=== PATIENT | female | born 1970 | race Caucasian/White ===

== ENCOUNTER 2021-12-07 11:44 | Inpatient (IN) ==
--- NOTE | 2021-12-07 12:23 | Emergency Department Note ---
History of Present Illness General Chief complaint: Shortness of Breath/Dyspnea Time Seen by Provider: 12/07/21 12:09 History of Present Illness 51-year-old female presents to the ED with a chief complaint of shortness of breath. She states that she felt shortness of breath and shakiness when she got to work today. She states that she has had some symptoms like this since May but today was much worse. She does not use home oxygen. She was found to have oxygen saturations of 81% by EMS. The patient does report a cough for the past couple of days as well as some wheezing. She states that she is a smoker but does not have a diagnosis of COPD. She does report some left calf pain for the past 6 weeks or so. Denies any upper respiratory symptoms other than the dry cough to suggest she has an upper respiratory illness. Home Medications Medication Instructions Recorded Confirmed Type ibuprofen 200 mg tablet 200 - 1,000 mg PO DIRECTED PRN 09/09/20 12/02/21 History lancets (Platypus TVTouch UltraSoft #200 ea 02/22/21 12/02/21 Rx Lancets) blood sugar diagnostic (OneTouch #200 ea 12/02/21 12/02/21 Rx Verio test strips) blood-glucose meter (OneTouch #1 ea 12/02/21 12/02/21 Rx Verio Meter) celecoxib 100 mg capsule (Celebrex) 100 mg PO BID #60 cap 12/02/21 12/02/21 Rx cyclobenzaprine 10 mg tablet 10 mg PO BID PRN #30 tab 12/02/21 12/02/21 Rx metformin 500 mg tablet 250 mg PO BID PRN tab 12/02/21 History Allergies Allergy/AdvReac Type Severity Reaction Status Date / Time amoxicillin AdvReac CAUSE A Verified 12/02/21 09:12 YEAST INFECTION Past Med/Surg History Medical History Diabetes Heartburn History of bronchitis Morbid obesity with BMI of 60.0-69.9, adult Osteoarthritis of lumbar spine Tobacco use Surgical History History of mandibular surgery History of tubal ligation Family History Mother Diabetes Heart disease Hypertension Grandmother (Maternal) Diabetes Grandmother (Paternal) Diabetes Brother Diabetes Heart disease Myocardial infarction Abdominal aneurysm Aneurysm artery, neck Hypertension Stroke Sister , Age 56 Diabetes Heart disease Hypertension Father Heart disease Myocardial infarction Hypertension Stroke Aunt Cancer Uncle Cancer Denies family history of Ovarian cancer Prostate cancer Breast cancer Colorectal cancer Social History Smoking Status: Current every day smoker Tobacco Type: Cigarettes Age Started Using Tobacco: 19; packs per day: 1; Second Hand Exposure: Yes; Hx Alcohol Use: Yes Alcohol type: hard liquor Alcohol Intake Frequency: Monthly or Less Hx Substance Use: No Preferred Language: Swiss Communication Ability: Effective Visual Impairment: Limited Hearing Ability: Normal 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 marital status: Current Living Situation: Significant Other Current Living Situation Comment: Boyfriend current occupational status: employed current occupation: [employer] How many Children do You have: 3 How many Children do You have Comment: 2 boys, 1 girl all Grown Feels Safe at Home: Yes Childhood Exposure to Second-Hand Smoke: Yes caffeine: Yes Dental Care, Regularly: No Physical Activity Frequency: Does not Exercise Seatbelt Use: never Sunscreen Use: No Do you think of yourself as: straight/heterosexual Review of Systems A total of 10 systems reviewed and were otherwise negative Physical Exam Vital Signs Vital Signs - 24 hr 12/07/21 11:51 12/07/21 13:00 Temperature 37 C Temperature Source Oral Pulse Rate 99 H 92 H Pulse Rate from SpO2 Sensor 91 H Pulse Rhythm Regular Respiratory Rate 22 Respiratory Effort / Characteristics Non-Labored Spontaneous Respiratory Depth Shallow Respiratory Pattern Regular Blood Pressure 155/89 H 155/89 H Blood Pressure Mean 111 111 Blood Pressure Position Semi-fowlers Pulse Oximetry 81 L 96 Oxygen Delivery Method Room Air Nasal Cannula Oxygen Flow Rate 0 Sepsis Recent Fever Within 48 Hours No Sepsis New/Unexplained Change in Mental Status No Sepsis Action Taken by Nursing No Action Required Oxygen Flow Rate - Titration 6 Pulse Oximetry Post Tiitration 94 CONSTITUTIONAL/VITAL SIGNS: Reviewed / noted above. GENERAL: Non-toxic in appearance. INTEGUMENTARY: Warm, dry, and [place]. HEAD: Normocephalic. EYES: without scleral icterus or trauma. ENT/OROPHARYNX: clear and moist. RESPIRATORY: Clear but diminished to auscultation bilaterally. No increased work of breathing. CARDIOVASCULAR: Regular rate and rhythm. GI/ABDOMEN: Soft and nontender. No organomegaly or pulsatile mass. EXTREMITIES: Warm and well perfused. Left calf tenderness. NEUROLOGICAL: Intact without focal deficits. PSYCHIATRIC: normal affect. MUSCULOSKELETAL: Normally developed with good muscle tone. TRIAGE NURSING DOCUMENTATION REVIEWED. Course Administered Medications Discontinued Medications Ioversol (Optiray 320 125ml) 120 ml IV ONCE ONE Stop: 12/07/21 13:55 Last Admin: 12/07/21 13:56 Dose: 120 ml Documented by: [id number] Critical Care Time Critical Care Time: Yes Total Critical Care Time: 30 I have personally spent 30 minutes of critical care time in the direct management of this patient. This includes bedside care, interpretation of diagnostic studies, and testing, discussion with consultants, patient, and family members, and other required patient management activities. This 30 minutes is in excess of all separately billable procedures. Medical Decision Making Differential Diagnosis The differential was considered includes acute myocardial infarction, acute coronary syndrome, myocarditis, pericarditis, pericardial effusions /tamponad, esophageal perforation, pulmonary embolism, pneumonia, pneumothorax, cardiomyopathy, congestive heart, anemia , COPD/asthma exacerbation. Medical Records Attestation: I reviewed the patient's medical records. Home Medications Current Medication List: was personally reviewed by me Laboratory Data Attestation: I reviewed the patient's lab results. Result diagrams: 12/07/21 12:37 12/07/21 12:37 Lab Results 12/07/21 12/07/21 12/07/21 Range/Units 12:37 12:37 12:37 WBC 13.97 H (4.8-10.8) K/uL RBC 4.54 (4.2-5.4) M/uL Hgb 13.6 (12.0-16.0) g/dL Hct 39.7 (37-47) % MCV 87.4 (80-100) fL MCH 30.0 (25-34) pg MCHC 34.3 (32-36) g/dL RDW Std Deviation 45.7 (36.4-46.3) fL RDW Coeff of Ana 14.3 (11.5-14.5) % Plt Count 212 (130-400) K/uL MPV 9.5 (7.4-10.4) fL Immature Gran % (Auto) 0.3 % Neut % (Auto) 78.2 % Lymph % (Auto) 15.3 % [place] % (Auto) 4.7 % Eos % (Auto) 1.4 % Baso % (Auto) 0.1 % Neut # (Auto) 10.93 H (1.4-6.5) K/uL Lymph # (Auto) 2.14 (1.2-3.4) K/uL [place] # (Auto) 0.66 H (0.11-0.59) K/uL Eos # (Auto) 0.19 (0-0.5) K/uL Baso # (Auto) 0.01 (0-0.2) K/uL Immature Gran # (Auto) 0.04 H (0.00-0.02) K/uL PT 10.2 (9.0-12.0) Seconds INR 1.0 (0.9-1.1) APTT 22.5 (21.0-31.0) Seconds PTT Ratio 0.8 D-Dimer 3020 H* (0-500) ug/L FEU VBG pH (7.36-7.41) VBG pCO2 (38-50) mmHg VBG pO2 mmHg VBG HCO3 mmol/L VBG O2 Saturation % VBG Base Excess mEq/L Barometric Pressure mm/Hg Sodium 138 (136-145) mmol/L Potassium 3.7 (3.5-5.1) mmol/L Chloride 106 (98-107) mmol/L Carbon Dioxide 24 (21-32) mmol/L Anion Gap 8 (3-11) BUN 11 (6-23) mg/dl Creatinine 0.62 (0.6-1.2) mg/dl Est Cr Clr Drug Dosing 174.1 ml/min Est GFR ( Amer) 121.0 ml/min Est GFR (Non-Af Amer) 104.4 ml/min BUN/Creatinine Ratio 17.7 (10-20) Glucose 200 H (70-99(Fasting)) mg/dl Calcium 8.9 (8.5-10.1) mg/dl Total Bilirubin 0.9 (0.2-1.0) mg/dl AST 22 (13-39) U/L ALT 25 (7-52) U/L Alkaline Phosphatase 79 (34-104) U/L Troponin I High Sens 45.6 H (0-14) pg/ml Total Protein 6.7 (6.0-8.3) gm/dl Albumin 3.6 (3.4-5.0) gm/dl Globulin 3.1 (2.5-4.0) gm/dl Albumin/Globulin Ratio 1.2 (0.9-2) SARS-CoV-2, RNA, NAAT (NEGATIVE) 12/07/21 12/07/21 Range/Units 12:37 12:46 WBC (4.8-10.8) K/uL RBC (4.2-5.4) M/uL Hgb (12.0-16.0) g/dL Hct (37-47) % MCV (80-100) fL MCH (25-34) pg MCHC (32-36) g/dL RDW Std Deviation (36.4-46.3) fL RDW Coeff of Ana (11.5-14.5) % Plt Count (130-400) K/uL MPV (7.4-10.4) fL Immature Gran % (Auto) % Neut % (Auto) % Lymph % (Auto) % [place] % (Auto) % Eos % (Auto) % Baso % (Auto) % Neut # (Auto) (1.4-6.5) K/uL Lymph # (Auto) (1.2-3.4) K/uL [place] # (Auto) (0.11-0.59) K/uL Eos # (Auto) (0-0.5) K/uL Baso # (Auto) (0-0.2) K/uL Immature Gran # (Auto) (0.00-0.02) K/uL PT (9.0-12.0) Seconds INR (0.9-1.1) APTT (21.0-31.0) Seconds PTT Ratio D-Dimer (0-500) ug/L FEU VBG pH 7.44 H (7.36-7.41) VBG pCO2 37 L (38-50) mmHg VBG pO2 49 mmHg VBG HCO3 24 mmol/L VBG O2 Saturation 83.8 % VBG Base Excess 0.2 mEq/L Barometric Pressure 734.2 mm/Hg Sodium (136-145) mmol/L Potassium (3.5-5.1) mmol/L Chloride (98-107) mmol/L Carbon Dioxide (21-32) mmol/L Anion Gap (3-11) BUN (6-23) mg/dl Creatinine (0.6-1.2) mg/dl Est Cr Clr Drug Dosing ml/min Est GFR ( Amer) ml/min Est GFR (Non-Af Amer) ml/min BUN/Creatinine Ratio (10-20) Glucose (70-99(Fasting)) mg/dl Calcium (8.5-10.1) mg/dl Total Bilirubin (0.2-1.0) mg/dl AST (13-39) U/L ALT (7-52) U/L Alkaline Phosphatase (34-104) U/L Troponin I High Sens (0-14) pg/ml Total Protein (6.0-8.3) gm/dl Albumin (3.4-5.0) gm/dl Globulin (2.5-4.0) gm/dl Albumin/Globulin Ratio (0.9-2) SARS-CoV-2, RNA, NAAT NEGATIVE (NEGATIVE) Imaging Data Radiologist's Impression: Chest X-Ray 12/07/21 12:09 XR chest 1V portable CLINICAL HISTORY: Dyspnea TECHNIQUE: Single frontal radiograph of the chest was obtained. Comparison: Comparison is made to chest radiograph 03/19/2020 FINDINGS: No lines and tubes are seen. Cardiomegaly is noted. Prominence and cephalization of the vasculature is seen. No evidence of pleural effusion or pneumothorax. IMPRESSION: Mild pulmonary edema. ACT 112: Negative or not required by law. Electronically signed by: Samuel Taylor M.D. 12/07/2021 12:45 PM Chest CTA 12/07/21 12:17 CT angio chest PE protocol CLINICAL HISTORY: sob TECHNIQUE: Multidetector row helical CT of the chest was performed with angiographic protocol. Coronal and sagittal reformations were obtained. Coronal and sagittal MIPS were obtained from the axial data set and were submitted for review. Automated dose lowering techniques and/or adjustment according to patient size were utilized for this exam. CT DOSE: 989.31 mGy.cm Comparison: None available at the time of this dictation. FINDINGS: Lungs and pleura: Normal. Heart and pericardium: Heart size is normal. No pericardial effusion. No right heart strain is seen. Vessels: Pulmonary emboli are seen in lobar, segmental, and subsegmental branches of the right middle, lower, and left lower lobes. Segmental emboli are seen in the left upper lobe as well. Mediastinum and jacky: Unremarkable. Chest wall and lower neck: Unremarkable. Abdomen: Unremarkable. Bones: Degenerative changes in the thoracic spine. IMPRESSION: Extensive pulmonary emboli in all lobes of the lung, involving lobar, segmental, and subsegmental branches. No evidence of right heart strain is seen. ACT 112: Negative or not required by law. Electronically signed by: Samuel Taylor M.D. 12/07/2021 2:11 PM ECG Data Attestation: I personally reviewed and interpreted this ECG as follows: Additional Comments: Twelve-lead EKG: Per my interpretation shows a sinus tach at a rate of 104. No ST elevation. No PVCs. Normal QTC. MDM Narrative 51-year-old female presents with shortness of breath and hypoxia with some left calf pain and a dry cough for 2 days. Vital signs show oxygen saturations of 81% on room air. She has some high blood pressure. Exam reveals some left calf tenderness as well some diminished breath sounds bilaterally. EKG shows a sinus tach. White blood cell count is 13.9. D-dimer was elevated. Metabolic panel was unremarkable. Troponin was elevated slightly at 45. COVID test was negative. VBG was unremarkable. Chest x-ray did not show acute process. CT sc an of the chest shows extensive bilateral PEs. The patient was told the result. She was started on IV heparin. She will be admitted to the hospital for further evaluation and care. Impression & Plan Hypoxia, Bilateral pulmonary embolism Discharge Plan Visit Data Chief Complaint: Shortness of Breath/Dyspnea ED Provider: Gavin Reynolds Discharge Problem: Hypoxia, Bilateral pulmonary embolism Patient Disposition: Admitted As Inpatient Forms Stand Alone Forms: My [facility], Virtual Emergency Department, Important Visit Information Prescriptions Prescriptions: No Action metformin 500 mg tablet 250 mg PO BID PRNRF: 0 (DME) blood-glucose meter [OneTouch Verio Meter] Misc See Rx Instructions .Route Qty: 1 RF: 0 (DME) OneTouch Verio test strips Strip See Rx Instructions .Route Qty: 200 RF: 3 celecoxib [Celebrex] 100 mg capsule 100 mg PO BID Qty: 60 RF: 0 cyclobenzaprine 10 mg tablet 10 mg PO BID PRN (Reason: muscle spasm) Qty: 30 RF: 0 (DME) lancets [OneTouch UltraSoft Lancets] Misc See Rx Instructions .Route Qty: 200 RF: 3 ibuprofen 200 mg Tablet 200 - 1,000 mg PO DIRECTED PRN (Reason: Pain) RF: 0 Referrals Referrals: Wolfgang Alamo DO [Primary Care Provider] -
--- NOTE | 2021-12-07 12:47 | XRay Report ---
XR chest 1V portable CLINICAL HISTORY: Dyspnea TECHNIQUE: Single frontal radiograph of the chest was obtained. Comparison: Comparison is made to chest radiograph 03/19/2020 FINDINGS: No lines and tubes are seen. Cardiomegaly is noted. Prominence and cephalization of the vasculature i s seen. No evidence of pleural effusion or pneumothorax. IMPRESSION: Mild pulmonary edema. ACT 112: Negative or not required by law. Electronically signed by: Samuel Taylor M.D. 12/07/2021 12:45 PM
[2021-12-07 12:52] LABS: Basophils # (auto) 0.01 K/uL (0-0.2); Basophils % (auto) 0.1 %; Eosinophils # (auto) 0.19 K/uL (0-0.5); Eosinophils % (auto) 1.4 %; Hematocrit (blood only) 39.7 % (37-47); Hemoglobin 13.6 g/dL (12.0-16.0); Immature Granulocytes # (auto) 0.04 K/uL (0.00-0.02); Immature Granulocytes % (auto) 0.3 %; Lymphocytes # (auto) 2.14 K/uL (1.2-3.4); Lymphocytes % (auto) 15.3 %; Mean Corpuscular Hgb Conc 34.3 g/dL (32-36); Mean Corpuscular Volume 87.4 fL (80-100); Mean Platelet Volume 9.5 fL (7.4-10.4); Monocytes # (auto) 0.66 K/uL (0.11-0.59); Monocytes % (auto) 4.7 %; Neutrophils # (auto) 10.93 K/uL (1.4-6.5); Neutrophils % (auto) 78.2 %; Platelet Count 212 K/uL (130-400); RDW Coefficient of Variation 14.3 % (11.5-14.5); RDW Standard Deviation 45.7 fL (36.4-46.3); Red Blood Count 4.54 M/uL (4.2-5.4); White Blood Count 13.97 K/uL (4.8-10.8)
[2021-12-07 12:58] LABS: Base Excess VBG 0.2 mEq/L; Oxygen Saturation VBG 83.8 %; pH VBG 7.44 (7.36-7.41)
[2021-12-07 13:06] LABS: Partial Thromboplastin Ratio 0.8; Partial Thromboplastin Time 22.5 Seconds (21.0-31.0); Prothrombin Time 10.2 Seconds (9.0-12.0)
[2021-12-07 13:17] LABS: Albumin Globulin Ratio 1.2 (0.9-2); Albumin Level 3.6 gm/dl (3.4-5.0); BUN Creatinine Ratio 17.7 (10-20); Bilirubin,Total 0.9 mg/dl (0.2-1.0); Calcium 8.9 mg/dl (8.5-10.1); Creatinine Clr Calc Pharmacy 174.1 ml/min; Est GFR (Non-African American) 104.4 ml/min; Globulin 3.1 gm/dl (2.5-4.0); Potassium 3.7 mmol/L (3.5-5.1); Total Protein 6.7 gm/dl (6.0-8.3)
[2021-12-07 13:22] LABS: Troponin I High Sensitivity 45.6 pg/ml (0-14)
[2021-12-07 13:26] LABS: D Dimer 3020 ug/L FEU (0-500)
[2021-12-07] MEDS ORDERED: OPTIRAY 320 125ml IV ONE (13:54)
--- NOTE | 2021-12-07 14:13 | CT Scan Report ---
CT angio chest PE protocol CLINICAL HISTORY: sob TECHNIQUE: Multidetector row helical CT of the chest was performed with angiographic protocol. Garrison l and sagittal reformations were obtained. Coronal and sagittal MIPS were obtained from the axial naomi a set and were submitted for review. Automated dose lowering techniques and/or adjustment according to patient size were utilized for this exam. CT DOSE: 989.31 mGy.cm Comparison: None available at the time of this dictation. FINDINGS: Lungs and pleura: Normal. Heart and pericardium: Heart size is normal. No pericardial effusion. No right heart strain is seen. Vessels: Pulmonary emboli are seen in lobar, segmental, and subsegmental branches of the right middle , lower, and left lower lobes. Segmental emboli are seen in the left upper lobe as well. Mediastinum and jacky: Unremarkable. Chest wall and lower neck: Unremarkable. Abdomen: Unremarkable. Bones: Degenerative changes in the thoracic spine. IMPRESSION: Extensive pulmonary emboli in all lobes of the lung, involving lobar, segmental, and subsegmental bra nches. No evidence of right heart strain is seen. ACT 112: Negative or not required by law. Electronically signed by: Samuel Taylor M.D. 12/07/2021 2:11 PM
[2021-12-07] MEDS ORDERED: Heparin IV Adult Wt-Based Standard WITH Bolus Protocol IV STA (14:19)
[2021-12-07] MEDS ORDERED: HEPARIN SOD (PORCINE) 1000 UNIT/ML IV ONE (14:34)
--- NOTE | 2021-12-07 14:43 | History & Physical Report ---
Date of Service December 07, 2021 Assessment & Plan (1) Bilateral pulmonary embolism: Plan: IV heparin standard bolus and drip. Recommend transitioning to warfarin rather than DOAC due to her high BMI. Recommend at least 6 months of treatment given extensive clot burden. ?provoked from smoking +/- COVID. If she continues to smoke may need prophylaxis longer term. (2) Hypoxia: Plan: Aim O2 sats > 94%, requiring 6LPM O2 on admission Recommend outpatient sleep study for CALEB (3) Diabetes: Plan: Hemoglobin A1C 8.5 Patient just started on metformin outpatient but not yet picked up this medication Start Lantus 8 units BID Novolog: Goal BSG Range: Low 110 mg/dL, High 140 mg/dL Correction Factor: 25 mg/dL/unit Carbohydrate ratio = 12 g/unit BSGs ACHS if eating, q6h if npo (4) Tobacco use disorder: Plan: Nicotine patch 14mg Nicotine gum Plan: VTE Prophylaxis - IV heparin as above Diet - T2DM Disposition - admit to PCU Admission and Anticipated Discharge Date Admission Date: December 07, 2021 History of Present Illness Chief Complaint: Shortness of breath Primary Care Provider: Wolfgang Alamo DO Halina Mason is a 51 year old female admission who presents to the ER with shortness of breath. She reports feeling short of breath just walking from her car to work this morning and couldn't catch her breath so her boss called EMS and brought her to the emergency room. She reports never fully recovering from when she had COVID in May and has been getting progressively short of breath since then but much worse the last few days. She was not hospitalized wi th COV but had cold symptoms and shortness of breath. She denies any chest pain. She also reports left leg pain for the last week, US venous doppler negative at that time for DVT. She was vaccinated with Moderna vaccine in September/October 2020. Did not get booster. She continues to smoke 1 pack/day. No contraceptives or estrogen. No recent long haul journeys. Family history of blood clots with her niece and brother. She is diabetic but stopped metformin 10 months ago per PCP note due to not receiving her glucometer. She was recently prescribed metformin again but is yet to pick this up. In the ER d-dimer was elevated 3020, subsequent CT for PE showed extensive pulmonary emboli. She was started on IV standard heparin bolus and drip and referred to medicine for admission and ongoing management of pulmonary emboli. Allergies Allergy/AdvReac Type Severity Reaction Status Date / Time amoxicillin AdvReac CAUSE A Verified 12/07/21 15:07 YEAST INFECTION Home Medications Medication Instructions Recorded Confirmed Type ibuprofen 200 mg tablet 200 - 1,000 mg PO DIRECTED PRN 09/09/20 12/07/21 History lancets (OneTouch UltraSoft #200 ea 02/22/21 12/02/21 Rx Lancets) blood sugar diagnostic (OneTouch #200 ea 12/02/21 12/02/21 Rx Verio test strips) blood-glucose meter (OneTouch #1 ea 12/02/21 12/02/21 Rx Verio Meter) celecoxib 100 mg capsule (Celebrex) 100 mg PO BID #60 cap 12/02/21 12/07/21 Rx cyclobenzaprine 10 mg tablet 10 mg PO BID PRN #30 tab 12/02/21 12/07/21 Rx metformin 500 mg tablet 250 mg PO BID tab 12/02/21 12/07/21 History Past Med/Surg History Medical History Diabetes Heartburn History of bronchitis Morbid obesity with BMI of 60.0-69.9, adult Osteoarthritis of lumbar spine Tobacco use Surgical History History of mandibular surgery History of tubal ligation Family History Mother Diabetes Heart disease Hypertension Grandmother (Maternal) Diabetes Grandmother (Paternal) Diabetes Brother Diabetes Heart disease Myocardial infarction Abdominal aneurysm Aneurysm artery, neck Hypertension Stroke Sister , Age 56 Diabetes Heart disease Hypertension Father Heart disease Myocardial infarction Hypertension Stroke Aunt Cancer Uncle Cancer Denies family history of Ovarian cancer Prostate cancer Breast cancer Colorectal cancer Social History Smoking Status: Current every day smoker Tobacco Type: Cigarettes Age Started Using Tobacco: 19; packs per day: 1; Cigarettes Per Day: 1 pack a day; Second Hand Exposure: Yes; Do You Dip or Chew Tobacco: No; Tobacco Cessation Education Requested by Patient: Yes Hx Alcohol Use: No Hx Substance Use: No Preferred Language: Iraqi Communication Ability: Effective Visual Impairment: Limited Hearing Ability: Normal 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: No Beliefs That Will Affect Care: None marital status: Current Living Situation: Significant Other Current Living Situation Comment: Boyfriend current occupational status: employed current occupation: [employer] How many Children do You have: 3 How many Children do You have Comment: 2 boys, 1 girl all Grown Other Information That Helps Us Care for You: No Feels Safe at Home: Yes Safety Concerns: Feels Safe At This Time Childhood Exposure to Second-Hand Smoke: Yes caffeine: Yes Dental Care, Regularly: No Physical Activity Frequency: Does not Exercise Seatbelt Use: never Sunscreen Use: No Do you think of yourself as: straight/heterosexual Assistive Devices: Glasses and Oxygen - Continuous Review of Systems Review of Systems: All systems reviewed & are unremarkable except as noted in HPI & below Physical Exam Constitutional: well developed and + morbidly obese; + not well nourished and no acute distress ENMT: Mouth: + poor dentition Respiratory: normal respiratory effort, lungs clear to auscultation Cardiovascular: Rate/Rhythm: regular rate and regular rhythm Heart Sounds: no murmur Extremities: + pedal edema (trace pre-tibial b/l equal) Gastrointestinal (Abdomen): normal bowel sounds, soft, nontender, no hepatosplenomegaly Musculoskeletal: no cyanosis or clubbing, extremities motor strength 5/5 Skin: no rashes, warm and dry Neurologic: moves all extremities and awake; not confused Psychiatric: A+Ox3, euthymic affect Results & Data Results & Data ([facility]) Vital Signs (Past 12 Hours) Vital Signs Temp Pulse Resp BP Pulse Ox 12/07/21 13:00 92 H 22 155/89 H 96 12/07/21 11:51 37 C 99 H 155/89 H 81 L Laboratory Results Abnormal lab results 12/07/21 12/07/21 12/07/21 Range/Units 12:37 12:37 12:37 WBC 13.97 H (4.8-10.8) K/uL Neut # (Auto) 10.93 H (1.4-6.5) K/uL [place] # (Auto) 0.66 H (0.11-0.59) K/uL Immature Gran # (Auto) 0.04 H (0.00-0.02) K/uL APTT (21.0-31.0) Seconds D-Dimer 3020 H* (0-500) ug/L FEU VBG pH (7.36-7.41) VBG pCO2 (38-50) mmHg Glucose 200 H (70-99(Fasting)) mg/dl POC Glucose (70-99) mg/dl Troponin I High Sens 45.6 H (0-14) pg/ml 12/07/21 12/07/21 12/07/21 Range/Units 12:37 20:22 22:28 WBC (4.8-10.8) K/uL Neut # (Auto) (1.4-6.5) K/uL [place] # (Auto) (0.11-0.59) K/uL Immature Gran # (Auto) (0.00-0.02) K/uL APTT 39.4 H (21.0-31.0) Seconds D-Dimer (0-500) ug/L FEU VBG pH 7.44 H (7.36-7.41) VBG pCO2 37 L (38-50) mmHg Glucose (70-99(Fasting)) mg/dl POC Glucose 265 H (70-99) mg/dl Troponin I High Sens (0-14) pg/ml Diagnostic Findings XR chest 1V portable CLINICAL HISTORY: Dyspnea TECHNIQUE: Single frontal radiograph of the chest was obtained. Comparison: Comparison is made to chest radiograph 03/19/2020 FINDINGS: No lines and tubes are seen. Cardiomegaly is noted. Prominence and cephalization of the vasculature is seen. No evidence of pleural effusion or pneumothorax. IMPRESSION: Mild pulmonary edema. CT angio chest PE protocol CLINICAL HISTORY: sob TECHNIQUE: Multidetector row helical CT of the chest was performed with angiographic protocol. Coronal and sagittal reformations were obtained. Coronal and sagittal MIPS were obtained from the axial data set and were submitted for review. Automated dose lowering techniques and/or adjustment according to patient size were utilized for this exam. CT DOSE: 989.31 mGy.cm Comparison: None available at the time of this dictation. FINDINGS: Lungs and pleura: Normal. Heart and pericardium: Heart size is normal. No pericardial effusion. No right heart strain is seen. Vessels: Pulmonary emboli are seen in lobar, segmental, and subsegmental branches of the right middle, lower, and left lower lobes. Segmental emboli are seen in the left upper lobe as well. Mediastinum and jacky: Unremarkable. Chest wall and lower neck: Unremarkable. Abdomen: Unremarkable. Bones: Degenerative changes in the thoracic spine. IMPRESSION: Extensive pulmonary emboli in all lobes of the lung, involving lobar, segmental, and subsegmental branches. No evidence of right heart strain is seen. Medications Administered ER Medications Given: Heparin IV standard bolus and drip ECG Indication: SOB/dyspnea Rate (beats per minute): 104 Rhythm: sinus tachycardia Findings: no acute ischemic change Comparison ECG Date: from (March 19, 2020) Change: no significant change (rate increased) Code Status & VTE Plan Code Status Full VTE Prophylaxis Plan VTE Prophylaxis will be ordered: Yes PG Care Time/CCT Total # of Minutes Spent Total Time Spent with Patient: Total time spent is greater than 50% in coordination of care (as documented) at patient's floor/unit and/or counseling patient: Coding Level of Care Code 15564 Initial Inpt Care Lvl 3 Diagnoses Bilateral pulmonary embolism I26.99 Hypoxia R09.02 Diabetes E11.9 Tobacco use disorder F17.200
[2021-12-07] MEDS: HEPARIN SODIUM/DEXTROSE 25,000 UNITS/500 ML BAG IV SCH (15:21)
--- NOTE | 2021-12-07 17:23 | Electrocardiogram Report ---
Test Reason : Blood Pressure : / mmHG Vent. Rate : 104 BPM Atrial Rate : 104 BPM P-R Int : 166 ms QRS Dur : 082 ms QT Int : 354 ms P-R-T Axes : 057 056 059 degrees QTc Int : 465 ms Poor data quality, interpretation may be adversely affected Sinus tachycardia Otherwise normal ECG When compared with ECG of 19-MAR-2020 16:10, No significant change was found Confirmed by Luisito Mercado ([id number]) on 12/07/2021 5:22:41 PM Referred By: REFERRED SELF Confirmed By:Davide Mercado
[2021-12-07] MEDS: NICOTINE 14 MG/24 HR PATCH TD SCH (18:43)
[2021-12-07] MEDS: NICOTINE POLACRILEX 2 MG GUM MT PRN (19:10)
[2021-12-07] MEDS ORDERED: GLUCOSE 10 TABS/TUBE PO PRN (20:22)
[2021-12-07] MEDS ORDERED: GLUCAGON FOR INJ 1 MG VIAL SQ PRN (20:22)
[2021-12-07] MEDS ORDERED: GLUCOSE 40% GEL 15 GM TUBE PO PRN (20:22)
[2021-12-07] MEDS ORDERED: CARBOHYDRATES FOR HYPOGLYCEMIA PO PRN (20:22)
[2021-12-07] MEDS ORDERED: DEXTROSE 50% 50 ML SYRINGE IV PRN (20:22)
[2021-12-07] MEDS ORDERED: INSULIN GLARGINE SOLOSTAR 100 UNITS/ML 3 ML PEN SC SCH (21:00)
[2021-12-07] MEDS ORDERED: INSULIN ASPART PER UNIT SC SCH (21:00)
[2021-12-07] MEDS: INSULIN ASPART PER UNIT SC SCH ×2 (21:21→21:36)
[2021-12-07] MEDS: INSULIN GLARGINE SOLOSTAR 100 UNITS/ML 3 ML PEN SC SCH ×2 (21:22→21:36)
[2021-12-07 23:07] LABS: Partial Thromboplastin Ratio 1.4; Partial Thromboplastin Time 39.4 Seconds (21.0-31.0)
[2021-12-08] MEDS: HEPARIN SODIUM/DEXTROSE 25,000 UNITS/500 ML BAG IV SCH ×2 (03:24→16:24)
[2021-12-08 05:33] LABS: Basophils # (auto) 0.03 K/uL (0-0.2); Basophils % (auto) 0.3 %; Eosinophils # (auto) 0.31 K/uL (0-0.5); Eosinophils % (auto) 2.7 %; Hematocrit (blood only) 39.6 % (37-47); Hemoglobin 13.1 g/dL (12.0-16.0); Immature Granulocytes # (auto) 0.06 K/uL (0.00-0.02); Immature Granulocytes % (auto) 0.5 %; Lymphocytes % (auto) 26.9 %; Mean Corpuscular Hgb Conc 33.1 g/dL (32-36); Mean Corpuscular Volume 87.6 fL (80-100); Mean Platelet Volume 9.5 fL (7.4-10.4); Monocytes # (auto) 0.69 K/uL (0.11-0.59); Neutrophils # (auto) 7.32 K/uL (1.4-6.5); Neutrophils % (auto) 63.6 %; Platelet Count 210 K/uL (130-400); RDW Coefficient of Variation 14.3 % (11.5-14.5); RDW Standard Deviation 46.3 fL (36.4-46.3); Red Blood Count 4.52 M/uL (4.2-5.4); White Blood Count 11.51 K/uL (4.8-10.8)
[2021-12-08 05:55] LABS: BUN Creatinine Ratio 14.3 (10-20); Calcium 9.1 mg/dl (8.5-10.1); Creatinine Clr Calc Pharmacy 171.3 ml/min; Est GFR (African American) 120.4 ml/min; Est GFR (Non-African American) 103.9 ml/min; Potassium 3.8 mmol/L (3.5-5.1)
[2021-12-08 05:57] LABS: Partial Thromboplastin Ratio 1.9
[2021-12-08] MEDS: NICOTINE 14 MG/24 HR PATCH TD SCH (08:31)
[2021-12-08] MEDS: INSULIN GLARGINE SOLOSTAR 100 UNITS/ML 3 ML PEN SC SCH ×2 (08:32→20:58)
[2021-12-08] MEDS: INSULIN ASPART PER UNIT SC SCH ×4 (08:33→20:59)
[2021-12-08] MEDS: NICOTINE POLACRILEX 2 MG GUM MT PRN ×2 (10:06→17:45)
[2021-12-08] MEDS ORDERED: PERFLUTREN LIPID MICROSPHERE (DEFINITY) IV ONE (10:59)
[2021-12-08] MEDS ORDERED: FUROSEMIDE INJ 20 MG/2 ML VIAL IV ONE (11:24)
[2021-12-08] MEDS ORDERED: POTASSIUM CHLORIDE CRTAB 20 MEQ TABCR PO STA (11:25)
--- NOTE | 2021-12-08 11:31 | Hospitalist Progress Note ---
Date of Service December 08, 2021 Assessment & Plan (1) Bilateral pulmonary embolism: Plan: Bilateral pulmonary emboli secondary to right lower extremity deep vein thrombosis in popliteal and posterior tibial veins Risk factors are obesity, recent COVID infection, smoking. Stands and is inactive all day at work. COuld have underlying malignancy also as never had colonoscopy screening--> recommend COlogard as outpt until safe to undergo colonoscopy from anticoagulation standpoint Hasn't had pap smear in many years-recommend this as outpt ROD is UTD on mammogram and has not noted any breast masses or nipple discharge Check HCG-negative With mildly elevated troponin, extensive bilateral PEs. No evidence of right heart strain on CT but does have pulmonary edema. Is requiring 6 L nasal cannula Check bilat DOpplers given RLE pain now and ongoing LLE pain-shows RLE DVT in popliteal and posterior tibial veins check ECHO-LV function normal, study technically difficult due to body habitus grade 2 diastolic dysfunction, not able to estimate pulmonary pressures trend troponin-repeat troponin down slightly to 43 with pulm edema on CXR--> give lasix 20mg IV x 1 now replace KCl along with lasix monitor on tele IV heparin standard bolus and drip. Recommend transitioning to warfarin rather than DOAC due to her high BMI. STart coumadin 10mg daily today Follow INR in the morning will need f/u with anticog clinic counseled on smoking cessation-plan to start Chantix at discharge at her request Recommend at least 6 months of treatment given extensive clot burden. -Recommend cancer screenings as above (2) Hypoxia: Plan: Aim O2 sats > 94%, requiring 6LPM O2 on admission Recommend outpatient sleep study for CALEB Wean off O2 as able to (3) Diabetes: Plan: Hemoglobin A1C 8.5 Patient just started on metformin outpatient but not yet picked up this medication continue Lantus 8 units BID Novolog: Goal BSG Range: Low 110 mg/dL, High 140 mg/dL Correction Factor: 25 mg/dL/unit Carbohydrate ratio = 12 g/unit BSGs ACHS if eating, q6h if npo (4) Tobacco use disorder: Plan: Nicotine patch 14mg Nicotine gum wants to try Chantix on discharge (5) Acute DVT (deep venous thrombosis): Plan: As noted above (6) Morbid obesity with BMI of 60.0-69.9, adult: Plan: BMI 59.1 Needs a tremendous amount of weight loss Plan: Disposition -continued stay on PCU, will likely need to stay admitted until INR therapeutic as her weight is too high for Lovenox but will discuss with anticoagulation physician Admission and Anticipated Discharge Date Admission Date: December 07, 2021 Subjective Patient reports worsening pain in the right calf especially and ongoing pain for a week now on the left leg for which she had a previous Doppler as an outpatient prior to admission-this was negative for DVT at the time. She still feels short of breath with minimal ambulation. Had chest pains last night but these are now resolved. No nausea or abdominal pains. She has no bleeding from anywhere. She admits that she is many years overdue for a Pap smear, and has never had a colonoscopy. 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 hCG checked today and is negative. She denies any rectal bleeding, no hematuria. 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 She continues to smoke but wants to quit and is asking about Chantix. Review of Systems Review of Systems: All systems reviewed & are unremarkable except as noted in HPI & below Physical Exam Constitutional: WD/WN, vitals as above + morbidly obese Eyes: PERRL, conjunctivae normal, anicteric sclerae ENMT: Ears: no hearing impairment and no external ear abnormality Mouth: + poor dentition Neck: trachea midline, no thyromegaly Respiratory: normal respiratory effort, lungs clear to auscultation Cardiovascular: Rate/Rhythm: regular rate and regular rhythm Heart Sounds: no murmur Extremities: + calf tenderness and + edema (1+ edema bilaterally in legs) Chest (Breasts): Chest: normal inspection of chest Gastrointestinal (Abdomen): normal bowel sounds, soft, nontender, no hepatosplenomegaly Musculoskeletal: Extremities: no cyanosis and no clubbing Skin: no rashes, warm and dry Neurologic: moves all extremities and awake; no focal motor deficits Psychiatric: A+Ox3, euthymic affect Results & Data Results & Data ([facility]) Vital Signs (Past 12 Hours) Vital Signs Temp Pulse Pulse Resp BP Pulse Ox 12/08/21 07:30 36.5 C 77 20 122/79 96 12/08/21 07:21 74 12/08/21 02:50 36.7 C 84 18 138/86 96 Laboratory Results 12/08/21 12/08/21 12/08/21 Range/Units 16:15 11:45 11:42 WBC (4.8-10.8) K/uL RBC (4.2-5.4) M/uL Hgb (12.0-16.0) g/dL Hct (37-47) % MCV (80-100) fL MCH (25-34) pg MCHC (32-36) g/dL RDW Std Deviation (36.4-46.3) fL RDW Coeff of Ana (11.5-14.5) % Plt Count (130-400) K/uL MPV (7.4-10.4) fL Immature Gran % (Auto) % Neut % (Auto) % Lymph % (Auto) % [place] % (Auto) % Eos % (Auto) % Baso % (Auto) % Neut # (Auto) (1.4-6.5) K/uL Lymph # (Auto) (1.2-3.4) K/uL [place] # (Auto) (0.11-0.59) K/uL Eos # (Auto) (0-0.5) K/uL Baso # (Auto) (0-0.2) K/uL Immature Gran # (Auto) (0.00-0.02) K/uL APTT (21.0-31.0) Seconds PTT Ratio Sodium (136-145) mmol/L Potassium (3.5-5.1) mmol/L Chloride (98-107) mmol/L Carbon Dioxide (21-32) mmol/L Anion Gap (3-11) BUN (6-23) mg/dl Creatinine (0.6-1.2) mg/dl Est Cr Clr Drug Dosing ml/min Est GFR ( Amer) ml/min Est GFR (Non-Af Amer) ml/min BUN/Creatinine Ratio (10-20) Glucose (70-99(Fasting)) mg/dl POC Glucose 165 H 143 H (70-99) mg/dl Calcium (8.5-10.1) mg/dl Troponin I High Sens (0-14) pg/ml HCG, Qual Negative (Negative) 12/08/21 12/08/21 12/08/21 Range/Units 07:35 05:14 05:14 WBC (4.8-10.8) K/uL RBC (4.2-5.4) M/uL Hgb (12.0-16.0) g/dL Hct (37-47) % MCV (80-100) fL MCH (25-34) pg MCHC (32-36) g/dL RDW Std Deviation (36.4-46.3) fL RDW Coeff of Ana (11.5-14.5) % Plt Count (130-400) K/uL MPV (7.4-10.4) fL Immature Gran % (Auto) % Neut % (Auto) % Lymph % (Auto) % [place] % (Auto) % Eos % (Auto) % Baso % (Auto) % Neut # (Auto) (1.4-6.5) K/uL Lymph # (Auto) (1.2-3.4) K/uL [place] # (Auto) (0.11-0.59) K/uL Eos # (Auto) (0-0.5) K/uL Baso # (Auto) (0-0.2) K/uL Immature Gran # (Auto) (0.00-0.02) K/uL APTT 51.0 H* (21.0-31.0) Seconds PTT Ratio 1.9 Sodium (136-145) mmol/L Potassium (3.5-5.1) mmol/L Chloride (98-107) mmol/L Carbon Dioxide (21-32) mmol/L Anion Gap (3-11) BUN (6-23) mg/dl Creatinine (0.6-1.2) mg/dl Est Cr Clr Drug Dosing ml/min Est GFR ( Amer) ml/min Est GFR (Non-Af Amer) ml/min BUN/Creatinine Ratio (10-20) Glucose (70-99(Fasting)) mg/dl POC Glucose 170 H (70-99) mg/dl Calcium (8.5-10.1) mg/dl Troponin I High Sens 43.5 H (0-14) pg/ml HCG, Qual (Negative) 12/08/21 12/08/21 12/07/21 Range/Units 05:14 05:14 22:28 WBC 11.51 H (4.8-10.8) K/uL RBC 4.52 (4.2-5.4) M/uL Hgb 13.1 (12.0-16.0) g/dL Hct 39.6 (37-47) % MCV 87.6 (80-100) fL MCH 29.0 (25-34) pg MCHC 33.1 (32-36) g/dL RDW Std Deviation 46.3 (36.4-46.3) fL RDW Coeff of Ana 14.3 (11.5-14.5) % Plt Count 210 (130-400) K/uL MPV 9.5 (7.4-10.4) fL Immature Gran % (Auto) 0.5 % Neut % (Auto) 63.6 % Lymph % (Auto) 26.9 % [place] % (Auto) 6.0 % Eos % (Auto) 2.7 % Baso % (Auto) 0.3 % Neut # (Auto) 7.32 H (1.4-6.5) K/uL Lymph # (Auto) 3.10 (1.2-3.4) K/uL [place] # (Auto) 0.69 H (0.11-0.59) K/uL Eos # (Auto) 0.31 (0-0.5) K/uL Baso # (Auto) 0.03 (0-0.2) K/uL Immature Gran # (Auto) 0.06 H (0.00-0.02) K/uL APTT 39.4 H (21.0-31.0) Seconds PTT Ratio 1.4 Sodium 137 (136-145) mmol/L Potassium 3.8 (3.5-5.1) mmol/L Chloride 105 (98-107) mmol/L Carbon Dioxide 24 (21-32) mmol/L Anion Gap 8 (3-11) BUN 9 (6-23) mg/dl Creatinine 0.63 (0.6-1.2) mg/dl Est Cr Clr Drug Dosing 171.3 ml/min Est GFR ( Amer) 120.4 ml/min Est GFR (Non-Af Amer) 103.9 ml/min BUN/Creatinine Ratio 14.3 (10-20) Glucose 167 H (70-99(Fasting)) mg/dl POC Glucose (70-99) mg/dl Calcium 9.1 (8.5-10.1) mg/dl Troponin I High Sens (0-14) pg/ml HCG, Qual (Negative) 12/07/21 Range/Units 20:22 WBC (4.8-10.8) K/uL RBC (4.2-5.4) M/uL Hgb (12.0-16.0) g/dL Hct (37-47) % MCV (80-100) fL MCH (25-34) pg MCHC (32-36) g/dL RDW Std Deviation (36.4-46.3) fL RDW Coeff of Ana (11.5-14.5) % Plt Count (130-400) K/uL MPV (7.4-10.4) fL Immature Gran % (Auto) % Neut % (Auto) % Lymph % (Auto) % [place] % (Auto) % Eos % (Auto) % Baso % (Auto) % Neut # (Auto) (1.4-6.5) K/uL Lymph # (Auto) (1.2-3.4) K/uL [place] # (Auto) (0.11-0.59) K/uL Eos # (Auto) (0-0.5) K/uL Baso # (Auto) (0-0.2) K/uL Immature Gran # (Auto) (0.00-0.02) K/uL APTT (21.0-31.0) Seconds PTT Ratio Sodium (136-145) mmol/L Potassium (3.5-5.1) mmol/L Chloride (98-107) mmol/L Carbon Dioxide (21-32) mmol/L Anion Gap (3-11) BUN (6-23) mg/dl Creatinine (0.6-1.2) mg/dl Est Cr Clr Drug Dosing ml/min Est GFR ( Amer) ml/min Est GFR (Non-Af Amer) ml/min BUN/Creatinine Ratio (10-20) Glucose (70-99(Fasting)) mg/dl POC Glucose 265 H (70-99) mg/dl Calcium (8.5-10.1) mg/dl Troponin I High Sens (0-14) pg/ml HCG, Qual (Negative) Diagnostic Findings Venous Doppler Study 06/16/22 11:24 ULTRASOUND BILATERAL LOWER EXTREMITY VENOUS CLINICAL HISTORY: Pulmonary embolus. Leg pain. COMPARISON STUDY: Left lower extremity venous ultrasound dated 12/02/2021. TECHNIQUE: Real-time, grayscale, and color Doppler sonography of the deep veins of the right and left lower extremity was performed from the inguinal crease to the calf. Compression and augmentation were utilized. FINDINGS: Right lower extremity: There is nearly occlusive deep venous thrombosis in the distal right popliteal vein extending into the calf within the posterior tibial vein. The remaining calf vessels are patent as visualized. The common femoral and superficial femoral vein are patent and normally compressible. The greater saphenous vein and the profunda femoris vein at the junction with the common femoral vein are clear. Left lower extremity: There is no sonographic evidence of deep venous thrombosis in the left lower extremity. The common femoral, superficial femoral, and popliteal veins are patent and normally compressible. The greater saphenous vein and the profunda femoris vein at the junction with the common femoral vein are clear. The visualized calf veins are patent. IMPRESSION: 1. Right lower extremity deep venous thrombosis within the popliteal vein. This extends into the calf within the posterior tibial vein. 2. There is no sonographic evidence of deep venous thrombosis in the left lower extremity. ACT 112: Negative or not required by law. Electronically signed by: Merlin Pacheco M.D. 12/08/2021 2:18 PM PG Care Time/CCT Total # of Minutes Spent Total Time Spent with Patient: Total time spent is greater than 50% in coordination of care (as documented) at patient's floor/unit and/or counseling patient: Coding Level of Care Code 76528 Subseq Hosp Care Lvl 3 Diagnoses Bilateral pulmonary embolism I26.99 Hypoxia R09.02 Diabetes E11.9 Tobacco use disorder F17.200 Acute DVT (deep venous thrombosis) I82.409 Morbid obesity with BMI of 60.0-69.9, adult E66.01; Z68.44
[2021-12-08 12:25] LABS: Pregnancy Test, Serum Negative (Negative)
--- NOTE | 2021-12-08 12:54 | Electrocardiogram Report ---
Test Reason : Blood Pressure : / mmHG Vent. Rate : 083 BPM Atrial Rate : 083 BPM P-R Int : 164 ms QRS Dur : 086 ms QT Int : 398 ms P-R-T Axes : 072 061 071 degrees QTc Int : 467 ms Normal sinus rhythm Normal ECG When compared with ECG of 07-DEC-2021 11:51, No significant change was found Confirmed by Luisito Mercado ([id number]) on 12/08/2021 12:54:37 PM Referred By: REFERRED SELF Confirmed By:Davide Mercado
--- NOTE | 2021-12-08 14:19 | Ultrasound Report ---
ULTRASOUND BILATERAL LOWER EXTREMITY VENOUS CLINICAL HISTORY: Pulmonary embolus. Leg pain. COMPARISON STUDY: Left lower extremity venous ultrasound dated 12/02/2021. TECHNIQUE: Real-time, grayscale, and color Doppler sonography of the deep veins of the right and left lower extremity was performed from the inguinal crease to the calf. Compression and augmentation wer e utilized. FINDINGS: Right lower extremity: There is nearly occlusive deep venous thrombosis in the distal right popliteal vein extending into the calf within the posterior tibial vein. The remaining calf vessels are patent as visualized. The common femoral and superficial femoral vein are patent and normally compressible. The greater saphenous vein and the profunda femoris vein at the junction with the common femoral vei n are clear. Left lower extremity: There is no sonographic evidence of deep venous thrombosis in the left lower ex tremity. The common femoral, superficial femoral, and popliteal veins are patent and normally brianna sible. The greater saphenous vein and the profunda femoris vein at the junction with the common femor al vein are clear. The visualized calf veins are patent. IMPRESSION: 1. Right lower extremity deep venous thrombosis within the popliteal vein. This extends into the calf within the posterior tibial vein. 2. There is no sonographic evidence of deep venous thrombosis in the left lower extremity. ACT 112: Negative or not required by law. Electronically signed by: Merlin Pacheco M.D. 12/08/2021 2:18 PM
[2021-12-08] MEDS: WARFARIN SOD 10 MG TAB PO SCH (16:25)
--- NOTE | 2021-12-08 18:44 | XCELERA ---
[id number]
[2021-12-09] MEDS: HEPARIN SODIUM/DEXTROSE 25,000 UNITS/500 ML BAG IV SCH ×2 (05:35→17:57)
[2021-12-09 06:28] LABS: Basophils # (auto) 0.02 K/uL (0-0.2); Basophils % (auto) 0.2 %; Eosinophils # (auto) 0.33 K/uL (0-0.5); Eosinophils % (auto) 3.1 %; Hematocrit (blood only) 38.3 % (37-47); Hemoglobin 12.7 g/dL (12.0-16.0); Immature Granulocytes # (auto) 0.06 K/uL (0.00-0.02); Immature Granulocytes % (auto) 0.6 %; Lymphocytes % (auto) 24.4 %; Mean Corpuscular Hemoglobin 29.3 pg (25-34); Mean Corpuscular Hgb Conc 33.2 g/dL (32-36); Mean Corpuscular Volume 88.2 fL (80-100); Mean Platelet Volume 9.8 fL (7.4-10.4); Monocytes # (auto) 0.64 K/uL (0.11-0.59); Neutrophils % (auto) 65.7 %; Platelet Count 216 K/uL (130-400); RDW Coefficient of Variation 14.3 % (11.5-14.5); RDW Standard Deviation 46.8 fL (36.4-46.3); Red Blood Count 4.34 M/uL (4.2-5.4); White Blood Count 10.65 K/uL (4.8-10.8)
[2021-12-09 06:54] LABS: Partial Thromboplastin Ratio 1.8; Prothrombin Time 10.8 Seconds (9.0-12.0)
[2021-12-09 06:56] LABS: Est GFR (Non-African American) 101.8 ml/min; Potassium 3.9 mmol/L (3.5-5.1)
[2021-12-09 06:57] LABS: BUN Creatinine Ratio 17.9 (10-20); Calcium 8.7 mg/dl (8.5-10.1); Creatinine Clr Calc Pharmacy 159.5 ml/min; Magnesium 1.8 mg/dl (1.7-2.4)
[2021-12-09 07:08] LABS: Partial Thromboplastin Time 49.3 Seconds (21.0-31.0)
[2021-12-09] MEDS: NICOTINE 14 MG/24 HR PATCH TD SCH (08:10)
[2021-12-09] MEDS: INSULIN GLARGINE SOLOSTAR 100 UNITS/ML 3 ML PEN SC SCH ×2 (08:46→20:28)
[2021-12-09] MEDS: INSULIN ASPART PER UNIT SC SCH ×4 (08:46→20:28)
--- NOTE | 2021-12-09 16:27 | Hospitalist Progress Note ---
Date of Service December 09, 2021 Assessment & Plan (1) Bilateral pulmonary embolism: Plan: Bilateral pulmonary emboli secondary to right lower extremity deep vein thrombosis in popliteal and posterior tibial veins Risk factors are obesity, recent COVID infection, smoking. Stands and is inactive all day at work. COuld have underlying malignancy also as never had colonoscopy screening--> recommend COlogard as outpt until safe to undergo colonoscopy from anticoagulation standpoint Hasn't had pap smear in many years-recommend this as outpt ROD is UTD on mammogram and has not noted any breast masses or nipple discharge Check HCG-negative With mildly elevated troponin, extensive bilateral PEs. No evidence of right heart strain on CT but does have pulmonary edema. Was initially requiring 6 LNC O2, now weaned down to 5L Bilat Dopplers given RLE pain ongoing LLE pain-shows RLE DVT in popliteal and posterior tibial veins ECHO-LV function normal, study technically difficult due to body habitus grade 2 diastolic dysfunction, not able to estimate pulmonary pressures trended troponin-repeat troponin down slightly to 43 with pulm edema on CXR--> gave lasix 20mg IV x 1 monitor on tele-remains NSR, BPs stable Continue IV heparin drip Recommend AC w/ warfarin rather than DOAC due to her high BMI. -continue coumadin 10mg daily again today and then go down to 7.mg tomorrow Follow INR in the morning-today 1.0 will need f/u with anticoag clinic counseled on smoking cessation-plan to start Chantix at discharge at her request Recommend at least 6 months of treatment given extensive clot burden. -Recommend cancer screenings as above (2) Hypoxia: Plan: Aim O2 sats > 94%, requiring 6LPM O2 on admission and now weaning down Recommend outpatient sleep study for CALEB Wean off O2 as able to (3) Diabetes: Plan: Hemoglobin A1C 8.5 Patient just started on metformin outpatient but not yet picked up this medication continue Lantus 8 units BID Novolog: Goal BSG Range: Low 110 mg/dL, High 140 mg/dL Correction Factor: 25 mg/dL/unit Carbohydrate ratio = 12 g/unit BSGs ACHS if eating, q6h if npo (4) Tobacco use disorder: Plan: Nicotine patch 14mg Nicotine gum wants to try Chantix on discharge-no interaction with Coumadin (5) Acute DVT (deep venous thrombosis): Plan: As noted above (6) Morbid obesity with BMI of 60.0-69.9, adult: Plan: BMI 59.1 Needs a tremendous amount of weight loss Plan: Disposition -continued stay on PCU, will likely need to stay admitted until INR therapeutic as her weight is too high for Lovenox but will discuss with anticoagulation physician Admission and Anticipated Discharge Date Admission Date: December 07, 2021 Subjective Pt reports less SOB, is weaned down to 5LNC. No chest pains. Pain in calf still present but no worse. Wants to know if she can walk around a bit. Tele with NSR, rates 70s Review of Systems Review of Systems: All systems reviewed & are unremarkable except as noted in HPI & below Physical Exam Constitutional: WD/WN, vitals as above + morbidly obese Eyes: + anicteric sclerae ENMT: Ears: no hearing impairment and no external ear abnormality Mouth: + poor dentition Neck: trachea midline, no thyromegaly Respiratory: normal respiratory effort, lungs clear to auscultation Cardiovascular: Rate/Rhythm: regular rate and regular rhythm Heart Sounds: no murmur Extremities: + calf tenderness and + edema (1+ edema bilaterally in legs) Chest (Breasts): Chest: normal inspection of chest Gastrointestinal (Abdomen): normal bowel sounds, soft, nontender, no hepatosplenomegaly Musculoskeletal: Extremities: no cyanosis and no clubbing Skin: no rashes, warm and dry Neurologic: moves all extremities and awake; no focal motor deficits Psychiatric: A+Ox3, euthymic affect Results & Data Results & Data ([facility]) Vital Signs (Past 12 Hours) Vital Signs Temp Pulse Pulse Resp BP Pulse Ox 12/09/21 16:08 36.6 C 73 20 121/73 97 12/09/21 11:21 36.4 C L 72 20 128/83 94 12/09/21 10:24 76 12/09/21 07:30 37.0 C 87 19 157/85 H 93 Laboratory Results 12/09/21 12/09/21 12/09/21 Range/Units 11:23 07:29 05:39 WBC (4.8-10.8) K/uL RBC (4.2-5.4) M/uL Hgb (12.0-16.0) g/dL Hct (37-47) % MCV (80-100) fL MCH (25-34) pg MCHC (32-36) g/dL RDW Std Deviation (36.4-46.3) fL RDW Coeff of Ana (11.5-14.5) % Plt Count (130-400) K/uL MPV (7.4-10.4) fL Immature Gran % (Auto) % Neut % (Auto) % Lymph % (Auto) % [place] % (Auto) % Eos % (Auto) % Baso % (Auto) % Neut # (Auto) (1.4-6.5) K/uL Lymph # (Auto) (1.2-3.4) K/uL [place] # (Auto) (0.11-0.59) K/uL Eos # (Auto) (0-0.5) K/uL Baso # (Auto) (0-0.2) K/uL Immature Gran # (Auto) (0.00-0.02) K/uL PT (9.0-12.0) Seconds INR (0.9-1.1) APTT (21.0-31.0) Seconds PTT Ratio Sodium 137 (136-145) mmol/L Potassium 3.9 (3.5-5.1) mmol/L Chloride 104 (98-107) mmol/L Carbon Dioxide 26 (21-32) mmol/L Anion Gap 7 (3-11) BUN 12 (6-23) mg/dl Creatinine 0.67 (0.6-1.2) mg/dl Est Cr Clr Drug Dosing 159.5 ml/min Est GFR ( Amer) 118.0 ml/min Est GFR (Non-Af Amer) 101.8 ml/min BUN/Creatinine Ratio 17.9 (10-20) Glucose 167 H (70-99(Fasting)) mg/dl POC Glucose 205 H 172 H (70-99) mg/dl Calcium 8.7 (8.5-10.1) mg/dl Magnesium 1.8 (1.7-2.4) mg/dl 12/09/21 12/09/21 12/08/21 Range/Units 05:39 05:39 20:45 WBC 10.65 (4.8-10.8) K/uL RBC 4.34 (4.2-5.4) M/uL Hgb 12.7 (12.0-16.0) g/dL Hct 38.3 (37-47) % MCV 88.2 (80-100) fL MCH 29.3 (25-34) pg MCHC 33.2 (32-36) g/dL RDW Std Deviation 46.8 H (36.4-46.3) fL RDW Coeff of Ana 14.3 (11.5-14.5) % Plt Count 216 (130-400) K/uL MPV 9.8 (7.4-10.4) fL Immature Gran % (Auto) 0.6 % Neut % (Auto) 65.7 % Lymph % (Auto) 24.4 % [place] % (Auto) 6.0 % Eos % (Auto) 3.1 % Baso % (Auto) 0.2 % Neut # (Auto) 7.00 H (1.4-6.5) K/uL Lymph # (Auto) 2.60 (1.2-3.4) K/uL [place] # (Auto) 0.64 H (0.11-0.59) K/uL Eos # (Auto) 0.33 (0-0.5) K/uL Baso # (Auto) 0.02 (0-0.2) K/uL Immature Gran # (Auto) 0.06 H (0.00-0.02) K/uL PT 10.8 (9.0-12.0) Seconds INR 1.0 (0.9-1.1) APTT 49.3 H* (21.0-31.0) Seconds PTT Ratio 1.8 Sodium (136-145) mmol/L Potassium (3.5-5.1) mmol/L Chloride (98-107) mmol/L Carbon Dioxide (21-32) mmol/L Anion Gap (3-11) BUN (6-23) mg/dl Creatinine (0.6-1.2) mg/dl Est Cr Clr Drug Dosing ml/min Est GFR ( Amer) ml/min Est GFR (Non-Af Amer) ml/min BUN/Creatinine Ratio (10-20) Glucose (70-99(Fasting)) mg/dl POC Glucose 144 H (70-99) mg/dl Calcium (8.5-10.1) mg/dl Magnesium (1.7-2.4) mg/dl PG Care Time/CCT Total # of Minutes Spent Total Time Spent with Patient: Total time spent is greater than 50% in coordination of care (as documented) at patient's floor/unit and/or counseling patient: Coding Level of Care Code 76169 Subseq Hosp Care Lvl 3 Diagnoses Bilateral pulmonary embolism I26.99 Hypoxia R09.02 Diabetes E11.9 Tobacco use disorder F17.200 Acute DVT (deep venous thrombosis) I82.409 Morbid obesity with BMI of 60.0-69.9, adult E66.01; Z68.44
[2021-12-09] MEDS: WARFARIN SOD 10 MG TAB PO SCH (17:12)
[2021-12-09] MEDS: NICOTINE POLACRILEX 2 MG GUM MT PRN (22:32)
[2021-12-10] MEDS: HEPARIN SODIUM/DEXTROSE 25,000 UNITS/500 ML BAG IV SCH ×2 (06:51→20:38)
[2021-12-10 07:48] LABS: Basophils # (auto) 0.02 K/uL (0-0.2); Basophils % (auto) 0.2 %; Eosinophils # (auto) 0.31 K/uL (0-0.5); Eosinophils % (auto) 3.2 %; Hematocrit (blood only) 37.6 % (37-47); Hemoglobin 12.7 g/dL (12.0-16.0); Immature Granulocytes # (auto) 0.04 K/uL (0.00-0.02); Immature Granulocytes % (auto) 0.4 %; Lymphocytes # (auto) 2.42 K/uL (1.2-3.4); Lymphocytes % (auto) 24.7 %; Mean Corpuscular Hemoglobin 29.6 pg (25-34); Mean Corpuscular Hgb Conc 33.8 g/dL (32-36); Mean Corpuscular Volume 87.6 fL (80-100); Mean Platelet Volume 9.8 fL (7.4-10.4); Monocytes # (auto) 0.56 K/uL (0.11-0.59); Monocytes % (auto) 5.7 %; Neutrophils # (auto) 6.46 K/uL (1.4-6.5); Neutrophils % (auto) 65.8 %; Platelet Count 212 K/uL (130-400); RDW Coefficient of Variation 14.3 % (11.5-14.5); Red Blood Count 4.29 M/uL (4.2-5.4); White Blood Count 9.81 K/uL (4.8-10.8)
[2021-12-10] MEDS: INSULIN ASPART PER UNIT SC SCH ×4 (07:50→20:38)
[2021-12-10] MEDS: INSULIN GLARGINE SOLOSTAR 100 UNITS/ML 3 ML PEN SC SCH ×2 (07:51→20:38)
[2021-12-10] MEDS: NICOTINE 14 MG/24 HR PATCH TD SCH (07:55)
[2021-12-10 08:13] LABS: BUN Creatinine Ratio 16.4 (10-20); Creatinine Clr Calc Pharmacy 175.2 ml/min; Est GFR (African American) 121.7 ml/min; Magnesium 1.9 mg/dl (1.7-2.4); Potassium 3.9 mmol/L (3.5-5.1)
[2021-12-10 08:22] LABS: INR 1.1 (0.9-1.1); Partial Thromboplastin Ratio 1.8; Prothrombin Time 11.2 Seconds (9.0-12.0)
[2021-12-10 08:33] LABS: Partial Thromboplastin Time 48.2 Seconds (21.0-31.0)
[2021-12-10] MEDS ORDERED: FUROSEMIDE INJ 20 MG/2 ML VIAL IV ONE (09:49)
--- NOTE | 2021-12-10 09:52 | Hospitalist Progress Note ---
Date of Service December 10, 2021 Assessment & Plan (1) Bilateral pulmonary embolism: Plan: Bilateral pulmonary emboli secondary to right lower extremity deep vein thrombosis in popliteal and posterior tibial veins Risk factors are obesity, recent COVID infection, smoking. 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 Could have underlying malignancy also as never had colonoscopy screening--> recommend Cologard as outpt until safe to undergo colonoscopy from anticoagulation standpoint Hasn't had pap smear in many years-recommend this as outpt ROD Is UTD on mammogram and has not noted any breast masses or nipple discharge Checked HCG-negative With mildly elevated troponin, extensive bilateral PEs. No evidence of right heart strain on CT but does have pulmonary edema. Was initially requiring 6 LNC O2, now weaned down to 3L Bilat Dopplers given RLE pain ongoing LLE pain-shows RLE DVT in popliteal and posterior tibial veins ECHO-LV function normal, study technically difficult due to body habitus grade 2 diastolic dysfunction, not able to estimate pulmonary pressures trended troponin-repeat troponin down slightly to 43 with pulm edema on CXR--> gave lasix 20mg IV x 1 monitor on tele-remains NSR, BPs stable With some orthopnea today---> give another dose of lasix 20mg IV x 1 Continue IV heparin drip Recommend AC w/ warfarin rather than DOAC due to her high BMI. -continue coumadin --> received 10mg daily x 2 doses, now today go down to 7.5mg Follow INR in the morning-today 1.1 will need f/u with anticoag clinic counseled on smoking cessation-plan to start Chantix at discharge at her request Recommend at least 6 months of treatment given extensive clot burden. -Recommend cancer screenings as above (2) Hypoxia: Plan: Aim O2 sats > 94%, requiring 6LPM O2 on admission and now weaning down to 3LNC Recommend outpatient sleep study for CALEB Wean off O2 as able to -add ICS (3) Diabetes: Plan: Hemoglobin A1C 8.5 Patient just started on metformin outpatient but not yet picked up this medication continue Lantus 8 units BID Novolog: Goal BSG Range: Low 110 mg/dL, High 140 mg/dL Correction Factor: 25 mg/dL/unit Carbohydrate ratio = 12 g/unit BSGs ACHS (4) Tobacco use disorder: Plan: Nicotine patch 14mg Nicotine gum wants to try Chantix on discharge-no interaction with Coumadin (5) Acute DVT (deep venous thrombosis): Plan: As noted above (6) Morbid obesity with BMI of 60.0-69.9, adult: Plan: BMI 59.1 Needs a tremendous amount of weight loss Plan: Disposition -continued stay on PCU, will likely need to stay admitted until INR therapeutic as her weight is too high for Lovenox but will discuss with anticoagulation physician on Sunday if INR not therapeutic by then Admission and Anticipated Discharge Date Admission Date: December 07, 2021 Subjective Pt had episode at 0500 where she was woken from sleep and felt pressure around her heart and SOB. [place] much better with sitting upright and coughing up some clear sputum. No further CP or SOB now, is stitting on side of bed playing on her cell phone. Moved her bowels today, non blood. Making plenty of urine, no dysuria. Is weaned down to 3LNC Tele with NSR, normal rates Review of Systems Review of Systems: All systems reviewed & are unremarkable except as noted in HPI & below Physical Exam Constitutional: WD/WN, vitals as above + morbidly obese Eyes: + anicteric sclerae ENMT: Ears: no hearing impairment and no external ear abnormality Mouth: + poor dentition Neck: trachea midline, no thyromegaly Respiratory: normal respiratory effort, lungs clear to auscultation Cardiovascular: Rate/Rhythm: regular rate and regular rhythm Heart Sounds: no murmur Extremities: + calf tenderness and + edema (1+ edema bilaterally in legs) Chest (Breasts): Chest: normal inspection of chest Gastrointestinal (Abdomen): normal bowel sounds, soft, nontender, no hepatosplenomegaly Musculoskeletal: Extremities: no cyanosis and no clubbing Skin: no rashes, warm and dry Neurologic: moves all extremities and awake; no focal motor deficits Psychiatric: A+Ox3, euthymic affect Results & Data Results & Data ([facility]) Vital Signs (Past 12 Hours) Vital Signs Temp Pulse Pulse Pulse Resp BP Pulse Ox 12/10/21 09:08 71 12/10/21 07:58 36.5 C 81 22 154/81 H 95 12/10/21 03:32 36.6 C 75 17 147/85 H 96 12/09/21 23:51 36.6 C 88 20 143/90 H 93 Laboratory Results 12/10/21 12/10/21 12/10/21 Range/Units 07:04 07:04 07:04 WBC 9.81 (4.8-10.8) K/uL RBC 4.29 (4.2-5.4) M/uL Hgb 12.7 (12.0-16.0) g/dL Hct 37.6 (37-47) % MCV 87.6 (80-100) fL MCH 29.6 (25-34) pg MCHC 33.8 (32-36) g/dL RDW Std Deviation 46.0 (36.4-46.3) fL RDW Coeff of Ana 14.3 (11.5-14.5) % Plt Count 212 (130-400) K/uL MPV 9.8 (7.4-10.4) fL Immature Gran % (Auto) 0.4 % Neut % (Auto) 65.8 % Lymph % (Auto) 24.7 % [place] % (Auto) 5.7 % Eos % (Auto) 3.2 % Baso % (Auto) 0.2 % Neut # (Auto) 6.46 (1.4-6.5) K/uL Lymph # (Auto) 2.42 (1.2-3.4) K/uL [place] # (Auto) 0.56 (0.11-0.59) K/uL Eos # (Auto) 0.31 (0-0.5) K/uL Baso # (Auto) 0.02 (0-0.2) K/uL Immature Gran # (Auto) 0.04 H (0.00-0.02) K/uL PT 11.2 (9.0-12.0) Seconds INR 1.1 (0.9-1.1) APTT 48.2 H* (21.0-31.0) Seconds PTT Ratio 1.8 Sodium 137 (136-145) mmol/L Potassium 3.9 (3.5-5.1) mmol/L Chloride 103 (98-107) mmol/L Carbon Dioxide 27 (21-32) mmol/L Anion Gap 7 (3-11) BUN 10 (6-23) mg/dl Creatinine 0.61 (0.6-1.2) mg/dl Est Cr Clr Drug Dosing 175.2 ml/min Est GFR ( Amer) 121.7 ml/min Est GFR (Non-Af Amer) 105.0 ml/min BUN/Creatinine Ratio 16.4 (10-20) Glucose 154 H (70-99(Fasting)) mg/dl POC Glucose (70-99) mg/dl Calcium 9.0 (8.5-10.1) mg/dl Magnesium 1.9 (1.7-2.4) mg/dl 12/10/21 12/09/21 12/09/21 Range/Units 06:58 19:50 16:29 WBC (4.8-10.8) K/uL RBC (4.2-5.4) M/uL Hgb (12.0-16.0) g/dL Hct (37-47) % MCV (80-100) fL MCH (25-34) pg MCHC (32-36) g/dL RDW Std Deviation (36.4-46.3) fL RDW Coeff of Ana (11.5-14.5) % Plt Count (130-400) K/uL MPV (7.4-10.4) fL Immature Gran % (Auto) % Neut % (Auto) % Lymph % (Auto) % [place] % (Auto) % Eos % (Auto) % Baso % (Auto) % Neut # (Auto) (1.4-6.5) K/uL Lymph # (Auto) (1.2-3.4) K/uL [place] # (Auto) (0.11-0.59) K/uL Eos # (Auto) (0-0.5) K/uL Baso # (Auto) (0-0.2) K/uL Immature Gran # (Auto) (0.00-0.02) K/uL PT (9.0-12.0) Seconds INR (0.9-1.1) APTT (21.0-31.0) Seconds PTT Ratio Sodium (136-145) mmol/L Potassium (3.5-5.1) mmol/L Chloride (98-107) mmol/L Carbon Dioxide (21-32) mmol/L Anion Gap (3-11) BUN (6-23) mg/dl Creatinine (0.6-1.2) mg/dl Est Cr Clr Drug Dosing ml/min Est GFR ( Amer) ml/min Est GFR (Non-Af Amer) ml/min BUN/Creatinine Ratio (10-20) Glucose (70-99(Fasting)) mg/dl POC Glucose 149 H 168 H 128 H (70-99) mg/dl Calcium (8.5-10.1) mg/dl Magnesium (1.7-2.4) mg/dl 12/09/21 Range/Units 11:23 WBC (4.8-10.8) K/uL RBC (4.2-5.4) M/uL Hgb (12.0-16.0) g/dL Hct (37-47) % MCV (80-100) fL MCH (25-34) pg MCHC (32-36) g/dL RDW Std Deviation (36.4-46.3) fL RDW Coeff of Ana (11.5-14.5) % Plt Count (130-400) K/uL MPV (7.4-10.4) fL Immature Gran % (Auto) % Neut % (Auto) % Lymph % (Auto) % [place] % (Auto) % Eos % (Auto) % Baso % (Auto) % Neut # (Auto) (1.4-6.5) K/uL Lymph # (Auto) (1.2-3.4) K/uL [place] # (Auto) (0.11-0.59) K/uL Eos # (Auto) (0-0.5) K/uL Baso # (Auto) (0-0.2) K/uL Immature Gran # (Auto) (0.00-0.02) K/uL PT (9.0-12.0) Seconds INR (0.9-1.1) APTT (21.0-31.0) Seconds PTT Ratio Sodium (136-145) mmol/L Potassium (3.5-5.1) mmol/L Chloride (98-107) mmol/L Carbon Dioxide (21-32) mmol/L Anion Gap (3-11) BUN (6-23) mg/dl Creatinine (0.6-1.2) mg/dl Est Cr Clr Drug Dosing ml/min Est GFR ( Amer) ml/min Est GFR (Non-Af Amer) ml/min BUN/Creatinine Ratio (10-20) Glucose (70-99(Fasting)) mg/dl POC Glucose 205 H (70-99) mg/dl Calcium (8.5-10.1) mg/dl Magnesium (1.7-2.4) mg/dl PG Care Time/CCT Total # of Minutes Spent Total Time Spent with Patient: Total time spent is greater than 50% in coordination of care (as documented) at patient's floor/unit and/or counseling patient: Coding Level of Care Code 39535 Subseq Hosp Care Lvl 3 Diagnoses Bilateral pulmonary embolism I26.99 Hypoxia R09.02 Diabetes E11.9 Tobacco use disorder F17.200 Acute DVT (deep venous thrombosis) I82.409 Morbid obesity with BMI of 60.0-69.9, adult E66.01; Z68.44
[2021-12-10] MEDS: WARFARIN SOD 7.5 MG TAB PO SCH (17:06)
[2021-12-11 07:25] LABS: Basophils # (auto) 0.02 K/uL (0-0.2); Basophils % (auto) 0.2 %; Eosinophils # (auto) 0.36 K/uL (0-0.5); Eosinophils % (auto) 3.7 %; Hematocrit (blood only) 39.7 % (37-47); Hemoglobin 13.1 g/dL (12.0-16.0); Immature Granulocytes # (auto) 0.05 K/uL (0.00-0.02); Immature Granulocytes % (auto) 0.5 %; Lymphocytes # (auto) 2.67 K/uL (1.2-3.4); Lymphocytes % (auto) 27.2 %; Mean Corpuscular Hemoglobin 29.4 pg (25-34); Mean Corpuscular Volume 89.2 fL (80-100); Mean Platelet Volume 9.6 fL (7.4-10.4); Monocytes # (auto) 0.58 K/uL (0.11-0.59); Monocytes % (auto) 5.9 %; Neutrophils # (auto) 6.15 K/uL (1.4-6.5); Neutrophils % (auto) 62.5 %; Platelet Count 213 K/uL (130-400); RDW Coefficient of Variation 14.4 % (11.5-14.5); RDW Standard Deviation 47.1 fL (36.4-46.3); Red Blood Count 4.45 M/uL (4.2-5.4); White Blood Count 9.83 K/uL (4.8-10.8)
[2021-12-11 07:52] LABS: BUN Creatinine Ratio 17.9 (10-20); Calcium 9.3 mg/dl (8.5-10.1); Creatinine Clr Calc Pharmacy 136.1 ml/min; Potassium 4.2 mmol/L (3.5-5.1)
[2021-12-11 07:54] LABS: INR 1.2 (0.9-1.1); Partial Thromboplastin Ratio 2.3; Prothrombin Time 12.8 Seconds (9.0-12.0)
[2021-12-11 07:56] LABS: Partial Thromboplastin Time 64.1 Seconds (21.0-31.0)
[2021-12-11] MEDS: INSULIN ASPART PER UNIT SC SCH ×4 (08:04→20:56)
[2021-12-11] MEDS: INSULIN GLARGINE SOLOSTAR 100 UNITS/ML 3 ML PEN SC SCH ×2 (08:04→20:56)
[2021-12-11] MEDS: NICOTINE 14 MG/24 HR PATCH TD SCH (08:11)
[2021-12-11] MEDS: NICOTINE POLACRILEX 2 MG GUM MT PRN (09:39)
[2021-12-11] MEDS: HEPARIN SODIUM/DEXTROSE 25,000 UNITS/500 ML BAG IV SCH ×2 (11:54→23:22)
[2021-12-11] MEDS ORDERED: SODIUM CHLORIDE 0.65% NA SOLN 45 ML (OCEAN) PRN (15:52)
--- NOTE | 2021-12-11 15:59 | Hospitalist Progress Note ---
Date of Service December 11, 2021 Assessment & Plan (1) Bilateral pulmonary embolism: Plan: Bilateral pulmonary emboli secondary to right lower extremity deep vein thrombosis in popliteal and posterior tibial veins Risk factors are obesity, recent COVID infection, smoking. 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 Could have underlying malignancy also as never had colonoscopy screening--> recommend Cologard as outpt until safe to undergo colonoscopy from anticoagulation standpoint Hasn't had pap smear in many years-recommend this as outpt ROD Is UTD on mammogram and has not noted any breast masses or nipple discharge Checked HCG-negative With mildly elevated troponin, extensive bilateral PEs. No evidence of right heart strain on CT but does have pulmonary edema. Was initially requiring 6 LNC O2, now weaned down to room air at rest Bilat Dopplers given RLE pain ongoing LLE pain-shows RLE DVT in popliteal and posterior tibial veins ECHO-LV function normal, study technically difficult due to body habitus grade 2 diastolic dysfunction, not able to estimate pulmonary pressures trended troponin-repeat troponin down slightly to 43 with pulm edema on CXR--> gave lasix 20mg IV x 2 monitor on tele-remains NSR, BPs stable Continue IV heparin drip Recommend AC w/ warfarin rather than DOAC due to her high BMI. -continue coumadin --> received 10mg daily x 2 doses, now 7.5mg daily Follow INR in the morning-today is up to 1.2 will need f/u with anticoag clinic counseled on smoking cessation-plan to start Chantix at discharge at her request Recommend at least 6 months of treatment given extensive clot burden. -Recommend cancer screenings as above -add nasal saline and advised not to blow nose for mild epistaxis (2) Hypoxia: Plan: Aim O2 sats > 94%, requiring 6LPM O2 on admission and now weaned off to room air at rest Recommend outpatient sleep study for CALEB -continue ICS -advised to ambulate with POx and see if will need O2 with exertion (3) Diabetes: Plan: Hemoglobin A1C 8.5 Patient just started on metformin outpatient but not yet picked up this medication continue Lantus 8 units BID Novolog: Goal BSG Range: Low 110 mg/dL, High 140 mg/dL Correction Factor: 25 mg/dL/unit Carbohydrate ratio = 12 g/unit BSGs ACHS (4) Tobacco use disorder: Plan: Nicotine patch 14mg Nicotine gum wants to try Chantix on discharge-no interaction with Coumadin (5) Acute DVT (deep venous thrombosis): Plan: As noted above (6) Morbid obesity with BMI of 60.0-69.9, adult: Plan: BMI 59.1 Needs a tremendous amount of weight loss Plan: Disposition -continued stay on PCU, will likely need to stay admitted until INR therapeutic as her weight is too high for Lovenox but will discuss with anticoagulation physician on Sunday if INR not therapeutic by then Admission and Anticipated Discharge Date Admission Date: December 07, 2021 Subjective Pt reports a little bit of bleeding from her nose with blowing her nose today. Otherwise is weaned down to room air. Denies SOB with exertion in room but wants to try to walk around in halls. Still some pain in right calf. Tele with NSR, normal rates Review of Systems Review of Systems: All systems reviewed & are unremarkable except as noted in HPI & below Physical Exam Constitutional: WD/WN, vitals as above + morbidly obese Eyes: + anicteric sclerae ENMT: Ears: no hearing impairment and no external ear abnormality Mouth: + poor dentition Neck: trachea midline, no thyromegaly Respiratory: normal respiratory effort, lungs clear to auscultation Cardiovascular: Rate/Rhythm: regular rate and regular rhythm Heart Sounds: no murmur Extremities: + calf tenderness and + edema (1+ edema bilaterally in legs) Chest (Breasts): Chest: normal inspection of chest Gastrointestinal (Abdomen): normal bowel sounds, soft, nontender, no hepatosplenomegaly Musculoskeletal: Extremities: no cyanosis and no clubbing Skin: no rashes, warm and dry Neurologic: moves all extremities and awake; no focal motor deficits Psychiatric: A+Ox3, euthymic affect Results & Data Results & Data ([facility]) Vital Signs (Past 12 Hours) Vital Signs Temp Pulse Pulse Pulse Resp BP Pulse Ox 12/11/21 15:30 36.5 C 77 18 136/85 95 12/11/21 10:31 36.5 C 73 18 151/90 H 95 12/11/21 09:49 59 L 12/11/21 07:34 36.7 C 76 18 140/78 96 12/11/21 04:33 92 Laboratory Results 12/11/21 12/11/21 12/11/21 Range/Units 11:11 07:18 06:39 WBC (4.8-10.8) K/uL RBC (4.2-5.4) M/uL Hgb (12.0-16.0) g/dL Hct (37-47) % MCV (80-100) fL MCH (25-34) pg MCHC (32-36) g/dL RDW Std Deviation (36.4-46.3) fL RDW Coeff of Ana (11.5-14.5) % Plt Count (130-400) K/uL MPV (7.4-10.4) fL Immature Gran % (Auto) % Neut % (Auto) % Lymph % (Auto) % [place] % (Auto) % Eos % (Auto) % Baso % (Auto) % Neut # (Auto) (1.4-6.5) K/uL Lymph # (Auto) (1.2-3.4) K/uL [place] # (Auto) (0.11-0.59) K/uL Eos # (Auto) (0-0.5) K/uL Baso # (Auto) (0-0.2) K/uL Immature Gran # (Auto) (0.00-0.02) K/uL PT 12.8 H (9.0-12.0) Seconds INR 1.2 H (0.9-1.1) APTT 64.1 H* (21.0-31.0) Seconds PTT Ratio 2.3 Sodium (136-145) mmol/L Potassium (3.5-5.1) mmol/L Chloride (98-107) mmol/L Carbon Dioxide (21-32) mmol/L Anion Gap (3-11) BUN (6-23) mg/dl Creatinine (0.6-1.2) mg/dl Est Cr Clr Drug Dosing ml/min Est GFR ( Amer) ml/min Est GFR (Non-Af Amer) ml/min BUN/Creatinine Ratio (10-20) Glucose (70-99(Fasting)) mg/dl POC Glucose 148 H 153 H (70-99) mg/dl Calcium (8.5-10.1) mg/dl 12/11/21 12/11/21 12/10/21 Range/Units 06:39 06:39 20:07 WBC 9.83 (4.8-10.8) K/uL RBC 4.45 (4.2-5.4) M/uL Hgb 13.1 (12.0-16.0) g/dL Hct 39.7 (37-47) % MCV 89.2 (80-100) fL MCH 29.4 (25-34) pg MCHC 33.0 (32-36) g/dL RDW Std Deviation 47.1 H (36.4-46.3) fL RDW Coeff of Ana 14.4 (11.5-14.5) % Plt Count 213 (130-400) K/uL MPV 9.6 (7.4-10.4) fL Immature Gran % (Auto) 0.5 % Neut % (Auto) 62.5 % Lymph % (Auto) 27.2 % [place] % (Auto) 5.9 % Eos % (Auto) 3.7 % Baso % (Auto) 0.2 % Neut # (Auto) 6.15 (1.4-6.5) K/uL Lymph # (Auto) 2.67 (1.2-3.4) K/uL [place] # (Auto) 0.58 (0.11-0.59) K/uL Eos # (Auto) 0.36 (0-0.5) K/uL Baso # (Auto) 0.02 (0-0.2) K/uL Immature Gran # (Auto) 0.05 H (0.00-0.02) K/uL PT (9.0-12.0) Seconds INR (0.9-1.1) APTT (21.0-31.0) Seconds PTT Ratio Sodium 137 (136-145) mmol/L Potassium 4.2 (3.5-5.1) mmol/L Chloride 101 (98-107) mmol/L Carbon Dioxide 31 (21-32) mmol/L Anion Gap 5 (3-11) BUN 14 (6-23) mg/dl Creatinine 0.78 (0.6-1.2) mg/dl Est Cr Clr Drug Dosing 136.1 ml/min Est GFR ( Amer) 102.0 ml/min Est GFR (Non-Af Amer) 88.0 ml/min BUN/Creatinine Ratio 17.9 (10-20) Glucose 151 H (70-99(Fasting)) mg/dl POC Glucose 133 H (70-99) mg/dl Calcium 9.3 (8.5-10.1) mg/dl 12/10/21 Range/Units 16:29 WBC (4.8-10.8) K/uL RBC (4.2-5.4) M/uL Hgb (12.0-16.0) g/dL Hct (37-47) % MCV (80-100) fL MCH (25-34) pg MCHC (32-36) g/dL RDW Std Deviation (36.4-46.3) fL RDW Coeff of Ana (11.5-14.5) % Plt Count (130-400) K/uL MPV (7.4-10.4) fL Immature Gran % (Auto) % Neut % (Auto) % Lymph % (Auto) % [place] % (Auto) % Eos % (Auto) % Baso % (Auto) % Neut # (Auto) (1.4-6.5) K/uL Lymph # (Auto) (1.2-3.4) K/uL [place] # (Auto) (0.11-0.59) K/uL Eos # (Auto) (0-0.5) K/uL Baso # (Auto) (0-0.2) K/uL Immature Gran # (Auto) (0.00-0.02) K/uL PT (9.0-12.0) Seconds INR (0.9-1.1) APTT (21.0-31.0) Seconds PTT Ratio Sodium (136-145) mmol/L Potassium (3.5-5.1) mmol/L Chloride (98-107) mmol/L Carbon Dioxide (21-32) mmol/L Anion Gap (3-11) BUN (6-23) mg/dl Creatinine (0.6-1.2) mg/dl Est Cr Clr Drug Dosing ml/min Est GFR ( Amer) ml/min Est GFR (Non-Af Amer) ml/min BUN/Creatinine Ratio (10-20) Glucose (70-99(Fasting)) mg/dl POC Glucose 130 H (70-99) mg/dl Calcium (8.5-10.1) mg/dl PG Care Time/CCT Total # of Minutes Spent Total Time Spent with Patient: Total time spent is greater than 50% in coordination of care (as documented) at patient's floor/unit and/or counseling patient: Coding Level of Care Code 66078 Subseq Hosp Care Lvl 3 Diagnoses Bilateral pulmonary embolism I26.99 Hypoxia R09.02 Diabetes E11.9 Tobacco use disorder F17.200 Acute DVT (deep venous thrombosis) I82.409 Morbid obesity with BMI of 60.0-69.9, adult E66.01; Z68.44
[2021-12-11] MEDS: WARFARIN SOD 7.5 MG TAB PO SCH (17:01)
[2021-12-12 06:26] LABS: Basophils # (auto) 0.02 K/uL (0-0.2); Basophils % (auto) 0.2 %; Eosinophils # (auto) 0.38 K/uL (0-0.5); Eosinophils % (auto) 3.8 %; Hematocrit (blood only) 40.6 % (37-47); Hemoglobin 13.3 g/dL (12.0-16.0); Immature Granulocytes # (auto) 0.05 K/uL (0.00-0.02); Immature Granulocytes % (auto) 0.5 %; Lymphocytes # (auto) 2.51 K/uL (1.2-3.4); Lymphocytes % (auto) 25.2 %; Mean Corpuscular Hemoglobin 28.7 pg (25-34); Mean Corpuscular Hgb Conc 32.8 g/dL (32-36); Mean Corpuscular Volume 87.5 fL (80-100); Mean Platelet Volume 9.5 fL (7.4-10.4); Monocytes # (auto) 0.59 K/uL (0.11-0.59); Monocytes % (auto) 5.9 %; Neutrophils # (auto) 6.43 K/uL (1.4-6.5); Neutrophils % (auto) 64.4 %; Platelet Count 218 K/uL (130-400); RDW Coefficient of Variation 14.6 % (11.5-14.5); RDW Standard Deviation 46.9 fL (36.4-46.3); Red Blood Count 4.64 M/uL (4.2-5.4); White Blood Count 9.98 K/uL (4.8-10.8)
[2021-12-12 06:51] LABS: BUN Creatinine Ratio 18.7 (10-20); Calcium 9.2 mg/dl (8.5-10.1); Creatinine Clr Calc Pharmacy 140.8 ml/min; Est GFR (Non-African American) 92.3 ml/min; Potassium 3.9 mmol/L (3.5-5.1)
[2021-12-12 07:04] LABS: INR 1.3 (0.9-1.1); Partial Thromboplastin Ratio 2.7; Prothrombin Time 13.8 Seconds (9.0-12.0)
[2021-12-12 07:07] LABS: Partial Thromboplastin Time 73.3 Seconds (21.0-31.0)
[2021-12-12] MEDS: INSULIN ASPART PER UNIT SC SCH ×4 (08:25→21:04)
[2021-12-12] MEDS: INSULIN GLARGINE SOLOSTAR 100 UNITS/ML 3 ML PEN SC SCH ×2 (08:26→21:03)
[2021-12-12] MEDS: NICOTINE 14 MG/24 HR PATCH TD SCH (08:26)
--- NOTE | 2021-12-12 10:52 | Hospitalist Progress Note ---
Date of Service December 12, 2021 Assessment & Plan (1) Bilateral pulmonary embolism: Plan: Bilateral pulmonary emboli secondary to right lower extremity deep vein thrombosis in popliteal and posterior tibial veins Risk factors are obesity, recent COVID infection, smoking. 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 Could have underlying malignancy also as never had colonoscopy screening--> recommend Cologard as outpt until safe to undergo colonoscopy from anticoagulation standpoint Hasn't had pap smear in many years-recommend this as outpt ROD-discussed with patient Is UTD on mammogram and has not noted any breast masses or nipple discharge Checked HCG-negative With mildly elevated troponin, extensive bilateral PEs. No evidence of right heart strain on CT but does have pulmonary edema. Was initially requiring 6 LNC O2, now weaned down to 2LNC at rest Bilat Dopplers w/ RLE DVT in popliteal and posterior tibial veins ECHO-LV function normal, study technically difficult due to body habitus grade 2 diastolic dysfunction, not able to estimate pulmonary pressures trended troponin-repeat troponin down slightly to 43 with pulm edema on CXR--> gave lasix 20mg IV x 2 monitor on tele-remains NSR, BPs stable Continue IV heparin drip Recommend AC w/ warfarin rather than DOAC due to her high BMI. Discussed with Dr. Santamaria of anticoag clinic -continue coumadin --> received 10mg daily x 2 doses, then 7.5mg daily x 2 doses--> INR only 1.3 -increase Coumadin to 15mg daily on 12/12 Follow INR in the morning will need f/u with anticoag clinic-Dr. Santamaria can work her into her schedule on this week-Nurse Daryl will get appt scheduled at time of discharge -AC says would be ok to transition to Lovenox 160mg SQ bid (would use 2 x 80mg syringes bid) for bridging at home ONLY IF INR much closer to being therapeutic i.e. 1.8 -counseled on smoking cessation-plan to start Chantix at discharge at her request -Recommend at least 6 months of treatment given extensive clot burden. -Recommend cancer screenings as above -added nasal saline and advised not to blow nose for mild epistaxis (2) Hypoxia: Plan: Aim O2 sats > 94%, requiring 6LPM O2 on admission and now weaned to 2LNC at rest Recommend outpatient sleep study for CALEB -continue ICS -advised to ambulate with POx and see if will need O2 with exertion -will need 2 step prior to discharge (3) Diabetes: Plan: Hemoglobin A1C 8.5 Patient just Rxd metformin outpatient but had not yet picked up this medication With hyperglycemia here Increase Lantus to 10 units BID Lower Novolog CF to 20, continue CR 12 (4) Tobacco use disorder: Plan: Nicotine patch 14mg Nicotine gum wants to try Chantix on discharge-no interaction with Coumadin (5) Acute DVT (deep venous thrombosis): Plan: As noted above (6) Morbid obesity with BMI of 60.0-69.9, adult: Plan: BMI 59.1 Needs a tremendous amount of weight loss Plan: Disposition -continued stay on PCU, will likely need to stay admitted until INR closer to being therapeutic and then bridge with Lovenox as above Admission and Anticipated Discharge Date Admission Date: December 07, 2021 Subjective Pt did have some hypoxia with ambulating yesterdya and had to be placed back on O2. Remains on 2 LNC now. Still a small amount of epistaxis just with nose blowing. No CP, no SOB at rest. Still some right calf pain. No other complaints. I discussed her care with Dr. Santamaria of clinic. Tele with NSR, normal rates Review of Systems Review of Systems: All systems reviewed & are unremarkable except as noted in HPI & below Physical Exam Constitutional: WD/WN, vitals as above + morbidly obese Eyes: + anicteric sclerae ENMT: Ears: no hearing impairment and no external ear abnormality Mouth: + poor dentition Neck: trachea midline, no thyromegaly Respiratory: normal respiratory effort, lungs clear to auscultation Cardiovascular: Rate/Rhythm: regular rate and regular rhythm Heart Sounds: no murmur Extremities: + calf tenderness and + edema (1+ edema bilaterally in legs) Chest (Breasts): Chest: normal inspection of chest Gastrointestinal (Abdomen): normal bowel sounds, soft, nontender, no hepatosplenomegaly Musculoskeletal: Extremities: no cyanosis and no clubbing Skin: no rashes, warm and dry Neurologic: moves all extremities and awake; no focal motor deficits Psychiatric: A+Ox3, euthymic affect Results & Data Results & Data ([facility]) Vital Signs (Past 12 Hours) Vital Signs Temp Pulse Resp BP Pulse Ox 12/12/21 08:30 36.7 C 70 20 132/76 97 12/12/21 03:38 37.1 C 18 130/81 95 12/11/21 23:14 36.6 C 75 17 117/75 97 Laboratory Results 12/12/21 12/12/21 12/12/21 Range/Units 08:24 06:04 06:04 WBC 9.98 (4.8-10.8) K/uL RBC 4.64 (4.2-5.4) M/uL Hgb 13.3 (12.0-16.0) g/dL Hct 40.6 (37-47) % MCV 87.5 (80-100) fL MCH 28.7 (25-34) pg MCHC 32.8 (32-36) g/dL RDW Std Deviation 46.9 H (36.4-46.3) fL RDW Coeff of Ana 14.6 H (11.5-14.5) % Plt Count 218 (130-400) K/uL MPV 9.5 (7.4-10.4) fL Immature Gran % (Auto) 0.5 % Neut % (Auto) 64.4 % Lymph % (Auto) 25.2 % [place] % (Auto) 5.9 % Eos % (Auto) 3.8 % Baso % (Auto) 0.2 % Neut # (Auto) 6.43 (1.4-6.5) K/uL Lymph # (Auto) 2.51 (1.2-3.4) K/uL [place] # (Auto) 0.59 (0.11-0.59) K/uL Eos # (Auto) 0.38 (0-0.5) K/uL Baso # (Auto) 0.02 (0-0.2) K/uL Immature Gran # (Auto) 0.05 H (0.00-0.02) K/uL PT (9.0-12.0) Seconds INR (0.9-1.1) APTT (21.0-31.0) Seconds PTT Ratio Sodium 135 L (136-145) mmol/L Potassium 3.9 (3.5-5.1) mmol/L Chloride 101 (98-107) mmol/L Carbon Dioxide 26 (21-32) mmol/L Anion Gap 8 (3-11) BUN 14 (6-23) mg/dl Creatinine 0.75 (0.6-1.2) mg/dl Est Cr Clr Drug Dosing 140.8 ml/min Est GFR ( Amer) 107.0 ml/min Est GFR (Non-Af Amer) 92.3 ml/min BUN/Creatinine Ratio 18.7 (10-20) Glucose 200 H (70-99(Fasting)) mg/dl POC Glucose 225 H (70-99) mg/dl Calcium 9.2 (8.5-10.1) mg/dl 12/12/21 12/11/21 12/11/21 Range/Units 06:04 20:29 16:15 WBC (4.8-10.8) K/uL RBC (4.2-5.4) M/uL Hgb (12.0-16.0) g/dL Hct (37-47) % MCV (80-100) fL MCH (25-34) pg MCHC (32-36) g/dL RDW Std Deviation (36.4-46.3) fL RDW Coeff of Ana (11.5-14.5) % Plt Count (130-400) K/uL MPV (7.4-10.4) fL Immature Gran % (Auto) % Neut % (Auto) % Lymph % (Auto) % [place] % (Auto) % Eos % (Auto) % Baso % (Auto) % Neut # (Auto) (1.4-6.5) K/uL Lymph # (Auto) (1.2-3.4) K/uL [place] # (Auto) (0.11-0.59) K/uL Eos # (Auto) (0-0.5) K/uL Baso # (Auto) (0-0.2) K/uL Immature Gran # (Auto) (0.00-0.02) K/uL PT 13.8 H (9.0-12.0) Seconds INR 1.3 H (0.9-1.1) APTT 73.3 H* (21.0-31.0) Seconds PTT Ratio 2.7 Sodium (136-145) mmol/L Potassium (3.5-5.1) mmol/L Chloride (98-107) mmol/L Carbon Dioxide (21-32) mmol/L Anion Gap (3-11) BUN (6-23) mg/dl Creatinine (0.6-1.2) mg/dl Est Cr Clr Drug Dosing ml/min Est GFR ( Amer) ml/min Est GFR (Non-Af Amer) ml/min BUN/Creatinine Ratio (10-20) Glucose (70-99(Fasting)) mg/dl POC Glucose 142 H 135 H (70-99) mg/dl Calcium (8.5-10.1) mg/dl 12/11/21 Range/Units 11:11 WBC (4.8-10.8) K/uL RBC (4.2-5.4) M/uL Hgb (12.0-16.0) g/dL Hct (37-47) % MCV (80-100) fL MCH (25-34) pg MCHC (32-36) g/dL RDW Std Deviation (36.4-46.3) fL RDW Coeff of Ana (11.5-14.5) % Plt Count (130-400) K/uL MPV (7.4-10.4) fL Immature Gran % (Auto) % Neut % (Auto) % Lymph % (Auto) % [place] % (Auto) % Eos % (Auto) % Baso % (Auto) % Neut # (Auto) (1.4-6.5) K/uL Lymph # (Auto) (1.2-3.4) K/uL [place] # (Auto) (0.11-0.59) K/uL Eos # (Auto) (0-0.5) K/uL Baso # (Auto) (0-0.2) K/uL Immature Gran # (Auto) (0.00-0.02) K/uL PT (9.0-12.0) Seconds INR (0.9-1.1) APTT (21.0-31.0) Seconds PTT Ratio Sodium (136-145) mmol/L Potassium (3.5-5.1) mmol/L Chloride (98-107) mmol/L Carbon Dioxide (21-32) mmol/L Anion Gap (3-11) BUN (6-23) mg/dl Creatinine (0.6-1.2) mg/dl Est Cr Clr Drug Dosing ml/min Est GFR ( Amer) ml/min Est GFR (Non-Af Amer) ml/min BUN/Creatinine Ratio (10-20) Glucose (70-99(Fasting)) mg/dl POC Glucose 148 H (70-99) mg/dl Calcium (8.5-10.1) mg/dl PG Care Time/CCT Total # of Minutes Spent Total Time Spent with Patient: Total time spent is greater than 50% in coordination of care (as documented) at patient's floor/unit and/or counseling patient: Coding Level of Care Code 15817 Subseq Hosp Care Lvl 3 Diagnoses Bilateral pulmonary embolism I26.99 Hypoxia R09.02 Diabetes E11.9 Tobacco use disorder F17.200 Acute DVT (deep venous thrombosis) I82.409 Morbid obesity with BMI of 60.0-69.9, adult E66.01; Z68.44
[2021-12-12 13:52] LABS: Partial Thromboplastin Ratio 1.9
[2021-12-12 14:06] LABS: Partial Thromboplastin Time 52.3 Seconds (21.0-31.0)
[2021-12-12] MEDS: WARFARIN SOD 7.5 MG TAB PO SCH (16:58)
[2021-12-13] MEDS: NICOTINE POLACRILEX 2 MG GUM MT PRN
[2021-12-13] MEDS: HEPARIN SODIUM/DEXTROSE 25,000 UNITS/500 ML BAG IV SCH ×2 (01:53→19:08)
[2021-12-13 07:30] LABS: Basophils # (auto) 0.02 K/uL (0-0.2); Basophils % (auto) 0.2 %; Eosinophils # (auto) 0.34 K/uL (0-0.5); Eosinophils % (auto) 3.5 %; Hematocrit (blood only) 41.2 % (37-47); Hemoglobin 13.4 g/dL (12.0-16.0); Immature Granulocytes # (auto) 0.04 K/uL (0.00-0.02); Immature Granulocytes % (auto) 0.4 %; Lymphocytes # (auto) 2.66 K/uL (1.2-3.4); Mean Corpuscular Hemoglobin 28.5 pg (25-34); Mean Corpuscular Hgb Conc 32.5 g/dL (32-36); Mean Corpuscular Volume 87.5 fL (80-100); Mean Platelet Volume 9.5 fL (7.4-10.4); Monocytes # (auto) 0.52 K/uL (0.11-0.59); Monocytes % (auto) 5.3 %; Neutrophils # (auto) 6.27 K/uL (1.4-6.5); Neutrophils % (auto) 63.6 %; Platelet Count 229 K/uL (130-400); RDW Coefficient of Variation 14.4 % (11.5-14.5); RDW Standard Deviation 46.3 fL (36.4-46.3); Red Blood Count 4.71 M/uL (4.2-5.4); White Blood Count 9.85 K/uL (4.8-10.8)
[2021-12-13 07:55] LABS: BUN Creatinine Ratio 24.3 (10-20); Calcium 9.3 mg/dl (8.5-10.1); Creatinine Clr Calc Pharmacy 152.7 ml/min; Est GFR (African American) 116.3 ml/min; Est GFR (Non-African American) 100.3 ml/min; Potassium 4.2 mmol/L (3.5-5.1)
[2021-12-13 08:00] LABS: INR 1.4 (0.9-1.1); Partial Thromboplastin Ratio 2.7
[2021-12-13] MEDS: INSULIN ASPART PER UNIT SC SCH ×4 (08:20→21:36)
[2021-12-13] MEDS: INSULIN GLARGINE SOLOSTAR 100 UNITS/ML 3 ML PEN SC SCH ×2 (08:21→21:36)
[2021-12-13] MEDS: NICOTINE 14 MG/24 HR PATCH TD SCH (08:22)
[2021-12-13 08:56] LABS: Partial Thromboplastin Time 74.9 Seconds (21.0-31.0)
[2021-12-13 16:17] LABS: Partial Thromboplastin Ratio 1.8
[2021-12-13 16:45] LABS: Partial Thromboplastin Time 50.8 Seconds (21.0-31.0)
[2021-12-13] MEDS: WARFARIN SOD 7.5 MG TAB PO SCH (17:15)
--- NOTE | 2021-12-13 21:18 | Hospitalist Progress Note ---
Date of Service December 13, 2021 Assessment & Plan (1) Bilateral pulmonary embolism: Plan: Bilateral pulmonary emboli secondary to right lower extremity deep vein thrombosis in popliteal and posterior tibial veins Etiology uncertain. Did have more immobility than usual in the last month when her left leg was bothering her. (had she developed DVT ??) Had COVID-19 infection 05/2021. +family history VTE. Continue IV heparin drip. Continue coumadin --> received 10mg daily x 2 doses, then 7.5mg daily x 2 doses--> and then Coumadin dose increased to 15mg daily on 12/12. Give 15mg once again today; INR only 1.4 this am. Follow INR in the morning Closer to discharge will transition to lovenox 160mg SC BID as bridge. Then f/u with Dr Santamaria in anticoagulation clinic later this week. (2) Acute DVT (deep venous thrombosis): Plan: RLE, as seen on doppler Heparin/coumadin as above (3) Diabetes: Plan: Hemoglobin A1C 8.5% Resume metformin at d/c while inpatient - lantus + novolog (4) Tobacco use disorder: Plan: Nicotine patch 14mg Nicotine gum wants to try Chantix on discharge - can prescribe if desired (5) Morbid obesity with BMI of 60.0-69.9, adult: Plan: BMI 59.1 (6) Acute respiratory failure with hypoxia: Plan: 2nd to #1 improving O2 requirements (7) Acute diastolic CHF (congestive heart failure): Plan: resolved examines euvolemic today defer on additional lasix Admission and Anticipated Discharge Date Admission Date: December 07, 2021 Subjective no events overnight tele normal mild GUERRERO and mild O2 requirement still but no dyspnea at rest no pleuritic chest pain right leg with mild edema Vs the left leg no new complaints Review of Systems Review of Systems: gen - no fever cv - no cp, no orthopnea pulm - mild cough/congestion GI - no N/V/abd pain Physical Exam Physical Exam: gen - obese, NAD, sitting at side of bed neck - no JVD mouth - MMM heart - RRR, s1 s2 lung - decreased BS bases, otherwise CTA b/l abd - soft NT ND BS+ ext - 1+ edema RLE; none on left; pulses 2+ b/l Results & Data Results & Data ([facility]) Vital Signs (Past 12 Hours) Vital Signs Temp Pulse Resp BP Pulse Ox 12/13/21 19:30 36.7 C 79 18 135/79 96 12/13/21 14:00 36.6 C 74 16 125/79 97 12/13/21 12:04 36.5 C 74 18 111/69 97 Laboratory Results Laboratory Results - last 24 hr 12/13/21 12/13/21 12/13/21 06:59 06:59 06:59 WBC 9.85 RBC 4.71 Hgb 13.4 Hct 41.2 MCV 87.5 MCH 28.5 MCHC 32.5 RDW Std Deviation 46.3 RDW Coeff of Ana 14.4 Plt Count 229 MPV 9.5 Immature Gran % (Auto) 0.4 Neut % (Auto) 63.6 Lymph % (Auto) 27.0 [place] % (Auto) 5.3 Eos % (Auto) 3.5 Baso % (Auto) 0.2 Neut # (Auto) 6.27 Lymph # (Auto) 2.66 [place] # (Auto) 0.52 Eos # (Auto) 0.34 Baso # (Auto) 0.02 Immature Gran # (Auto) 0.04 H PT 15.0 H INR 1.4 H APTT 74.9 H* PTT Ratio 2.7 Sodium 136 Potassium 4.2 Chloride 103 Carbon Dioxide 25 Anion Gap 8 BUN 17 Creatinine 0.70 Est Cr Clr Drug Dosing 152.7 Est GFR ( Amer) 116.3 Est GFR (Non-Af Amer) 100.3 BUN/Creatinine Ratio 24.3 H Glucose 168 H POC Glucose Calcium 9.3 12/13/21 12/13/21 12/13/21 12:24 15:34 16:16 WBC RBC Hgb Hct MCV MCH MCHC RDW Std Deviation RDW Coeff of Ana Plt Count MPV Immature Gran % (Auto) Neut % (Auto) Lymph % (Auto) [place] % (Auto) Eos % (Auto) Baso % (Auto) Neut # (Auto) Lymph # (Auto) [place] # (Auto) Eos # (Auto) Baso # (Auto) Immature Gran # (Auto) PT INR APTT 50.8 H* PTT Ratio 1.8 Sodium Potassium Chloride Carbon Dioxide Anion Gap BUN Creatinine Est Cr Clr Drug Dosing Est GFR ( Amer) Est GFR (Non-Af Amer) BUN/Creatinine Ratio Glucose POC Glucose 287 H 151 H Calcium 12/13/21 20:15 WBC RBC Hgb Hct MCV MCH MCHC RDW Std Deviation RDW Coeff of Ana Plt Count MPV Immature Gran % (Auto) Neut % (Auto) Lymph % (Auto) [place] % (Auto) Eos % (Auto) Baso % (Auto) Neut # (Auto) Lymph # (Auto) [place] # (Auto) Eos # (Auto) Baso # (Auto) Immature Gran # (Auto) PT INR APTT PTT Ratio Sodium Potassium Chloride Carbon Dioxide Anion Gap BUN Creatinine Est Cr Clr Drug Dosing Est GFR ( Amer) Est GFR (Non-Af Amer) BUN/Creatinine Ratio Glucose POC Glucose 127 H Calcium PG Care Time/CCT Total # of Minutes Spent Total Time Spent with Patient: Total time spent is greater than 50% in coordination of care (as documented) at patient's floor/unit and/or counseling patient: Coding Level of Care Code 25377 Subseq Hosp Care Lvl 2 Diagnoses Bilateral pulmonary embolism I26.99 Diabetes E11.9 Tobacco use disorder F17.200 Acute DVT (deep venous thrombosis) I82.409 Morbid obesity with BMI of 60.0-69.9, adult E66.01; Z68.44 Acute respiratory failure with hypoxia J96.01 Acute diastolic CHF (congestive heart failure) I50.31
[2021-12-14 06:45] LABS: BUN Creatinine Ratio 21.3 (10-20); Calcium 9.1 mg/dl (8.5-10.1); Creatinine Clr Calc Pharmacy 142.5 ml/min; Est GFR (Non-African American) 92.3 ml/min
[2021-12-14 06:49] LABS: INR 1.8 (0.9-1.1)
[2021-12-14 06:52] LABS: Partial Thromboplastin Time 81.4 Seconds (21.0-31.0)
[2021-12-14] MEDS: HEPARIN SODIUM/DEXTROSE 25,000 UNITS/500 ML BAG IV SCH (07:58)
[2021-12-14] MEDS: INSULIN GLARGINE SOLOSTAR 100 UNITS/ML 3 ML PEN SC SCH ×2 (08:00→20:35)
[2021-12-14] MEDS: INSULIN ASPART PER UNIT SC SCH ×4 (08:00→20:36)
[2021-12-14] MEDS: NICOTINE 14 MG/24 HR PATCH TD SCH (08:01)
[2021-12-14] MEDS: ENOXAPARIN 80 MG/0.8 ML SYR SQ SCH ×2 (09:31→20:35)
[2021-12-14] MEDS: WARFARIN SOD 7.5 MG TAB PO SCH (16:56)
[2021-12-14] MEDS: WARFARIN SOD 5 MG TAB PO SCH (16:57)
--- NOTE | 2021-12-14 20:13 | Hospitalist Progress Note ---
Date of Service December 14, 2021 Assessment & Plan (1) Bilateral pulmonary embolism: Plan: Bilateral pulmonary emboli secondary to right lower extremity deep vein thrombosis in popliteal and posterior tibial veins Etiology of VTE event uncertain. Did have more immobility than usual in the last month when her left leg was bothering her. (had she developed DVT ??) Had COVID-19 infection 05/2021. +family history VTE. Stop IV heparin drip. Convert to lovenox 160mg SC BID. Continue coumadin --> received 10mg daily x 2 doses, then 7.5mg daily x 2 doses--> and then Coumadin dose increased to 15mg daily on 12/12. Received 15mg on 12/12 and 12/13. Will lower dose to 12.5mg today. INR 1.8 today; repeat INR am. Mitchell check of lovenox - $1 copay. Begin lovenox teaching. Will need coumadin clinic referral to Dr Santamaria post-d/c. Will need VTE w/u as outpatient - colonoscopy, mammo, pap smear, etc. (2) Acute DVT (deep venous thrombosis): Plan: RLE, as seen on doppler Lovenox/coumadin as above (3) Diabetes: Plan: Hemoglobin A1C 8.5% Resume metformin at d/c while inpatient - lantus + novolog control acceptable (4) Tobacco use disorder: Plan: Nicotine patch 14mg Nicotine gum wants to try Chantix on discharge (5) Morbid obesity with BMI of 60.0-69.9, adult: Plan: BMI 59.1 (6) Acute respiratory failure with hypoxia: Plan: 2nd to #1 improving O2 requirements 2-step tomorrow before discharge (7) Acute diastolic CHF (congestive heart failure): Plan: resolved examines euvolemic Plan: updated pt's son by phone this evening Admission and Anticipated Discharge Date Admission Date: December 07, 2021 Subjective tele remains NSR feeling good eating well no pulmonary complaints except for mild chest congestion but no dyspnea scant RLE edema and mild RLE thigh pain only Review of Systems Review of Systems: gen - good energy, good appetite cv - no cp or pleuritic pain pulm - mild cough - unchanged GI - no abd pain/N/V/diarrhea/constipation Physical Exam Physical Exam: gen - obese, NAD, sitting at side of bed playing solitaire neck - no JVD mouth - MMM heart - RRR, s1 s2, no murmur lung - CTA b/l abd - soft NT ND BS+ ext - <1+ edema RLE; none on left; pulses 2+ b/l Results & Data Results & Data ([facility]) Vital Signs (Past 12 Hours) Vital Signs Temp Pulse Resp BP Pulse Ox 12/14/21 19:47 36.5 C 78 18 126/69 96 12/14/21 15:46 36.4 C L 84 20 133/85 96 12/14/21 11:50 36.6 C 77 18 117/76 97 Laboratory Results Laboratory Results - last 24 hr 12/13/21 12/14/21 12/14/21 20:15 06:01 06:01 PT 19.0 H INR 1.8 H APTT 81.4 H* PTT Ratio 3.0 Sodium 135 L Potassium 4.0 Chloride 102 Carbon Dioxide 27 Anion Gap 6 BUN 16 Creatinine 0.75 Est Cr Clr Drug Dosing 142.5 Est GFR ( Amer) 107.0 Est GFR (Non-Af Amer) 92.3 BUN/Creatinine Ratio 21.3 H Glucose 154 H POC Glucose 127 H Calcium 9.1 12/14/21 12/14/21 12/14/21 06:56 11:47 16:15 PT INR APTT PTT Ratio Sodium Potassium Chloride Carbon Dioxide Anion Gap BUN Creatinine Est Cr Clr Drug Dosing Est GFR ( Amer) Est GFR (Non-Af Amer) BUN/Creatinine Ratio Glucose POC Glucose 145 H 138 H 139 H Calcium 12/14/21 20:02 PT INR APTT PTT Ratio Sodium Potassium Chloride Carbon Dioxide Anion Gap BUN Creatinine Est Cr Clr Drug Dosing Est GFR ( Amer) Est GFR (Non-Af Amer) BUN/Creatinine Ratio Glucose POC Glucose 207 H Calcium PG Care Time/CCT Total # of Minutes Spent Total Time Spent with Patient: Total time spent is greater than 50% in coordination of care (as documented) at patient's floor/unit and/or counseling patient: Coding Level of Care Code 39997 Subseq Hosp Care Lvl 2 Diagnoses Bilateral pulmonary embolism I26.99 Acute DVT (deep venous thrombosis) I82.409 Diabetes E11.9 Tobacco use disorder F17.200 Morbid obesity with BMI of 60.0-69.9, adult E66.01; Z68.44 Acute respiratory failure with hypoxia J96.01 Acute diastolic CHF (congestive heart failure) I50.31
[2021-12-15 06:14] LABS: Hematocrit (blood only) 40.5 % (37-47); Hemoglobin 13.5 g/dL (12.0-16.0); Mean Corpuscular Hemoglobin 29.3 pg (25-34); Mean Corpuscular Hgb Conc 33.3 g/dL (32-36); Mean Platelet Volume 9.5 fL (7.4-10.4); Platelet Count 216 K/uL (130-400); RDW Coefficient of Variation 14.7 % (11.5-14.5); RDW Standard Deviation 47.5 fL (36.4-46.3); White Blood Count 9.46 K/uL (4.8-10.8)
[2021-12-15 06:25] LABS: INR 2.2 (0.9-1.1); Prothrombin Time 22.4 Seconds (9.0-12.0)
[2021-12-15] MEDS: INSULIN GLARGINE SOLOSTAR 100 UNITS/ML 3 ML PEN SC SCH (08:23)
[2021-12-15] MEDS: ENOXAPARIN 80 MG/0.8 ML SYR SQ SCH (08:24)
[2021-12-15] MEDS: NICOTINE 14 MG/24 HR PATCH TD SCH (08:24)
[2021-12-15] MEDS: INSULIN ASPART PER UNIT SC SCH ×3 (08:24→17:29)
[2021-12-15] MEDS: WARFARIN SOD 5 MG TAB PO SCH (17:29)
[2021-12-15] MEDS: WARFARIN SOD 7.5 MG TAB PO SCH (17:29)
--- NOTE | 2021-12-15 18:48 | Discharge Summary ---
Date of Service December 15, 2021 Admission HPI Per Admitting Provider Halina Mason is a 51 year old female admission who presents to the ER with shortness of breath. She reports feeling short of breath just walking from her car to work this morning and couldn't catch her breath so her boss called EMS and brought her to the emergency room. She reports never fully recovering from when she had COVID in May and has been getting progressively short of breath since then but much worse the last few days. She was not hospitalized with COVID but had cold symptoms and shortness of breath. She denies any chest pain. She also reports left leg pain for the last week, US venous doppler neg ative at that time for DVT. She was vaccinated with Moderna vaccine in October 2020. Did not get booster. She continues to smoke 1 pack/day. No contraceptives or estrogen. No recent long haul journeys. Family history of blood clots with her niece and brother. She is diabetic but stopped metformin 10 months ago per PCP note due to not receiving her glucometer. She was recently prescribed metformin again but is yet to pick this up. In the ER d-dimer was elevated 3020, subsequent CT for PE showed extensive pulmonary emboli. She was started on IV standard heparin bolus and drip and referred to medicine for admission and ongoing management of pulmonary emboli. Discharge Exam gen - obese, NAD, sitting at side of bed playing [employer] neck - no JVD mouth - MMM heart - RRR, s1 s2, no murmur lung - CTA b/l abd - soft NT ND BS+ ext - <1+ edema RLE; none on left; pulses 2+ b/l Discharge Data Allergies Allergy/AdvReac Type Severity Reaction Status Date / Time amoxicillin AdvReac CAUSE A Verified 12/07/21 15:07 YEAST INFECTION Consultations 12/07/21 14:20 ED Decision to Admit Stat Ordered Studies 12/07/21 12:17 CT angio chest PE protocol Stat 12/08/21 11:24 US venous doppler LATRICIA SNEHA Urgent Hospital Course (1) Bilateral pulmonary embolism: Bilateral pulmonary emboli secondary to right lower extremity deep vein thrombosis in popliteal and posterior tibial veins Etiology of VTE event uncertain. Did have more immobility than usual in the last month when her left leg was bothering her. (had she developed DVT ??) Had COVID-19 infection 05/2021. +family history VTE. Stop IV heparin drip. Convert to lovenox 160mg SC BID. Continue coumadin --> received 10mg daily x 2 doses, then 7.5mg daily x 2 doses--> and then Coumadin dose increased to 15mg daily on 12/12. Received 15mg on 12/12 and 12/13. Will lower dose to 12.5mg today. INR 1.8 today; repeat INR am. Mitchell check of lovenox - $1 copay. Begin lovenox teaching. Will need coumadin clinic referral to Dr Santamaria post-d/c. Will need VTE w/u as outpatient - colonoscopy, mammo, pap smear, etc. (2) Acute DVT (deep venous thrombosis): RLE, as seen on doppler Lovenox/coumadin as above (3) Diabetes: Hemoglobin A1C 8.5% Resume metformin at d/c while inpatient - lantus + novolog control acceptable (4) Tobacco use disorder: Nicotine patch 14mg Nicotine gum wants to try Chantix on discharge (5) Morbid obesity with BMI of 60.0-69.9, adult: BMI 59.1 (6) Acute respiratory failure with hypoxia: 2nd to #1 improving O2 requirements 2-step tomorrow before discharge (7) Acute diastolic CHF (congestive heart failure): resolved examines euvolemic updated pt's son by phone this evening Discharge Plan Discharge Items Patient Disposition: Home - Self-Care Reason For Visit: PULMONARY EMBOLISM Discharge Diagnosis: 1. Right leg DVTs 2. Pulmonary emboli Activity: As commented below Activity Comment: gradually increase your activities over the next 7 days as tolerated Lifting: No more than 25 pounds Sexual Activity: Wait until after follow-up appointment Exercise/Sports: Wait until after follow-up appointment Driving/Machine Use: Resume 1 day after discharge Non-emergency contact: Primary Care Provider and Specialist Call non-emergency contact if: you have any medication questions, your symptoms worsen and your pain is not controlled Follow-up/Referrals: Mary Santamaria MD, PhD [Pathologist] - 12/27/21 11:00 am ([facility]) Wolfgang Alamo, [Primary Care Provider] - (within 1 week ) Diet: Carb Consistent or DM2 Addtl Attending Provider Instructions: Mrs Mason, You were hospitalized for DVT blood clots of your right leg and pulmonary emboli. Pulmonary emboli are blood clots of your lungs. Pieces of the blood clots from the leg(s) break off, travel through the circulation, and deposit into the lungs. Once the clots are in the lungs they can no longer move further. The body will naturally dissolve the clots over time in the lungs and the legs. You were treated with IV heparin then lovenox injections. You were started on coumadin (warfarin) by mouth as well. The coumadin will be your long-term blood thinner. The lovenox injections are temporary. For a period of time you did need oxygen but this has been weaned off. A walking oxygen test on 12/15/21 was normal; thus, you do not need oxygen at home. The exact cause of your blood clots is uncertain. You were recently having leg pain and this caused you to be less mobile than usual. This is certainly a risk factor for blood clots. However, I would recommend additional testing as an out patient to be sure nothing else caused the clots. Recommendations - 1. Lovenox (enoxaparin) injections - * take 2 syringes of 80mg each (total 160mg) and inject every morning and every evening * again your dose is 160mg every morning and 160mg every evening * space your morning and evening doses apart by about 12 hours * plan to use a schedule of about 7am and 7pm each day * your first dose of lovenox is TOMORROW AM, 12/16/21 * the lovenox is temporary - hopefully you will only need it for about 2-3 days; your INR levels in the lab over the next few days will tell us for certain 2. Coumadin (warfarin) - this is your oral blood thinner. You will be on this for at least 6 months. Dosing schedule - * 10mg on Sunday, , Sunday, and Sunday * 15mg on Sunday, Sunday, and Sunday * Try to take coumadin about the same time each day; most people take it in the late afternoon * See handout on coumadin 3. Please have your blood checked TOMORROW MORNING -- Sunday12/16/21. Your c oumadin level or "INR" level will be checked at that time. Your INR goal is between 2 and 3. Your INR today is 2.2. Your blood work can be done at Dr Alamo's office tomorrow. 4. Chantix - this medication is help quit smoking. I sent a "starter pack" into the pharmacy for you. * Pick a quit date on your calendar * About 1 week before your quit date start the Chantix and follow the dosing instructions on the package label * You can smoke the first week you are on Chantix * Once you hit the quit date please stop smoking and continue on the Chantix * Watch for nausea - common side effect from Chantix * Watch for mood changes, thoughts of hurting yourself, etc - this has been reported with Chantix * If you experience mood changes stop the Chantix right away and let Dr Alamo know about this * Ideally you take Chantix for 3 months 5. Please STOP all forms of anti-inflammatory pills including - * aspirin * motrin / ibuprofen * naprosyn / aleve * celebrex (celecoxib) These medications interact with Coumadin. OK TO TAKE TYLENOL for aches/pains. 6. Please speak to Dr Alamo about obtaining the following tests if you are not up-to-date with them - * colonoscopy * pap smear * mammogram/breast exam * possibly others if recommended by Dr Alamo 7. Please speak to Dr Alamo about obtaining a sleep study to rule out sleep apnea. Follow-up - * INR check on Sunday morning, 12/16/21 * [address] Alamo * 12/27/[address] Santamaria in the anticoagulation/coumadin clinic Return to [facility] if - * you have bleeding from any location as listed below * you have worsening shortness of breath * you have chest pains * you have any concerns about the Lovenox shots * any other concerns It was our pleasure to care for you at [facility]! Dr jN Addtl Contract Graphic Designer Provider Instructions: COUMADIN (WARFARIN) Instructions for your DVT and Pulmonary Emboli blood clots: * Warfarin is a medicine prescribed to prevent blood clots * Warfarin will thin your blood and help prevent new clots * Take your medications exactly as directed * Never skip a dose. Never take a double dose. If you miss a dose, take it as soon as you remember * It is important for your doctor to monitor your INR. This is a lab test * Keep your appointment for lab tests Risk of Adverse Drug Reactions and Interactions: * Warfarin increases your risk of bleeding * The food you eat and other medications you take can affect how Warfarin works in your body * Ask your doctor about daily aspirin therapy * It is very important to talk with your doctor about all of the other medicines, antibiotics, vitamins or herbal products that you are taking * All of your medication must be approved by your doctor, including new medicines, as well as medicines you have taken before you started taking Warfarin Diet: * In order for Warfarin to work properly, it is important to keep your intake of Vitamin K as consistent as possible * You should avoid any sudden change in Vitamin K intake * Report any significant changes in your diet or weight to your doctor Call your Primary Care doctor if you experience any of the following: * Swelling or Pain in your leg * Sudden, continuous pain deep in a muscle * Pain that worsens when you are active or when you stand still for a long time * Chest Pain * Sudden Shortness of Breath * Rapid or pounding heart beat * Fainting * Dizziness * Cough with blood or bloody sputum * Sweating more than normal * Bruises * Heavy or uncontrolled bleeding * Blood in your urine, stool or vomit * Black or tarry stools * Heavy nose bleeding Caring for Your Self at Home: * Avoid sitting, standing or lying down for long periods without moving your legs and feet * When traveling by car, stop to get out and move around at least once every 3 hours * On long airplane, train or bus rides, get up and move around when possible * If you can't get up, wiggle your toes and tighten your calves to keep your blood moving Pending Studies at Discharge: No Stand-Alone Forms: [facility], Smoking Cessation Medications and DC Order Prescriptions: New warfarin 10 mg tablet 10 mg PO .daily as directed Qty: 60 RF: 0 enoxaparin [Lovenox] 80 mg/0.8 mL syringe 160 mg subcut BID 7 Days Qty: 22.4 RF: 1 varenicline [Chantix Starting Month Box] 0.5 mg (11)- 1 mg (42) tablets,dose pack 1 ea PO DIRECTED Qty: 53 RF: 0 Continued metformin 500 mg tablet 250 mg PO BID RF: 0 (DME) blood-glucose meter [OneTouch Verio Meter] Misc See Rx Instructions .Route Qty: 1 RF: 0 (DME) OneTouch Verio test strips Strip See Rx Instructions .Route Qty: 200 RF: 3 cyclobenzaprine 10 mg tablet 10 mg PO BID PRN (Reason: muscle spasm) Qty: 30 RF: 0 (DME) lancets [OneTouch UltraSoft Lancets] Misc See Rx Instructions .Route Qty: 200 RF: 3 Changed metformin 500 mg tablet 500 mg PO BID Qty: 60 RF: 0 Discontinued celecoxib [Celebrex] 100 mg capsule 100 mg PO BID Qty: 60 RF: 0 ibuprofen 200 mg Tablet 200 - 1,000 mg PO DIRECTED PRN (Reason: Pain) RF: 0 Discharge Orders: Discharge Order (Routine); Ordered 12/15/21 Ordered By: Reid Coto/Other Patient Handouts: Understanding Deep Vein Thrombosis, Pulmonary Embolism, What to Know When TakingWarfarin Admission Data Admit Date/Time: 12/07/21 15:19 Attending Provider: Reid Nj Admit Provider: Reid Vega Primary Care Provider: Wolfgang Alamo Other Providers: Reid Vega Coding Diagnoses Bilateral pulmonary embolism I26.99 Acute DVT (deep venous thrombosis) I82.409 Diabetes E11.9 Tobacco use disorder F17.200 Morbid obesity with BMI of 60.0-69.9, adult E66.01; Z68.44 Acute respiratory failure with hypoxia J96.01 Acute diastolic CHF (congestive heart failure) I50.31
== END 2021-12-15 19:14 | disposition home or self-care (01) | DRG 299 ==
LOC: ED 11:44 → 2S 15:19 → SUATTDRO 15:19 → 2S 17:44

== ENCOUNTER 2023-05-15 11:55 | Inpatient (IN) ==
[2023-05-15 12:39] LABS: Basophils # (auto) 0.03 K/uL (0.00-0.20); Basophils % (auto) 0.3 %; Eosinophils # (auto) 0.15 K/uL (0.00-0.50); Eosinophils % (auto) 1.4 %; Hematocrit (blood only) 41.5 % (37.0-47.0); Hemoglobin 13.2 g/dl (12.0-16.0); Immature Granulocytes # (auto) 0.05 K/uL (0.01-0.20); Immature Granulocytes % (auto) 0.5 %; Lymphocytes # (auto) 1.74 K/uL (1.20-3.40); Mean Corpuscular Hemoglobin 27.4 pg (25.0-34.0); Mean Corpuscular Hgb Conc 31.8 g/dL (32.0-36.0); Mean Corpuscular Volume 86.3 fL (80.0-100.0); Mean Platelet Volume 9.7 fL (9.4-12.4); Monocytes # (auto) 0.61 K/uL (0.11-0.59); Monocytes % (auto) 5.6 %; Neutrophils % (auto) 76.2 %; Platelet Count 216 K/uL (130-400); RDW Coefficient of Variation 14.9 % (11.5-14.5); RDW Standard Deviation 46.7 fL (36.4-46.3); Red Blood Count 4.81 M/uL (4.20-5.40); White Blood Count 10.88 K/ul (4.8-10.8)
--- NOTE | 2023-05-15 12:52 | Emergency Department Note ---
Impression & Plan Pulmonary embolism, GUERRERO (dyspnea on exertion), Hyperglycemia ED Provider Note NAME: GERI SOL AGE: 53 SEX: F : 1970 ARRIVES VIA: Walk-In INFORMANT: Patient, ED PROVIDER(S): Toni Hawkins MD CHIEF COMPLAINT: Shortness of breath MEDICAL DECISION MAKING: Patient presents due to concern for shortness of breath in the setting of recent inability to take her Coumadin for about a month recently started about 1 week ago. Next IV was established and blood work was obtained. CT angiography of the chest ordered. Initial blood work with white count of 10.8 with a normal H&H and platelet count the patient's kidney function is unremarkable mild hyponatremia noted which may be pseudohyponatremia given the patient's elevated blood glucose of 473. Patient is not DKA with normal bicarb and anion gap. Troponin negative. COVID flu RSV negative. D-dimer elevated. Patient CT angiography does show left sided PE. Patient was ordered heparin bolus and drip. I did speak the on-call hospitalist service the patient was admitted by Dr. Vega. Critical Care: I have personally spent 40 minutes of critical care time in direct management of this patient. This includes bedside care, interpretation of diagnostic studies, and testing, discussion with consultants, patient, and family members, and other require inpatient management activities. This 40 minutes is in excess of all separately billable procedures. Discussion w/ other healthcare providers: Leo Novak PA-C and Dr. Vega inpatient medicines are Prior /Outside records reviewed: I reviewed anticoagulation clinic visit with Chelo lo. Was noted in the note that the patient currently did not have insurance patient reportedly was continuing her current warfarin regimen at that time the Differential diagnosis: Reactive airway disease, pneumonia, pneumothorax, COPD, CHF, ACS, pulmonary embolism, musculoskeletal, GERD as well as other pathologies were considered. Diagnostics, as interpreted by me: ECG: Normal sinus rhythm, rate 96, normal intervals, normal axis no ST elevations. No significant change for comparison December 07, 2021 Cardiac monitoring: An order was placed for continuous cardiac monitoring. The monitor shows a rate of 90 with sinus rhythm. Patient was placed on pulse oximetry Medical decision rules: Wells score Imaging studies: I informally interpreted the patient's CT angiography which does show left-sided pulmonary emboli with formal report to follow. HPI: Patient presents due to concern for shortness of breath. The patient states that she has been having some ongoing symptoms of the last several weeks and thought that she had an upper respiratory infection but [place] worsening symptoms in the last 24 to 48 hours. 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 Patient has had dry nonproductive cough. The patient does have some chronic leg swelling but states that this is unchanged. Patient denies any chest pains. The patient does have a prior history of PE and DVT states that there was an issue with her insurance to where she did not take it for greater than 1 month as the patient was unable to take it from the beginning of March but resumed taking it about 1 week ago. Patient denies any falls or trauma. PAST MEDICAL HISTORY: See Below PAST SURGICAL HISTORY: See Below SOCIAL HISTORY: See Below HOME MEDICATIONS: See Below ALLERGIES: See Below VITALS: See Below PHYSICAL EXAMINATION: GENERAL: NAD, non-toxic. BMI 58. Wearing glasses EYE EXAM: Normal conjunctiva. PERRL, no anisocoria and EOM's grossly intact w/o pain. OROPHARYNX: Moist mucus membranes, missing central maxillary and mandibular incisors NECK: Supple, no nuchal rigidity, no adenopathy, non-tender. No signs of meningismus. FROM of the neck with good chin to chest and neck extension. No stridor. LUNGS: Clear to auscultation. Normal chest wall mechanics. HEART: NSR, no MRG. ABDOMEN: Abdomen soft, non-tender, no masses, no rebound or guarding. BACK: No CVA TTP. SKIN: No rashes and no bruising. UPPER EXTREMITIES: Upper extremities are grossly normal. LOWER EXTREMITIES: Grossly normal, trace pretibial edema without any calf pain. NEURO EXAM: A&O x3, cranial nerves II-XII grossly intact, normal speech, moves all 4 extremities. Past Med/Surg History Medical History Hypercoagulable state Morbid obesity History of pulmonary embolism Acute DVT (deep venous thrombosis) Tobacco use disorder Bilateral pulmonary embolism Diabetes Osteoarthritis of lumbar spine History of bronchitis Tobacco use Heartburn Morbid obesity with BMI of 60.0-69.9, adult Surgical History History of mandibular surgery History of tubal ligation Family History Mother Diabetes Heart disease Hypertension Grandmother (Maternal) Diabetes Grandmother (Paternal) Diabetes Brother Diabetes Heart disease Myocardial infarction Abdominal aneurysm Aneurysm artery, neck Hypertension Stroke Sister , Age 56 Diabetes Heart disease Hypertension Father Heart disease Myocardial infarction Hypertension Stroke Aunt Cancer Uncle Cancer Denies family history of Ovarian cancer Prostate cancer Breast cancer Colorectal cancer Social History Smoking Status: Current every day smoker Tobacco Type: Cigarettes Age Started Using Tobacco: 18; packs per day: 1; Cigarettes Per Day: 16; Second Hand Exposure: Yes; Do You Dip or Chew Tobacco: No; Hx Alcohol Use: No Hx Substance Use: No Preferred Language: Maori Communication Ability: Effective Visual Impairment: Limited Hearing Ability: Normal Enterprise Mobility Architect Required: No Beliefs That Will Affect Care: None marital status: Single Current Living Situation: Significant Other Current Living Situation Comment: Boyfriend current occupational status: employed current occupation: [employer] How many Children do You have: 3 How many Children do You have Comment: 2 boys, 1 girl all Grown Feels Safe at Home: Yes Childhood Exposure to Second-Hand Smoke: Yes caffeine: Yes Dental Care, Regularly: No Physical Activity Frequency: Does not Exercise Seatbelt Use: never Sunscreen Use: No Do you think of yourself as: straight/heterosexual Assistive Devices: None Allergies Allergies Allergy/AdvReac Type Severity Reaction Status Date / Time amoxicillin AdvReac Intermediate CAUSE A Verified 05/15/23 14:56 YEAST INFECTION Home Meds Home Medications Medication Instructions Recorded Confirmed warfarin 5 mg tablet See Rx Instructions PO UD 12/04/22 05/15/23 nystatin 100,000 unit/gram topical 1 applic topical QID PRN Rash 05/15/23 05/15/23 powder Previous Rx's Medication Instructions Recorded blood-glucose meter ([facility] #1 ea 12/02/21 Verio Meter) albuterol sulfate 90 mcg/actuation 2 inh inhalation QID PRN shortness 01/02/22 aerosol inhaler of breath or wheezing #8.5 grams lancets ([employer] UltraSoft #200 ea 02/16/22 Lancets) lisinopril 2.5 mg tablet 2.5 mg PO DAILY #90 tabs 11/02/22 lancets 30 gauge ([employer] #100 ea 02/05/23 Plus Lancet) blood sugar diagnostic ([facility] 02/09/23 Verio test strips) metformin 1,000 mg tablet 1,000 mg PO BID #90 tabs 02/09/23 Results & Data (ED) Vital Signs Vital Signs - 24 hr 05/15/23 11:57 05/15/23 12:02 05/15/23 12:02 Temperature 36.2 C L Temperature Source Skin Pulse Rate 102 H Pulse Rate [Apical] Pulse Rate from SpO2 Sensor Pulse Rhythm Pulse Rhythm [Apical] Pulse Strength [Apical] Respiratory Rate 28 H Respiratory Effort / Characteristics Non-Labored Respiratory Depth Shallow Respiratory Pattern Tachypnea Blood Pressure 161/87 H Blood Pressure [Left Arm] Blood Pressure Mean 111 Blood Pressure Mean [Left Arm] Blood Pressure Position [Left Arm] Pulse Oximetry 95 Oxygen Delivery Method Room Air Room Air Room Air Sepsis Recent Fever Within 48 Hours No Sepsis New/Unexplained Change in Mental Status N/A Sepsis Action Taken by Nursing No Action Required 05/15/23 12:03 05/15/23 12:45 05/15/23 13:15 Temperature Temperature Source Pulse Rate 84 88 Pulse Rate [Apical] 90 Pulse Rate from SpO2 Sensor 88 Pulse Rhythm Regular Pulse Rhythm [Apical] Regular Pulse Strength [Apical] Normal Respiratory Rate 22 22 21 Respiratory Effort / Characteristics Non-Labored Spontaneous Respiratory Depth Normal Respiratory Pattern Regular Blood Pressure Blood Pressure [Left Arm] 139/88 Blood Pressure Mean Blood Pressure Mean [Left Arm] 105 Blood Pressure Position [Left Arm] Sitting Pulse Oximetry 95 94 95 Oxygen Delivery Method Room Air Room Air Sepsis Recent Fever Within 48 Hours Sepsis New/Unexplained Change in Mental Status Sepsis Action Taken by Nursing 05/15/23 13:16 05/15/23 13:44 05/15/23 14:00 Temperature Temperature Source Pulse Rate 87 99 H Pulse Rate [Apical] 94 H Pulse Rate from SpO2 Sensor Pulse Rhythm Pulse Rhythm [Apical] Regular Pulse Strength [Apical] Normal Respiratory Rate 18 22 Respiratory Effort / Characteristics Non-Labored Spontaneous Respiratory Depth Normal Respiratory Pattern Regular Blood Pressure Blood Pressure [Left Arm] 134/87 Blood Pressure Mean Blood Pressure Mean [Left Arm] 102 Blood Pressure Position [Left Arm] Sitting Pulse Oximetry 97 Oxygen Delivery Method Room Air Sepsis Recent Fever Within 48 Hours Sepsis New/Unexplained Change in Mental Status Sepsis Action Taken by Nursing 05/15/23 14:05 05/15/23 14:30 05/15/23 15:00 Temperature Temperature Source Pulse Rate 93 H 89 Pulse Rate [Apical] Pulse Rate from SpO2 Sensor 92 H 93 H 89 Pulse Rhythm Pulse Rhythm [Apical] Pulse Strength [Apical] Respiratory Rate 15 16 Respiratory Effort / Characteristics Respiratory Depth Respiratory Pattern Blood Pressure 135/82 Blood Pressure [Left Arm] Blood Pressure Mean 99 Blood Pressure Mean [Left Arm] Blood Pressure Position [Left Arm] Pulse Oximetry 98 98 98 Oxygen Delivery Method Sepsis Recent Fever Within 48 Hours Sepsis New/Unexplained Change in Mental Status Sepsis Action Taken by [facility] Medications Current Medication List: was personally reviewed by me Laboratory Data Attestation: I reviewed the patient's lab results. 05/15/23 12:13 05/15/23 12:13 Lab Results 05/15/23 Range/Units 12:13 WBC 10.88 H (4.8-10.8) K/ul RBC 4.81 (4.20-5.40) M/uL Hgb 13.2 (12.0-16.0) g/dl Hct 41.5 (37.0-47.0) % MCV 86.3 (80.0-100.0) fL MCH 27.4 (25.0-34.0) pg MCHC 31.8 L (32.0-36.0) g/dL RDW Std Deviation 46.7 H (36.4-46.3) fL RDW Coeff of Ana 14.9 H (11.5-14.5) % Plt Count 216 (130-400) K/uL MPV 9.7 (9.4-12.4) fL Immature Gran % (Auto) 0.5 % Neut % (Auto) 76.2 % Lymph % (Auto) 16.0 % Collier % (Auto) 5.6 % Eos % (Auto) 1.4 % Baso % (Auto) 0.3 % Neut # (Auto) 8.30 H (1.40-6.50) K/uL Lymph # (Auto) 1.74 (1.20-3.40) K/uL Collier # (Auto) 0.61 H (0.11-0.59) K/uL Eos # (Auto) 0.15 (0.00-0.50) K/uL Baso # (Auto) 0.03 (0.00-0.20) K/uL Immature Gran # (Auto) 0.05 (0.01-0.20) K/uL PT 10.2 (9.0-12.0) Seconds INR 0.9 (0.9-1.1) APTT 24.7 (21.0-31.0) Seconds PTT Ratio 0.9 D-Dimer 3260 H* (0-500) ug/L FEU Sodium 133 L (136-145) mmol/L Potassium 4.0 (3.5-5.1) mmol/L Chloride 100 (98-107) mmol/L Carbon Dioxide 26 (21-32) mmol/L Anion Gap 7 (3-11) BUN 12 (6-23) mg/dl Creatinine 0.74 (0.6-1.2) mg/dl Est Cr Clr Drug Dosing 146.0 ml/min Est GFR ( Amer) 107.2 ml/min Est GFR (Non-Af Amer) 92.5 ml/min BUN/Creatinine Ratio 16.2 (10-20) Glucose 473 H* (70-99(Fasting)) mg/dl Calcium 9.0 (8.6-10.3) mg/dl Total Bilirubin 0.7 (0.2-1.0) mg/dl AST 17 (13-39) U/L ALT 17 (7-52) U/L Alkaline Phosphatase 87 (34-104) U/L Troponin I High Sens 9.6 (0-14) pg/ml Total Protein 7.0 (6.0-8.3) gm/dl Albumin 3.6 (3.4-5.0) gm/dl Globulin 3.4 (2.5-4.0) gm/dl Albumin/Globulin Ratio 1.1 (0.9-2) Administered Medications Heparin Sodium/Dextrose (Heparin Sodium/Dextrose) 25,000 units in 500 mls @ 38 mls/hr IV .[id number] [facility]; Protocol Stop: 06/14/23 14:29 Last Admin: 05/15/23 15:27 Dose: 1,900 units/hr, 38 mls/hr Documented By: MARIELY Co-signed By: AM Discontinued Medications Heparin Sodium (Porcine) (Heparin Sod (Porcine) 1000 Unit/Ml) 8,000 units IV NOW ONE Stop: 05/15/23 14:31 Last Admin: 05/15/23 15:26 Dose: 8,000 units Documented By: MARIELY Co-signed By: CELESTINO Insulin Aspart (Insulin Aspart Per Unit Charge) 8 units SC NOW STA Stop: 05/15/23 15:18 Last Admin: 05/15/23 16:36 Dose: 8 units Documented By: MARIELY Co-signed By: CELESTINO Insulin Glargine (Lantus Per Unit Charge) 10 units SQ NOW STA Stop: 05/15/23 15:24 Last Admin: 05/15/23 16:37 Dose: 10 units Documented By: MARIELY Co-signed By: CELESTINO Ioversol (Optiray 320 125ml) 115 ml IV ONCE ONE Stop: 05/15/23 13:38 Last Admin: 05/15/23 13:37 Dose: 115 ml Documented By: NATALIO Levalbuterol HCl (Levalbuterol 1.25 Mg/3 Ml Neb) 1.25 mg NEB NOW STA Stop: 05/15/23 13:00 Last Admin: 05/15/23 13:46 Dose: 1.25 mg Documented By: MARIELY Imaging Data Radiologist's Impression: Chest CTA 05/15/23 12:58 CT angio chest PE protocol CLINICAL HISTORY: PE, sob, not taking coumadin TECHNIQUE: Multidetector row helical CT of the chest was performed with angiographic protocol. Coronal and sagittal reformations were obtained. Coronal and sagittal MIPS were obtained from the axial data set and were submitted for review. Automated dose lowering techniques and/or adjustment according to patient size were utilized for this exam. CT DOSE: 898.28 mGy.cm Comparison: Comparison is made to CTA chest 12/07/2021 FINDINGS: Lungs and pleura: Atelectasis versus scarring is seen in the dependent portions of the lungs. Heart and pericardium: No evidence of right heart strain. Vessels: Prominent pulmonary embolus is in the left upper and lower lobar arteries. Likely small emboli such as in the right upper lobe. Mediastinum and jacky: Unremarkable. Chest wall and lower neck: Unremarkable. Abdomen: Unremarkable. Bones: Degenerative changes in the thoracic spine. IMPRESSION: Large lobar pulmonary emboli most prominent in the left lung. No evidence of right heart strain. ACT 112: Negative or not required by law. Electronically signed by: Samuel Taylor M.D. 05/15/2023 2:17 PM Discharge Plan Visit Data Chief Complaint: Shortness of Breath/Dyspnea Stated Complaint: DIFFICULTY BREATHING, HIST OF BLOODCLOTS IN LUNGS ED Provider: Toni Hawkins Discharge Problem: Pulmonary embolism, GUERRERO (dyspnea on exertion), Hyperglycemia Patient Disposition: Being Evaluated by Hospitalist Discharge Instructions Interventions: ED Discharge Assessment Last Done: 05/15/23 18:01 Discharge Problem: Pulmonary embolism Qualifiers: Pulmonary embolism type: unspecified Chronicity: acute Acute cor pulmonale presence: unspecified Qualified Code(s): I26.99 - Other pulmonary embolism without acute cor pulmonale
[2023-05-15 12:58] LABS: Albumin Globulin Ratio 1.1 (0.9-2); Albumin Level 3.6 gm/dl (3.4-5.0); BUN Creatinine Ratio 16.2 (10-20); Bilirubin,Total 0.7 mg/dl (0.2-1.0); Est GFR (African American) 107.2 ml/min; Est GFR (Non-African American) 92.5 ml/min; Globulin 3.4 gm/dl (2.5-4.0); Troponin I High Sensitivity 9.6 pg/ml (0-14)
[2023-05-15] MEDS ORDERED: LEVALBUTEROL 1.25 MG/3 ML NEB NEB STA (12:59)
[2023-05-15 13:03] LABS: INR 0.9 (0.9-1.1); Partial Thromboplastin Ratio 0.9; Partial Thromboplastin Time 24.7 Seconds (21.0-31.0); Prothrombin Time 10.2 Seconds (9.0-12.0)
[2023-05-15 13:05] LABS: D Dimer 3260 ug/L FEU (0-500)
[2023-05-15 13:25] LABS: Influenza A virus by PCR Negative (Neg); Influenza B virus by PCR Negative (Neg); RSV by PCR Negative (Neg); SARS CoV2 RNA(COVID-19) Ceph NEGATIVE (Negative)
[2023-05-15] MEDS ORDERED: OPTIRAY 320 125ml IV ONE (13:37)
[2023-05-15] MEDS ORDERED: Heparin IV Adult Wt-Based Standard WITH Bolus Protocol IV STA (14:14)
--- NOTE | 2023-05-15 14:18 | CT Scan Report ---
CT angio chest PE protocol CLINICAL HISTORY: PE, sob, not taking coumadin TECHNIQUE: Multidetector row helical CT of the chest was performed with angiographic protocol. Garrison l and sagittal reformations were obtained. Coronal and sagittal MIPS were obtained from the axial naomi a set and were submitted for review. Automated dose lowering techniques and/or adjustment according to patient size were utilized for this exam. CT DOSE: 898.28 mGy.cm Comparison: Comparison is made to CTA chest 12/07/2021 FINDINGS: Lungs and pleura: Atelectasis versus scarring is seen in the dependent portions of the lungs. Heart and pericardium: No evidence of right heart strain. Vessels: Prominent pulmonary embolus is in the left upper and lower lobar arteries. Likely small embo li such as in the right upper lobe. Mediastinum and jacky: Unremarkable. Chest wall and lower neck: Unremarkable. Abdomen: Unremarkable. Bones: Degenerative changes in the thoracic spine. IMPRESSION: Large lobar pulmonary emboli most prominent in the left lung. No evidence of right heart strain. ACT 112: Negative or not required by law. Electronically signed by: Samuel Taylor M.D. 05/15/2023 2:17 PM
[2023-05-15] MEDS ORDERED: HEPARIN SOD (PORCINE) 1000 UNIT/ML IV ONE ×2 (14:30)
--- NOTE | 2023-05-15 14:32 | History & Physical Report ---
Date of Service May 15, 2023 Assessment & Plan (1) Pulmonary embolism: Plan: Worsening GUERRERO and productive cough x3 weeks, with acute worsening in the past 24 hours Hx of bilateral PE in November 2021 Elevated D-dimer at 3260 Chest CTA revealed large lobar PE most prominent in the left lung Patient stopped taking her warfarin in March 2023 d/t insurance issues Everyday tobacco cigarette smoker; 0.5 PPD [facility] direct selling counselor consulted for failure of outpatient warfarin Nonhypoxic; 99% on RA Patient is not tachycardic, but endorses mild left-sided pleuritic CP Heparin w/ bolus started in the ED Platelet count okay at 216 PTT WNL Continuous telemetry monitoring Reached out to anticoagulation clinic; patient was discharged in February 2023 as she was not compliant with taking her warfarin, and was provided [place] free care phone number Per anticoag clinic, the patient reported that she lost her insurance, but when insurance was contacted it was active Case management consult placed to discuss anticoagulation upon discharge Patient will need counseling for smoking cessation A.m. CBC, BMP (2) T2DM (type 2 diabetes mellitus): Plan: Last A1c 7.1% on 05/16/2022 Glucose 473 on arrival; ordered 10u aspart, 10u Lantus in the ED Hold metformin Start on Lantus 10 units twice daily Goal BSG range 110-140mg/dL, CF 35, carb ratio 10 BSG ACHS T2DM diet Adjust regimen as needed AM A1c (3) History of pulmonary embolism: Plan: Bilateral PE at [facility] in November 2021 Lifelong anticoagulation was later recommended d/t tobacco cigarette use, patient's BMI (4) FPC current use of anticoagulant: Plan: Patient failed outpatient warfarin d/t insurance She has not been taking since the first week of March 2023 (5) Morbid obesity: Plan: BMI 58.9 Recommend counseling on weight loss Plan [facility] Full code T2DM, AHA diet VTE PPx: Heparin w/ bolus (as above) History of Present Illness Chief Complaint: Shortness of breath/dyspnea Primary Care Provider: Wolfgang Alamo DO Halina is a 53-year-old female with PMH of bilateral PE, T2DM, morbid obesity, OA, and lifelong anticoag (was previously on warfarin). Patient reports she has been sick for the past 5 weeks with nasal congestion, productive cough (clear sputum production), with an acute exacerbation of GUERRERO last night 05/14. Patient did not take her morning medications. She had a bilateral PE in November 2021, was admitted to [facility] for 8 days; started on warfarin outpatient. She followed with the anticoag clinic, and lifelong anticoag was recommended due to patient's body habitus and tobacco cigarette use; however, patient reports that she lost her insurance due to common-law marriage, and that she has not taken her warfarin since the first week of March. She endorses sharp, pleuritic CP since the morning of 05/15; constant. No radiation down the left arm or to the left shoulder/back. She rates the pain 2/10. She reports vomiting on 2 episodes of vomiting (once last week, and then again on Saturday 05/12). Patient is a current tobacco cigarette smoker; 0.5 PPD; 35-year history. She denies vaping and recreational drug use. Vitals are stable at time of admission; 99% SPO2 on room air. ED course: Heparin w/ bolus Of albuterol 1.25 mg neb ROS: Patient endorses cold intolerance, chills, GUERRERO, left-sided pleuritic CP, productive cough, nausea, vomiting x 2 episodes, diarrhea x 1 episode on 05/15, frequent urination, swelling/pain in the R leg. Patient denies fever, DE JESUS, dizziness, CP, chest palpitations, hemoptysis, SOB at rest, burning with urination, blood in the urine/stool, or numbness/tingling in the legs. No PMHx of MS, cancer, CVA Allergies Allergy/AdvReac Type Severity Reaction Status Date / Time amoxicillin AdvReac Intermediate CAUSE A Verified 05/15/23 14:56 YEAST INFECTION Home Medications Medication Instructions Recorded Confirmed Type blood-glucose meter (JJ PHARMATouch #1 ea 12/02/21 12/04/22 Rx Verio Meter) albuterol sulfate 90 mcg/actuation 2 inh inhalation QID PRN shortness 01/02/22 05/15/23 Rx aerosol inhaler of breath or wheezing #8.5 grams lancets (JJ PHARMATouch UltraSoft #200 ea 02/16/22 12/04/22 Rx Lancets) lisinopril 2.5 mg tablet 2.5 mg PO DAILY #90 tabs 11/02/22 05/15/23 Rx warfarin 5 mg tablet See Rx Instructions PO UD 12/04/22 05/15/23 History lancets 30 gauge (OneTouch Delica #100 ea 02/05/23 Rx Plus Lancet) blood sugar diagnostic (OneTouch #200 ea 02/09/23 Rx Verio test strips) metformin 1,000 mg tablet 1,000 mg PO BID #90 tabs 02/09/23 05/15/23 Rx nystatin 100,000 unit/gram topical 1 applic topical QID PRN Rash 05/15/23 05/15/23 History powder Past Med/Surg History Medical History Hypercoagulable state Morbid obesity History of pulmonary embolism Acute DVT (deep venous thrombosis) Tobacco use disorder Bilateral pulmonary embolism Diabetes Osteoarthritis of lumbar spine History of bronchitis Tobacco use Heartburn Morbid obesity with BMI of 60.0-69.9, adult Surgical History History of mandibular surgery History of tubal ligation Family History Mother Diabetes Heart disease Hypertension Grandmother (Maternal) Diabetes Grandmother (Paternal) Diabetes Brother Diabetes Heart disease Myocardial infarction Abdominal aneurysm Aneurysm artery, neck Hypertension Stroke Sister , Age 56 Diabetes Heart disease Hypertension Father Heart disease Myocardial infarction Hypertension Stroke Aunt Cancer Uncle Cancer Denies family history of Ovarian cancer Prostate cancer Breast cancer Colorectal cancer Social History Smoking Status: Current every day smoker Tobacco Type: Cigarettes Age Started Using Tobacco: 18; packs per day: 1; Cigarettes Per Day: 0.5-0.75 packs; Second Hand Exposure: Yes; Do You Dip or Chew Tobacco: No; Hx Alcohol Use: Yes Alcohol type: wine Alcohol Intake Frequency: Monthly or Less Hx Substance Use: No Preferred Language: Icelandic Communication Ability: Effective Visual Impairment: Limited Hearing Ability: Normal Event Producer Required: No Beliefs That Will Affect Care: Baptism Baptism Beliefs: Jehovah Witness marital status: Single Current Living Situation: Significant Other Current Living Situation Comment: House current occupational status: employed current occupation: [employer] How many Children do You have: 3 How many Children do You have Comment: 2 boys, 1 girl all Grown Feels Safe at Home: Yes Safety Concerns: Feels Safe At This Time Childhood Exposure to Second-Hand Smoke: Yes caffeine: Yes Dental Care, Regularly: No Physical Activity Frequency: Does not Exercise Seatbelt Use: never Sunscreen Use: No Do you think of yourself as: straight/heterosexual Assistive Devices: Cane Review of Systems Review of Systems: See HPI above Physical Exam Physical Exam: General: no acute distress; non-toxic appearing; well-nourished; cooperative; 99% SPO2 on RA HEENT: normocephalic, atraumatic; no scleral icterus; PERRLA w/ EOMs intact; moist mucus membrane; vision and hearing grossly intact Neck: supple; no lymphadenopathy; trachea midline Skin: warm, dry without signs of tenting; no cyanosis; no rashes, bruising, lesions, or erythema noted CV: chest wall NTP; RRR; S1/S2 normal; no murmurs/rubs/gallops; pulses intact and symmetric at radial, DP, and PT Lungs: no acute respiratory distress; symmetrical chest wall expansion; clear breath sounds across all lung gomez w/o adventitious sounds; no wheezing; decreased breath sounds in the left lower lobe ABD: Soft, NTP; BS present; no rebound/guarding; suboptimal exam due to patient's body habitus; negative CVA tenderness MSK: no tics or fasciculations; +1 pitting edema in LEs B/L; both are approximately the same size, however right LE is erythematous, scaly Neuro: A&Ox3; normal mood and affect; fluent speech; no focal deficits; sensation grossly intact in LEs B/L Results & Data Results & Data Vital Signs (Past 12 Hours) Vital Signs Temp Pulse Pulse Resp BP BP Pulse Ox 05/15/23 14:00 94 H 22 134/87 97 05/15/23 13:16 87 05/15/23 12:45 90 22 139/88 94 05/15/23 12:03 84 22 95 05/15/23 12:02 05/15/23 12:02 05/15/23 11:57 36.2 C L 102 H 28 H 161/87 H 95 O2 Del Method 05/15/23 14:00 Room Air 05/15/23 13:16 05/15/23 12:45 Room Air 05/15/23 12:03 Room Air 05/15/23 12:02 Room Air 05/15/23 12:02 Room Air 05/15/23 11:57 Room Air Laboratory Results Abnormal lab results 05/15/23 Range/Units 12:13 WBC 10.88 H (4.8-10.8) K/ul MCHC 31.8 L (32.0-36.0) g/dL RDW Std Deviation 46.7 H (36.4-46.3) fL RDW Coeff of Ana 14.9 H (11.5-14.5) % Neut # (Auto) 8.30 H (1.40-6.50) K/uL Whitfield # (Auto) 0.61 H (0.11-0.59) K/uL D-Dimer 3260 H* (0-500) ug/L FEU Sodium 133 L (136-145) mmol/L Glucose 473 H* (70-99(Fasting)) mg/dl Diagnostic Findings Chest CTA 05/15/23 12:58 CT angio chest PE protocol CLINICAL HISTORY: PE, sob, not taking coumadin TECHNIQUE: Multidetector row helical CT of the chest was performed with angiographic protocol. Coronal and sagittal reformations were obtained. Coronal and sagittal MIPS were obtained from the axial data set and were submitted for review. Automated dose lowering techniques and/or adjustment according to patient size were utilized for this exam. CT DOSE: 898.28 mGy.cm Comparison: Comparison is made to CTA chest 12/07/2021 FINDINGS: Lungs and pleura: Atelectasis versus scarring is seen in the dependent portions of the lungs. Heart and pericardium: No evidence of right heart strain. Vessels: Prominent pulmonary embolus is in the left upper and lower lobar arteries. Likely small emboli such as in the right upper lobe. Mediastinum and jacky: Unremarkable. Chest wall and lower neck: Unremarkable. Abdomen: Unremarkable. Bones: Degenerative changes in the thoracic spine. IMPRESSION: Large lobar pulmonary emboli most prominent in the left lung. No evidence of right heart strain. ACT 112: Negative or not required by law. Electronically signed by: Samuel Taylor M.D. 05/15/2023 2:17 PM Code Status & VTE Plan Code Status Full code VTE Prophylaxis Plan VTE Prophylaxis will be ordered: Yes Supervising Physician Co-Signing Physician Notes I personally saw and examined the patient. I independently reviewed the labs, EKG, imaging, problem list, medication list, past medical history and family history. I verified all de leon points and agree with Leo Novak PA-C with the following exceptions and/or additions: 53 year old female presents to the ER with shortness of breath and hypoxia on exertion. Recent history of PE last year when I admitted her. Decision was for lifelong anticoagulation given her sedentary lifestyle and continued smoking. Unfortunately she has had medical insurance issues and stopped taking warfarin about a month ago. Even before this she had very labile INRs. Large lobar PE on repeat CT scan today. O/E Morbidly obese, poor inspiratory effort, HS RRR, no murmurs, Chest CTAB, Abdo SNT, no calf pain A/P Pulmonary embolism - second occurrence, if there was any question before there isn't now - she will need lifelong anticoagulation. Start IV heparin. Plan to discuss with anticoagulation clinic to help her with ongoing anticoagulation as outpatient. PG Care Time/CCT Total # of Minutes Spent Total Time Spent with Patient: Total time spent is greater than 50% in coordination of care (as documented) at patient's floor/unit and/or counseling patient: C[place] [address] INT INP/OBS CARE 2/55MIN Patient Type Established Medical Decision Making Moderate Complexity Diagnoses Pulmonary embolism I26.99 T2DM (type 2 diabetes mellitus) E11.9 History of pulmonary embolism Z86.711 FPC current use of anticoagulant Z79.01 Morbid obesity E66.01
[2023-05-15] MEDS ORDERED: INSULIN ASPART PER UNIT CHARGE SC STA (15:17)
[2023-05-15 15:23] LABS: Appearance Urine Clear (Clear); Bacteria Urine Automated Negative (Negative); Bilirubin Urine Negative (Negative); Blood Urine 2+ (Negative); Cast Urine Automated 0 /lpf (0-5); Color Urine Yellow; Epithelial Cell Urine Auto >30 /lpf (0-5); Glucose Urine UA 3+ (Negative); Ketones Urine Negative (Negative); Leukocyte Esterase Urine Negative (Negative); Nitrite Urine Negative (Negative); Protein Urine Negative (Negative); Specific Gravity Urine > 1.045 (1.000-1.030); Urobilinogen Urine Negative (Negative); pH Urine 5.5 (4.5-7.5)
[2023-05-15] MEDS ORDERED: LANTUS PER UNIT CHARGE SQ STA (15:23)
[2023-05-15] MEDS: HEPARIN SODIUM/DEXTROSE 25,000 UNITS/500 ML BAG IV SCH (15:27)
[2023-05-15 15:51] LABS: Adenovirus PCR Not Detected (NotDetected); Bordetella parapertussis PCR Not Detected (NotDetected); Bordetella pertussis PCR Not Detected (NotDetected); Chlamydia pneumoniae PCR Not Detected (NotDetected); Coronavirus 229E PCR Not Detected (NotDetected); Coronavirus CoV-2 (COVID19)PCR Not Detected (NotDetected); Coronavirus HKU1 PCR Not Detected (NotDetected); Coronavirus NL63 PCR Not Detected (NotDetected); Coronavirus OC43PCR Not Detected (NotDetected); Human Metapneumovirus PCR Not Detected (NotDetected); Influenza A PCR Not Detected (NotDetected); Influenza B PCR Not Detected (NotDetected); Mycoplasma pneumoniae PCR Not Detected (NotDetected); Parainfluenza Virus 1 PCR Not Detected (NotDetected); Parainfluenza Virus 2 PCR Not Detected (NotDetected); Parainfluenza Virus 3 PCR Not Detected (NotDetected); Parainfluenza Virus 4 PCR Not Detected (NotDetected); Respiratory Syncytial VirusPCR Not Detected (NotDetected)
[2023-05-15 15:53] LABS: Rhinovirus/Enterovirus PCR DETECTED (NotDetected)
[2023-05-15] MEDS ORDERED: GLUCOSE 40% GEL 15 GM TUBE PO PRN (18:01)
[2023-05-15] MEDS ORDERED: GLUCAGON FOR INJ 1 MG VIAL SQ PRN (18:01)
[2023-05-15] MEDS ORDERED: ALBUTEROL HFA 8 GM INHALER INH PRN (18:01)
[2023-05-15] MEDS ORDERED: DEXTROSE 50% 50 ML SYRINGE IV PRN (18:01)
[2023-05-15] MEDS ORDERED: PHARMACY GLYCEMIC MGMT CONSULT PRN (18:01)
[2023-05-15] MEDS ORDERED: GLUCOSE 10 TAB/TUBE PO PRN (18:01)
[2023-05-15] MEDS ORDERED: CARBOHYDRATES FOR HYPOGLYCEMIA PO PRN (18:01)
[2023-05-15] MEDS: INSULIN ASPART PER UNIT CHARGE SC SCH ×2 (19:53→21:56)
[2023-05-15] MEDS ORDERED: LANTUS PER UNIT CHARGE SQ SCH (21:00)
[2023-05-15] MEDS: LANTUS PER UNIT CHARGE SQ SCH (21:56)
[2023-05-15 22:30] LABS: Partial Thromboplastin Ratio 1.5
[2023-05-15] MEDS: BENZONATATE 100 MG CAPSULE PO PRN (22:48)
[2023-05-16] MEDS: NICOTINE 14 MG/24 HR PATCH TD SCH ×2 (00:08→09:06)
[2023-05-16] MEDS: INSULIN ASPART PER UNIT CHARGE SC SCH ×6 (00:14→21:51)
[2023-05-16] MEDS: HEPARIN SODIUM/DEXTROSE 25,000 UNITS/500 ML BAG IV SCH ×2 (04:30→17:58)
[2023-05-16] MEDS: guaiFENesin SUGAR FREE 100 MG/5 ML UDC PO PRN ×2 (04:32→12:29)
[2023-05-16 05:21] LABS: Basophils # (auto) 0.03 K/uL (0.00-0.20); Basophils % (auto) 0.3 %; Eosinophils # (auto) 0.26 K/uL (0.00-0.50); Eosinophils % (auto) 2.8 %; Hematocrit (blood only) 36.2 % (37.0-47.0); Hemoglobin 12.1 g/dl (12.0-16.0); Immature Granulocytes # (auto) 0.06 K/uL (0.01-0.20); Immature Granulocytes % (auto) 0.7 %; Lymphocytes # (auto) 3.07 K/uL (1.20-3.40); Lymphocytes % (auto) 33.3 %; Mean Corpuscular Hemoglobin 28.1 pg (25.0-34.0); Mean Corpuscular Hgb Conc 33.4 g/dL (32.0-36.0); Mean Platelet Volume 10.1 fL (9.4-12.4); Monocytes # (auto) 0.49 K/uL (0.11-0.59); Monocytes % (auto) 5.3 %; Neutrophils # (auto) 5.32 K/uL (1.40-6.50); Neutrophils % (auto) 57.6 %; Platelet Count 189 K/uL (130-400); RDW Coefficient of Variation 14.9 % (11.5-14.5); RDW Standard Deviation 45.5 fL (36.4-46.3); Red Blood Count 4.31 M/uL (4.20-5.40); White Blood Count 9.23 K/ul (4.8-10.8)
[2023-05-16 05:35] LABS: BUN Creatinine Ratio 17.5 (10-20); Calcium 8.7 mg/dl (8.6-10.3); Creatinine Clr Calc Pharmacy 170.4 ml/min; Est GFR (African American) 118.7 ml/min; Est GFR (Non-African American) 102.4 ml/min; Potassium 3.6 mmol/L (3.5-5.1)
[2023-05-16 06:10] LABS: Partial Thromboplastin Ratio 1.7
[2023-05-16 06:24] LABS: Partial Thromboplastin Time 46.7 Seconds (21.0-31.0)
[2023-05-16 07:22] LABS: Estimated Average Glucose 266 mg/dl; Hemoglobin A1C 10.9 % (4.5-5.6)
[2023-05-16] MEDS ORDERED: LANTUS PER UNIT CHARGE SQ ONE (09:00)
[2023-05-16] MEDS: ACETAMINOPHEN 325 MG TAB PO PRN ×2 (09:03→18:38)
[2023-05-16] MEDS: lisinopril 2.5 MG TAB PO SCH (09:04)
[2023-05-16] MEDS: BENZONATATE 100 MG CAPSULE PO PRN (09:11)
--- NOTE | 2023-05-16 13:58 | Pharmacy Report ---
Pharmacy Glycemic Short Note 2 - Date of Service May 16, 2023 - Glycemic Short BSG Results (Last 24 hours): 05/15/23 05/15/23 05/15/23 18:32 19:39 20:46 Glucose POC Glucose 237 H 305 H* 346 H* 05/15/23 05/16/23 05/16/23 20:48 00:11 04:25 Glucose POC Glucose 304 H* 185 H 158 H 05/16/23 05/16/23 05/16/23 04:46 08:20 08:21 Glucose 163 H POC Glucose 306 H* 210 H 05/16/23 12:18 Glucose POC Glucose 159 H OUTPATIENT ANTIDIABETIC REGIMEN: * metformin 1000 mg PO BID * HbA1C = 10.9% (05/16/23) ASSESSMENT: * Ms Mason is a 53 y/o F with a PMH of T2DM who presents with a PE. Patient's BSG on presentation was 473 mg/dL. * On day of admission (05/15/23), the patient received 30 units of Lantus and 24 units of bolus. * Fasting today was 210. Will schedule Lantus 20 units BID (between weight-based stress 1-2). * Novolog weight-based stress of 2. PLAN FOR INPATIENT GLYCEMIC CONTROL: * Hold outpatient oral diabetes medications * Basal insulin * Lantus 20 units SQ BID * Bolus insulin * NovoLog per scale ACHS or Q6hrs while NPO * Goal Range: Low 110 mg/dL - High 140 mg/dL * Correction Factor: 15 mg/dL/unit * Nutritional / Prandial insulin per carb ratio of 1 unit per 5 grams CHO consumed
[2023-05-16] MEDS ORDERED: WARFARIN SOD 2.5 MG TAB PO ONE (14:03)
[2023-05-16] MEDS: LANTUS PER UNIT CHARGE SQ SCH (21:51)
--- NOTE | 2023-05-16 22:06 | Hospitalist Progress Note ---
Date of Service May 16, 2023 Assessment & Plan (1) Pulmonary embolism: Plan: Worsening GUERRERO and productive cough x3 weeks, with acute worsening in the past 24 hours Hx of bilateral PE in November 2021 Elevated D-dimer at 3260 Chest CTA revealed large lobar PE most prominent in the left lung Patient stopped taking her warfarin in March 2023 d/t insurance issues Everyday tobacco cigarette smoker; 0.5 PPD [facility] cumulative effects analyst consulted for failure of outpatient warfarin Nonhypoxic; 99% on RA Patient is not tachycardic, but endorses mild left-sided pleuritic CP Heparin w/ bolus started in the ED Platelet count okay at 216 PTT WNL Continuous telemetry monitoring Reached out to anticoagulation clinic; patient was discharged in February 2023 as she was not compliant with taking her warfarin, and was provided [place] free care phone number Per antico clinic, the patient reported that she lost her insurance, but when insurance was contacted it was active Case management consult placed to discuss anticoagulation upon discharge Patient will need counseling for smoking cessation On 05/16 Restarted coumadin. weight at 160kg is above threshold for eliquis (new studies shown it can be used for 140 and lower) started warfarin 12.5 mg po X1 was taking 10 daily except for one day a week of 12.5mg. [facility] can take her back (2) T2DM (type 2 diabetes mellitus): Plan: Last A1c 7.1% on 05/16/2022 Glucose 473 on arrival; ordered 10u aspart, 10u Lantus in the ED Hold metformin Start on Lantus 10 units twice daily Goal BSG range 110-140mg/dL, CF 35, carb ratio 10 BSG ACHS T2DM diet Adjust regimen as needed AM A1c (3) History of pulmonary embolism: Plan: Bilateral PE at [facility] in November 2021 Lifelong anticoagulation was later recommended d/t tobacco cigarette use, patient's BMI (4) FPC current use of anticoagulant: Plan: Patient failed outpatient warfarin d/t insurance She has not been taking since the first week of March 2023 (5) Morbid obesity: Plan: BMI 58.9 Recommend counseling on weight loss Plan Disposition: Admit to [facility] telemetry Full code T2DM, AHA diet VTE PPx: Heparin w/ bolus (as above) Admission and Anticipated Discharge Date Admission Date: May 15, 2023 Subjective Patient reports no new symptoms. Review of Systems Review of Systems: All systems reviewed & are unremarkable except as noted in HPI & below Physical Exam Physical Exam: General: no acute distress; HEENT: normocephalic, atraumatic; Neck: supple; no lymphadenopathy; trachea midline Skin: warm, dry without signs of tenting; no cyanosis; no rashes, bruising, lesions, or erythema noted CV: RRR; S1/S2 normal Lungs: clear ABD: Soft, NTP; BS present; Results & Data Results & Data Vital Signs (Past 12 Hours) Vital Signs Temp Pulse Pulse Resp BP Pulse Ox O2 Del Method 05/16/23 21:04 37.1 C 77 18 135/81 96 Room Air 05/16/23 16:02 36.5 C 76 16 119/81 94 Room Air 05/16/23 14:14 86 05/16/23 11: 36.7 C 89 16 125/86 93 Room Air PG Care Time/CCT Total # of Minutes Spent Total Time Spent with Patient: Total time spent is greater than 50% in coordination of care (as documented) at patient's floor/unit and/or counseling patient: Coding Level of Care Code 38522 SUB INP/OBS CARE 2/35MIN Diagnoses Pulmonary embolism I26.99 T2DM (type 2 diabetes mellitus) E11.9 History of pulmonary embolism 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
[2023-05-17] MEDS: ACETAMINOPHEN 325 MG TAB PO PRN ×2 (00:48→12:22)
[2023-05-17] MEDS: BENZONATATE 100 MG CAPSULE PO PRN (01:48)
[2023-05-17] MEDS ORDERED: Nursing to Pharmacy Communication SCH (05:45)
--- NOTE | 2023-05-17 06:38 | Electrocardiogram Report ---
Test Reason : Blood Pressure : / mmHG Vent. Rate : 096 BPM Atrial Rate : 096 BPM P-R Int : 172 ms QRS Dur : 080 ms QT Int : 354 ms P-R-T Axes : 071 071 029 degrees QTc Int : 447 ms Normal sinus rhythm Normal ECG When compared with ECG of 07-DEC-2021 21:05, No significant change was found Confirmed by Benigno Welsh ([id number] on 05/17/2023 6:37:53 AM Referred By: Confirmed By:Benigno Welsh
[2023-05-17 06:44] LABS: Basophils # (auto) 0.04 K/uL (0.00-0.20); Basophils % (auto) 0.4 %; Eosinophils # (auto) 0.23 K/uL (0.00-0.50); Eosinophils % (auto) 2.4 %; Hematocrit (blood only) 39.4 % (37.0-47.0); Hemoglobin 12.6 g/dl (12.0-16.0); Immature Granulocytes # (auto) 0.07 K/uL (0.01-0.20); Immature Granulocytes % (auto) 0.7 %; Lymphocytes # (auto) 2.62 K/uL (1.20-3.40); Lymphocytes % (auto) 27.6 %; Mean Corpuscular Hemoglobin 27.4 pg (25.0-34.0); Mean Corpuscular Volume 85.7 fL (80.0-100.0); Mean Platelet Volume 9.9 fL (9.4-12.4); Monocytes # (auto) 0.58 K/uL (0.11-0.59); Monocytes % (auto) 6.1 %; Neutrophils # (auto) 5.94 K/uL (1.40-6.50); Neutrophils % (auto) 62.8 %; Platelet Count 212 K/uL (130-400); RDW Standard Deviation 46.9 fL (36.4-46.3); White Blood Count 9.48 K/ul (4.8-10.8)
[2023-05-17 07:04] LABS: BUN Creatinine Ratio 17.5 (10-20); Calcium 8.9 mg/dl (8.6-10.3); Creatinine Clr Calc Pharmacy 170.4 ml/min; Est GFR (African American) 118.7 ml/min; Est GFR (Non-African American) 102.4 ml/min
[2023-05-17 07:28] LABS: Partial Thromboplastin Ratio 1.6
[2023-05-17 07:31] LABS: Partial Thromboplastin Time 46.4 Seconds (21.0-31.0)
[2023-05-17] MEDS: HEPARIN SODIUM/DEXTROSE 25,000 UNITS/500 ML BAG IV SCH ×2 (07:54→22:13)
[2023-05-17] MEDS: lisinopril 2.5 MG TAB PO SCH (08:13)
[2023-05-17] MEDS: NICOTINE 14 MG/24 HR PATCH TD SCH (08:14)
[2023-05-17] MEDS ORDERED: LANTUS PER UNIT CHARGE SQ ONE (09:00)
[2023-05-17] MEDS: INSULIN ASPART PER UNIT CHARGE SC SCH ×4 (09:28→20:49)
[2023-05-17] MEDS ORDERED: WARFARIN SOD 10 MG TAB PO ONE (10:04)
--- NOTE | 2023-05-17 10:07 | Hospitalist Progress Note ---
Date of Service May 17, 2023 Assessment & Plan (1) Pulmonary embolism: Plan: Worsening GUERRERO and productive cough x3 weeks, with acute worsening in the past 24 hours prior to admission Chest CTA revealed large lobar PE most prominent in the left lung Patient stopped taking her warfarin in March 2023 d/t insurance issues Everyday tobacco cigarette smoker; 0.5 PPD Patient will need counseling for smoking cessation Requires lifelong anticoagulation, continue on IV heparin for bridging for now given subjectively feeing worse today Warfarin 12.5mg 05/16 Warfarin 10mg 07/17 as discussed with prior provider Repeat INR daily F/U anticoagulation clinic on discharge (2) T2DM (type 2 diabetes mellitus): Plan: HbA1C 10.9 Glucose 473 on arrival Hold metformin Appreciate pharmacy management for glycemic control Will need insulin on discharge Consider SGLT-2 +/- GLP-1 as outpatient if affordable for the patient to help with weight loss (3) History of pulmonary embolism: Plan: Bilateral PE at [facility] in November 2021 Lifelong anticoagulation was later recommended d/t tobacco cigarette use, patient's BMI (4) assisted current use of anticoagulant: Plan: Patient failed outpatient warfarin d/t insurance She has not been taking since the first week of March 2023 (5) Morbid obesity: Plan: BMI 58.9 Recommend counseling on weight loss Plan VTE Prophylaxis - IV heparin (PTT appears stable), bridging to warfarin Diet - T2DM, heart healthy Disposition - stable for transfer to med/surg Admission and Anticipated Discharge Date Admission Date: May 15, 2023 Subjective Feels a little worse today but perhaps because she is trying to do more. On room air at rest but significant shortness of breath on exertion. Review of Systems Review of Systems: All systems reviewed & are unremarkable except as noted in HPI & below Physical Exam Constitutional: WD/WN, vitals as above Respiratory: normal respiratory effort; no respiratory distress Auscultation: + diminished lung sounds (throughout); no crackles and no wheezes Cardiovascular: RRR, no murmur, no edema Gastrointestinal (Abdomen): normal bowel sounds, soft, nontender, no hepatosplenomegaly Psychiatric: A+Ox3, euthymic affect Results & Data Results & Data Vital Signs (Past 12 Hours) Vital Signs Temp Pulse Resp BP Pulse Ox O2 Del Method 05/17/23 07:48 36.8 C 73 16 139/78 94 Room Air 11/23/23 07:48 Room Air 05/17/23 04:22 36.7 C 80 18 130/83 95 Room Air 05/16/23 23:48 37.0 C 79 18 142/84 H 95 Room Air Laboratory Results Abnormal lab results 05/17/23 05/17/23 05/17/23 Range/Units 06:00 08:18 12:24 RDW Std Deviation 46.9 H (36.4-46.3) fL RDW Coeff of Ana 15.0 H (11.5-14.5) % APTT 46.4 H* (21.0-31.0) Seconds Glucose 227 H (70-99(Fasting)) mg/dl POC Glucose 210 H 208 H (70-99) mg/dl 05/17/23 05/17/23 05/17/23 Range/Units 14:34 16:30 20:44 RDW Std Deviation (36.4-46.3) fL RDW Coeff of Ana (11.5-14.5) % APTT 42.4 H* (21.0-31.0) Seconds Glucose (70-99(Fasting)) mg/dl POC Glucose 261 H 220 H (70-99) mg/dl PG Care Time/CCT Total # of Minutes Spent Total Time Spent with Patient: Total time spent is greater than 50% in coordination of care (as documented) at patient's floor/unit and/or counseling patient: Coding Level of Care Code 50882 SUB INP/OBS CARE 2/35MIN Diagnoses Pulmonary embolism I26.99 T2DM (type 2 diabetes mellitus) E11.9 History of pulmonary embolism Z86.711 assisted current use of anticoagulant Z79.01 Morbid obesity E66.01
[2023-05-17 10:25] LABS: Prothrombin Time 10.9 Seconds (9.0-12.0)
[2023-05-17 15:38] LABS: Partial Thromboplastin Ratio 1.5
[2023-05-17 15:42] LABS: Partial Thromboplastin Time 42.4 Seconds (21.0-31.0)
[2023-05-17] MEDS: LANTUS PER UNIT CHARGE SQ SCH (20:49)
[2023-05-18 06:41] LABS: Basophils # (auto) 0.03 K/uL (0.00-0.20); Basophils % (auto) 0.3 %; Eosinophils # (auto) 0.26 K/uL (0.00-0.50); Eosinophils % (auto) 2.2 %; Hematocrit (blood only) 40.4 % (37.0-47.0); Hemoglobin 13.2 g/dl (12.0-16.0); Immature Granulocytes # (auto) 0.08 K/uL (0.01-0.20); Immature Granulocytes % (auto) 0.7 %; Lymphocytes # (auto) 3.45 K/uL (1.20-3.40); Lymphocytes % (auto) 29.6 %; Mean Corpuscular Hemoglobin 27.3 pg (25.0-34.0); Mean Corpuscular Hgb Conc 32.7 g/dL (32.0-36.0); Mean Corpuscular Volume 83.6 fL (80.0-100.0); Mean Platelet Volume 9.9 fL (9.4-12.4); Monocytes # (auto) 0.67 K/uL (0.11-0.59); Monocytes % (auto) 5.7 %; Neutrophils # (auto) 7.17 K/uL (1.40-6.50); Neutrophils % (auto) 61.5 %; Platelet Count 235 K/uL (130-400); RDW Coefficient of Variation 15.1 % (11.5-14.5); RDW Standard Deviation 45.9 fL (36.4-46.3); Red Blood Count 4.83 M/uL (4.20-5.40); White Blood Count 11.66 K/ul (4.8-10.8)
[2023-05-18 07:02] LABS: BUN Creatinine Ratio 16.4 (10-20); Calcium 9.2 mg/dl (8.6-10.3); Creatinine Clr Calc Pharmacy 161.5 ml/min; Est GFR (African American) 116.3 ml/min; Est GFR (Non-African American) 100.4 ml/min; Potassium 4.3 mmol/L (3.5-5.1)
[2023-05-18 07:25] LABS: INR 1.1 (0.9-1.1); Partial Thromboplastin Ratio 1.8; Prothrombin Time 12.4 Seconds (9.0-12.0)
[2023-05-18 07:40] LABS: Partial Thromboplastin Time 49.9 Seconds (21.0-31.0)
[2023-05-18] MEDS: NICOTINE 14 MG/24 HR PATCH TD SCH (08:18)
[2023-05-18] MEDS: lisinopril 2.5 MG TAB PO SCH (08:19)
[2023-05-18] MEDS: INSULIN ASPART PER UNIT CHARGE SC SCH ×4 (08:24→21:15)
[2023-05-18] MEDS: HEPARIN SODIUM/DEXTROSE 25,000 UNITS/500 ML BAG IV SCH ×2 (08:29→12:14)
[2023-05-18] MEDS ORDERED: LANTUS PER UNIT CHARGE SQ SCH ×2 (09:00→21:00)
--- NOTE | 2023-05-18 14:05 | Pharmacy Report ---
Pharmacy Glycemic Short Note 2 - Date of Service May 18, 2023 - Glycemic Short BSG Results (Last 24 hours): 05/17/23 05/17/23 05/18/23 16:30 20:44 06:01 Glucose 159 H POC Glucose 261 H 220 H 05/18/23 05/18/23 07:43 11:30 Glucose POC Glucose 195 H 226 H OUTPATIENT ANTIDIABETIC REGIMEN: * metformin 1000 mg PO BID * HbA1C = 10.9% (05/16/23) ASSESSMENT: 05/18/23 * BSGS yesterday were [phone] mg/dL. Patient received 92 units of insulin (40 units of basal insulin and 52 units of bolus insulin). * Today's BSGs are 195-226 mg/dL. * Increase basal by 20% to 50 units daily (25 units BID). A higher dose of 30 units is available if BSGs remain > 180 mg/dL. * Tighten Novolog due to BSGs trending upwards throughout the day BACKGROUND * Ms Mason is a 53 y/o F with a PMH of T2DM who presents with a PE. Patient's BSG on presentation was 473 mg/dL. * On day of admission (05/15/23), the patient received 30 units of Lantus and 24 units of bolus. * Fasting today was 210. Will schedule Lantus 20 units BID (between weight-based stress 1-2). * Novolog weight-based stress of 2. PLAN FOR INPATIENT GLYCEMIC CONTROL: * Hold outpatient oral diabetes medications * Basal insulin * Lantus 25 units SQ BID (30 units if BSG > 180 mg/dL) * Bolus insulin * NovoLog per scale ACHS or Q6hrs while NPO * Goal Range: Low 110 mg/dL - High 140 mg/dL * Correction Factor: 12 mg/dL/unit * Nutritional / Prandial insulin per carb ratio of 1 unit per 3 grams CHO consumed
[2023-05-18] MEDS ORDERED: WARFARIN SOD 10 MG TAB PO ONE (16:14)
--- NOTE | 2023-05-18 18:45 | Hospitalist Progress Note ---
Date of Service May 18, 2023 Assessment & Plan (1) Pulmonary embolism: Plan: Worsening GUERRERO and productive cough x3 weeks, with acute worsening in the past 24 hours prior to admission Chest CTA revealed large lobar PE most prominent in the left lung Patient stopped taking her warfarin in March 2023 d/t insurance issues Everyday tobacco cigarette smoker; 0.5 PPD Patient will need counseling for smoking cessation Requires lifelong anticoagulation, continue on IV heparin for bridging for now given subjectively feeing worse today Warfarin 12.5mg 05/16 Warfarin 10mg 07/17 WARFARIN 10 MG 07/18 Standing order placed for AM of warfarin. Repeat INR daily F/U anticoagulation clinic on discharge (2) T2DM (type 2 diabetes mellitus): Plan: HbA1C 10.9 Glucose 473 on arrival Hold metformin Appreciate pharmacy management for glycemic control Will need insulin on discharge Consider SGLT-2 +/- GLP-1 as outpatient if affordable for the patient to help with weight loss (3) History of pulmonary embolism: Plan: Bilateral PE at [facility] in November 2021 Lifelong anticoagulation was later recommended d/t tobacco cigarette use, patient's BMI (4) FPC current use of anticoagulant: Plan: Patient failed outpatient warfarin d/t insurance She has not been taking since the first week of March 2023 (5) Morbid obesity: Plan: BMI 58.9 Recommend counseling on weight loss Plan VTE Prophylaxis - IV heparin (PTT appears stable), bridging to warfarin Diet - T2DM, heart healthy Disposition - stable for transfer to med/surg Admission and Anticipated Discharge Date Admission Date: May 15, 2023 Subjective Patient reports no new symptoms. Review of Systems Review of Systems: All systems reviewed & are unremarkable except as noted in HPI & below Physical Exam Physical Exam: General: no acute distress; HEENT: normocephalic, atraumatic; Neck: supple; no lymphadenopathy; trachea midline Skin: warm, dry without signs of tenting; no cyanosis; no rashes, bruising, lesions, or erythema noted CV: RRR; S1/S2 normal Lungs: clear ABD: Soft, NTP; BS present; Results & Data Results & Data Vital Signs (Past 12 Hours) Vital Signs Temp Pulse Resp BP Pulse Ox O2 Del Method 05/18/23 15:37 36.7 C 85 16 134/69 96 Room Air 05/18/23 08:36 Room Air 05/18/23 08:09 36.6 C 77 16 121/78 95 Room Air PG Care Time/CCT Total # of Minutes Spent Total Time Spent with Patient: Total time spent is greater than 50% in coordination of care (as documented) at patient's floor/unit and/or counseling patient: Coding Level of Care Code 42155 SUB INP/OBS CARE 2/35MIN Diagnoses Pulmonary embolism I26.99 T2DM (type 2 diabetes mellitus) E11.9 History of pulmonary embolism Z86.711 FPC current use of anticoagulant Z79.01 Morbid obesity E66.01
[2023-05-19] MEDS: HEPARIN SODIUM/DEXTROSE 25,000 UNITS/500 ML BAG IV SCH ×2 (01:49→14:37)
[2023-05-19] MEDS: lisinopril 2.5 MG TAB PO SCH (08:44)
[2023-05-19] MEDS: NICOTINE 14 MG/24 HR PATCH TD SCH (08:44)
[2023-05-19] MEDS: INSULIN ASPART PER UNIT CHARGE SC SCH ×4 (08:44→20:59)
[2023-05-19] MEDS: LANTUS PER UNIT CHARGE SQ SCH ×2 (08:45→21:00)
[2023-05-19 09:06] LABS: Hematocrit (blood only) 38.6 % (37.0-47.0); Hemoglobin 12.2 g/dl (12.0-16.0); Mean Corpuscular Hemoglobin 27.2 pg (25.0-34.0); Mean Corpuscular Hgb Conc 31.6 g/dL (32.0-36.0); Mean Corpuscular Volume 86.2 fL (80.0-100.0); Mean Platelet Volume 9.5 fL (9.4-12.4); Platelet Count 217 K/uL (130-400); RDW Coefficient of Variation 15.2 % (11.5-14.5); RDW Standard Deviation 47.7 fL (36.4-46.3); Red Blood Count 4.48 M/uL (4.20-5.40); White Blood Count 8.89 K/ul (4.8-10.8)
[2023-05-19 09:25] LABS: BUN Creatinine Ratio 15.5 (10-20); Calcium 8.9 mg/dl (8.6-10.3); Creatinine Clr Calc Pharmacy 152.4 ml/min; Est GFR (African American) 112.7 ml/min; Est GFR (Non-African American) 97.2 ml/min; Potassium 3.9 mmol/L (3.5-5.1)
[2023-05-19 09:53] LABS: INR 1.3 (0.9-1.1); Partial Thromboplastin Ratio 1.8; Prothrombin Time 13.8 Seconds (9.0-12.0)
[2023-05-19 09:54] LABS: Partial Thromboplastin Time 50.4 Seconds (21.0-31.0)
--- NOTE | 2023-05-19 11:39 | Hospitalist Progress Note ---
Date of Service May 19, 2023 Assessment & Plan (1) Pulmonary embolism: Plan: Worsening GUERRERO and productive cough x3 weeks, with acute worsening in the past 24 hours prior to admission Chest CTA revealed large lobar PE most prominent in the left lung Patient stopped taking her warfarin in March 2023 d/t insurance issues Everyday tobacco cigarette smoker; 0.5 PPD Continue smoking cessation counselling Requires lifelong anticoagulation, continue on IV heparin for bridging for now given subjectively feeing worse today Warfarin 12.5mg 05/16, 10mg [05/17], 10 MG [05/18], 15mg [05/19] - prior stable dose 10mg PO daily (6 days) 12.5mg (1 day) Repeat INR daily F/U anticoagulation clinic on discharge Plan discharge on Sunday given high risk patient and need to make sure all medications covered and follow up arranged (2) T2DM (type 2 diabetes mellitus): Plan: HbA1C 10.9 Glucose 473 on arrival Hold metformin Appreciate pharmacy management for glycemic control Will need insulin on discharge Consider SGLT-2 +/- GLP-1 as outpatient if affordable for the patient to help with weight loss (3) History of pulmonary embolism: Plan: Bilateral PE at [facility] in November 2021 Lifelong anticoagulation was later recommended d/t tobacco cigarette use, patient's BMI (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 Reports improvement in her shortness of breath. No chest pain, fever or chills. INR 1.3 this morning. Review of Systems Review of Systems: All systems reviewed & are unremarkable except as noted in HPI & below Physical Exam Constitutional: WD/WN, vitals as above Respiratory: normal respiratory effort; no respiratory distress Auscultation: + diminished lung sounds (throughout); no crackles and no wheezes Cardiovascular: RRR, no murmur, no edema Gastrointestinal (Abdomen): normal bowel sounds, soft, nontender, no hepatosplenomegaly Psychiatric: A+Ox3, euthymic affect Results & Data Results & Data Vital Signs (Past 12 Hours) Vital Signs Temp Pulse Resp BP Pulse Ox O2 Del Method 05/19/23 07:54 36.8 C 89 16 142/81 H 94 Room Air 05/19/23 07:30 Room Air Laboratory Results Abnormal lab results 05/18/23 05/19/23 05/19/23 Range/Units 20:44 07:32 08:40 MCHC 31.6 L (32.0-36.0) g/dL RDW Std Deviation 47.7 H (36.4-46.3) fL RDW Coeff of Ana 15.2 H (11.5-14.5) % PT 13.8 H (9.0-12.0) Seconds INR 1.3 H (0.9-1.1) APTT 50.4 H* (21.0-31.0) Seconds Glucose 230 H (70-99(Fasting)) mg/dl POC Glucose 138 H 146 H (70-99) mg/dl 05/19/23 05/19/23 Range/Units 11:21 16:26 MCHC (32.0-36.0) g/dL RDW Std Deviation (36.4-46.3) fL RDW Coeff of Ana (11.5-14.5) % PT (9.0-12.0) Seconds INR (0.9-1.1) APTT (21.0-31.0) Seconds Glucose (70-99(Fasting)) mg/dl POC Glucose 192 H 112 H (70-99) mg/dl PG Care Time/CCT Total # of Minutes Spent Total Time Spent with Patient: Total time spent is greater than 50% in coordination of care (as documented) at patient's floor/unit and/or counseling patient: Coding Level of Care Code 63617 SUB INP/OBS CARE 2/35MIN Diagnoses Pulmonary embolism I26.99 T2DM (type 2 diabetes mellitus) E11.9 History of pulmonary embolism Z86.711 FPC current use of anticoagulant Z79.01 Morbid obesity E66.01
[2023-05-19] MEDS: WARFARIN SOD 7.5 MG TAB PO SCH (15:57)
[2023-05-19] MEDS ORDERED: WARFARIN SOD 10 MG TAB PO SCH (16:00)
[2023-05-20] MEDS: HEPARIN SODIUM/DEXTROSE 25,000 UNITS/500 ML BAG IV SCH ×2 (04:14→17:22)
[2023-05-20] MEDS: INSULIN ASPART PER UNIT CHARGE SC SCH ×4 (08:17→21:29)
[2023-05-20] MEDS: LANTUS PER UNIT CHARGE SQ SCH ×2 (08:20→21:28)
[2023-05-20] MEDS: lisinopril 2.5 MG TAB PO SCH (08:21)
[2023-05-20] MEDS: NICOTINE 14 MG/24 HR PATCH TD SCH (08:22)
[2023-05-20 09:41] LABS: INR 1.5 (0.9-1.1); Partial Thromboplastin Ratio 2.1; Prothrombin Time 16.1 Seconds (9.0-12.0)
[2023-05-20 09:42] LABS: Partial Thromboplastin Time 58.9 Seconds (21.0-31.0)
--- NOTE | 2023-05-20 13:35 | Pharmacy Report ---
Pharmacy Glycemic Short Note 2 - Date of Service May 20, 2023 - Glycemic Short BSG Results (Last 24 hours): 05/19/23 05/19/23 05/20/23 16:26 20:35 07:43 POC Glucose 112 H 174 H 153 H 05/20/23 11:37 POC Glucose 152 H OUTPATIENT ANTIDIABETIC REGIMEN: * Metformin 1000 mg PO BID * HbA1c: 10.9% (05/16/23) ASSESSMENT: 05/20: * Halina received 107 units of insulin yesterday, 50 basal + 57 bolus. BSGs were: 463-495-426-174 mg/dL. * Fasting BSG was 153 mg/dL this AM. No change to insulin regimen necessary today. * Remains on heparin drip. 05/18: * BSGS yesterday were [phone] mg/dL. Patient received 92 units of insulin (40 units of basal insulin and 52 units of bolus insulin). * Today's BSGs are 195-226 mg/dL. * Increase basal by 20% to 50 units daily (25 units BID). A higher dose of 30 units is available if BSGs remain > 180 mg/dL. * Tighten Novolog due to BSGs trending upwards throughout the day BACKGROUND * Ms Mason is a 53 y/o F with a PMH of T2DM who presents with a PE. Patient's BSG on presentation was 473 mg/dL. * On day of admission (05/15/23), the patient received 30 units of Lantus and 24 units of bolus. * Fasting today was 210. Will schedule Lantus 20 units BID (between weight-based stress 1-2). * Novolog weight-based stress of 2. PLAN FOR INPATIENT GLYCEMIC CONTROL: * Hold outpatient oral diabetes medications * Basal insulin * Lantus 25 units SC BID * Bolus insulin * NovoLog per scale ACHS or Q6hrs while NPO * Goal Range: Low 110 mg/dL - High 140 mg/dL * Correction Factor: 12 mg/dL/unit * Nutritional / Prandial insulin per carb ratio of 1 unit per 3 grams CHO consumed
--- NOTE | 2023-05-20 16:05 | Hospitalist Progress Note ---
Date of Service May 20, 2023 Assessment & Plan (1) Pulmonary embolism: Plan: Worsening GUERRERO and productive cough x3 weeks, with acute worsening in the past 24 hours prior to admission Chest CTA revealed large lobar PE most prominent in the left lung Patient stopped taking her warfarin in March 2023 d/t insurance issues Everyday tobacco cigarette smoker; 0.5 PPD Continue smoking cessation counselling Requires lifelong anticoagulation, continue on IV heparin for bridging for now given subjectively feeing worse today Warfarin 12.5mg [05/16], 10mg [05/17], 10 MG [05/18], 15mg [05/19], 15mg [05/20] - prior stable dose 10mg PO daily (6 days) 12.5mg (1 day) Repeat INR daily F/U anticoagulation clinic on discharge Plan discharge on Sunday given high risk patient and need to make sure all medications covered and follow up arranged (2) T2DM (type 2 diabetes mellitus): Plan: HbA1C 10.9 Glucose 473 on arrival Hold metformin Appreciate pharmacy management for glycemic control Will need insulin on discharge Consider SGLT-2 +/- GLP-1 as outpatient if affordable for the patient to help with weight loss (3) History of pulmonary embolism: Plan: Bilateral PE at [facility] in November 2021 Lifelong anticoagulation was later recommended d/t tobacco cigarette use, patient's BMI (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 No change in shortness of breath but significant improvement from admission. No chest pain, fever or chills. INR 1.5 this morning. Review of Systems Review of Systems: All systems reviewed & are unremarkable except as noted in HPI & below Physical Exam Constitutional: WD/WN, vitals as above Respiratory: normal respiratory effort; no respiratory distress Auscultation: + diminished lung sounds (throughout); no crackles and no wheezes Cardiovascular: RRR, no murmur, no edema Gastrointestinal (Abdomen): normal bowel sounds, soft, nontender, no hepatosplenomegaly Psychiatric: A+Ox3, euthymic affect Results & Data Results & Data Vital Signs (Past 12 Hours) Vital Signs Temp Pulse Resp BP BP Pulse Ox O2 Del Method 05/20/23 15:21 36.6 C 74 20 122/70 96 Room Air 05/20/23 08:32 Room Air 05/20/23 07:51 36.7 C 88 20 131/78 94 Room Air Laboratory Results Abnormal lab results 05/19/23 05/19/23 05/20/23 Range/Units 16:26 20:35 07:43 PT (9.0-12.0) Seconds INR (0.9-1.1) APTT (21.0-31.0) Seconds POC Glucose 112 H 174 H 153 H (70-99) mg/dl 05/20/23 05/20/23 Range/Units 08:33 11:37 PT 16.1 H (9.0-12.0) Seconds INR 1.5 H (0.9-1.1) APTT 58.9 H* (21.0-31.0) Seconds POC Glucose 152 H (70-99) mg/dl PG Care Time/CCT Total # of Minutes Spent Total Time Spent with Patient: Total time spent is greater than 50% in coordination of care (as documented) at patient's floor/unit and/or counseling patient: Coding Level of Care Code 91848 SUB INP/OBS CARE 2/35MIN Diagnoses Pulmonary embolism I26.99 T2DM (type 2 diabetes mellitus) E11.9 History of pulmonary embolism Z86.711 snf current use of anticoagulant Z79.01 Morbid obesity E66.01
[2023-05-20] MEDS: WARFARIN SOD 7.5 MG TAB PO SCH (16:27)
[2023-05-21] MEDS: HEPARIN SODIUM/DEXTROSE 25,000 UNITS/500 ML BAG IV SCH ×2 (06:36→16:43)
[2023-05-21 08:14] LABS: INR 1.9 (0.9-1.1); Partial Thromboplastin Ratio 2.8; Prothrombin Time 20.3 Seconds (9.0-12.0)
[2023-05-21 08:18] LABS: Partial Thromboplastin Time 79.5 Seconds (21.0-31.0)
[2023-05-21] MEDS: INSULIN ASPART PER UNIT CHARGE SC SCH ×3 (08:27→17:02)
[2023-05-21] MEDS: LANTUS PER UNIT CHARGE SQ SCH (08:28)
[2023-05-21] MEDS: lisinopril 2.5 MG TAB PO SCH (08:28)
[2023-05-21] MEDS: NICOTINE 14 MG/24 HR PATCH TD SCH (08:29)
--- NOTE | 2023-05-21 13:18 | Pharmacy Report ---
Pharmacy Glycemic Short Note 2 - Date of Service May 21, 2023 - Glycemic Short BSG Results (Last 24 hours): 05/20/23 05/20/23 05/21/23 16:26 21:05 07:53 POC Glucose 144 H 150 H 151 H 05/21/23 11:50 POC Glucose 136 H OUTPATIENT ANTIDIABETIC REGIMEN: * Metformin 1000 mg PO BID * HbA1c: 10.9% (05/16/23) ASSESSMENT: 05/21: * Halina received 115 units of insulin yesterday (50 were basal) * She continues on the heparin drip, possible discharge today * Fasting BSG slightly above goal range, but acceptable. No changes in basal insulin today. * All BSGs acceptable with current Novolog parameters. 05/20: * Halina received 107 units of insulin yesterday, 50 basal + 57 bolus. BSGs were: 315-173-330-174 mg/dL. * Fasting BSG was 153 mg/dL this AM. No change to insulin regimen necessary today. * Remains on heparin drip. 05/18: * BSGS yesterday were [phone] mg/dL. Patient received 92 units of insulin (40 units of basal insulin and 52 units of bolus insulin). * Today's BSGs are 195-226 mg/dL. * Increase basal by 20% to 50 units daily (25 units BID). A higher dose of 30 units is available if BSGs remain > 180 mg/dL. * Tighten Novolog due to BSGs trending upwards throughout the day BACKGROUND * Ms Mason is a 53 y/o F with a PMH of T2DM who presents with a PE. Patient's BSG on presentation was 473 mg/dL. * On day of admission (05/15/23), the patient received 30 units of Lantus and 24 units of bolus. * Fasting today was 210. Will schedule Lantus 20 units BID (between weight-based stress 1-2). * Novolog weight-based stress of 2. PLAN FOR INPATIENT GLYCEMIC CONTROL: * Hold outpatient oral diabetes medications * Basal insulin * Lantus 25 units SC BID * Bolus insulin * NovoLog per scale ACHS or Q6hrs while NPO * Goal Range: Low 110 mg/dL - High 140 mg/dL * Correction Factor: 12 mg/dL/unit * Nutritional / Prandial insulin per carb ratio of 1 unit per 3 grams CHO consumed
--- NOTE | 2023-05-21 16:20 | Discharge Summary ---
Date of Service May 21, 2023 Admission HPI Per Admitting Provider Halina is a 53-year-old female with PMH of bilateral PE, T2DM, morbid obesity, OA, and lifelong anticoag (was previously on warfarin). Patient reports she has been sick for the past 5 weeks with nasal congestion, productive cough (clear sputum production), with an acute exacerbation of GUERRERO last night 05/14. Patient did not take her morning medications. She had a bilateral PE in November 2021, was admitted to [facility] for 8 days; started on warfarin outpatient. She followed with the anticoag clinic, and lifelong anticoag was recommended due to patient's body habitus and tobacco cigarette use; however, patient reports that she lost her insurance due to common-law marriage, and that she has not taken her warfarin since the first week of March. She endorses sharp, pleuritic CP since the morning of 05/15; constant. No radiation down the left arm or to the left shoulder/back. She rates the pain 2/10. She reports vomiting on 2 episodes of vomiting (once last week, and then again on Saturday 05/12). Patient is a current tobacco cigarette smoker; 0.5 PPD; 35-year history. She denies vaping and recreational drug use. Vitals are stable at time of admission; 99% SPO2 on room air. ED course: Heparin w/ bolus Of albuterol 1.25 mg neb ROS: Patient endorses cold intolerance, chills, GUERRERO, left-sided pleuritic CP, productive cough, nausea, vomiting x 2 episodes, diarrhea x 1 episode on 05/15, frequent urination, swelling/pain in the R leg. Patient denies fever, DE JESUS, dizziness, CP, chest palpitations, hemoptysis, SOB at rest, burning with urination, blood in the urine/stool, or numbness/tingling in the legs. 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 Routine Ordered Studies 05/15/23 12:58 CT angio chest PE protocol Stat Diabetes Follow up Diabetes Follow-up Needed for HgbA1c >9% Hospital Course (1) Pulmonary embolism: Worsening GUERRERO and productive cough x3 weeks, with acute worsening in the past 24 hours prior to admission Chest CTA revealed large lobar PE most prominent in the left lung Patient stopped taking her warfarin in March 2023 d/t insurance issues Everyday tobacco cigarette smoker; 0.5 PPD Continue smoking cessation counselling Requires lifelong anticoagulation, IV heparin for bridging will have coumadin at discharge, states she did have hre insurance renewed to get medication. asked for RX to be sent to [facility], encouraged inr this week[facility] and Dr Alamo follow up (2) T2DM (type 2 diabetes mellitus): HbA1C 10.9 pt states that when compliant with diet and metformin her A1c was controlled and last year it was 7.1. 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: (5) Morbid obesity: BMI 58.9 counseling regarding weight loss Total Time Total Time Spent Total Time Spent (In Minutes): It required greater than 30 minutes to prepare this patient for discharge Discharge Plan Discharge Items Patient Disposition: Home - Self-Care Reason For Visit: SOB, DYSPNEA, PE Discharge Diagnosis: pulmonary embolism, recurrent uncontrolled diabetes Activity: Resume your previous activity Non-emergency contact: Primary Care Provider Call non-emergency contact if: your symptoms worsen Follow-up/Referrals: Wolfgang Alamo DO [Primary Care Provider] - Diet: Carb Consistent or DM2 Addtl Attending Provider Instructions: Medication Instructions: * Warfarin is a medicine prescribed to prevent blood clots * Warfarin will thin your blood and help prevent new clots * Take your medications exactly as directed * Never skip a dose. Never take a double dose. If you miss a dose, take it as soon as you remember * It is important for your doctor to monitor your prothrombin time (PT). This is a lab test * Keep your appointment for lab tests Risk of Adverse Drug Reactions and Interactions: * Warfarin increases your risk of bleeding * The food you eat and other medications you take can affect how Warfarin works in your body * Ask your doctor about daily aspirin therapy * It is very important to talk with your doctor about all of the other medicines, antibiotics, vitamins or herbal products that you are taking * All of your medication must be approved by your doctor, including new medicines, as well as medicines you have taken before you started taking Warfarin Diet: * In order for Warfarin to work properly, it is important to keep your intake of Vitamin K as consistent as possible * You should avoid any sudden change in Vitamin K intake * Report any significant changes in your diet or weight to your doctor Call your Primary Care doctor if you experience any of the following: * Swelling or Pain in your leg * Sudden, continuous pain deep in a muscle * Pain that worsens when you are active or when you stand still for a long time * Chest Pain * Sudden Shortness of Breath * Rapid or pounding heart beat * Fainting * Dizziness * Cough with blood or bloody sputum * Sweating more than normal * Bruises * Heavy or uncontrolled bleeding * Blood in your urine, stool or vomit * Black or tarry stools Caring for Your Self at Home: * Avoid sitting, standing or lying down for long periods without moving your legs and feet * When traveling by car, stop to get out and move around at least once every 3 hours * On long airplane, train or bus rides, get up and move around when possible * If you can't get up, wiggle your toes and tighten your calves to keep your blood moving Follow Up: It is important for you to keep your follow up appointments with your medical provider. Addtl Top Carrier Provider Instructions: please take your metformin twice a day and watch your carbohydrate intake please have an INR checked for your warfarin at you typical location results to [facility] [place] [facility] Pending Studies at Discharge: No Stand-Alone Forms: [employer], Work/School Release, Smoking Cessation Medications and DC Order Prescriptions: Continued (DME) lancets [OneTouch UltraSoft Lancets] Misc See Rx Instructions .Route Qty: 200 3RF Rx Instructions: TEST BLOOD SUGAR ONCE DAILY (DME) lancets [OneTouch Delica Plus Lancet] 30 gauge misc See Rx Instructions .ROUTE Qty: 100 6RF Rx Instructions: As directed (DME) OneTouch Verio test strips Strip See Rx Instructions .Route Qty: 200 3RF Rx Instructions: TEST BLOOD SUGAR ONCE DAILY (DME) blood-glucose meter [OneTouch Verio Meter] [facility] See Rx Instructions .Route Qty: 1 0RF Rx Instructions: ONETOUCH VERIO METER albuterol sulfate 90 mcg/actuation HFA aerosol inhaler 2 inh inhalation QID PRN (Reason: shortness of breath or wheezing) Qty: 8.5 3RF nystatin 100,000 unit/gram powder 1 applic topical QID PRN (Reason: Rash) metformin 1,000 mg tablet 1,000 mg PO BID Qty: 90 3RF lisinopril 2.5 mg tablet 2.5 mg PO DAILY Qty: 90 3RF Changed warfarin 5 mg tablet See Rx Instructions PO UD Qty: 65 5RF Rx Instructions: 12.5mg WEDNESDAYS ONLY, THEN 10mg x 6 days per [facility] x [id number] Discharge Orders: Discharge Order (Routine); Ordered 05/21/23 Ordered By: Ulises Coto/Other Patient Handouts: High Blood Sugar (Hyperglycemia), Managing Type 2 Diabetes Admission Data Admit Date/Time: 05/15/23 15:02 Attending Provider: Ulises Pina Admit Provider: Reid Vega Primary Care Provider: Wolfgang Alamo Other Providers: Reid Vega Coding Level of Care Code 03761 INP/OBS DISCH >30 MIN Diagnoses Pulmonary embolism I26.99 T2DM (type 2 diabetes mellitus) E11.9 History of pulmonary embolism 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
[2023-05-21] MEDS: WARFARIN SOD 7.5 MG TAB PO SCH (17:02)
== END 2023-05-21 17:56 | disposition home or self-care (01) | DRG 176 ==
LOC: ED 11:55 → SUATTDRO 15:02 → EDINP 15:02 → 2W 20:34 → 3E 05-17 16:10

== ENCOUNTER 2023-09-28 12:04 | Observation (INO) ==
--- NOTE | 2023-09-28 12:13 | ED Triage Note ---
Date of Service September 28, 2023 Provider in Triage Author: Stuart Gunderson History of Present Illness This patient was briefly evaluated while in triage. An abbreviated physical exam was performed. This patient is a 53-year-old Female, history of pulmonary embolus on long-term anticoagulation with warfarin,who presents to the ED for evaluation of chest pain and shortness of breath. Patient also reports pain in her jaw and ears. She also reports sore throat. Patient reports that her symptoms started approximately 45 minutes prior to arrival. Patient denies any nausea. Patient had her INR checked yesterday, and it was 3.3. The patient reports that since onset of symptoms, she feels that the shortness of breath is improving. The patient tried an albuterol inhaler without relief. Patient rates her discomfort a 4 out of 10. Physical Exam CONSTITUTIONAL: Healthy and well nourished. Patient does not appear in any acute distress. HEENT: No scleral icterus or conjunctival injection. RESPIRATORY: Clear to auscultation bilaterally with no wheezing, crackles, rhonchi or stridor. CARDIOVASCULAR: Regular rate and rhythm with no murmurs, rubs or gallops. MUSCULOSKELETAL: Full range of motion of all joints without discomfort. INTEGUMENTARY: No rash or other significant dermatologic conditions noted. HEMATOLOGIC: No ecchymosis or petechiae. PSYCHIATRIC: Positive affect. NEUROLOGIC: No focal neurologic deficits noted. Initial orders for labs and / or imaging were placed and patient was placed in the waiting area until a bed is available. Please see further documentation for the full ED course.
[2023-09-28 12:40] LABS: Basophils # (auto) 0.03 K/uL (0.00-0.20); Basophils % (auto) 0.3 %; Eosinophils # (auto) 0.35 K/uL (0.00-0.50); Eosinophils % (auto) 3.1 %; Hematocrit (blood only) 41.2 % (37.0-47.0); Hemoglobin 13.8 g/dl (12.0-16.0); Immature Granulocytes # (auto) 0.04 K/uL (0.01-0.20); Immature Granulocytes % (auto) 0.3 %; Lymphocytes # (auto) 3.24 K/uL (1.20-3.40); Lymphocytes % (auto) 28.3 %; Mean Corpuscular Hemoglobin 27.5 pg (25.0-34.0); Mean Corpuscular Hgb Conc 33.5 g/dL (32.0-36.0); Mean Corpuscular Volume 82.2 fL (80.0-100.0); Monocytes # (auto) 0.62 K/uL (0.11-0.59); Monocytes % (auto) 5.4 %; Neutrophils # (auto) 7.16 K/uL (1.40-6.50); Neutrophils % (auto) 62.6 %; Platelet Count 328 K/uL (130-400); RDW Coefficient of Variation 15.2 % (11.5-14.5); RDW Standard Deviation 45.5 fL (36.4-46.3); Red Blood Count 5.01 M/uL (4.20-5.40); White Blood Count 11.44 K/ul (4.8-10.8)
--- NOTE | 2023-09-28 12:58 | XRay Report ---
XR chest 1V not portable HISTORY: 53 years-old Female Chest pain, SOB acute chest pain with shortness of breath COMPARISON: 07/06/2023 TECHNIQUE: PA view of the chest FINDINGS: Cardiomediastinal and hilar silhouettes are within normal limits. No pneumothorax, pleural effusion o r pulmonary edema. Bones appear grossly intact. IMPRESSION: No acute process. ACT 112: Negative or not required by law. The above report was generated using voice recognition software. It may contain grammatical, syntax o r spelling errors. Electronically signed by: Av Zhang M.D. 09/28/2023 12:56 PM
[2023-09-28 13:01] LABS: Albumin Globulin Ratio 1.1 (0.9-2); Albumin Level 3.7 gm/dl (3.4-5.0); BUN Creatinine Ratio 22.4 (10-20); Bilirubin,Total 0.6 mg/dl (0.2-1.0); Calcium 9.4 mg/dl (8.6-10.3); Creatinine Clr Calc Pharmacy 160.9 ml/min; Est GFR (African American) 116.3 ml/min; Est GFR (Non-African American) 100.4 ml/min; Globulin 3.4 gm/dl (2.5-4.0); Potassium 4.1 mmol/L (3.5-5.1); Total Protein 7.1 gm/dl (6.0-8.3); Troponin I High Sensitivity 6.9 pg/ml (0-14)
[2023-09-28 13:04] LABS: INR 1.9 (0.9-1.1); Partial Thromboplastin Ratio 1.4; Partial Thromboplastin Time 39 Seconds (21-31); Prothrombin Time 19.8 Seconds (9.0-12.0)
--- NOTE | 2023-09-28 14:50 | Emergency Department Note ---
Impression & Plan Atypical chest pain, Acute hyperglycemia ED Provider Note NAME: GERI SOL AGE: 53 SEX: F : 1970 ARRIVES VIA: Walk-In INFORMANT: Patient, ED PROVIDER(S): Toni Hawkins MD CHIEF COMPLAINT: Chest pain MEDICAL DECISION MAKING: Patient presented due to concern for chest pain. IV was established and blood work was obtained. White count of 11.4 with normal H&H and platelet count kidney function is unremarkable BSG elevated at 362 nonfasting not DKA with normal bicarb and anion gap. INR slightly subtherapeutic at 1.9. Patient's chest x-ray is negative. The patient's EKG is unremarkable. Repeat troponin was negative. Patient's most recent stress test report that I can review was from 2020. Due to concern for the patient's atypical chest pain I do think the patient would benefit from a stress test as the patient is not low risk and does have numerous risk factors and family history of heart disease in both father and brother at an early age. I did speak the on-call hospitalist Dr. Vega and the patient was admitted to the medicine service Discussion w/ other healthcare providers: Dr. Vega inpatient medicine service Prior /Outside records reviewed: I reviewed a wellness visit from Wolfgang Alamo from August 17, 2023. Patient was seen for annual physical exam. Known history of morbid obesity and history of PE long-term anticoagulant use. Patient did have a change in her lisinopril and started on Mounjaro. Coag clinic note from yesterday noted minimally supratherapeutic INR. The patient was most recently 3.3 prior to the time of her visit Patient did have an echo completed September 07, 2023. Patient's left ventricular size wall motion and systolic function are normal mild concentric LVH EF of 55 to 60% no thrombus grade 1 diastolic dysfunction no regional wall motion abnormalities left atrium size normal right atrium mildly dilated. This was reported as being an essentially normal study. No significant change from comparison December 08, 2021 Differential diagnosis: Cardiac ischemia, aortic dissection, pulmonary embolism, pneumothorax, pneumonia, pericarditis, myocarditis, GERD, cholecystitis, pancreatitis, musculoskeletal, as well as other pathologies were considered. Diagnostics, as interpreted by me: ECG: Normal sinus rhythm, rate of 92, normal intervals, normal axis no ST elevations Cardiac monitoring: An order was placed for continuous cardiac monitoring. The monitor shows a rate of 88 with sinus rhythm. Patient was placed on pulse oximetry Medical decision rules: Heart score Imaging studies: I informally interpreted the patient's chest x-ray does not show obvious pneumonia or pneumothorax with formal report to follow. HPI: Patient presents due to concern for chest pain. The patient states that she developed this around 1130 this morning while she was walking in from the parking lot to go to work. Patient states it was left-sided described as occasionally sharp but felt as though it was moving in her left chest. Patient states that it did go to her jaw and throat. Patient did have some associated shortness of breath did trial an inhaler but this did not improve her symptoms and thus presented here. Patient does have a known history of PE and DVT. Patient is compliant with her Coumadin. Patient was seen at Coumadin clinic yesterday and has been supratherapeutic and did have recent change to where she only took some 7.5 mg last night but then is to take 10 mg every day. Patient was taking 10 mg every day prior to the adjustment yesterday PAST MEDICAL HISTORY: See Below PAST SURGICAL HISTORY: See Below SOCIAL HISTORY: See Below HOME MEDICATIONS: See Below ALLERGIES: See Below VITALS: See Below PHYSICAL EXAMINATION: GENERAL: NAD, non-toxic. Wearing glasses EYE EXAM: Normal conjunctiva. PERRL, no anisocoria and EOM's grossly intact w/o pain. OROPHARYNX: Moist mucus membranes, missing several teeth NECK: Trachea midline, no stridor. Supple, no nuchal rigidity, no adenopathy, non-tender. No signs of meningismus. FROM of the neck with good chin to chest and neck extension. LUNGS: Clear to auscultation. Normal chest wall mechanics. HEART: NSR, no MRG. ABDOMEN: Abdomen soft, non-tender, no masses, no rebound or guarding. BACK: No CVA TTP. SKIN: No rashes and no bruising. UPPER EXTREMITIES: Upper extremities are grossly normal. LOWER EXTREMITIES: Grossly normal, no edema. NEURO EXAM: A&O x3, cranial nerves II-XII grossly intact, normal speech, moves all 4 extremities. Past Med/Surg History Medical History History of pulmonary embolism Morbid obesity with BMI of 60.0-69.9, adult Cholelithiasis Hypercoagulable state Tobacco use disorder Bilateral pulmonary embolism Osteoarthritis of lumbar spine History of bronchitis Tobacco use Heartburn Surgical History History of mandibular surgery History of tubal ligation Family History Mother Diabetes Heart disease Hypertension Grandmother (Maternal) Diabetes Grandmother (Paternal) Diabetes Brother Diabetes Heart disease Myocardial infarction Abdominal aneurysm Aneurysm artery, neck Hypertension Stroke Sister , Age 56 Diabetes Heart disease Hypertension Father Heart disease Myocardial infarction Hypertension Stroke Aunt Cancer Uncle Cancer Denies family history of Ovarian cancer Prostate cancer Breast cancer Colorectal cancer Social History Smoking Status: Current every day smoker Tobacco Type: Cigarettes Age Started Using Tobacco: 18; packs per day: 1; Cigarettes Per Day: 0.5-0.75 packs; Second Hand Exposure: Yes; Do You Dip or Chew Tobacco: No; Hx Alcohol Use: Yes Alcohol type: wine Alcohol Intake Frequency: Monthly or Less Hx Substance Use: No Preferred Language: Pakistani Communication Ability: Effective Visual Impairment: Limited Hearing Ability: Normal 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: No Beliefs That Will Affect Care: Scientology Scientology Beliefs: Jehovah Witness marital status: Single Current Living Situation: Significant Other Current Living Situation Comment: House current occupational status: employed current occupation: [employer] How many Children do You have: 3 How many Children do You have Comment: 2 boys, 1 girl all Grown Feels Safe at Home: Yes Childhood Exposure to Second-Hand Smoke: Yes caffeine: Yes Dental Care, Regularly: No Physical Activity Frequency: Does not Exercise Seatbelt Use: never Sunscreen Use: No Do you think of yourself as: straight/heterosexual Assistive Devices: Cane Allergies Allergies Allergy/AdvReac Type Severity Reaction Status Date / Time amoxicillin AdvReac Intermediate CAUSE A Verified 09/28/23 16:26 YEAST INFECTION Home Meds Home Medications Medication Instructions Recorded Confirmed nystatin 100,000 unit/gram topical 1 applic topical QID PRN Rash 05/15/23 09/28/23 powder warfarin 5 mg tablet 7.5 - 10 mg PO UD 09/27/23 09/28/23 lisinopril 2.5 mg tablet 5 mg PO DAILY 09/28/23 09/28/23 Previous Rx's Medication Instructions Recorded blood-glucose meter (OneTouch #1 ea 12/02/21 Verio Meter) albuterol sulfate 90 mcg/actuation 2 inh inhalation QID PRN shortness 01/02/22 aerosol inhaler of breath or wheezing #8.5 grams metformin 1,000 mg tablet 1,000 mg PO BID #90 tabs 05/21/23 blood sugar diagnostic (OneTouch #200 ea 07/16/23 Verio test strips) furosemide 20 mg tablet 20 mg PO DAILY #30 tabs 07/16/23 lancets 30 gauge (OneTouch Delica #100 ea 07/16/23 Plus Lancet) potassium chloride 20 mEq 20 meq PO DAILY #30 tabs 07/16/23 tablet,extended release blood-glucose meter,continuous #1 ea 07/19/23 (FreeStyle Jeannie 3 Quin[place]) blood-glucose sensor (FreeStyle #2 ea 07/19/23 Jeannie 3 Sensor device) Results & Data (ED) Vital Signs Vital Signs - 24 hr 09/28/23 12:11 09/28/23 14:50 09/28/23 14:50 Temperature 37.0 C Temperature Source Temporal Artery Scan Pulse Rate 95 H 79 80 Pulse Rate [Apical] Pulse Rate from SpO2 Sensor 78 Pulse Rhythm Pulse Rhythm [Apical] Pulse Strength [Apical] Respiratory Rate 26 H 18 Respiratory Effort / Characteristics Non-Labored Spontaneous Respiratory Depth Normal Blood Pressure 147/93 H 135/94 Blood Pressure [Left Arm] Blood Pressure Mean 111 107 Blood Pressure Mean [Left Arm] Blood Pressure Position [Left Arm] Pulse Oximetry 97 95 Oxygen Delivery Method Room Air Sepsis Recent Fever Within 48 Hours No Sepsis New/Unexplained Change in Mental Status No Sepsis Action Taken by Nursing No Action Required 09/28/23 14:52 09/28/23 14:53 09/28/23 15:00 Temperature Temperature Source Pulse Rate 74 Pulse Rate [Apical] 74 Pulse Rate from SpO2 Sensor Pulse Rhythm Regular Pulse Rhythm [Apical] Regular Pulse Strength [Apical] Normal Respiratory Rate 20 20 Respiratory Effort / Characteristics Non-Labored Spontaneous Respiratory Depth Normal Blood Pressure 128/88 Blood Pressure [Left Arm] 135/94 Blood Pressure Mean 104 Blood Pressure Mean [Left Arm] 107 Blood Pressure Position [Left Arm] Lying Pulse Oximetry 94 94 Oxygen Delivery Method Room Air Room Air Sepsis Recent Fever Within 48 Hours Sepsis New/Unexplained Change in Mental Status Sepsis Action Taken by Nursing 09/28/23 15:00 09/28/23 15:10 09/28/23 15:20 Temperature Temperature Source Pulse Rate 84 82 73 Pulse Rate [Apical] Pulse Rate from SpO2 Sensor 84 82 74 Pulse Rhythm Pulse Rhythm [Apical] Pulse Strength [Apical] Respiratory Rate 16 17 18 Respiratory Effort / Characteristics Respiratory Depth Blood Pressure Blood Pressure [Left Arm] Blood Pressure Mean Blood Pressure Mean [Left Arm] Blood Pressure Position [Left Arm] Pulse Oximetry 97 97 95 Oxygen Delivery Method Sepsis Recent Fever Within 48 Hours Sepsis New/Unexplained Change in Mental Status Sepsis Action Taken by Nursing 09/28/23 15:30 09/28/23 15:40 09/28/23 15:50 Temperature Temperature Source Pulse Rate 85 75 83 Pulse Rate [Apical] Pulse Rate from SpO2 Sensor 74 84 Pulse Rhythm Pulse Rhythm [Apical] Pulse Strength [Apical] Respiratory Rate 16 19 18 Respiratory Effort / Characteristics Respiratory Depth Blood Pressure Blood Pressure [Left Arm] Blood Pressure Mean Blood Pressure Mean [Left Arm] Blood Pressure Position [Left Arm] Pulse Oximetry 98 95 Oxygen Delivery Method Sepsis Recent Fever Within 48 Hours Sepsis New/Unexplained Change in Mental Status Sepsis Action Taken by Nursing 09/28/23 16:00 09/28/23 16:01 09/28/23 16:10 Temperature Temperature Source Pulse Rate 79 89 78 Pulse Rate [Apical] Pulse Rate from SpO2 Sensor 80 88 78 Pulse Rhythm Pulse Rhythm [Apical] Pulse Strength [Apical] Respiratory Rate 19 16 21 Respiratory Effort / Characteristics Respiratory Depth Blood Pressure Blood Pressure [Left Arm] Blood Pressure Mean Blood Pressure Mean [Left Arm] Blood Pressure Position [Left Arm] Pulse Oximetry 95 96 96 Oxygen Delivery Method Sepsis Recent Fever Within 48 Hours Sepsis New/Unexplained Change in Mental Status Sepsis Action Taken by Nursing 09/28/23 16:20 09/28/23 16:30 09/28/23 16:40 Temperature Temperature Source Pulse Rate 88 88 85 Pulse Rate [Apical] Pulse Rate from SpO2 Sensor 89 88 84 Pulse Rhythm Pulse Rhythm [Apical] Pulse Strength [Apical] Respiratory Rate 19 20 21 Respiratory Effort / Characteristics Respiratory Depth Blood Pressure Blood Pressure [Left Arm] Blood Pressure Mean Blood Pressure Mean [Left Arm] Blood Pressure Position [Left Arm] Pulse Oximetry 99 98 97 Oxygen Delivery Method Sepsis Recent Fever Within 48 Hours Sepsis New/Unexplained Change in Mental Status Sepsis Action Taken by Nursing 09/28/23 16:50 09/28/23 17:00 09/28/23 17:00 Temperature Temperature Source Pulse Rate 76 Pulse Rate [Apical] Pulse Rate from SpO2 Sensor 77 79 Pulse Rhythm Pulse Rhythm [Apical] Pulse Strength [Apical] Respiratory Rate 21 20 Respiratory Effort / Characteristics Respiratory Depth Blood Pressure 137/95 Blood Pressure [Left Arm] Blood Pressure Mean 102 Blood Pressure Mean [Left Arm] Blood Pressure Position [Left Arm] Pulse Oximetry 94 96 Oxygen Delivery Method Sepsis Recent Fever Within 48 Hours Sepsis New/Unexplained Change in Mental Status Sepsis Action Taken by Nursing 09/28/23 17:10 09/28/23 17:20 09/28/23 17:30 Temperature Temperature Source Pulse Rate 78 81 84 Pulse Rate [Apical] Pulse Rate from SpO2 Sensor 78 81 85 Pulse Rhythm Pulse Rhythm [Apical] Pulse Strength [Apical] Respiratory Rate 20 20 14 Respiratory Effort / Characteristics Respiratory Depth Blood Pressure Blood Pressure [Left Arm] Blood Pressure Mean Blood Pressure Mean [Left Arm] Blood Pressure Position [Left Arm] Pulse Oximetry 95 94 97 Oxygen Delivery Method Sepsis Recent Fever Within 48 Hours Sepsis New/Unexplained Change in Mental Status Sepsis Action Taken by Nursing 09/28/23 17:30 09/28/23 17:40 09/28/23 17:50 Temperature Temperature Source Pulse Rate 83 84 Pulse Rate [Apical] Pulse Rate from SpO2 Sensor 82 84 Pulse Rhythm Pulse Rhythm [Apical] Pulse Strength [Apical] Respiratory Rate 19 20 Respiratory Effort / Characteristics Respiratory Depth Blood Pressure 143/86 H Blood Pressure [Left Arm] Blood Pressure Mean 121 Blood Pressure Mean [Left Arm] Blood Pressure Position [Left Arm] Pulse Oximetry 99 96 Oxygen Delivery Method Sepsis Recent Fever Within 48 Hours Sepsis New/Unexplained Change in Mental Status Sepsis Action Taken by Nursing 09/28/23 18:00 09/28/23 18:01 09/28/23 18:01 Temperature Temperature Source Pulse Rate 81 80 Pulse Rate [Apical] Pulse Rate from SpO2 Sensor 81 79 Pulse Rhythm Pulse Rhythm [Apical] Pulse Strength [Apical] Respiratory Rate 12 21 Respiratory Effort / Characteristics Respiratory Depth Blood Pressure 129/64 Blood Pressure [Left Arm] Blood Pressure Mean 67 Blood Pressure Mean [Left Arm] Blood Pressure Position [Left Arm] Pulse Oximetry 97 99 Oxygen Delivery Method Sepsis Recent Fever Within 48 Hours Sepsis New/Unexplained Change in Mental Status Sepsis Action Taken by Nursing 09/28/23 18:10 Temperature Temperature Source Pulse Rate 86 Pulse Rate [Apical] Pulse Rate from SpO2 Sensor 85 Pulse Rhythm Pulse Rhythm [Apical] Pulse Strength [Apical] Respiratory Rate 23 Respiratory Effort / Characteristics Respiratory Depth Blood Pressure Blood Pressure [Left Arm] Blood Pressure Mean Blood Pressure Mean [Left Arm] Blood Pressure Position [Left Arm] Pulse Oximetry 97 Oxygen Delivery Method Sepsis Recent Fever Within 48 Hours Sepsis New/Unexplained Change in Mental Status Sepsis Action Taken by [place] Medications Current Medication List: was personally reviewed by me Laboratory Data Attestation: I reviewed the patient's lab results. 09/28/23 Unknown 09/28/23 Unknown Lab Results 09/28/23 09/28/23 Range/Units 15:26 Unknown WBC 11.44 H (4.8-10.8) K/ul RBC 5.01 (4.20-5.40) M/uL Hgb 13.8 (12.0-16.0) g/dl Hct 41.2 (37.0-47.0) % MCV 82.2 (80.0-100.0) fL MCH 27.5 (25.0-34.0) pg MCHC 33.5 (32.0-36.0) g/dL RDW Std Deviation 45.5 (36.4-46.3) fL RDW Coeff of Ana 15.2 H (11.5-14.5) % Plt Count 328 (130-400) K/uL MPV 10.0 (9.4-12.4) fL Immature Gran % (Auto) 0.3 % Neut % (Auto) 62.6 % Lymph % (Auto) 28.3 % Fisher % (Auto) 5.4 % Eos % (Auto) 3.1 % Baso % (Auto) 0.3 % Neut # (Auto) 7.16 H (1.40-6.50) K/uL Lymph # (Auto) 3.24 (1.20-3.40) K/uL Fisher # (Auto) 0.62 H (0.11-0.59) K/uL Eos # (Auto) 0.35 (0.00-0.50) K/uL Baso # (Auto) 0.03 (0.00-0.20) K/uL Immature Gran # (Auto) 0.04 (0.01-0.20) K/uL PT 19.8 H (9.0-12.0) Seconds INR 1.9 H (0.9-1.1) APTT 39 H (21-31) Seconds PTT Ratio 1.4 Sodium 135 L (136-145) mmol/L Potassium 4.1 (3.5-5.1) mmol/L Chloride 103 (98-107) mmol/L Carbon Dioxide 24 (21-32) mmol/L Anion Gap 8 (3-11) BUN 15 (6-23) mg/dl Creatinine 0.67 (0.6-1.2) mg/dl Est Cr Clr Drug Dosing 160.9 ml/min Est GFR ( Amer) 116.3 ml/min Est GFR (Non-Af Amer) 100.4 ml/min BUN/Creatinine Ratio 22.4 H (10-20) Glucose 362 H* (70-99(Fasting)) mg/dl Calcium 9.4 (8.6-10.3) mg/dl Total Bilirubin 0.6 (0.2-1.0) mg/dl AST 18 (13-39) U/L ALT 17 (7-52) U/L Alkaline Phosphatase 73 (34-104) U/L Troponin I High Sens 7.5 6.9 (0-14) pg/ml Total Protein 7.1 (6.0-8.3) gm/dl Albumin 3.7 (3.4-5.0) gm/dl Globulin 3.4 (2.5-4.0) gm/dl Albumin/Globulin Ratio 1.1 (0.9-2) Lipase 23 (11-82) U/L Administered Medications Discontinued Medications Levalbuterol HCl (Levalbuterol 1.25 Mg/3 Ml Neb) 1.25 mg NEB NOW STA Stop: 09/28/23 15:17 Last Admin: 09/28/23 15:23 Dose: 1.25 mg Documented By: [facility] Imaging Data Radiologist's Impression: Chest X-Ray 09/28/23 12:13 XR chest 1V not portable HISTORY: 53 years-old Female Chest pain, SOB acute chest pain with shortness of breath COMPARISON: 07/06/2023 TECHNIQUE: PA view of the chest FINDINGS: Cardiomediastinal and hilar silhouettes are within normal limits. No pneumothorax, pleural effusion or pulmonary edema. Bones appear grossly intact. IMPRESSION: No acute process. ACT 112: Negative or not required by law. The above report was generated using voice recognition software. It may contain grammatical, syntax or spelling errors. Electronically signed by: Av Zhang M.D. 09/28/2023 12:56 PM Discharge Plan Visit Data Chief Complaint: Chest Pain Stated Complaint: BLOOD CLOTS, SOB, CHEST PAIN ED Provider: Toni Hawkins Discharge Problem: Atypical chest pain, Acute hyperglycemia Forms Stand Alone Forms: My [facility] CM Sistemi Prescriptions Prescriptions: No Action warfarin 5 mg tablet 7.5 - 10 mg PO UD Rx Instructions: As directed by anticoagulation clinic furosemide 20 mg tablet 20 mg PO DAILY Qty: 30 2RF potassium chloride 20 mEq tablet extended release 20 meq PO DAILY Qty: 30 3RF (DME) OneTouch Verio test strips Strip See Rx Instructions .Route Qty: 200 3RF Rx Instructions: TEST BLOOD SUGAR ONCE DAILY (DME) lancets [OneTouch Delica Plus Lancet] 30 gauge misc See Rx Instructions .Route Qty: 100 6RF Rx Instructions: As directed (DME) FreeStyle Jeannie 3 Sensor Device See Rx Instructions .Route Qty: 2 2RF Rx Instructions: As directed (DME) FreeStyle Jeannie 3 [place] Misc See Rx Instructions .Route Qty: 1 0RF Rx Instructions: As directed (DME) blood-glucose meter [OneTouch Verio Meter] Misc See Rx Instructions .Route Qty: 1 0RF Rx Instructions: ONETOUCH VERIO METER albuterol sulfate 90 mcg/actuation HFA aerosol inhaler 2 inh inhalation QID PRN (Reason: shortness of breath or wheezing) Qty: 8.5 3RF nystatin 100,000 unit/gram powder 1 applic topical QID PRN (Reason: Rash) metformin 1,000 mg tablet 1,000 mg PO BID Qty: 90 3RF lisinopril 2.5 mg tablet 5 mg PO DAILY Referrals Referrals: Wolfgang Alamo DO [Primary Care Provider] -
[2023-09-28] MEDS: LEVALBUTEROL 1.25 MG/3 ML NEB NEB STA (15:23)
--- NOTE | 2023-09-28 17:24 | History & Physical Report ---
Date of Service September 28, 2023 Assessment & Plan (1) Chest pain, rule out acute myocardial infarction: Plan: Escalating exertional chest pain, new right sided jaw pain, associated shortness of breath Serial troponins overnight to r/o LA. Lexiscan in AM Add aspirin if troponin becomes elevated If significantly elevated will hold/reverse warfarin for possible cardiac cath and cancel Lexiscan (2) Uncontrolled diabetes mellitus: Plan: Per PCP note patient refused other treatment other than metformin after discharge in April. Patient is confused by this and does not remember declining any medications Repeat HbA1C with AM labs as not performed since April Will treat with prior inpatient insulin regimen with Lantus 25 units BID Novolog (slightly more loose coverage as not on insulin at home, previous correction 12, carb ratio 3 in April): --Goal BSG Range: Low 110 mg/dL, High 140 mg/dL --Correction Factor: 15 mg/dL/unit --Carbohydrate ratio = 5 g/unit --BSGs ACHS if eating, q6h if npo (3) Acute hyperglycemia: (4) Tobacco use disorder: Plan: Previously quit but again smoking 0.5 packs/day Nicotine patch ordered Cessation encouraged (5) History of pulmonary embolism: Plan: INR 1.9. Continue usual warfarin dosing with addition 2.5mg PO today Lifelong anticoagulation - warfarin due to high BMI Plan VTE Prophyalxis - warfarin Diet - T2DM, heart healthy Disposition - observation to med/tele Admission and Anticipated Discharge Date Admission Date: September 28, 2023 History of Present Illness Chief Complaint: Chest and jaw pain Primary Care Provider: DO Geovanna Vargasgena Abbasihman is a 53 year old female with history of x2 pulmonary emboli last year who presents to the ER with exertional chest and jaw pain. She reports worsening symptoms over the left side of her chest on exertion over the last few months. She has put this pain down to her chronic pulmonary thromboembolic disease. Today while at work she started having a new pain in her right jaw and up to her ear which started on exertion but continued on rest. Lasted for 2 hours but now resolved. Associated shortness of breath. She continues to smoke and remains only on metformin for her diabetes. No prior heart attacks. This is on a background of feeling nauseated, sick and dizzy over the last week - an illness she feels she has now completely recovered from. Allergies Allergy/AdvReac Type Severity Reaction Status Date / Time amoxicillin AdvReac Intermediate CAUSE A Verified 09/28/23 16:26 YEAST INFECTION Home Medications Medication Instructions Recorded Confirmed Type blood-glucose meter (OneTouch #1 ea 12/02/21 09/28/23 Rx Verio Meter) albuterol sulfate 90 mcg/actuation 2 inh inhalation QID PRN shortness 01/02/22 09/28/23 Rx aerosol inhaler of breath or wheezing #8.5 grams nystatin 100,000 unit/gram topical 1 applic topical QID PRN Rash 05/15/23 09/28/23 History powder metformin 1,000 mg tablet 1,000 mg PO BID #90 tabs 05/21/23 09/28/23 Rx blood sugar diagnostic (OneTouch #200 ea 07/16/23 09/28/23 Rx Verio test strips) furosemide 20 mg tablet 20 mg PO DAILY #30 tabs 07/16/23 09/28/23 Rx lancets 30 gauge (OneTouch Delica #100 ea 07/16/23 09/28/23 Rx Plus Lancet) potassium chloride 20 mEq 20 meq PO DAILY #30 tabs 07/16/23 09/28/23 Rx tablet,extended release blood-glucose meter,continuous #1 ea 07/19/23 09/28/23 Rx (FreeStyle Jeannie 3 [place]) blood-glucose sensor (FreeStyle #2 ea 07/19/23 09/28/23 Rx Jeannie 3 Sensor device) warfarin 5 mg tablet 7.5 - 10 mg PO UD 09/27/23 09/28/23 History lisinopril 2.5 mg tablet 5 mg PO DAILY 09/28/23 09/28/23 History Past Med/Surg History Medical History (Updated 09/28/23 @ 21:38 by Reid Vega MD) History of pulmonary embolism Morbid obesity with BMI of 60.0-69.9, adult Cholelithiasis Hypercoagulable state Tobacco use disorder Bilateral pulmonary embolism Osteoarthritis of lumbar spine History of bronchitis Tobacco use Heartburn Surgical History History of mandibular surgery History of tubal ligation Family History Mother Diabetes Heart disease Hypertension Grandmother (Maternal) Diabetes Grandmother (Paternal) Diabetes Brother Diabetes Heart disease Myocardial infarction Abdominal aneurysm Aneurysm artery, neck Hypertension Stroke Sister , Age 56 Diabetes Heart disease Hypertension Father Heart disease Myocardial infarction Hypertension Stroke Aunt Cancer Uncle Cancer Denies family history of Ovarian cancer Prostate cancer Breast cancer Colorectal cancer Social History Smoking Status: Current every day smoker Tobacco Type: Cigarettes Age Started Using Tobacco: 18; packs per day: 1; Cigarettes Per Day: 0.5-0.75 packs; Second Hand Exposure: Yes; Do You Dip or Chew Tobacco: No; Hx Alcohol Use: Yes Alcohol type: wine Alcohol Intake Frequency: Monthly or Less Hx Substance Use: No Preferred Language: Bolivian Communication Ability: Effective Visual Impairment: Limited Hearing Ability: Normal Or Nurse Manager Required: No Beliefs That Will Affect Care: Presybeterian Presybeterian Beliefs: No blood products marital status: Single Current Living Situation: Family and Significant Other Current Living Situation Comment: House current occupational status: employed current occupation: [employer] How many Children do You have: 3 How many Children do You have Comment: 2 boys, 1 girl all Grown Feels Safe at Home: Yes Safety Concerns: Feels Safe At This Time Childhood Exposure to Second-Hand Smoke: Yes caffeine: Yes Dental Care, Regularly: No Physical Activity Frequency: Does not Exercise Seatbelt Use: never Sunscreen Use: No Do you think of yourself as: straight/heterosexual Assistive Devices: Cane Review of Systems Review of Systems: All systems reviewed & are unremarkable except as noted in HPI & below Physical Exam Constitutional: well developed; + not well nourished and no acute distress Eyes: right eye amblyopia Respiratory: normal respiratory effort, lungs clear to auscultation Cardiovascular: Rate/Rhythm: regular rate and regular rhythm Heart Sounds: no murmur Extremities: + pedal edema (trace pitting b/l) Gastrointestinal (Abdomen): normal bowel sounds, soft, nontender, no hepatosplenomegaly Skin: no rashes, warm and dry Neurologic: moves all extremities and awake; not confused Psychiatric: A+Ox3, euthymic affect Results & Data Results & Data Vital Signs (Past 12 Hours) Vital Signs Temp Pulse Pulse Resp BP BP Pulse Ox 09/28/23 17:00 137/95 09/28/23 17:00 76 20 96 09/28/23 16:50 21 94 09/28/23 16:40 85 21 97 09/28/23 16:30 88 20 98 09/28/23 16:20 88 19 99 09/28/23 16:10 78 21 96 09/28/23 16:01 89 16 96 09/28/23 16:00 79 19 95 09/28/23 15:50 83 18 95 09/28/23 15:40 75 19 98 09/28/23 15:30 85 16 09/28/23 15:20 73 18 95 09/28/23 15:10 82 17 97 09/28/23 15:00 84 16 97 09/28/23 15:00 128/88 09/28/23 14:53 74 20 135/94 94 09/28/23 14:52 74 20 94 09/28/23 14:50 80 09/28/23 14:50 79 18 135/94 95 09/28/23 12:11 37.0 C 95 H 26 H 147/93 H 97 O2 Del Method 09/28/23 17:00 09/28/23 17:00 09/28/23 16:50 09/28/23 16:40 09/28/23 16:30 09/28/23 16:20 09/28/23 16:10 09/28/23 16:01 09/28/23 16:00 09/28/23 15:50 09/28/23 15:40 09/28/23 15:30 09/28/23 15:20 09/28/23 15:10 09/28/23 15:00 09/28/23 15:00 09/28/23 14:53 Room Air 09/28/23 14:52 Room Air 09/28/23 14:50 09/28/23 14:50 09/28/23 12:11 Room Air Laboratory Results Abnormal lab results 09/28/23 Range/Units Unknown WBC 11.44 H (4.8-10.8) K/ul RDW Coeff of Ana 15.2 H (11.5-14.5) % Neut # (Auto) 7.16 H (1.40-6.50) K/uL [place] # (Auto) 0.62 H (0.11-0.59) K/uL PT 19.8 H (9.0-12.0) Seconds INR 1.9 H (0.9-1.1) APTT 39 H (21-31) Seconds Sodium 135 L (136-145) mmol/L BUN/Creatinine Ratio 22.4 H (10-20) Glucose 362 H* (70-99(Fasting)) mg/dl Diagnostic Findings XR chest 1V not portable HISTORY: 53 years-old Female Chest pain, SOB acute chest pain with shortness of breath COMPARISON: 07/06/2023 TECHNIQUE: PA view of the chest FINDINGS: Cardiomediastinal and hilar silhouettes are within normal limits. No pneumothorax, pleural effusion or pulmonary edema. Bones appear grossly intact. IMPRESSION: No acute process. Medications Administered ER medications given: Xopenex nebulizer ECG Rate (beats per minute): 92 Rhythm: normal sinus Findings: no acute ischemic change Comparison ECG Date: from (July 06, 2023) Change: no significant change Code Status & VTE Plan Code Status Full VTE Prophylaxis Plan VTE Prophylaxis will be ordered: Yes PG Care Time/CCT Total # of Minutes Spent Total Time Spent with Patient: Total time spent is greater than 50% in coordination of care (as documented) at patient's floor/unit and/or counseling patient: Coding Level of Care Code 13383 INT INP/OBS CARE 3/75MIN Diagnoses Chest pain, rule out acute myocardial infarction R07.9 Uncontrolled diabetes mellitus Acute hyperglycemia R73.9 Tobacco use disorder F17.200 History of pulmonary embolism Z86.711
[2023-09-28] MEDS ORDERED: DEXTROSE 50% 50 ML SYRINGE IV PRN (21:19)
[2023-09-28] MEDS ORDERED: CARBOHYDRATES FOR HYPOGLYCEMIA PO PRN (21:19)
[2023-09-28] MEDS ORDERED: GLUCOSE 40% GEL 15 GM TUBE PO PRN (21:19)
[2023-09-28] MEDS ORDERED: GLUCOSE 10 TAB/TUBE PO PRN (21:19)
[2023-09-28] MEDS ORDERED: GLUCAGON FOR INJ 1 MG VIAL SQ PRN (21:19)
[2023-09-28] MEDS: INSULIN ASPART PER UNIT CHARGE SC SCH (21:37)
[2023-09-28] MEDS: LANTUS PER UNIT CHARGE SQ SCH (21:38)
[2023-09-28] MEDS: WARFARIN SOD 10 MG TAB PO SCH (22:52)
[2023-09-28] MEDS: NICOTINE 7 MG/24 HR TDSY TD SCH (22:52)
[2023-09-28] MEDS: WARFARIN SOD 2.5 MG TAB PO ONE (22:54)
[2023-09-29 06:52] LABS: Hematocrit (blood only) 38.3 % (37.0-47.0); Hemoglobin 12.3 g/dl (12.0-16.0); Mean Corpuscular Hemoglobin 27.3 pg (25.0-34.0); Mean Corpuscular Hgb Conc 32.1 g/dL (32.0-36.0); Mean Corpuscular Volume 84.9 fL (80.0-100.0); Mean Platelet Volume 9.7 fL (9.4-12.4); Platelet Count 267 K/uL (130-400); RDW Coefficient of Variation 15.4 % (11.5-14.5); RDW Standard Deviation 47.8 fL (36.4-46.3); Red Blood Count 4.51 M/uL (4.20-5.40); White Blood Count 9.29 K/ul (4.8-10.8)
[2023-09-29 07:12] LABS: Estimated Average Glucose 223 mg/dl; Hemoglobin A1C 9.4 % (4.5-5.6)
[2023-09-29 07:18] LABS: BUN Creatinine Ratio 23.8 (10-20); Calcium 8.7 mg/dl (8.6-10.3); Creatinine Clr Calc Pharmacy 169.2 ml/min; Est GFR (African American) 118.7 ml/min; Est GFR (Non-African American) 102.4 ml/min
[2023-09-29 07:21] LABS: INR 1.5 (0.9-1.1); Prothrombin Time 15.6 Seconds (9.0-12.0)
--- NOTE | 2023-09-29 07:35 | Electrocardiogram Report ---
Test Reason : Blood Pressure : / mmHG Vent. Rate : 092 BPM Atrial Rate : 092 BPM P-R Int : 170 ms QRS Dur : 080 ms QT Int : 372 ms P-R-T Axes : 063 050 075 degrees QTc Int : 460 ms Normal sinus rhythm Cannot rule out Anterior infarct , age undetermined Abnormal ECG When compared with ECG of 06-JUL-2023 11:59, No significant change was found Confirmed by Ben Perry ([id number]) on 09/29/2023 7:35:03 AM Referred By: REFERRED SELF Confirmed By:Ben Perry
[2023-09-29] MEDS: lisinopril 5 MG TAB PO SCH (08:51)
[2023-09-29] MEDS: POTASSIUM CHLORIDE CRTAB 20 MEQ TABCR PO SCH (08:53)
[2023-09-29] MEDS: FUROSEMIDE 20 MG TAB PO SCH (08:53)
--- NOTE | 2023-09-29 10:16 | Cardiology Consultation ---
Date of Consultation September 29, 2023 Assessment & Plan (1) Atypical chest pain: (2) Palpitations: (3) GUERRERO (dyspnea on exertion): (4) History of tobacco use disorder: (5) History of pulmonary embolism: Plan ASSESSMENT/PLAN: 1. Atypical chest pain: This has been occurring since November 2021 since her pulmonary embolism. She reports that it has been stable in frequency. New symptom with right jaw and right ear pain yesterday but symptoms lasted greater than 2 hours with negative high-sensitivity troponins and unremarkable ECG in the midst of her chest discomfort. Recommend limited 2D echo to evaluate LV systolic function and wall motion. There is no urgent indication for cardiac catheterization as this appears to be noncardiac in nature but given her risk factors of uncontrolled diabetes, would not be unreasonable to perform outpatient noninvasive ischemic evaluation. She would be unable to walk on a treadmill and therefore could consider dobutamine stress echo if image quality reasonable, versus myocardial perfusion study. She does not wish to remain hospitalized to have the studies done on Sunday. If 2D echo is unremarkable, could be discharged home from a cardiac perspective. 2. History of pulmonary embolism: INR is subtherapeutic today. Recommend bridging. Could consider reimaging but will defer to primary hospitalist service. 3. Dyspnea on exertion: Chronic and stable ever since pulmonary embolism in November 2021. Obesity and deconditioning also likely playing a role. She does not appear to be significantly hypervolemic, however difficult exam. 4. Palpitations: Unclear if her presenting symptoms actually discomfort versus palpitations but she also described a flutter sensation prehospital. ECG on arrival was unremarkable, demonstrating sinus rhythm. Could consider outpatient monitor. 5. Tobacco abuse: Recommended that she stop smoking. 6. Disposition: If limited echo is unremarkable, she could be discharged home from a cardiac perspective. She states that she has a cardiology appointment this week at which point outpatient stress testing could be considered/arranged, as well as outpatient monitor. Patient care communicated with primary hospitalist, Dr. Mendez. Today's visit was 55 minutes, which includes [id number] time, counseling patient, coordinating care, reviewing multiple records, and completing documentation. Thank you for allowing me to participate in the care of your patient. Please call for any other questions or concerns. Sincerely, Thanh Welsh M.D. History of Present Illness Reason for Consultation: "Escalating chest pain/concern for unstable angina" Requesting Physician: Leighton Mendez Attending Physician: Leighton Mendez History of Present Illness Ms. Mason is a pleasant 53-year-old female with a history significant for recurrent pulmonary embolism, lower extremity DVT, type 2 diabetes, and possible hypertension. She was admitted on 09/28/2023 for chest pain. She states that she has had left- sided chest discomfort feeling like something is swimming around in her chest. She describes it as like "minnows biting her heart." This discomfort started in November 2021 after diagnosed with pulmonary embolism. It occurs once or twice per week, mostly with exertion but sometimes at rest. It typically last about 1 hour before spontaneously resolving. The symptom frequency has not increased over time per her report. Yesterday however she had a right sided jaw and ear pain in the midst of having her left-sided chest sensation. This particular episode lasted between 2 and 2.5 hours and was still present when she came to the ER. Her ECG was unremarkable for ischemic changes and her high-sensitivity troponins have been negative x 4. The pain spontaneously resolved with time. She has associated dyspnea with her chest discomfort syndrome. She admits however that she has had dyspnea on exertion since November 2021 as well as chronic lower extremity edema, more so in the right leg since her DVT in 2021. Yesterday, she also felt a flutter sensation in her chest during her chest discomfort. She is currently chest pain-free. She denies any further palpitations. She denies syncope, melena, hematochezia, or hematuria. She does not recall if the sensations that she has been experiencing is similar to her PE presentation but admits that the symptoms have occurred since her pulmonary embolism. She had an echo done in the outpatient setting last month. She has not had a cardiac catheterization. Ever since her PE in 2021, she is very sedentary but is able to ambulate in her home. Review of systems: As above. Review of systems otherwise negative/unremarkable. Family history: Father had MA in his low 50s. Brother had MA at 50. She had another brother with an MA as well. Social history: She has smoked since the age of 17 up to 1 pack/day. Currently smoking 0.5 pack/day and has intermittently quit up to 11 months. She denies alcohol or drug abuse. She lives at home with her fianc and a stepdaughter. She has 3 biologic children. 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 She was alone in her hospital bed. Allergies Allergy/AdvReac Type Severity Reaction Status Date / Time amoxicillin AdvReac Intermediate CAUSE A Verified 09/28/23 16:26 YEAST INFECTION Home Medications Medication Instructions Recorded Confirmed Type blood-glucose meter (OneTouch #1 ea 12/02/21 09/28/23 Rx Verio Meter) albuterol sulfate 90 mcg/actuation 2 inh inhalation QID PRN shortness 01/02/22 09/28/23 Rx aerosol inhaler of breath or wheezing #8.5 grams nystatin 100,000 unit/gram topical 1 applic topical QID PRN Rash 05/15/23 09/28/23 History powder metformin 1,000 mg tablet 1,000 mg PO BID #90 tabs 05/21/23 09/28/23 Rx blood sugar diagnostic (OneTouch #200 ea 07/16/23 09/28/23 Rx Verio test strips) furosemide 20 mg tablet 20 mg PO DAILY #30 tabs 07/16/23 09/28/23 Rx lancets 30 gauge (OneTouch Delica #100 ea 07/16/23 09/28/23 Rx Plus Lancet) potassium chloride 20 mEq 20 meq PO DAILY #30 tabs 07/16/23 09/28/23 Rx tablet,extended release blood-glucose meter,continuous #1 ea 07/19/23 09/28/23 Rx (FreeStyle Jeannie 3 [place]) blood-glucose sensor (FreeStyle #2 ea 07/19/23 09/28/23 Rx Jeannie 3 Sensor device) warfarin 5 mg tablet 7.5 - 10 mg PO UD 09/27/23 09/28/23 History lisinopril 2.5 mg tablet 5 mg PO DAILY 09/28/23 09/28/23 History Patient History Medical History T2DM (type 2 diabetes mellitus) History of pulmonary embolism Morbid obesity with BMI of 60.0-69.9, adult Cholelithiasis Hypercoagulable state Tobacco use disorder Bilateral pulmonary embolism Osteoarthritis of lumbar spine History of bronchitis Tobacco use Heartburn Surgical History History of mandibular surgery History of tubal ligation Family History Mother Diabetes Heart disease Hypertension Grandmother (Maternal) Diabetes Grandmother (Paternal) Diabetes Brother Diabetes Heart disease Myocardial infarction Abdominal aneurysm Aneurysm artery, neck Hypertension Stroke Sister , Age 56 Diabetes Heart disease Hypertension Father Heart disease Myocardial infarction Hypertension Stroke Aunt Cancer Uncle Cancer Denies family history of Ovarian cancer Prostate cancer Breast cancer Colorectal cancer Social History Smoking Status: Current every day smoker Tobacco Type: Cigarettes Age Started Using Tobacco: 18; packs per day: 1; Cigarettes Per Day: 0.5-0.75 packs; Second Hand Exposure: Yes; Do You Dip or Chew Tobacco: No; Hx Alcohol Use: Yes Alcohol type: wine Alcohol Intake Frequency: Monthly or Less Hx Substance Use: No Preferred Language: Bulgarian Communication Ability: Effective Visual Impairment: Limited Hearing Ability: Normal Validation Technician Required: No Beliefs That Will Affect Care: Sikh Sikh Beliefs: No blood products marital status: Single Current Living Situation: Family and Significant Other Current Living Situation Comment: House current occupational status: employed current occupation: [employer] How many Children do You have: 3 How many Children do You have Comment: 2 boys, 1 girl all Grown Feels Safe at Home: Yes Safety Concerns: Feels Safe At This Time Childhood Exposure to Second-Hand Smoke: Yes caffeine: Yes Dental Care, Regularly: No Physical Activity Frequency: Does not Exercise Seatbelt Use: never Sunscreen Use: No Do you think of yourself as: straight/heterosexual Assistive Devices: Cane Physical Exam Physical Exam: Gen.: No acute distress. Alert and oriented. HEENT: Anicteric sclera. Neck: Thick neck. No bruits. Normal carotid upstrokes bilaterally. Cardiac: No ventricular heave. Regular. Normal S1-S2. No murmurs, rubs, or gallops. Pulmonary: Clear to auscultation bilaterally without wheezes, rales, or rhonchi. Abdomen: Soft, nontender, nondistended, with normoactive bowel sounds. No bruits noted. Extremities: 2+ radial pulses bilaterally. 2+ posterior tibialis pulses bilaterally. Trace bilateral lower extremity edema. No cyanosis. Psychiatric: Affect appears appropriate. Results & Data Vital Signs (Past 12 Hours) Vital Signs Temp Pulse Pulse Resp BP BP Pulse Ox 09/29/23 08:55 88 18 151/85 H 95 09/29/23 07:48 80 09/29/23 02:00 83 22 132/77 94 09/29/23 00:00 90 23 113/78 92 09/28/23 23:45 87 09/28/23 23:18 09/28/23 23:16 89 23 119/77 95 09/28/23 22:55 36.5 C 94 H 17 121/81 96 Pulse Ox O2 Del Method O2 Del Method 09/29/23 08:55 Room Air 09/29/23 07:48 09/29/23 02:00 Room Air 09/29/23 00:00 Room Air 09/28/23 23:45 09/28/23 23:18 95 Room Air 09/28/23 23:16 Room Air 09/28/23 22:55 Room Air Laboratory Results Laboratory Results - last 24 hr 09/28/23 09/28/23 09/28/23 15:26 21:33 22:50 WBC RBC Hgb Hct MCV MCH MCHC RDW Std Deviation RDW Coeff of Ana Plt Count MPV Immature Gran % (Auto) Neut % (Auto) Lymph % (Auto) [place] % (Auto) Eos % (Auto) Baso % (Auto) Neut # (Auto) Lymph # (Auto) [place] # (Auto) Eos # (Auto) Baso # (Auto) Immature Gran # (Auto) PT INR APTT PTT Ratio Sodium Potassium Chloride Carbon Dioxide Anion Gap BUN Creatinine Est Cr Clr Drug Dosing Est GFR ( Amer) Est GFR (Non-Af Amer) BUN/Creatinine Ratio Glucose POC Glucose 197 H Estimat Average Glucose Hemoglobin A1c Calcium Total Bilirubin AST ALT Alkaline Phosphatase Troponin I High Sens 7.5 8.0 Total Protein Albumin Globulin Albumin/Globulin Ratio Lipase 09/28/23 09/29/23 09/29/23 Unknown 06:23 07:57 WBC 11.44 H 9.29 RBC 5.01 4.51 Hgb 13.8 12.3 Hct 41.2 38.3 MCV 82.2 84.9 MCH 27.5 27.3 MCHC 33.5 32.1 RDW Std Deviation 45.5 47.8 H RDW Coeff of Ana 15.2 H 15.4 H Plt Count 328 267 MPV 10.0 9.7 Immature Gran % (Auto) 0.3 Neut % (Auto) 62.6 Lymph % (Auto) 28.3 [place] % (Auto) 5.4 Eos % (Auto) 3.1 Baso % (Auto) 0.3 Neut # (Auto) 7.16 H Lymph # (Auto) 3.24 [place] # (Auto) 0.62 H Eos # (Auto) 0.35 Baso # (Auto) 0.03 Immature Gran # (Auto) 0.04 PT 19.8 H 15.6 H INR 1.9 H 1.5 H APTT 39 H PTT Ratio 1.4 Sodium 135 L 137 Potassium 4.1 4.0 Chloride 103 105 Carbon Dioxide 24 26 Anion Gap 8 6 BUN 15 15 Creatinine 0.67 0.63 Est Cr Clr Drug Dosing 160.9 169.2 Est GFR ( Amer) 116.3 118.7 Est GFR (Non-Af Amer) 100.4 102.4 BUN/Creatinine Ratio 22.4 H 23.8 H Glucose 362 H* 254 H POC Glucose 235 H Estimat Average Glucose 223 Hemoglobin A1c 9.4 H Calcium 9.4 8.7 Total Bilirubin 0.6 AST 18 ALT 17 Alkaline Phosphatase 73 Troponin I High Sens 6.9 7.1 Total Protein 7.1 Albumin 3.7 Globulin 3.4 Albumin/Globulin Ratio 1.1 Lipase 23 Diagnostic Findings Myocardial perfusion study report from 01/20/2021 reviewed: No ischemia. EF 55%. CTA chest 07/06/2023: Thrombus distal left main pulmonary artery extending into the left lower lobe pulmonary artery, likely chronic and overall burden of thrombus decreased compared to 05/15/2023 study per radiology. Chest x-ray report reviewed 09/28/2023: No acute process. ECG personally reviewed 09/28/2023: NSR 92 bpm. Cannot rule out anterior infarct. No significant change from prior ECG on 07/06/2023. Echo 09/06/2023 [facility]: Normal LV size, wall motion, systolic function. EF 55 to 60%. Mild LVH. No significant valvular abnormalities reported. Repeat ECG 09/29/2023 ordered and reviewed: NSR 82 bpm. Normal ECG. History and physical report reviewed. Labs reviewed and notable for normal high-sensitivity troponin x 4, elevated glucose, normal renal function, normal potassium, normal blood counts. Labs from 05/24/2023 demonstrated reasonably controlled LDL. Medications Administered Current Inpatient Medications Dextrose (Dextrose 50% 50 Ml Syringe) 25 - 50 ml IV UD PRN; Protocol PRN Reason: Hypoglycemia Protocol Stop: 10/28/23 21:18 Furosemide (Furosemide 20 Mg Tab) 20 mg PO DAILY [place] Stop: 10/29/23 08:59 Last Admin: 09/29/23 08:53 Dose: 20 mg Glucagon (Glucagon For Inj 1 Mg Vial) 1 mg SQ UD PRN; Protocol PRN Reason: Hypoglycemia Protocol Stop: 10/28/23 21:18 Glucose (Glucose 10 Tab/Tube) 4 - 8 tab PO UD PRN; Protocol PRN Reason: Hypoglycemia Treatment Stop: 10/28/23 21:18 Glucose (Glucose 40% Gel 15 Gm Tube) 15 - 30 gm PO UD PRN; Protocol PRN Reason: Hypoglycemia Protocol Stop: 10/28/23 21:18 Insulin Aspart (Insulin Aspart Per Unit Charge) 0 units SC ACHS [place] Stop: 10/28/23 21:18 Last Admin: 09/29/23 09:11 Dose: 15 units Insulin Glargine (Lantus Per Unit Charge) 25 units SQ BID [place] Stop: 10/28/23 21:29 Last Admin: 09/29/23 09:23 Dose: 25 units Lisinopril (Lisinopril 5 Mg Tab) 5 mg PO DAILY [place] Stop: 10/29/23 08:59 Last Admin: 09/29/23 08:51 Dose: 5 mg Miscellaneous (Remove Nicoderm Patch) 1 each N/A DAILY@0859 [place] Stop: 10/29/23 08:58 Last Admin: 09/29/23 08:58 Dose: 1 each Miscellaneous (Carbohydrates For Hypoglycemia ) 15 - 30 gm PO UD PRN PRN Reason: Hypoglycemia Protocol Stop: 10/28/23 21:18 Nicotine (Nicotine 7 Mg/24 Hr Tdsy) 7 mg TD QAM [place] Stop: 10/28/23 21:18 Last Admin: 09/28/23 22:52 Dose: 7 mg Potassium Chloride (Potassium Chloride Crtab 20 Meq Tabcr) 20 meq PO DAILY [place] Stop: 10/29/23 08:59 Last Admin: 09/29/23 08:53 Dose: 20 meq Warfarin Sodium (Warfarin Sod 10 Mg Tab) 10 mg PO SuMoTuWeFrSa@1600 [facility] Stop: 10/28/23 21:29 Last Admin: 09/28/23 22:52 Dose: Not Given Warfarin Sodium (Warfarin Sod 7.5 Mg Tab) 7.5 mg PO Th@1600 [facility] Stop: 11/03/23 15:59 PG Care Time/CCT Total # of Minutes Spent Total Time Spent: 55 Total Time Spent with Patient: Total time spent is greater than 50% in coordination of care (as documented) at patient's floor/unit and/or counseling patient: Coding Level of Care Code 77083 INT INP/OBS CARE 2/55MIN Diagnoses Atypical chest pain R07.89 Palpitations R00.2 GUERRERO (dyspnea on exertion) R06.09 History of tobacco use disorder Z87.891 History of pulmonary embolism Z86.711 Time Spent (min) 55
[2023-09-29] MEDS ORDERED: Heparin IV Adult Wt-Based Standard *NO* INITIAL Bolus Protocol IV SCH (12:47)
[2023-09-29] MEDS: WARFARIN SOD 10 MG TAB PO SCH (12:48)
[2023-09-29] MEDS: HEPARIN SODIUM/DEXTROSE 25,000 UNITS/500 ML BAG IV SCH (13:36)
[2023-09-29] MEDS: HEPARIN 25000 UNIT/500 ML D5W IV ONE (13:52)
--- NOTE | 2023-09-29 16:59 | XCELERA ---
[id number]
[2023-09-29 19:59] LABS: ANTI-Xa, UFH(UnfractionatedHep 0.33 IU/ml (0.3-0.7)
--- NOTE | 2023-09-29 21:24 | Hospitalist Progress Note ---
Date of Service September 29, 2023 Assessment & Plan (1) Chest pain, rule out acute myocardial infarction: Plan: Escalating exertional chest pain, new right sided jaw pain, associated shortness of breath Serial troponins overnight to r/o AR. consulted cardiology: will do stress test as an outpatient. Add aspirin if troponin becomes elevated Given INRis low, patient will require bridging with heparin. will continue warfarin and will check INR. (2) Uncontrolled diabetes mellitus: Plan: Per PCP note patient refused other treatment other than metformin after discharge in April. Patient is confused by this and does not remember declining any medications Repeat HbA1C with AM labs as not performed since April Will treat with prior inpatient insulin regimen with Lantus 25 units BID Novolog (slightly more loose coverage as not on insulin at home, previous correction 12, carb ratio 3 in April): --Goal BSG Range: Low 110 mg/dL, High 140 mg/dL --Correction Factor: 15 mg/dL/unit --Carbohydrate ratio = 5 g/unit --BSGs ACHS if eating, q6h if npo (3) Acute hyperglycemia: (4) Tobacco use disorder: Plan: Previously quit but again smoking 0.5 packs/day Nicotine patch ordered Cessation encouraged (5) History of pulmonary embolism: Plan: INR 1.9. Continue usual warfarin dosing with addition 2.5mg PO today Lifelong anticoagulation - warfarin due to high BMI Plan VTE Prophyalxis - warfarin Diet - T2DM, heart healthy Disposition - observation to med/tele Admission and Anticipated Discharge Date Admission Date: September 28, 2023 Subjective Patient reports no new symptoms. Review of Systems Review of Systems: All systems reviewed & are unremarkable except as noted in HPI & below Physical Exam Constitutional: + not well nourished and no acute distre ss Eyes: right eye amblyopia Respiratory: normal respiratory effort, lungs clear to auscultation Cardiovascular: Rate/Rhythm: regular rate and regular rhythm Heart Sounds: no murmur Extremities: + pedal edema (trace pitting b/l) Gastrointestinal (Abdomen): normal bowel sounds, soft, nontender, no hepatosplenomegaly Skin: no rashes, warm and dry Neurologic: moves all extremities and awake; not confused Psychiatric: A+Ox3, euthymic affect Results & Data Results & Data Vital Signs (Past 12 Hours) Vital Signs Pulse Resp BP Pulse Ox 09/29/23 17:00 88 26 H 95 09/29/23 16:00 84 24 94 09/29/23 15:00 89 19 93 09/29/23 15:00 113/67 09/29/23 14:06 125/82 09/29/23 14:06 83 17 94 09/29/23 14:00 84 23 125/82 94 09/29/23 13:00 96 09/29/23 12:00 73 20 95 09/29/23 11:00 95 09/29/23 10:01 84 23 93 09/29/23 10:00 135/83 09/29/23 09:59 86 22 94 PG Care Time/CCT Total # of Minutes Spent Total Time Spent with Patient: Total time spent is greater than 50% in coordination of care (as documented) at patient's floor/unit and/or counseling patient: Coding Level of Care Code 01569 SUB INP/OBS CARE 2/35MIN Diagnoses Chest pain, rule out acute myocardial infarction R07.9 Uncontrolled diabetes mellitus Acute hyperglycemia R73.9 Tobacco use disorder F17.200 History of pulmonary embolism Z86.711
--- NOTE | 2023-09-29 21:59 | Electrocardiogram Report ---
Test Reason : Blood Pressure : / mmHG Vent. Rate : 082 BPM Atrial Rate : 082 BPM P-R Int : 170 ms QRS Dur : 080 ms QT Int : 390 ms P-R-T Axes : 059 046 065 degrees QTc Int : 455 ms Normal sinus rhythm Normal ECG When compared with ECG of 28-SEP-2023 12:17, No significant change was found Confirmed by Benigno Welsh ([id number]) on 09/29/2023 9:58:41 PM Referred By: REFERRED SELF Confirmed By:Benigno Welsh
[2023-09-30 04:20] LABS: Mean Corpuscular Hemoglobin 27.1 pg (25.0-34.0); Mean Corpuscular Hgb Conc 32.4 g/dL (32.0-36.0); Mean Corpuscular Volume 83.7 fL (80.0-100.0); Mean Platelet Volume 9.7 fL (9.4-12.4); Platelet Count 253 K/uL (130-400); RDW Coefficient of Variation 15.3 % (11.5-14.5); RDW Standard Deviation 46.7 fL (36.4-46.3); Red Blood Count 4.42 M/uL (4.20-5.40); White Blood Count 10.42 K/ul (4.8-10.8)
[2023-09-30 04:28] LABS: Calcium 8.6 mg/dl (8.6-10.3); Creatinine Clr Calc Pharmacy 156.8 ml/min; Est GFR (African American) 115.7 ml/min; Est GFR (Non-African American) 99.9 ml/min; Potassium 3.9 mmol/L (3.5-5.1)
[2023-09-30 04:37] LABS: ANTI-Xa, UFH(UnfractionatedHep 0.31 IU/ml (0.3-0.7); INR 1.7 (0.9-1.1); Prothrombin Time 17.7 Seconds (9.0-12.0)
[2023-09-30] MEDS ORDERED: ENOXAPARIN 1.5 MG/KG SQ SCH (13:45)
--- NOTE | 2023-09-30 14:05 | Discharge Summary ---
Date of Service September 30, 2023 Admission HPI Per Admitting Provider Halina Mason is a 53 year old female with history of x2 pulmonary emboli last year who presents to the ER with exertional chest and jaw pain. She reports worsening symptoms over the left side of her chest on exertion over the last few months. She has put this pain down to her chronic pulmonary thromboembolic disease. Today while at work she started having a new pain in her right jaw and up to her ear which started on exertion but continued on rest. Lasted for 2 hours but now resolved. Associated shortness of breath. She continues to smoke and remains only on metformin for her diabetes. No prior heart attacks. This is on a background of feeling nauseated, sick and dizzy over the last week - an illness she feels she has now completely recovered from. Principal Diagnosis chest pain Discharge Exam Constitutional + not well nourished and no acute distress Respiratory normal respiratory effort, lungs clear to auscultation Cardiovascular Rate/Rhythm: regular rate and regular rhythm Heart Sounds: no murmur Extremities: + pedal edema (trace pitting b/l) Gastrointestinal (Abdomen) normal bowel sounds, soft, nontender, no hepatosplenomegaly Skin no rashes, warm and dry Neurologic moves all extremities and awake; not confused Psychiatric A+Ox3, euthymic affect Discharge Data Allergies Allergy/AdvReac Type Severity Reaction Status Date / Time amoxicillin AdvReac Intermediate CAUSE A Verified 10/01/23 13:26 YEAST INFECTION Consultations 09/28/23 17:39 ED Decision to Admit Stat 09/29/23 08:31 Consult Cardiology Routine Diabetes Follow up Diabetes Follow-up Needed for HgbA1c >9% Hospital Course (1) Chest pain, rule out acute myocardial infarction: Escalating exertional chest pain, new right sided jaw pain, associated shortness of breath Serial troponins overnight to r/o [place]. consulted cardiology: no need to perform emergent stress test while in house. will do stress test as an outpatient. Patient was hospitalized due to low INR. Bridged with heparin. On day of discharge patient's INR remained low at 1.7 however patient asked to be discharge. I ordered a one time dose of lovenox 1.5 mg/kg Patient will continue with warfarin and followup with anticoagulation clinic. (2) Uncontrolled diabetes mellitus: Per PCP note patient refused other treatment other than metformin after discharge in April. Patient is confused by this and does not remember declining any medications PATIENT WILL FOLLOWUP WITH PCP REGARDING HOME DIABETIC MANAGEMENT (3) Acute hyperglycemia: (4) Tobacco use disorder: Previously quit but again smoking 0.5 packs/day Nicotine patch ordered Cessation encouraged (5) History of pulmonary embolism: Continue usual warfarin dosing with addition 2.5mg PO today Lifelong anticoagulation - warfarin due to high BMI Total Time Total Time Spent Total Time Spent (In Minutes): 32 Discharge Plan Discharge Items Patient Disposition: Home - Self-Care Reason For Visit: CHEST PAIN RULE OUT AL Discharge Diagnosis: chest pain Activity: Resume your previous activity Non-emergency contact: Primary Care Provider Call non-emergency contact if: you have any medication questions Follow-up/Referrals: Wolfgang Alamo DO [Primary Care Provider] - Diet: Carb Consistent or DM2 and Heart Healthy Addtl Attending Provider Instructions: recommend followup with PCP in 1-2 weeks. WIll set up outpatient stress test. Recommend checking INR tomorrow. Pending Studies at Discharge: No Stand-Alone Forms: My [facility] wufoo, Smoking Cessation Medications and DC Order Prescriptions: Continued warfarin 5 mg tablet 7.5 - 10 mg PO UD Rx Instructions: As directed by anticoagulation clinic furosemide 20 mg tablet 20 mg PO DAILY Qty: 30 2RF potassium chloride 20 mEq tablet extended release 20 meq PO DAILY Qty: 30 3RF (DME) OneTouch Verio test strips Strip See Rx Instructions .Route Qty: 200 3RF Rx Instructions: TEST BLOOD SUGAR ONCE DAILY (DME) lancets [OneTouch Delica Plus Lancet] 30 gauge misc See Rx Instructions .Route Qty: 100 6RF Rx Instructions: As directed (DME) FreeStyle Jeannie 3 Sensor Device See Rx Instructions .Route Qty: 2 2RF Rx Instructions: As directed (DME) FreeStyle Jeannie 3 [place] Misc See Rx Instructions .Route Qty: 1 0RF Rx Instructions: As directed (DME) blood-glucose meter [OneTouch Verio Meter] Misc See Rx Instructions .Route Qty: 1 0RF Rx Instructions: ONETOUCH VERIO METER albuterol sulfate 90 mcg/actuation HFA aerosol inhaler 2 inh inhalation QID PRN (Reason: shortness of breath or wheezing) Qty: 8.5 3RF nystatin 100,000 unit/gram powder 1 applic topical QID PRN (Reason: Rash) metformin 1,000 mg tablet 1,000 mg PO BID Qty: 90 3RF lisinopril 2.5 mg tablet 5 mg PO DAILY Discharge Orders: Discharge Order (Routine); Ordered 09/30/23 Ordered By: Leighton Coto/Other Patient Handouts: High Blood Sugar (Hyperglycemia), Managing Type 2 Diabetes Admission Data Admit Date/Time: 09/28/23 17:49 Attending Provider: Leighton Mendez Admit Provider: Reid Vega Primary Care Provider: Wolfgang Alamo Other Providers: Reid Vega; Benigno Welsh Other Interventions: Discharge Summary Assessment (RN) Last Done: 09/30/23 15:04 Coding Level of Care Code 82561 INP/OBS DISCH >30 MIN Diagnoses Chest pain, rule out acute myocardial infarction R07.9 Uncontrolled diabetes mellitus Acute hyperglycemia R73.9 Tobacco use disorder F17.200 History of pulmonary embolism Z86.711
[2023-09-30] MEDS: ENOXAPARIN 150 MG/ML SYR SQ ONE (14:57)
[2023-09-30] MEDS: ENOXAPARIN INJ 30 MG/0.3 ML SYR SQ ONE (14:58)
[2023-10-04] MEDS ORDERED: WARFARIN SOD 7.5 MG TAB PO SCH (16:00)
== END 2023-09-30 15:31 | disposition home or self-care (01) ==
LOC: EDINP 12:04 → ED 12:04 → SUATTDRO 17:49 → 2N 21:19
DX: R00.2 Palpitations; E66.01 Morbid (severe) obesity due to excess calories; R06.00 Dyspnea, unspecified; Z86.711 Personal history of pulmonary embolism; Z83.3 Family history of diabetes mellitus; R07.89 Other chest pain; Z68.44 Body mass index [BMI] 60.0-69.9, adult; Z82.49 Family history of ischemic heart disease and other diseases of the circulatory system; E11.65 Type 2 diabetes mellitus with hyperglycemia; Z88.0 Allergy status to penicillin; Z79.84 Long term (current) use of oral hypoglycemic drugs; Z79.899 Other long term (current) drug therapy; F17.210 Nicotine dependence, cigarettes, uncomplicated; Z86.718 Personal history of other venous thrombosis and embolism; Z79.01 Long term (current) use of anticoagulants

== ENCOUNTER 2025-01-31 23:33 | Observation (INO) ==
--- NOTE | 2025-01-31 23:58 | Emergency Department Note ---
History of Present Illness General Chief complaint: Leg Injury/Pain Stated complaint: LEG PAIN, SOB Time Seen by Provider: 01/31/25 23:40 History of Present Illness Maximum Pain Intensity: 5 This 54-year-old female on Coumadin who has not have her levels checked in greater than 4 months presents ER, chest pain, shortness of breath and leg pain. She is concerned she is not the blood clot. Patient denies fever, chills, cough, congestion, flulike illness. 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 ea 03/04/24 10/03/24 Rx (FreeStyle Jeannie 3 [place]) lancets 30 gauge (OneTouch Delica #100 ea 07/07/24 10/03/24 Rx Plus Lancet) warfarin 5 mg tablet See Rx Instructions PO DAILY #70 10/03/24 02/01/25 Rx tabs norethindrone acetate 5 mg tablet 5 mg PO DAILY #90 tabs 12/29/24 02/01/25 Rx Allergies Allergy/AdvReac Type Severity Reaction Status Date / Time amoxicillin AdvReac Intermediate CAUSE A Verified 10/27/24 19:50 YEAST INFECTION Past Med/Surg History Problem List (Updated 02/01/25 @ 03:27 by Sravani Sepulveda PA-C) Subtherapeutic international normalized ratio (INR) (Acute) Acute hyperglycemia (Acute) Chest pain (Acute) Atherogenic dyslipidemia Palpitations T2DM (type 2 diabetes mellitus) Acute hyperglycemia (Acute) Atypical chest pain (Acute) Chest pain, rule out acute myocardial infarction History of tobacco use disorder quit 2022 Uncontrolled diabetes mellitus Morbid obesity with BMI of 60.0-69.9, adult detention current use of anticoagulant (Acute) History of pulmonary embolism GUERRERO (dyspnea on exertion) (Acute) Lumbar radiculopathy Urinary urgency Osteoarthritis of lumbar spine Biliary colic Medical History Cholelithiasis Hypercoagulable state Tobacco use disorder Bilateral pulmonary embolism History of bronchitis Tobacco use Heartburn Surgical History History of mandibular surgery History of tubal ligation Family History Mother Diabetes Heart disease Hypertension Grandmother (Maternal) Diabetes Grandmother (Paternal) Diabetes Brother Diabetes Heart disease Myocardial infarction Abdominal aneurysm Aneurysm artery, neck Hypertension Stroke Sister , Age 56 Diabetes Heart disease Hypertension Father Heart disease Myocardial infarction Hypertension Stroke Aunt Cancer Uncle Cancer Denies family history of Ovarian cancer Prostate cancer Breast cancer Colorectal cancer Social History Smoking Status: Current every day smoker Tobacco Type: Cigarettes Age Started Using Tobacco: 18; packs per day: 1; Cigarettes Per Day: 0.5-0.75 packs; Second Hand Exposure: Yes; Do You Dip or Chew Tobacco: No; Hx Alcohol Use: Yes Alcohol type: wine Alcohol Intake Frequency: Monthly or Less Hx Substance Use: No Preferred Language: Sami Communication Ability: Effective Visual Impairment: Limited Hearing Ability: Normal Communication Coordinator Required: No Beliefs That Will Affect Care: Tenriism Tenriism Beliefs: No blood products marital status: Single Current Living Situation: Family and Significant Other Current Living Situation Comment: House current occupational status: employed current occupation: [employer] How many Children do You have: 3 How many Children do You have Comment: 2 boys, 1 girl all Grown Feels Safe at Home: Yes Childhood Exposure to Second-Hand Smoke: Yes caffeine: Yes Dental Care, Regularly: No Physical Activity Frequency: Does not Exercise Seatbelt Use: never Sunscreen Use: No Do you think of yourself as: straight/heterosexual Assistive Devices: Cane Review of Systems A total of 10 systems reviewed and were otherwise negative Physical Exam Vital Signs Vital Signs - 24 hr 01/31/25 23:39 01/31/25 23:52 02/01/25 00:00 Temperature 36.5 C Temperature Source Temporal Artery Scan Pulse Rate 91 H 84 78 Respiratory Rate 18 18 Respiratory Effort / Characteristics Non-Labored Spontaneous Respiratory Depth Normal Respiratory Pattern Regular Blood Pressure 144/87 H 150/93 H Blood Pressure Mean 106 111 Blood Pressure Position Sitting Pulse Oximetry 96 97 Oxygen Delivery Method Room Air Room Air Sepsis Recent Fever Within 48 Hours Yes Sepsis New/Unexplained Change in Mental Status N/A Sepsis Action Taken by Nursing No Action Required 02/01/25 00:01 02/01/25 00:23 02/01/25 01:00 Temperature Temperature Source Pulse Rate 79 75 Respiratory Rate 18 22 Respiratory Effort / Characteristics Respiratory Depth Respiratory Pattern Blood Pressure 160/96 H 137/92 Blood Pressure Mean 117 112 Blood Pressure Position Pulse Oximetry 97 96 96 Oxygen Delivery Method Room Air Room Air Room Air Sepsis Recent Fever Within 48 Hours Sepsis New/Unexplained Change in Mental Status Sepsis Action Taken by Nursing 02/01/25 02:00 02/01/25 02:30 02/01/25 03:00 Temperature Temperature Source Pulse Rate 75 77 80 Respiratory Rate 20 18 18 Respiratory Effort / Characteristics Respiratory Depth Respiratory Pattern Blood Pressure 117/87 137/75 151/94 H Blood Pressure Mean 90 93 99 Blood Pressure Position Pulse Oximetry 95 97 97 Oxygen Delivery Method Room Air Room Air Room Air Sepsis Recent Fever Within 48 Hours Sepsis New/Unexplained Change in Mental Status Sepsis Action Taken by Nursing VITALS: Vitals are noted on the nurse's note and reviewed by myself. Vital signs stable. GENERAL: Pleasant female with an elevated BMI, in no acute distress, nondiaphoretic, well-developed well-nourished. SKIN: Capillary reflex less than 2 seconds. HEENT: Normocephalic. PERRLA. EOMI. Nares patent. Mucous membranes moist. Neck is supple without nuchal rigidity. HEART: Regular rate and rhythm LUNGS: Clear to auscultation bilaterally without wheezes, rales or rhonchi. No retractions or accessory muscle use. ABDOMEN: Positive bowel sounds x 4. Normal tympanic percussion. Soft, nontender, without masses or organomegaly. Crain sign negative. No guarding or rebound tenderness. no CVA tenderness MUSCULOSKELETAL: No gross musculoskeletal defects. NEURO: Patient was alert and oriented to person place and time. No focal neurological deficits. Course Administered Medications Discontinued Medications Sodium Chloride (Nss) 1,000 mls @ 999 mls/hr IV .Q1H1M MONSERRAT Stop: 02/01/25 03:15 Last Infusion: 02/01/25 03:15 Dose: Infused Documented By: Admin: 02/01/25 01:11 Dose: 999 mls/hr Documented By: JUAN MIGUEL Infusion: 02/01/25 01:11 Dose: Infused Documented By: JUAN MIGUEL Admin: 02/01/25 01:10 Dose: 999 mls/hr Documented By: JUAN MIGUEL Insulin Human Regular (Novolin-R Insulin Per Unit Charge) 10 units IV NOW STA Stop: 02/01/25 02:29 Last Admin: 02/01/25 02:52 Dose: 10 units Documented By: JUAN MIGUEL Co-signed By: RAFAEL Ioversol (Optiray 320 125ml) 120 ml IV ONCE ONE Stop: 02/01/25 00:01 Last Admin: 02/01/25 00:01 Dose: 120 ml Documented By: DIANA Medical Decision Making Medical Records Attestation: I reviewed the patient's medical records. Home Medications Current Medication List: was personally reviewed by me Laboratory Data Attestation: I reviewed the patient's lab results. 02/01/25 00:11 02/01/25 00:11 Lab Results 02/01/25 02/01/25 02/01/25 Range/Units 00:11 00:17 02:01 WBC 11.03 H (4.8-10.8) K/ul RBC 4.83 (4.20-5.40) M/uL Hgb 14.2 (12.0-16.0) g/dl POC Hgb 15.0 (12.0-16.0) g/dl Hct 42.1 (37.0-47.0) % POC Hct 44 (37-47) % MCV 87.2 (80.0-100.0) fL MCH 29.4 (25.0-34.0) pg MCHC 33.7 (32.0-36.0) g/dL RDW Std Deviation 44.3 (36.4-46.3) fL RDW Coeff of Ana 13.9 (11.5-14.5) % Plt Count 244 (130-400) K/uL MPV 9.9 (9.4-12.4) fL Immature Gran % (Auto) 0.5 % Neut % (Auto) 58.2 % Lymph % (Auto) 30.3 % [place] % (Auto) 5.7 % Eos % (Auto) 4.9 % Baso % (Auto) 0.4 % Neut # (Auto) 6.43 (1.40-6.50) K/uL Lymph # (Auto) 3.34 (1.20-3.40) K/uL [place] # (Auto) 0.63 H (0.11-0.59) K/uL Eos # (Auto) 0.54 H (0.00-0.50) K/uL Baso # (Auto) 0.04 (0.00-0.20) K/uL Immature Gran # (Auto) 0.05 (0.01-0.20) K/uL PT Cancelled 9.8 INR Cancelled 0.9 APTT Cancelled 26 PTT Ratio Cancelled 1.0 POC Sodium 135 (135-144) mmol/L Sodium 134 L (136-145) mmol/L POC Potassium 4.3 (3.3-5.0) mmol/L Potassium 4.2 (3.5-5.1) mmol/L POC Chloride 100 L (101-112) mmol/L Chloride 100 (98-107) mmol/L Carbon Dioxide 26 (21-32) mmol/L POC Total CO2 25 (24-31) mmol/L Anion Gap 8 (3-11) POC Anion Gap 15.0 L (16-25) mmol/L POC BUN 22 H (7-18) mg/dl BUN 19 (6-23) mg/dl Creatinine 0.77 (0.6-1.2) mg/dl POC Creatinine 0.7 (0.6-1.3) mg/dl Est Cr Clr Drug Dosing 130.7 ml/min eGFR 91.61 BUN/Creatinine Ratio 24.7 H (10-20) Glucose 443 H* (70-99(Fasting)) mg/dl POC Glucose (70-99) mg/dl POC Glucose (other) 422 H* (70-99) mg/dl Calcium 9.3 (8.6-10.3) mg/dl POC Ioniz Calcium [place] 1.22 (1.12-1.32) mmol/l Total Bilirubin 0.6 (0.2-1.0) mg/dl AST 14 (13-39) U/L ALT 18 (7-52) U/L Alkaline Phosphatase 77 (34-104) U/L Troponin I High Sens 15.9 H (0-14) pg/ml Total Protein 6.6 (6.0-8.3) gm/dl Albumin 3.2 L (3.4-5.0) gm/dl Globulin 3.4 (2.5-4.0) gm/dl Albumin/Globulin Ratio 0.9 (0.9-2) Lipase 26 (11-82) U/L 02/01/25 02/01/25 02/01/25 Range/Units 02:20 02:23 02:24 WBC (4.8-10.8) K/ul RBC (4.20-5.40) M/uL Hgb (12.0-16.0) g/dl POC Hgb (12.0-16.0) g/dl Hct (37.0-47.0) % POC Hct (37-47) % MCV (80.0-100.0) fL MCH (25.0-34.0) pg MCHC (32.0-36.0) g/dL RDW Std Deviation (36.4-46.3) fL RDW Coeff of Ana (11.5-14.5) % Plt Count (130-400) K/uL MPV (9.4-12.4) fL Immature Gran % (Auto) % Neut % (Auto) % Lymph % (Auto) % [place] % (Auto) % Eos % (Auto) % Baso % (Auto) % Neut # (Auto) (1.40-6.50) K/uL Lymph # (Auto) (1.20-3.40) K/uL [place] # (Auto) (0.11-0.59) K/uL Eos # (Auto) (0.00-0.50) K/uL Baso # (Auto) (0.00-0.20) K/uL Immature Gran # (Auto) (0.01-0.20) K/uL PT INR APTT PTT Ratio POC Sodium (135-144) mmol/L Sodium (136-145) mmol/L POC Potassium (3.3-5.0) mmol/L Potassium (3.5-5.1) mmol/L POC Chloride (101-112) mmol/L Chloride (98-107) mmol/L Carbon Dioxide (21-32) mmol/L POC Total CO2 (24-31) mmol/L Anion Gap (3-11) POC Anion Gap (16-25) mmol/L POC BUN (7-18) mg/dl BUN (6-23) mg/dl Creatinine (0.6-1.2) mg/dl POC Creatinine (0.6-1.3) mg/dl Est Cr Clr Drug Dosing ml/min eGFR BUN/Creatinine Ratio (10-20) Glucose (70-99(Fasting)) mg/dl POC Glucose 379 H* 374 H* (70-99) mg/dl POC Glucose (other) (70-99) mg/dl Calcium (8.6-10.3) mg/dl POC Ioniz Calcium [place] (1.12-1.32) mmol/l Total Bilirubin (0.2-1.0) mg/dl AST (13-39) U/L ALT (7-52) U/L Alkaline Phosphatase (34-104) U/L Troponin I High Sens 13.3 (0-14) pg/ml Total Protein (6.0-8.3) gm/dl Albumin (3.4-5.0) gm/dl Globulin (2.5-4.0) gm/dl Albumin/Globulin Ratio (0.9-2) Lipase (11-82) U/L Imaging Data Attestation: I personally reviewed and interpreted this imaging study as follows: Radiologist's Impression: Chest CTA 01/31/25 23:55 Exam(s): CTA CHEST IV Amt: 120 ml EXAM: CT Angiography Chest With Intravenous Contrast CLINICAL HISTORY: Reason for exam: PE. TECHNIQUE: Axial computed tomographic angiography images of the chest with intravenous contrast. CTDI is 28.14 mGy and DLP is 887.7 mGy-cm. Automated exposure control was utilized for the study. A dose lowering technique was utilized adhering to the principles of ALARA. MIP reconstructed images were created and reviewed. COMPARISON: CTA chest: 07/24/24 FINDINGS: Exam for evaluation of PE is limited due to suboptimal IV contrast bolus/timing. Pulmonary arteries: No pulmonary embolism to the level of the proximal segmental branches. Distally evaluation is suboptimal due to technical factors Aorta: No acute findings. No thoracic aortic aneurysm. Heart: Mild cardiomegaly. No significant pericardial effusion. No evidence of RV dysfunction. Lungs: Central airways are patent.. No mass. No consolidation. Pleural space: Elevated diaphragm left more than the right. No significant effusion. No pneumothorax. Bones/joints: No acute fracture. No dislocation. Degenerative changes of the spine. Soft tissues: Unremarkable. Lymph nodes: No significant enlarged lymph nodes.. IMPRESSION: Limited exam. No pulmonary embolism to the level of proximal segmental arteries. No aortic aneurysm or dissection. Cardiomegaly. No acute chest findings . Electronically signed by: Dari Holliday MD, JESSICAR 02/01/25 02:59 AM [facility] Narrative Prior records/ancillary studies reviewed. Triage Nursing notes reviewed. Additional history obtained from family. The patient's history was concerning for chest pain. Differential diagnosis: Etiologies such as cardiac ischemia, aortic dissection, pulmonary embolism, pneumonia, pneumothorax, musculoskeletal, infections, pericarditis, myocarditis, esophageal rupture, gastrointestinal, as well as others were entertained. Physical examination: As above. ER treatment provided: An order was placed for continuous cardiac monitoring. The monitor shows a rate of 60-100 with a sinus rhythm per my interpretation. IV fluids, insulin On reassessment the patient felt better. Diagnostic interpretation by me: The electrocardiogram was negative for pathologic change. Ordered for chest pain EKG: Normal sinus, normal intervals, no acute ST-T wave changes. Impression normal sinus rhythm independently interpreted by myself I think arrhythmia is unlikely. EKG shows normal sinus rhythm with no interval abnormalities such as QT prolongation or WPW. There are no findings to suggest Brugada syndrome. Cardiac monitoring in the emergency department reveals no tachycardic or bradycardic dysrhythmia. Hypertrophic cardiomyopathy was considered but there are no clear historical elements pointing toward this. EKG is not suggestive. The QRS voltage is not extremely large and there are no suggestive Q waves. The labs Independently Interpreted by myself revealed hyperglycemia without DKA. Minimally elevated troponin and repeat was lower Mild leukocytosis, stable H&H Imaging studies: Imaging was reviewed and read by radiology HEART SCORE: Hx: high/mod/low suspicion: 1 ECG: ST depression/nonspecific changes/normal: 0 Age: Greater than 65/45-64/less than 45: 1 Risk factors: (Hypertension, hyperlipidemia, diabetes, coronary disease, tobacco use, cocaine use): 2 Troponin: Greater than 2 times normal limits/1-2 times normal limits/normal: 1 Total: 5 Consultation: A consultation was placed with the hospitalist. The case was discussed and diagnostics were reviewed. The patient was evaluated in the ER for further treatment. Exam and history seem consistent with hyperglycemia and subtherapeutic INR most likely from medication noncompliance. Patient was not forthcoming about this. Patient was given IV fluids and insulin and blood sugar did improve. CTA was negative for PE. Medicine was consulted case discussed. She will be admitted to the medical service. Patient is agreeable. By the evaluation outlined above emergent etiologies such as aortic dissection, pulmonary embolism, pneumonia, pneumothorax, infections, pericarditis, myocarditis, gastrointestinal, as well as others were deemed relatively unlikely. The pt informed about the findings as listed above. All questions were answered and pleased with the treatment. The chart was completed utilizing [employer]) Speech voice recognition software. Grammatical errors, random word insertions, pronoun errors, and incomplete sentences are an occassional consequence of this system due to software limitations, ambient noise, and hardware issues. Any formal questions or concerns about the content, text, or information contained within the body of this dictation should be directly addressed to the physician retail event assistant for clarification. Impression & Plan Chest pain, Acute hyperglycemia, Subtherapeutic international normalized ratio (INR) Discharge Plan Visit Data Chief Complaint: Leg Injury/Pain Stated Complaint: LEG PAIN, SOB ED Provider: Rola Hussien ED Midlevel Provider: Sravani Sepulveda Discharge Problem: Chest pain, Acute hyperglycemia, Subtherapeutic international normalized ratio (INR) Patient Disposition: Admitted As Inpatient Condition: Good Forms Stand Alone Forms: Who is Undercover Spy Prescriptions Prescriptions: No Action warfarin 5 mg tablet See Rx Instructions PO DAILY Qty: 70 2RF Rx Instructions: 15mg q , Sa, 10mg x 5 days orally daily; nystatin 100,000 unit/gram powder 1 applic topical QID PRN (Reason: Rash) Qty: 15 1RF (DME) FreeStyle Jeannie 3 Sensor Device See Rx Instructions .Route Qty: 2 2RF Rx Instructions: As directed (DME) FreeStyle Jeannie 3 [place] Misc See Rx Instructions .Route Qty: 1 0RF Rx Instructions: As directed (DME) lancets [OneTouch Delica Plus Lancet] 30 gauge misc See Rx Instructions .Route Qty: 100 0RF Rx Instructions: testing 1 time daily norethindrone acetate 5 mg tablet 5 mg PO DAILY Qty: 90 2RF (DME) OneTouch Verio test strips Strip See Rx Instructions .Route Qty: 200 3RF Rx Instructions: TEST BLOOD SUGAR ONCE DAILY (DME) blood-glucose meter [facility] Meter[facility] See Rx Instructions .Route Qty: 1 0RF Rx Instructions: ONETOUCH VERIO METER Referrals Referrals: Wolfgang Alamo DO [Primary Care Provider] - Discharge Problem: Chest pain Qualifiers: Chest pain type: unspecified Qualified Code(s): R07.9 - Chest pain, unspecified
[2025-02-01] MEDS: OPTIRAY 320 125ml IV ONE (00:01)
[2025-02-01 00:30] LABS: Hematocrit (blood only) 42.1 % (37.0-47.0); Hemoglobin 14.2 g/dl (12.0-16.0); Immature Granulocytes # (auto) 0.05 K/uL (0.01-0.20); Immature Granulocytes % (auto) 0.5 %; Mean Corpuscular Hemoglobin 29.4 pg (25.0-34.0); Mean Corpuscular Volume 87.2 fL (80.0-100.0); Platelet Count 244 K/uL (130-400); RDW Standard Deviation 44.3 fL (36.4-46.3); Red Blood Count 4.83 M/uL (4.20-5.40); White Blood Count 11.03 K/ul (4.8-10.8)
[2025-02-01 00:49] LABS: Alanine Aminotransferase 18.0 U/L (7-52); Albumin Globulin Ratio 0.9 (0.9-2); Alkaline Phosphatase 77.0 U/L (34-104); Anion Gap 8.0 (3-11); Bilirubin,Total 0.6 mg/dl (0.2-1.0); Blood Urea Nitrogen 19.0 mg/dl (6-23); Calcium 9.3 mg/dl (8.6-10.3); Carbon Dioxide 26.0 mmol/L (21-32); Chloride 100.0 mmol/L (98-107); Creatinine Clr Calc Pharmacy 130.7 ml/min; Globulin 3.4 gm/dl (2.5-4.0); Glucose 443.0 mg/dl (70-99(Fasting)); Lipase 26.0 U/L (11-82); Potassium 4.2 mmol/L (3.5-5.1); Sodium 134.0 mmol/L (136-145); Total Protein 6.6 gm/dl (6.0-8.3)
[2025-02-01] MEDS: SODIUM CHLORIDE 0.9% 1,000 ML IV SCH (01:10)
[2025-02-01] MEDS: NovoLIN-R INSULIN PER UNIT CHARGE IV STA (02:52)
[2025-02-01 03:00] LABS: INR 0.9 (0.9-1.1); Partial Thromboplastin Time 26 Seconds (21-31); Prothrombin Time 9.8 Seconds (9.0-12.0)
--- NOTE | 2025-02-01 03:00 | CT Scan Report ---
Exam(s): CTA CHEST IV Amt: 120 ml EXAM: CT Angiography Chest With Intravenous Contrast CLINICAL HISTORY: Reason for exam: PE. TECHNIQUE: Axial computed tomographic angiography images of the chest with intravenous contrast. CTDI is 28.14 mGy and DLP is 887.7 mGy-cm. Automated exposure control was utilized for the study. A dose lowering technique was utilized adhering to the principles of ALARA. MIP reconstructed images were created and reviewed. COMPARISON: CTA chest: 07/24/24 FINDINGS: Exam for evaluation of PE is limited due to suboptimal IV contrast bolus/timing. Pulmonary arteries: No pulmonary embolism to the level of the proximal segmental branches. Distally evaluation is suboptimal due to technical factors Aorta: No acute findings. No thoracic aortic aneurysm. Heart: Mild cardiomegaly. No significant pericardial effusion. No evidence of RV dysfunction. Lungs: Central airways are patent.. No mass. No consolidation. Pleural space: Elevated diaphragm left more than the right. No significant effusion. No pneumothorax. Bones/joints: No acute fracture. No dislocation. Degenerative changes of the spine. Soft tissues: Unremarkable. Lymph nodes: No significant enlarged lymph nodes.. IMPRESSION: Limited exam. No pulmonary embolism to the level of proximal segmental arteries. No aortic aneurysm or dissection. Cardiomegaly. No acute chest findings . Electronically signed by: Dari Holliday MD, JESSICAR 02/01/25 02:59 AM
--- NOTE | 2025-02-01 03:22 | History & Physical Report ---
Date of Service February 01, 2025 Assessment & Plan (1) Chest pain: (2) Subtherapeutic international normalized ratio (INR): (3) Suicidal ideation: (4) Acute hyperglycemia: (5) Hyponatremia: Plan 54-year-old female PMHx PE on warfarin, T2DM, and dyslipidemia presenting for chest pain, SOB, and leg pain. Her workup initially was suspicious for PE or ACS, with an elevated troponin 15.9 but on repeat it came to 13.3. Her chest CTA was negative for a PE, and overall her EKG was unremarkable. She has not been taking her medications at all for an extended period of time, further clarifying that she has not been taking her medications because she does not care what happens to her if she does not take them. She does admit to suicidal ideations with a plan, and confirms this on multiple occasions. No homicidal ideations. Patient was informed that given these statements and thoughts, she will be moved to an area where she will be safe and have psychiatry see her. Will also be managing her INR, with the goal to get her back on her prescription medications as prescribed. #Chest pain/Subtherapeutic INR H/o PE, on warfarin for such however she has not been taking her warfarin and is unsure when the last time was that she did.; Onset CP with associated SOB and leg pain, was concerned for a blood clot. Trop has since decreased and EKG is normal sinus without ischemic changes. Low suspicion for ACS. She has not been seen by [facility] for multiple months, and again, not taking warfarin for extended period of time. - CBC mild leukocytosis, but stable H&H - CBC am - EKG NSR, no ischemic changes, no current CP; Trop 15.9 --> 13.3 - INR 0.9 - CXR stable cardiomegaly, mild chronic pulmonary vascular congestion - Chest CTA w/o acute findings, no PE - Echo 09/2023 EF 55-60%, mild LVH -- pending repeat - Lipids pending - Bridge with Lovenox 150 mg q12hr given unclear duration of last dose of warfarin #Suicidal Ideations Reports that she has been having thoughts of taking her own life with a plan that she is not acting on because she is afraid of "what if it does not work." No HI. Pt is tearful. Has a lot of life stressors that are making her feel hopeless. 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 - Suicide precautions - Safe meal tray - One to one - Psych consulted - appreciate input + recs #Hyperglycemia/T2DM Uncontrolled T2DM, she is prescribed metformin but has not been taking any medications at home. Received insulin 10U IV in ED. - Glucose on arrival 443->422-->374. - A1c 09/2023 @ 9.4% - pending repeat - SSI with target BSG range 110-140mg/dL, CF 15, carb ratio 5 - BSG ACHS - Adjust regimen as needed - Encourage metformin use following d/c #Hyponatremia In setting of significant hyperglycemia. - Na 134, glucose 443; corrected 142 - BMP am Dispo: Obs, med/tele VTE prophylaxis: Lovenox bridge This document was dictated utilizing [employer]. Please excuse any grammatical errors that may be secondary to use of this software. Admission and Anticipated Discharge Date Admission Date: 02/01/2025 History of Present Illness Chief Complaint: CP, leg pain Primary Care Provider: Wolfgang Alamo DO 54-year-old female PMHx PE on warfarin, T2DM, and dyslipidemia presenting for chest pain, SOB, and leg pain. 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 She then later in the day went to [employer] [employer] with her sons and said that she had a pain shooting through her chest. This occurred around 1800 hrs. 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 Both of her legs do cause her some pain. She states that she has a "bad back." She has a lot of stressors at home. States that she is depressed and has not been taking her medications because she just does not care anymore. 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 She states that she is afraid what would happen if it did not work and this stopped her from doing it. She continues to have the same thoughts of wanting to end her life. She still plans on overdosing if she were to act on these thoughts. She denies any homicidal ideations. She is not harming herself in other ways to include self- harm. She states that her home life incredibly stressful at this time and she has a lot of changes coming up that she is not sure how she is going to manage to include finding someone to live and a vehicle. Patient is tearful during the visit. She again states that she does feel that she would be better off . This was stated approximately 3-4 times throughout the visit and confirmed with specific question of "do you want to kill your self" being answered with "probably." Patient is without chest pain at this time. She states she has multiple medications that she has to be taken by has not been taking. She does not know the last time she took her warfarin. ED evaluation reveals CBC with leukocytosis 11.03, stable H/H; PT 9.8, INR 0.9; CMP Na 134, ratio 24.7, initial glucose 443 -> 422 -> 374; troponin 15.9, 13.3 on repeat; CXR pending official read; Chest CTA no PE or other acute findings; EKG [].; Provided with 1L NSS and 10U insulin IV in ED. Please see Dr. Guy's attestation for adjustments/additions to treatment plan. Allergies Allergy/AdvReac Type Severity Reaction Status Date / Time amoxicillin AdvReac Intermediate CAUSE A Verified 10/27/24 19:50 YEAST INFECTION Home Medications Medication Instructions Recorded Confirmed Type blood-glucose meter (SportsMEDIA TechnologyTouch #1 ea 12/02/21 10/03/24 Rx Verio Meter) blood sugar diagnostic (OneTouch #200 ea 07/16/23 10/03/24 Rx Verio test strips) nystatin 100,000 unit/gram topical 1 applic topical QID PRN Rash #15 11/07/23 02/01/25 Rx powder grams blood-glucose sensor (FreeStyle #2 ea 03/03/24 10/03/24 Rx Jeannie 3 Sensor device) blood-glucose,missile pad mechanic,cont #1 ea 03/04/24 10/03/24 Rx (FreeStyle Jeannie 3 [place]) lancets 30 gauge (SportsMEDIA TechnologyTouch Delica #100 ea 07/07/24 10/03/24 Rx Plus Lancet) warfarin 5 mg tablet See Rx Instructions PO DAILY #70 10/03/24 02/01/25 Rx tabs norethindrone acetate 5 mg tablet 5 mg PO DAILY #90 tabs 12/29/24 02/01/25 Rx Past Med/Surg History Problem List (Updated 02/01/25 @ 04:23 by Fady Sepulveda PA-C) Hyponatremia Suicidal ideation Subtherapeutic international normalized ratio (INR) (Acute) Acute hyperglycemia (Acute) Chest pain (Acute) Atherogenic dyslipidemia Palpitations T2DM (type 2 diabetes mellitus) Acute hyperglycemia (Acute) Atypical chest pain (Acute) Chest pain, rule out acute myocardial infarction History of tobacco use disorder quit 2022 Uncontrolled diabetes mellitus Morbid obesity with BMI of 60.0-69.9, adult detention current use of anticoagulant (Acute) History of pulmonary embolism GUERRERO (dyspnea on exertion) (Acute) Lumbar radiculopathy Urinary urgency Osteoarthritis of lumbar spine Biliary colic Medical History Cholelithiasis Hypercoagulable state Tobacco use disorder Bilateral pulmonary embolism History of bronchitis Tobacco use Heartburn Surgical History History of mandibular surgery History of tubal ligation Family History Mother Diabetes Heart disease Hypertension Grandmother (Maternal) Diabetes Grandmother (Paternal) Diabetes Brother Diabetes Heart disease Myocardial infarction Abdominal aneurysm Aneurysm artery, neck Hypertension Stroke Sister , Age 56 Diabetes Heart disease Hypertension Father Heart disease Myocardial infarction Hypertension Stroke Aunt Cancer Uncle Cancer Denies family history of Ovarian cancer Prostate cancer Breast cancer Colorectal cancer Social History Smoking Status: Current every day smoker Tobacco Type: Cigarettes Age Started Using Tobacco: 18; packs per day: 1; Cigarettes Per Day: 0.5-0.75 packs; Second Hand Exposure: Yes; Do You Dip or Chew Tobacco: No; Hx Alcohol Use: No Hx Substance Use: No Preferred Language: Monegasque Communication Ability: Effective Visual Impairment: Limited Hearing Ability: Normal 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 Beliefs That Will Affect Care: None marital status: Single Current Living Situation: Family Current Living Situation Comment: House current occupational status: employed current occupation: [employer] How many Children do You have: 3 How many Children do You have Comment: 2 boys, 1 girl all Grown Feels Safe at Home: Yes Safety Concerns: Feels Safe At This Time Childhood Exposure to Second-Hand Smoke: Yes caffeine: Yes Dental Care, Regularly: No Physical Activity Frequency: Does not Exercise Seatbelt Use: never Sunscreen Use: No Do you think of yourself as: straight/heterosexual Assistive Devices: Cane and Glasses Review of Systems Review of Systems: All systems reviewed & are unremarkable except as noted in Subjective Physical Exam Physical Exam: General: No acute distress Skin: Warm and dry Head: Normocephalic, atraumatic Eyes: PERRL, conjunctivae clear, sclera non-icteric; wearing glasses ENT: External ear and ear canal without swelling; nose atraumatic; poor dentition, tongue normal appearance, pharynx normal Neck: Supple, no LAD Cardio: RRR, no M/G/R, S1 and S2 normal Resp: No respiratory distress, Lungs CTA in all lobes bilaterally, no wheezes, rales, or rhonchi Abdomen: Soft, symmetric, nontender; No masses or hepatosplenomegaly; Bowel sounds normoactive MSK: No deformities; pulses palpable and equal; trace pitting edema BLE, not erythematous, no calf size discrepancies. Neuro: Awake, alert; Sensation intact bilaterally; CN grossly intact Psych: Tearful, quiet voice, minimal eye contact. Results & Data Results & Data Vital Signs (Past 12 Hours) Vital Signs Temp Pulse Resp BP Pulse Ox O2 Del Method 02/01/25 03:00 80 18 151/94 H 97 Room Air 02/01/25 02:30 77 18 137/75 97 Room Air 02/01/25 02:00 75 20 117/87 95 Room Air 02/01/25 01:00 75 22 137/92 96 Room Air 02/01/25 00:23 96 Room Air 02/01/25 00:01 79 18 160/96 H 97 Room Air 02/01/25 00:00 78 18 150/93 H 97 Room Air 01/31/25 23:52 84 01/31/25 23:39 36.5 C 91 H 18 144/87 H 96 Room Air Laboratory Results 02/01/25 02/01/25 02/01/25 02:24 02:23 02:20 WBC RBC Hgb POC Hgb Hct POC Hct MCV MCH MCHC RDW Std Deviation RDW Coeff of Ana Plt Count MPV Immature Gran % (Auto) Neut % (Auto) Lymph % (Auto) [place] % (Auto) Eos % (Auto) Baso % (Auto) Neut # (Auto) Lymph # (Auto) [place] # (Auto) Eos # (Auto) Baso # (Auto) Immature Gran # (Auto) PT INR APTT PTT Ratio POC Sodium Sodium POC Potassium Potassium POC Chloride Chloride Carbon Dioxide POC Total CO2 Anion Gap POC Anion Gap POC BUN BUN Creatinine POC Creatinine Est Cr Clr Drug Dosing eGFR BUN/Creatinine Ratio Glucose POC Glucose 374 H* 379 H* POC Glucose (other) Calcium POC Ioniz Calcium [place] Total Bilirubin AST ALT Alkaline Phosphatase Troponin I High Sens 13.3 Total Protein Albumin Globulin Albumin/Globulin Ratio Lipase 02/01/25 02/01/25 02/01/25 02:01 00:17 00:11 WBC 11.03 H RBC 4.83 Hgb 14.2 POC Hgb 15.0 Hct 42.1 POC Hct 44 MCV 87.2 MCH 29.4 MCHC 33.7 RDW Std Deviation 44.3 RDW Coeff of Ana 13.9 Plt Count 244 MPV 9.9 Immature Gran % (Auto) 0.5 Neut % (Auto) 58.2 Lymph % (Auto) 30.3 [place] % (Auto) 5.7 Eos % (Auto) 4.9 Baso % (Auto) 0.4 Neut # (Auto) 6.43 Lymph # (Auto) 3.34 [place] # (Auto) 0.63 H Eos # (Auto) 0.54 H Baso # (Auto) 0.04 Immature Gran # (Auto) 0.05 PT 9.8 Cancelled INR 0.9 Cancelled APTT 26 Cancelled PTT Ratio 1.0 Cancelled POC Sodium 135 Sodium 134 L POC Potassium 4.3 Potassium 4.2 POC Chloride 100 L Chloride 100 Carbon Dioxide 26 POC Total CO2 25 Anion Gap 8 POC Anion Gap 15.0 L POC BUN 22 H BUN 19 Creatinine 0.77 POC Creatinine 0.7 Est Cr Clr Drug Dosing 130.7 eGFR 91.61 BUN/Creatinine Ratio 24.7 H Glucose 443 H* POC Glucose POC Glucose (other) 422 H* Calcium 9.3 POC Ioniz Calcium [place] 1.22 Total Bilirubin 0.6 AST 14 ALT 18 Alkaline Phosphatase 77 Troponin I High Sens 15.9 H Total Protein 6.6 Albumin 3.2 L Globulin 3.4 Albumin/Globulin Ratio 0.9 Lipase 26 Diagnostic Findings Chest CTA 01/31/25 23:55 Exam(s): CTA CHEST IV Amt: 120 ml EXAM: CT Angiography Chest With Intravenous Contrast CLINICAL HISTORY: Reason for exam: PE. TECHNIQUE: Axial computed tomographic angiography images of the chest with intravenous contrast. CTDI is 28.14 mGy and DLP is 887.7 mGy-cm. Automated exposure control was utilized for the study. A dose lowering technique was utilized adhering to the principles of ALARA. MIP reconstructed images were created and reviewed. COMPARISON: CTA chest: 07/24/24 FINDINGS: Exam for evaluation of PE is limited due to suboptimal IV contrast bolus/timing. Pulmonary arteries: No pulmonary embolism to the level of the proximal segmental branches. Distally evaluation is suboptimal due to technical factors Aorta: No acute findings. No thoracic aortic aneurysm. Heart: Mild cardiomegaly. No significant pericardial effusion. No evidence of RV dysfunction. Lungs: Central airways are patent.. No mass. No consolidation. Pleural space: Elevated diaphragm left more than the right. No significant effusion. No pneumothorax. Bones/joints: No acute fracture. No dislocation. Degenerative changes of the spine. Soft tissues: Unremarkable. Lymph nodes: No significant enlarged lymph nodes.. IMPRESSION: Limited exam. No pulmonary embolism to the level of proximal segmental arteries. No aortic aneurysm or dissection. Cardiomegaly. No acute chest findings . Electronically signed by: Dari Holliday MD, DABR 02/01/25 02:59 AM Medications Administered 1L NSS Inulin Reg 10U IV ECG Additional Comments: NSR 83 bpm, OK 162, QRS 82, QT/QTc 360/423, PRT 57/54/64 Code Status & VTE Plan Code Status Full Pt with SI; Full code order placed. Supervising Physician Co-Signing Physician Notes Attending addendum: I have physically seen this patient, have supervised the DIANE's activities, and agree with the H&P unless as otherwise noted. Assessment and Plan: The patient is a 54-year-old female with past medical history including atherogenic dyslipidemia, diabetes mellitus type 2, acute hyperglycemia, history of tobacco use disorder, morbid obesity, long-term use of anticoagulant, history of PE, and lumbar spine osteoarthritis. Workup in the emergency department included initial troponin of 15.9 with follow-up 13.3. CTA chest was negative for PE, and EKG without ST-T changes. INR was 1.0, and glucose was 443. Her laboratory suggested medical noncompliance, and patient admitted that she had not been taking her medications because she does not care what happens to her if she does not take them. At this time she admitted to suicidal ideations with a plan, and patient was then transferred to the mental health department and the ED, for further psychiatric management. Chest pain/subtherapeutic INR- Patient has had a history of pulmonary embolism, but CTA chest is negative today INR of 1.0, with patient admitted to not taking her warfarin. Bridge anticoagulation with Lovenox 50 mg subcu every 12 hours, and depending upon INR in the a.m., can restart warfarin at that time The patient will be admitted to telemetry for serial cardiac enzymes, serial EKG's, cardiac rhythm monitoring and a 2-D echocardiogram with Dopplers. Suicidal ideation- Patient has not been taking her medications due to lack of concern of how she does without them Consult psychiatry One-on-one observation Diabetes mellitus- Holding metformin Placed on Accu-Cheks with NovoLog SSI as noted Check hemoglobin A1c PG Care Time/CCT Total # of Minutes Spent Total Time Spent with Patient: Total time spent is greater than 50% in coordination of care (as documented) at patient's floor/unit and/or counseling patient: Coding Level of Care Code 46367 INT INP/OBS CARE 3/75MIN Diagnoses Chest pain R07.9 Chest pain type: unspecified Subtherapeutic international normalized ratio (INR) R79.1 Suicidal ideation R45.851 Acute hyperglycemia R73.9 Hyponatremia E87.1 (1) Chest pain Chest pain type: unspecified Qualified Code(s): R07.9 - Chest pain, unspecified
--- NOTE | 2025-02-01 03:40 | XRay Report ---
Exam(s): XR CXR 1 VIEW EXAM: XR Chest, 1 View CLINICAL HISTORY: Reason for exam: Chest pain, nonspecific. TECHNIQUE: Frontal view of the chest. COMPARISON: X-ray chest: 07/24/2024 FINDINGS: Patient's body habitus limits the exam. Lungs: Again noted prominent bilateral perihilar bronchovascular markings.. No consolidation. Pleural space: Unremarkable. No pneumothorax. Heart: Stable mild cardiomegaly. Mediastinum: Unremarkable. Bones/joints: No acute fracture.. IMPRESSION: Stable cardiomegaly and mild chronic pulmonary vascular congestion. . Electronically signed by: Dari Holliday MD, DABR 02/01/25 03:38 AM
[2025-02-01] MEDS: ENOXAPARIN 150 MG/ML SYR SQ STA (04:17)
[2025-02-01] MEDS ORDERED: MELATONIN 3 MG TAB PO PRN (04:18)
[2025-02-01] MEDS ORDERED: ONDANSETRON INJ 2 MG/ML 2 ML VIAL IV PRN (04:18)
[2025-02-01] MEDS ORDERED: POLYETHYLENE (MIRALAX) 17 GM PACK PO PRN (04:18)
[2025-02-01] MEDS ORDERED: CARBOHYDRATES FOR HYPOGLYCEMIA PO PRN (04:21)
[2025-02-01] MEDS ORDERED: DEXTROSE 50% 50 ML SYRINGE IV PRN (04:21)
[2025-02-01] MEDS ORDERED: GLUCOSE 10 TAB/TUBE PO PRN (04:21)
[2025-02-01] MEDS ORDERED: GLUCAGON FOR INJ 1 MG VIAL SQ PRN (04:21)
[2025-02-01] MEDS ORDERED: GLUCOSE 40% GEL 15 GM TUBE PO PRN (04:21)
[2025-02-01] MEDS ORDERED: NYSTATIN POWDER 15GM BTL EXT PRN (04:24)
[2025-02-01 06:16] LABS: Hematocrit (blood only) 39.7 % (37.0-47.0); Hemoglobin 13.1 g/dl (12.0-16.0); Mean Corpuscular Hemoglobin 28.7 pg (25.0-34.0); Mean Corpuscular Volume 86.9 fL (80.0-100.0); Platelet Count 224 K/uL (130-400); RDW Standard Deviation 45.0 fL (36.4-46.3); Red Blood Count 4.57 M/uL (4.20-5.40); White Blood Count 10.93 K/ul (4.8-10.8)
[2025-02-01 06:44] LABS: Anion Gap 6.0 (3-11); Blood Urea Nitrogen 16.0 mg/dl (6-23); Calcium 8.5 mg/dl (8.6-10.3); Carbon Dioxide 26.0 mmol/L (21-32); Chloride 106.0 mmol/L (98-107); Cholesterol 145.0 mg/dl (0-200); Creatinine Clr Calc Pharmacy 167.7 ml/min; Glucose 229.0 mg/dl (70-99(Fasting)); HDL Cholesterol 41.0 mg/dl; Potassium 3.9 mmol/L (3.5-5.1); Sodium 138.0 mmol/L (136-145); Triglycerides 135.0 mg/dl (0-150)
[2025-02-01] MEDS: INSULIN ASPART PER UNIT CHARGE SC SCH (08:04)
[2025-02-01] MEDS: NICOTINE 21 MG/24 HR TDSY TD ONE (08:05)
[2025-02-01] MEDS: NICOTINE 21 MG/24 HR TDSY TD SCH (08:05)
[2025-02-01 10:19] LABS: Hemoglobin A1C 12.4 % (4.5-5.6)
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
[2025-02-01] MEDS: ENOXAPARIN 150 MG/ML SYR SQ SCH (18:33)
[2025-02-02 00:24] LABS: Amphetamines+Metham, Urine Neg (Neg); MDMA (Ecstacy), Urine Neg (Neg); Marijuana, Urine Neg (Neg)
[2025-02-02 07:50] LABS: Hematocrit (blood only) 40.7 % (37.0-47.0); Hemoglobin 13.5 g/dl (12.0-16.0); Mean Corpuscular Hemoglobin 29.0 pg (25.0-34.0); Mean Corpuscular Volume 87.5 fL (80.0-100.0); Platelet Count 212 K/uL (130-400); RDW Standard Deviation 44.4 fL (36.4-46.3); Red Blood Count 4.65 M/uL (4.20-5.40); White Blood Count 9.91 K/ul (4.8-10.8)
[2025-02-02 08:05] LABS: Alanine Aminotransferase 20.0 U/L (7-52); Albumin Globulin Ratio 1.2 (0.9-2); Alkaline Phosphatase 67.0 U/L (34-104); Anion Gap 7.0 (3-11); Bilirubin,Total 1.0 mg/dl (0.2-1.0); Blood Urea Nitrogen 12.0 mg/dl (6-23); Calcium 8.9 mg/dl (8.6-10.3); Carbon Dioxide 26.0 mmol/L (21-32); Chloride 105.0 mmol/L (98-107); Creatinine Clr Calc Pharmacy 154.3 ml/min; Globulin 2.7 gm/dl (2.5-4.0); Glucose 172.0 mg/dl (70-99(Fasting)); Potassium 4.0 mmol/L (3.5-5.1); Sodium 138.0 mmol/L (136-145); Total Protein 5.9 gm/dl (6.0-8.3)
--- NOTE | 2025-02-02 08:10 | Electrocardiogram Report ---
Test Reason : Blood Pressure : */* mmHG Vent. Rate : 83 BPM Atrial Rate : 83 BPM P-R Int : 162 ms QRS Dur : 82 ms QT Int : 360 ms P-R-T Axes : 57 54 64 degrees QTcB Int : 423 ms Normal sinus rhythm Normal ECG When compared with ECG of 24-Jul-2024 08:02, No significant change was found Confirmed by Esha Conner (Twila) on 02/02/2025 8:10:11 AM Referred By: Confirmed By: Esha Conner
[2025-02-02 08:25] LABS: INR 0.9 (0.9-1.1); Prothrombin Time 10.2 Seconds (9.0-12.0)
[2025-02-02 08:26] LABS: Acetaminophen < 3 ug/ml (10-30); Salicylate < 3.0 mg/dl (3.0-30)
[2025-02-02] MEDS: REMOVE NICODERM PATCH SCH (09:26)
[2025-02-02] MEDS: WARFARIN SOD 7.5 MG TAB PO ONE (11:01)
--- NOTE | 2025-02-02 14:08 | Psychiatric Consultation ---
Date of Consultation February 02, 2025 Impression / Recommendations Impression Diagnostically consistent adjustment disorder with depressed mood in the setting of impending homelessness. Currently acute risk of self-harm is low given denial of SI and future-oriented however her chronic risk is moderate given some depressive symptoms, potential homelessness, and history of treatment non-adherence. Patient does not meet 302 criteria. She is not interested in voluntary inpatient psychiatric hospitalization at this time nor medications but has expressed interest in therapy. Overall, I spent a total of 80 minutes with this case including review of chart records, review of labwork, direct evaluation of the patient at bedside, counseling the patient, discussion of the patient with the Nurse and with the hospitalist provider, discussion with the psychiatric liason during clinical r ounds and documentation in the electronic health record. (1) Depression: (2) Housing insecurity: (3) Subtherapeutic international normalized ratio (INR): (4) T2DM (type 2 diabetes mellitus): (5) History of pulmonary embolism: Plan -No medications prescribed -Psych liason to provide crisis and local mental health resources -Reviewed importance of utilizing 988 or 911 or going to local emergency department if she develops SI and feels unsafe in the future which she agrees to Psych History Chief Complaint "[]". History of Present Illness Patient was admitted for increased chest pain with history of PE and self- disclosed poor adherence with her medications (including coumadin) in the last few weeks. In the ED notes indicate she was "not forthcoming" about her recent medication non-adherence in regards to her subtherapeutic INR. She endorsed symptoms of depression and suicidal ideation. Further details per admission H&P by MEKA Ford on 02/01/2025: "She has a lot of stressors at home. States that she is depressed and has not been taking her medications because she just does not care anymore. 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 She states that she is afraid what would happen if it did not work and this stopped her from doing it. She continues to have the same thoughts of wanting to end her life. She still plans on overdosing if she were to act on these thoughts. She denies any homicidal ideations. She is not harming herself in other ways to include self-harm. She states that her ho me life incredibly stressful at this time and she has a lot of changes coming up that she is not sure how she is going to manage to include finding someone to live and a vehicle. Patient is tearful during the visit. She again states that she does feel that she would be better off . This was stated approximately 3-4 times throughout the visit and confirmed with specific question of "do you want to kill your self" being answered with 'probably.'." She was seen by psych liason RN overnight on 02/01/2025 who noted: "Met with Pt. for consult service. Pt. is cooperative in conversation, just very quiet. She is alert and oriented x4. Pt. is being medically admitted for chest pain, subtherapeutic INR, SI, acute hyperglycemia, and hyponatremia." Patient was seen by consulting psychiatrist on 02/01/25 who assessed the patient as "initially irritable, guarded and dismissive of concerns about depression and her recent suicidality." Patient had been on 1:1 observation until 02/01. Today, patient was evaluated at bedside. She was initially guarded but less guarded as the interview developed. She shared personal information about current stressors. Patient appeared future oriented and expressed feeling less anxious after receiving information about community resources that may be available to her. 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 Also share information about her three adult children. She laughed appropriately at times. Patient indicated that prior to getting the eviction notice, she did not have symptoms of depression or anxiety. When asked about the recent suicidal ideation, patient stated "I am too much of a chicken to try something like that. I was feeling overwhelmed." She reflects that this is a difficult time but that "I know it will pass and I'll get through it". She was not interested in discussing medication treatment options and denied current symptoms of noble or psychosis. Patient stated that her employer offers psychotherapy support and she is interested in using that resource. I encouraged her to utilizing 988 or 911 or going to local emergency department if she develops SI and feels unsafe in the future which she agrees to. Allergies Allergy/AdvReac Type Severity Reaction Status Date / Time amoxicillin AdvReac Intermediate CAUSE A Verified 10/27/24 19:50 YEAST INFECTION Home Medications Medication Instructions Recorded Confirmed Type blood-glucose meter ([email or web address] #1 ea 12/02/21 10/03/24 Rx Verio Meter) blood sugar diagnostic (OneTouch #200 ea 07/16/23 10/03/24 Rx Verio test strips) nystatin 100,000 unit/gram topical 1 applic topical QID PRN Rash #15 11/07/23 02/01/25 Rx powder grams blood-glucose sensor (FreeStyle #2 ea 03/03/24 10/03/24 Rx Jeannie 3 Sensor device) blood-glucose,ranch hand livestock,cont #1 ea 03/04/24 10/03/24 Rx (FreeStyle Jeannie 3 [place]) lancets 30 gauge (OneTouch Delica #100 ea 07/07/24 10/03/24 Rx Plus Lancet) warfarin 5 mg tablet See Rx Instructions PO DAILY #70 10/03/24 02/01/25 Rx tabs norethindrone acetate 5 mg tablet 5 mg PO DAILY #90 tabs 12/29/24 02/01/25 Rx Patient History Medical History Cholelithiasis Hypercoagulable state Tobacco use disorder Bilateral pulmonary embolism History of bronchitis Tobacco use Heartburn Surgical History History of mandibular surgery History of tubal ligation Family History Mother Diabetes Heart disease Hypertension Grandmother (Maternal) Diabetes Grandmother (Paternal) Diabetes Brother Diabetes Heart disease Myocardial infarction Abdominal aneurysm Aneurysm artery, neck Hypertension Stroke Sister , Age 56 Diabetes Heart disease Hypertension Father Heart disease Myocardial infarction Hypertension Stroke Aunt Cancer Uncle Cancer Denies family history of Ovarian cancer Prostate cancer Breast cancer Colorectal cancer Social History Smoking Status: Current every day smoker Tobacco Type: Cigarettes Age Started Using Tobacco: 18; packs per day: 1; Cigarettes Per Day: 0.5-0.75 packs; Second Hand Exposure: Yes; Do You Dip or Chew Tobacco: No; Hx Alcohol Use: No Hx Substance Use: No Preferred Language: German Communication Ability: Effective Visual Impairment: Limited Hearing Ability: Normal 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 Beliefs That Will Affect Care: None marital status: Single Current Living Situation: Family Current Living Situation Comment: House current occupational status: employed current occupation: [employer] How many Children do You have: 3 How many Children do You have Comment: 2 boys, 1 girl all Grown Feels Safe at Home: Yes Childhood Exposure to Second-Hand Smoke: Yes caffeine: Yes Dental Care, Regularly: No Physical Activity Frequency: Does not Exercise Seatbelt Use: never Sunscreen Use: No Do you think of yourself as: straight/heterosexual Assistive Devices: Cane Physical Exam Psychiatric: Orientation: alert and oriented x 3 Apperance: appropriately dressed and appropriately groomed Eye Contact: good eye contact Motor Behavior: no abnormal motor movements Speech: normal rate/rhythm/volume of speech Affect: + constricted affect (brighter than previous) Mood: + anxious mood; no irritable mood Thought Process: linear/logical thought process and + concrete thought process Thought Content: reality based without delusions Suicidal Thoughts: denies suicidal thoughts Homicidal Thoughts: denies homicidal thoughts Hallucinations: no auditory hallucinations and no visual hallucinations Cognition: recent memory grossly intact, remote memory grossly intact, attention grossly intact and language grossly intact Estimated Intelligence: consistent with education level Insight: + fair insight Judgment: + fair judgement Vital Signs (Past 24 Hours): Last Vital Signs Temp 36.8 C 02/02/25 11:45 Pulse 75 02/02/25 11:45 Resp 18 02/02/25 11:45 BP 127/84 02/02/25 11:45 Pulse Ox 94 02/02/25 11:45 O2 Del Method Room Air 02/02/25 11:45 O2 Flow Rate 2 02/01/25 10:09 Results & Data (PSY) Medications Administered Enoxaparin Sodium (Enoxaparin 150 Mg/Ml Syr) 150 mg SQ Q12H MONSERRAT Stop: 03/03/25 17:59 Last Admin: 02/02/25 09:25 Dose: 150 mg Documented By: Admin: 02/01/25 18:33 Dose: 150 mg Documented By: JOSE Insulin Aspart (Insulin Aspart Per Unit Charge) 0 units SC ACHS MONSERRAT Stop: 03/03/25 07:29 Last Admin: 02/02/25 13:12 Dose: 15 units Documented By: REAGAN Co-signed By: DONN Admin: 02/02/25 09:32 Dose: 13 units Documented By: REAGAN Co-signed By: DONN Admin: 02/01/25 21:40 Dose: 6 units Documented By: NIRMALA Co-signed By: JUAN CARLOS Admin: 02/01/25 18:24 Dose: 12 units Documented By: ERASMO Co-signed By: ROSALES Admin: 02/01/25 12:40 Dose: 10 units Documented By: KAYLEE Co-signed By: VIR[place] Admin: 02/01/25 08:04 Dose: 18 units Documented By: KAYLEE Co-signed By: JAYNE Miscellaneous (Remove Nicoderm Patch) 1 each N/A DAILY@0859 [facility] Stop: 03/04/25 08:58 Last Admin: 02/02/25 09:26 Dose: 1 each Documented By: REAGAN Nicotine (Nicotine 21 Mg/24 Hr Tdsy) 1 patch TD QAM [facility] Stop: 03/03/25 08:59 Last Admin: 02/02/25 09:26 Dose: 1 patch Documented By: Admin: 02/01/25 08:05 Dose: 1 patch Documented By: KAYLEE C[place] [address] IN/OBS CONSULT LVL 5,80M Patient Type Established History Expanded Problem Focused Exam Expanded Problem Focused Medical Decision Making High Complexity Diagnoses Depression F32.A Housing insecurity Z59.819 Subtherapeutic international normalized ratio (INR) R79.1 T2DM (type 2 diabetes mellitus) E11.9 History of pulmonary embolism Z86.711
--- NOTE | 2025-02-02 23:29 | Hospitalist Progress Note ---
Date of Service February 02, 2025 Assessment & Plan (1) Chest pain: (2) Subtherapeutic international normalized ratio (INR): (3) Suicidal ideation: (4) Acute hyperglycemia: (5) Hyponatremia: Plan 54-year-old female PMHx PE on warfarin, T2DM, and dyslipidemia presenting for chest pain, SOB, and leg pain. Her workup initially was suspicious for PE or ACS, with an elevated troponin 15.9 but on repeat it came to 13.3. Her chest CTA was negative for a PE, and overall her EKG was unremarkable. She has not been taking her medications at all for an extended period of time, further clarifying that she has not been taking her medications because she does not care what happens to her if she does not take them. She does admit to suicidal ideations with a plan, and confirms this on multiple occasions. No homicidal ideations. Patient was informed that given these statements and thoughts, she will be moved to an area where she will be safe and have psychiatry see her. Will also be managing her INR, with the goal to get her back on her prescription medications as prescribed. #Chest pain/Subtherapeutic INR H/o PE, on warfarin for such however she has not been taking her warfarin and is unsure when the last time was that she did.; Onset CP with associated SOB and leg pain, was concerned for a blood clot. Trop has since decreased and EKG is normal sinus without ischemic changes. Low suspicion for ACS. She has not been seen by [facility] clinic for multiple months, and again, not taking warfarin for extended period of time. - CBC mild leukocytosis, but stable H&H - CBC am - EKG NSR, no ischemic changes, no current CP; Trop 15.9 --> 13.3 - INR 0.9 - CXR stable cardiomegaly, mild chronic pulmonary vascular congestion - Chest CTA w/o acute findings, no PE - Echo 09/2023 EF 55-60%, mild LVH - Bridge with Lovenox 150 mg q12hr will resume home dose of warfarin. If pain continues on 02/03 will order an ultrasound. #Suicidal Ideations Reports that she has been having thoughts of taking her own life with a plan that she is not acting on because she is afraid of "what if it does not work." No HI. Pt is tearful. Has a lot of life stressors that are making her feel hopeless. Unclear if patient is mandaeism, but would encourage further discussion and possible visit from circular shear operator if pt open to such. - Suicide precautions - Safe meal tray - One to one - Psych consulted - appreciate input + recs #Hyperglycemia/T2DM Uncontrolled T2DM, she is prescribed metformin but has not been taking any medications at home. Received insulin 10U IV in ED. - Glucose on arrival 443->422-->374. - A1c 09/2023 @ 9.4% - pending repeat - SSI with target BSG range 110-140mg/dL, CF 15, carb ratio 5 - BSG ACHS - Adjust regimen as needed - Encourage metformin use following d/c #Hyponatremia In setting of significant hyperglycemia. - Na 134, glucose 443; corrected 142 - BMP am Dispo: med/tele VTE prophylaxis: Lovenox bridge Admission and Anticipated Discharge Date Admission Date: February 01, 2025 Subjective Patient is a 54 yo female with no new complaints except for some left leg pain. Physical Exam Physical Exam: General: No acute distress Skin: Warm and dry Head: Normocephalic, atraumatic Neck: Supple, no LAD Cardio: RRR, no M/G/R, S1 and S2 normal Resp: No respiratory distress, Lungs CTA in all lobes bilaterally, no wheezes, rales, or rhonchi Abdomen: Soft, symmetric, nontender; No masses or hepatosplenomegaly; Bowel sounds normoactive Results & Data Results & Data Vital Signs (Past 12 Hours) Vital Signs Temp Pulse Resp BP BP Pulse Ox O2 Del Method 02/02/25 22:00 36.5 C 73 18 135/83 95 Room Air 02/02/25 20:00 36.5 C 87 18 141/82 H 95 Room Air 02/02/25 14:47 36.7 C 75 18 120/80 97 Room Air 02/02/25 11:45 36.8 C 75 18 127/84 94 Room Air PG Care Time/CCT Total # of Minutes Spent Total Time Spent with Patient: Total time spent is greater than 50% in coordination of care (as documented) at patient's floor/unit and/or counseling patient: Coding Level of Care Code 87808 SUB INP/OBS CARE 3/50MIN Diagnoses Chest pain R07.9 Chest pain type: unspecified Subtherapeutic international normalized ratio (INR) R79.1 Suicidal ideation R45.851 Acute hyperglycemia R73.9 Hyponatremia E87.1 (1) Chest pain Chest pain type: unspecified Qualified Code(s): R07.9 - Chest pain, unspecified
--- NOTE | 2025-02-03 11:04 | Ultrasound Report ---
BILATERAL LOWER EXTREMITY VENOUS DOPPLER HISTORY: off warfarin,complaining of leg pain that is wors COMPARISON STUDY: None FINDINGS: There is a small thrombus mid right femoral vein. There is a small amount of thrombus in th e right popliteal vein. Evaluation of the calf veins is limited. No other DVT seen at bilateral lower extremities. IMPRESSION: Small amount of DVT on the right. ACT 112: Negative or not required by law. Electronically signed by: Cy Linn M.D. 02/03/2025 11:01 AM
[2025-02-03 12:20] LABS: Hematocrit (blood only) 42.9 % (37.0-47.0); Hemoglobin 14.0 g/dl (12.0-16.0); Mean Corpuscular Hemoglobin 28.7 pg (25.0-34.0); Mean Corpuscular Volume 88.1 fL (80.0-100.0); Platelet Count 220 K/uL (130-400); RDW Standard Deviation 45.1 fL (36.4-46.3); Red Blood Count 4.87 M/uL (4.20-5.40); White Blood Count 8.67 K/ul (4.8-10.8)
[2025-02-03 12:31] LABS: Anion Gap 5.0 (3-11); Blood Urea Nitrogen 12.0 mg/dl (6-23); Calcium 9.0 mg/dl (8.6-10.3); Carbon Dioxide 28.0 mmol/L (21-32); Chloride 103.0 mmol/L (98-107); Creatinine Clr Calc Pharmacy 144.1 ml/min; Glucose 274.0 mg/dl (70-99(Fasting)); Potassium 3.9 mmol/L (3.5-5.1); Sodium 136.0 mmol/L (136-145)
[2025-02-03 12:40] LABS: INR 1.0 (0.9-1.1); Prothrombin Time 11.2 Seconds (9.0-12.0)
[2025-02-03] MEDS: WARFARIN SOD 7.5 MG TAB PO ONE (13:14)
--- NOTE | 2025-02-03 22:46 | Hospitalist Progress Note ---
Date of Service February 03, 2025 Assessment & Plan (1) Chest pain: (2) Subtherapeutic international normalized ratio (INR): (3) Suicidal ideation: (4) Acute hyperglycemia: (5) Hyponatremia: Plan 54-year-old female PMHx PE on warfarin, T2DM, and dyslipidemia presenting for chest pain, SOB, and leg pain. Her workup initially was suspicious for PE or ACS, with an elevated troponin 15.9 but on repeat it came to 13.3. Her chest CTA was negative for a PE, and overall her EKG was unremarkable. She has not been taking her medications at all for an extended period of time, further clarifying that she has not been taking her medications because she does not care what happens to her if she does not take them. She does admit to suicidal ideations with a plan, and confirms this on multiple occasions. No homicidal ideations. Patient was informed that given these statements and thoughts, she will be moved to an area where she will be safe and have psychiatry see her. Will also be managing her INR, with the goal to get her back on her prescription medications as prescribed. #Chest pain/Subtherapeutic INR/ Acute Right lower extremity DVT H/o PE, on warfarin for such however she has not been taking her warfarin and is unsure when the last time was that she did.; Onset CP with associated SOB and leg pain, was concerned for a blood clot. Trop has since decreased and EKG is normal sinus without ischemic changes. Low suspicion for ACS. She has not been seen by [facility] clinic for multiple months, and again, not taking warfarin for extended period of time. Now showing an acute DVT on right leg. - INR remains subtherapuetic, ordered 2 one time doses of warfarin 15 mg, will recheck INR in AM - CXR stable cardiomegaly, mild chronic pulmonary vascular congestion - Chest CTA w/o acute findings, no PE - Echo 09/2023 EF 55-60%, mild LVH - Bridge with Lovenox 150 mg q12hr - Plan to discharge once INR is closer to therapeutic range where we can predict how many days of lovenox she would require #Suicidal Ideations Reports that she has been having thoughts of taking her own life with a plan that she is not acting on because she is afraid of "what if it does not work." No HI. Pt is tearful. Has a lot of life stressors that are making her feel hopeless. Unclear if patient is judaism, but would encourage further discussion and possible visit from commercial loan analyst if pt open to such. - Suicide precautions - Psych consulted - appreciate input + recs -Psych states patient does not require involuntary inpatient psych. #Hyperglycemia/T2DM Uncontrolled T2DM, she is prescribed metformin but has not been taking any medications at home. - glycemic control - Adjust regimen as needed - Encourage metformin use following d/c #Hyponatremia In setting of significant hyperglycemia. - Na 134, glucose 443; corrected 142 - BMP am Dispo: med/tele VTE prophylaxis: Lovenox bridge Admission and Anticipated Discharge Date Admission Date: February 01, 2025 Subjective Patient reports no new symptoms. COntinues to have some left leg pin, but appears improved in the afternoon. Physical Exam Physical Exam: General: No acute distress Skin: Warm and dry Head: Normocephalic, atraumatic Neck: Supple, no LAD Cardio: RRR, no M/G/R, S1 and S2 normal Resp: No respiratory distress, Lungs CTA in all lobes bilaterally, no wheezes, rales, or rhonchi Abdomen: Soft, symmetric, nontender; No masses or hepatosplenomegaly; Bowel sounds normoactive Results & Data Results & Data Vital Signs (Past 12 Hours) Vital Signs Temp Pulse Pulse Resp BP BP Pulse Ox 02/03/25 20:45 36.6 C 83 20 120/80 93 02/03/25 19:12 02/03/25 16:07 36.5 C 85 18 130/81 93 02/03/25 15:28 75 02/03/25 11:52 36.6 C 77 18 119/75 95 O2 Del Method 02/03/25 20:45 Room Air 02/03/25 19:12 Room Air 02/03/25 16:07 Room Air 02/03/25 15:28 02/03/25 11:52 Room Air PG Care Time/CCT Total # of Minutes Spent Total Time Spent with Patient: Total time spent is greater than 50% in coordination of care (as documented) at patient's floor/unit and/or counseling patient: Coding Level of Care Code 76101 SUB INP/OBS CARE 3/50MIN Diagnoses Chest pain R07.9 Chest pain type: unspecified Subtherapeutic international normalized ratio (INR) R79.1 Suicidal ideation R45.851 Acute hyperglycemia R73.9 Hyponatremia E87.1 (1) Chest pain Chest pain type: unspecified Qualified Code(s): R07.9 - Chest pain, unspecified
--- NOTE | 2025-02-04 07:18 | Hospitalist Progress Note ---
Date of Service February 04, 2025 Assessment & Plan (1) Suicidal ideation: (2) Major depressive disorder with current active episode: (3) Adjustment disorder: (4) Housing insecurity: (5) Subtherapeutic international normalized ratio (INR): (6) Hypercoagulable state: (7) rn long term care current use of anticoagulant: (8) Severe obesity (BMI >= 40): (9) Type 2 diabetes mellitus with hyperglycemia: Plan In summary this is a 54-year-old female admitted for initial concern of chest pain, subsequently resolved, remains admitted for subtherapeutic INR as well as psychiatric assessment and recommendations #Suicidal ideation//major depressive disorder with current active e pisode//adjustment disorder//housing insecurity Presented with suicidal ideation due to impending eviction; evaluated by psychiatry, recommendations reviewed with the patient today; they continue to express no interest in starting pharmacologic therapy but are interested in pursuing nonpharmacologic interventions through services provided by their employer; housing options and services provided by case management #Subtherapeutic INR // Diminished protein C and S function // Nonobstructive right femoral and popliteal DVTs INR 1.2, 1.0; home regimen of warfarin 10 mg M/T/W/F/S UN and 15 mg R/SAT Continue Lovenox bridge administer warfarin 15 mg p.o. 02/04 and 02/05 Reassess INR on 02/06 #Type II Diabetes mellitus with hyperglycemia // Hyperlipidemia Most recent A1c of 12.7% in 01/2025; glycemic target of preprandial less than 140 and random checks less than 180 - Start Lantus 32 units SQ at bedtime - Start sliding scale with correction factor 25 mg/dL/unit of NovoLog with a carbohydrate ratio of 9 g/unit Pharmacist consultation for further recommendations and optimization for outpatient care Admission and Anticipated Discharge Date Admission Date: February 01, 2025 Anticipated date of discharge: 02/06/25 Subjective Ms. 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 No acute overnight events; patient feels well this morning, interested in discharge to understanding of the concern regarding her subtherapeutic INR. Review of Systems Review of Systems: Review of constitutional, pulmonary, cardiovascular, gastrointestinal, genitourinary, neurologic, psychiatric systems was unremarkable Physical Exam Physical Exam: General: Adult in no acute distress Vital Signs: Reviewed HEENT: Normocephalic, atraumatic, moist mucous membranes Pulmonary: symmetric chest wall excursions; comfortable respirations Cardiovascular: regular rate and rhythm with bilateral radial pulse 2+; trace bilateral lower extremity edema distal of the knee Neurologic: CN II-XII grossly intact; no discernible focal weakness nor paresthesias Psychiatric: Alert and oriented to self, place, time; poor eye contact, brief in conversation with closed conversation; no evidence of hallucinations, auditory or visual; no evidence of delusions; denies homicidal ideation; denies suicidal ideation at this time Results & Data Results & Data Vital Signs (Past 12 Hours) Vital Signs Temp Pulse Pulse Resp BP Pulse Ox O2 Del Method 02/04/25 04:31 36.9 C 78 20 131/74 94 Room Air 02/03/25 23:16 36.6 C 81 19 106/68 92 Room Air 02/03/25 22:11 81 02/03/25 20:45 36.6 C 83 20 120/80 93 Room Air PG Care Time/CCT Total # of Minutes Spent Total Time Spent with Patient: Total time spent is greater than 50% in coordination of care (as documented) at patient's floor/unit and/or counseling patient: Coding Level of Care Code 32266 SUB INP/OBS CARE 2/35MIN Diagnoses Suicidal ideation R45.851 Severe episode of recurrent major depressive disorder, without psychotic features F33.2 Major depression episode severity: severe Major depression recurrence: recurrent Psychotic features: without psychotic features Adjustment disorder with mixed anxiety and depressed mood F43.23 Adjustment disorder type: with mixed anxiety and depressed mood Housing insecurity Z59.819 Subtherapeutic international normalized ratio (INR) R79.1 Hypercoagulable state D68.59 correction current use of anticoagulant Z79.01 Severe obesity (BMI >= 40) E66.01 Type 2 diabetes mellitus with hyperglycemia, without long-term current use of insulin E11.65 Diabetes mellitus director long term care insulin use: without senior living use (2) Major depressive disorder with current active episode Major depression episode severity: severe Major depression recurrence: recurrent Psychotic features: without psychotic features Qualified Code(s): F33.2 - Major depressive disorder, recurrent severe without psychotic features (3) Adjustment disorder Adjustment disorder type: with mixed anxiety and depressed mood Qualified Code(s): F43.23 - Adjustment disorder with mixed anxiety and depressed mood (9) Type 2 diabetes mellitus with hyperglycemia Diabetes mellitus senior living insulin use: without director long term care use Qualified Code(s): E11.65 - Type 2 diabetes mellitus with hyperglycemia
[2025-02-04 08:14] LABS: INR 1.2 (0.9-1.1); Prothrombin Time 12.4 Seconds (9.0-12.0)
[2025-02-04] MEDS ORDERED: CARBOHYDRATES FOR HYPOGLYCEMIA PO PRN (09:32)
[2025-02-04] MEDS ORDERED: PHARMACY GLYCEMIC MGMT CONSULT PRN (09:32)
[2025-02-04] MEDS ORDERED: DEXTROSE 50% 50 ML SYRINGE IV PRN (09:32)
[2025-02-04] MEDS ORDERED: LANTUS PER UNIT CHARGE SQ ONE (11:00)
[2025-02-04] MEDS: LANTUS PER UNIT CHARGE SQ SCH (13:36)
[2025-02-04] MEDS: INSULIN ASPART PER UNIT CHARGE SC SCH (13:36)
--- NOTE | 2025-02-04 14:07 | Pharmacy Report ---
Pharmacy Glycemic Short Note 2 - Date of Service February 04, 2025 - Glycemic Short BSG Results (Last 24 hours): 02/03/25 02/03/25 02/04/25 17:12 20:17 08:01 POC Glucose 129 H 214 H 211 H 02/04/25 12:10 POC Glucose 228 H OUTPATIENT ANTIDIABETIC REGIMEN: * Prescribed metformin - non-compliant A1c = 12.4% ASSESSMENT: * Halina is a 54 yo T2DM who presented with chest pain and shortness of breath w ith exertion. PMH significant for major depressive disorder, hyperlipidemia and recurrent DVT on warfarin. Patient reports not taking outpatient anti- diabetic regimen. * Patient received 58 units of bolus insulin yesterday with majority of BSGs above goal. * Given A1c of 12.4%, will continue higher goal range of BSG 140 - 180 mg/dL for now. This can be adjusted once better glycemic control has been achieved. * Lantus 30 units SC x 1. Will keep current Novolog parameters, although I suspect we may need to loosen in the near future with basal insulin on board. PLAN FOR INPATIENT GLYCEMIC CONTROL: * Hold outpatient oral diabetes medications * Basal insulin * Lantus 30 units SQ x 1 dose * Reassess basal needs 8/14 AM * Bolus insulin * NovoLog per scale ACHS or Q6hrs while NPO * Goal Range: Low 140 mg/dL - High 180 mg/dL * Correction Factor: 15 mg/dL/unit * Nutritional / Prandial insulin per carb ratio of 1 unit per 5 grams CHO consumed
[2025-02-04] MEDS: WARFARIN SOD 7.5 MG TAB PO SCH (17:32)
--- NOTE | 2025-02-05 07:12 | Hospitalist Progress Note ---
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: Plan In summary this is a 54-year-old female admitted for initial concern of chest pain, subsequently resolved, remains admitted for subtherapeutic INR as well as psychiatric assessment and recommendations #Suicidal ideation//major depressive disorder with current active episode//adjustment disorder//housing insecurity Presented with suicidal ideation due to impending eviction; evaluated by psychiatry, recommendations reviewed with the patient today; they continue to express no interest in starting pharmacologic therapy but are interested in pursuing nonpharmacologic interventions through services provided by their employer; housing options and services provided by case management #Subtherapeutic INR // Diminished protein C and S function // Nonobstructive right femoral and popliteal DVTs INR 1.2, 1.0; home regimen of warfarin 10 mg M/T/W/F/Sun and 15 mg R/Sat Continue Lovenox bridge administer warfarin 15 mg p.o. 02/05 Reassess INR on 02/06 #Type II Diabetes mellitus with hyperglycemia // Hyperlipidemia Most recent A1c of 12.7% in 01/2025; glycemic target of preprandial less than 140 and random checks less than 180 - Continue Lantus 30 units SQ at bedtime, adjusted by pharmacist consultation - Continue sliding scale with correction factor 15 mg/dL/unit of NovoLog with a carbohydrate ratio of 1 unit per 5 g, recommended by pharmacist consultation Pharmacist consultation for further recommendations and optimization for outpatient care Admission and Anticipated Discharge Date Admission Date: February 01, 2025 Subjective Ms. 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 No acute overnight events; patient feels well this morning, interested in discharge to understanding of the concern regarding her subtherapeutic INR. Review of Systems Review of Systems: Review of constitutional, pulmonary, cardiovascular, gastrointestinal, genitourinary, neurologic, psychiatric systems was unremarkable Physical Exam Physical Exam: General: Adult in no acute distress Vital Signs: Reviewed HEENT: Normocephalic, atraumatic, moist mucous membranes Pulmonary: symmetric chest wall excursions; comfortable respirations Cardiovascular: regular rate and rhythm with bilateral radial pulse 2+; trace bilateral lower extremity edema distal of the knee Neurologic: CN II-XII grossly intact; no discernible focal weakness nor paresthesias Psychiatric: Alert and oriented to self, place, time; poor eye contact, brief in conversation with closed conversation; no evidence of hallucinations, auditory or visual; no evidence of delusions; denies homicidal ideation; denies suicidal ideation at this time Results & Data Results & Data Vital Signs (Past 12 Hours) Vital Signs Temp Pulse Pulse Resp BP BP Pulse Ox 02/05/25 03:58 36.6 C 73 20 115/77 93 02/04/25 23:35 36.7 C 74 20 115/76 95 02/04/25 21:51 84 02/04/25 21:32 02/04/25 19:51 36.7 C 88 20 130/78 90 O2 Del Method 02/05/25 03:58 Room Air 02/04/25 23:35 Room Air 02/04/25 21:51 02/04/25 21:32 Room Air 02/04/25 19:51 Room Air PG Care Time/CCT Total # of Minutes Spent Total Time Spent with Patient: Total time spent is greater than 50% in coordination of care (as documented) at patient's floor/unit and/or counseling patient: Coding Level of Care Code 29708 SUB INP/OBS CARE 2/35MIN Diagnoses Suicidal ideation R45.851 Severe episode of recurrent major depressive disorder, without psychotic features F33.2 Major depression episode severity: severe Major depression recurrence: recurrent Psychotic features: without psychotic features Adjustment disorder with mixed anxiety and depressed mood F43.23 Adjustment disorder type: with mixed anxiety and depressed mood Housing insecurity Z59.819 Subtherapeutic international normalized ratio (INR) R79.1 Hypercoagulable state D68.59 snf current use of anticoagulant Z79.01 (2) Major depressive disorder with current active episode Major depression episode severity: severe Major depression recurrence: recurrent Psychotic features: without psychotic features Qualified Code(s): F33.2 - Major depressive disorder, recurrent severe without psychotic features (3) Adjustment disorder Adjustment disorder type: with mixed anxiety and depressed mood Qualified Code(s): F43.23 - Adjustment disorder with mixed anxiety and depressed mood
[2025-02-05] MEDS: LANTUS PER UNIT CHARGE SQ SCH (08:49)
--- NOTE | 2025-02-05 08:51 | Pharmacy Report ---
Pharmacy Glycemic Short Note 2 - Date of Service February 05, 2025 - Glycemic Short BSG Results (Last 24 hours): 02/04/25 02/04/25 02/04/25 12:10 16:43 20:25 POC Glucose 228 H 161 H 149 H 02/05/25 08:27 POC Glucose 178 H OUTPATIENT ANTIDIABETIC REGIMEN: * Prescribed metformin - non-compliant A1c = 12.4% ASSESSMENT: 02/05 * Halina received 67 units of insulin yesterday (30 units basal + 37 units bolus) with BSGs trending down. * Fasting BSG of 178 mg/dL. Will give a second dose of Lantus 30 units today. Anticipate further improvement in fasting as we get closer to steady state. * Post prandial BSG control significantly improved. Will loosen CF and CR today. 02/04 * Halina is a 54 yo T2DM who presented with chest pain and shortness of breath with exertion. PMH significant for major depressive disorder, hyperlipidemia and recurrent DVT on warfarin. Patient reports not taking outpatient anti- diabetic regimen. * Patient received 58 units of bolus insulin yesterday with majority of BSGs above goal. * Given A1c of 12.4%, will continue higher goal range of BSG 140 - 180 mg/dL for now. This can be adjusted once better glycemic control has been achieved. * Lantus 30 units SC x 1. Will keep current Novolog parameters, although I suspect we may need to loosen in the near future with basal insulin on board. PLAN FOR INPATIENT GLYCEMIC CONTROL: * Hold outpatient oral diabetes medications * Basal insulin * Lantus 30 units SC daily * Bolus insulin * NovoLog per scale ACHS or Q6hrs while NPO * Goal Range: Low 140 mg/dL - High 180 mg/dL * Correction Factor: 20 mg/dL/unit * Nutritional / Prandial insulin per carb ratio of 1 unit per 6 grams CHO consumed
[2025-02-05 12:43] LABS: INR 1.6 (0.9-1.1); Prothrombin Time 16.4 Seconds (9.0-12.0)
[2025-02-05] MEDS: TRIAMCINOLONE ACET 0.1% CR 80 GM TUBE EXT PRN (21:30)
[2025-02-05] MEDS: DICLOFENAC SOD 1% GEL 100 GM TUBE EXT SCH (21:30)
--- NOTE | 2025-02-06 07:21 | Hospitalist Progress Note ---
Date of Service February 06, 2025 Assessment & Plan (1) Suicidal ideation: (2) Major depressive disorder with current active episode: (3) Adjustment disorder: (4) Housing insecurity: (5) Subtherapeutic international normalized ratio (INR): (6) Hypercoagulable state: (7) terminal carman current use of anticoagulant: (8) Heat rash: Plan In summary this is a 54-year-old female admitted for initial concern of chest pain, subsequently resolved, remains admitted for subtherapeutic INR as well as psychiatric assessment and recommendations #Suicidal ideation//major depressive disorder with current active episode//adjustment disorder//housing insecurity Presented with suicidal ideation due to impending eviction; evaluated by psychiatry, recommendations reviewed with the patient today; they continue to express no interest in starting pharmacologic therapy but are interested in pursuing nonpharmacologic interventions through services provided by their employer; housing options and services provided by case management #Subtherapeutic INR // Diminished protein C and S function // Nonobstructive right femoral and popliteal DVTs INR 1.8 on 02/06; home regimen of warfarin 10 mg M/T/W/F/Sun and 15 mg R/Sat - Anticipate discharge with continued home regimen, reassess INR #Type II Diabetes mellitus with hyperglycemia // Hyperlipidemia Most recent A1c of 12.7% in 01/2025; glycemic target of preprandial less than 140 and random checks less than 180 - Do not intend on discharge with insulin prescription given the risk of harm in the setting of resolved but high risk for suicidality at this time - Start Metformin at discharge; recommend close follow up with PCP to assess additional diabetic therapies Admission and Anticipated Discharge Date Admission Date: February 01, 2025 Anticipated date of discharge: 02/06/25 Subjective Ms. 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 No acute overnight events; did express some concern of thumb discomfort overnight which did improve in addition to an abdominal rash of which they are asymptomatic Review of Systems Review of Systems: Review of constitutional, pulmonary, cardiovascular, gastrointestinal, genitourinary, neurologic, psychiatric systems was unremarkable Physical Exam Physical Exam: General: Adult in no acute distress Vital Signs: Reviewed HEENT: Normocephalic, atraumatic, moist mucous membranes Pulmonary: symmetric chest wall excursions; comfortable respirations Cardiovascular: regular rate and rhythm with bilateral radial pulse 2+; trace bilateral lower extremity edema distal of the knee Neurologic: CN II-XII grossly intact; no discernible focal weakness nor paresthesias Psychiatric: Alert and oriented to self, place, time; poor eye contact, brief in conversation with closed conversation; no evidence of hallucinations, auditory or visual; no evidence of delusions; denies homicidal ideation; denies suicidal ideation at this time Skin: softly erythematous patchy rash present over the anterior abdominal wall, nonpruritic, blanchable Results & Data Results & Data Vital Signs (Past 12 Hours) Vital Signs Temp Pulse Pulse Resp BP Pulse Ox O2 Del Method 02/06/25 06:32 80 02/06/25 03:50 36.7 C 82 18 149/81 H 96 Room Air 02/06/25 00:37 76 02/05/25 23:00 36.5 C 80 18 138/74 95 Room Air 02/05/25 19:45 36.5 C 77 18 144/79 H 95 Room Air PG Care Time/CCT Total # of Minutes Spent Total Time Spent with Patient: Total time spent is greater than 50% in coordination of care (as documented) at patient's floor/unit and/or counseling patient: Coding Level of Care Code 36500 SUB INP/OBS CARE 2/35MIN Diagnoses Suicidal ideation R45.851 Severe episode of recurrent major depressive disorder, without psychotic features F33.2 Major depression episode severity: severe Major depression recurrence: recurrent Psychotic features: without psychotic features Adjustment disorder with mixed anxiety and depressed mood F43.23 Adjustment disorder type: with mixed anxiety and depressed mood Housing insecurity Z59.819 Subtherapeutic international normalized ratio (INR) R79.1 Hypercoagulable state D68.59 terminal carman current use of anticoagulant Z79.01 Heat rash L74.0 (2) Major depressive disorder with current active episode Major depression episode severity: severe Major depression recurrence: recurrent Psychotic features: without psychotic features Qualified Code(s): F33.2 - Major depressive disorder, recurrent severe without psychotic features (3) Adjustment disorder Adjustment disorder type: with mixed anxiety and depressed mood Qualified C ode(s): F43.23 - Adjustment disorder with mixed anxiety and depressed mood
[2025-02-06 07:33] LABS: INR 1.8 (0.9-1.1); Prothrombin Time 18.2 Seconds (9.0-12.0)
[2025-02-06] MEDS: LANTUS PER UNIT CHARGE SQ SCH (08:45)
[2025-02-06 08:46] VITALS: TEMP 97.9
[2025-02-06 11:43] VITALS: BP 132/76; PULSE 85; RESP 20; O2SAT 96
--- NOTE | 2025-02-06 14:24 | Discharge Summary ---
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: (8) Heat rash: Plan In summary this is a 54-year-old female admitted for initial concern of chest pain, subsequently resolved, remains admitted for subtherapeutic INR as well as psychiatric assessment and recommendations #Suicidal ideation//major depressive disorder with current active episode//adjustment disorder//housing insecurity Presented with suicidal ideation due to impending eviction; evaluated by psychiatry, recommendations reviewed with the patient today; they continue to express no interest in starting pharmacologic therapy but are interested in pursuing nonpharmacologic interventions through services provided by their employer; housing options and services provided by case management #Subtherapeutic INR // Diminished protein C and S function // Nonobstructive right femoral and popliteal DVTs INR 1.8 on 02/06; home regimen of warfarin 10 mg M/T/W/F/Sun and 15 mg R/Sat - Anticipate discharge with continued home regimen, reassess INR #Type II Diabetes mellitus with hyperglycemia // Hyperlipidemia Most recent A1c of 12.7% in 01/2025; glycemic target of preprandial less than 140 and random checks less than 180 - Do not intend on discharge with insulin prescription given the risk of harm in the setting of resolved but high risk for suicidality at this time - Start Metformin at discharge; recommend close follow up with PCP to assess additional diabetic therapies Notes For Next Care Provider Patient identified high risk for 30- day readmission. Our hospitalist team would be glad to discuss any details of the hospital stay with you, please reach out by [facility] with a good call back number and we will return your call. Concern for continued nonadherence to current medication regimen due to MDD and adjustment disorder with an unstable housing situation. Specifically was not discharged with a more robust diabetic regimen due to concern for risk of insulin overdose. Patient was not interested in starting pharmacotherapy at this time. Medication Changes From Visit Start metformin 1000 mg twice daily Admission HPI Per Admitting Provider 54-year-old female PMHx PE on warfarin, T2DM, and dyslipidemia presenting for chest pain, SOB, and leg pain. 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 She then later in the day went to [employer] with her sons and said that she had a pain shooting through her chest. This occurred around 1800 hrs. 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 Both of her legs do cause her some pain. She states that she has a "bad back." She has a lot of stressors at home. States that she is depressed and has not been taking her medications because she just does not care anymore. 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 She states that she is afraid what would happen if it did not work and this stopped her from doing it. She continues to have the same thoughts of wanting to end her life. She still plans on overdosing if she were to act on these thoughts. She denies any homicidal ideations. She is not harming herself in other ways to include self- harm. She states that her home life incredibly stressful at this time and she has a lot of changes coming up that she is not sure how she is going to manage to include finding someone to live and a vehicle. Patient is tearful during the visit. She again states that she does feel that she would be better off . This was stated approximately 3-4 times throughout the visit and confirmed with specific question of "do you want to kill your self" being answered with "probably." Patient is without chest pain at this time. She states she has multiple medications that she has to be taken by has not been taking. She does not know the last time she took her warfarin. ED evaluation reveals CBC with leukocytosis 11.03, stable H/H; PT 9.8, INR 0.9; CMP Na 134, ratio 24.7, initial glucose 443 -> 422 -> 374; troponin 15.9, 13.3 on repeat; CXR pending official read; Chest CTA no PE or other acute findings; EKG [].; Provided with 1L NSS and 10U insulin IV in ED. Please see Dr. Guy's attestation for adjustments/additions to treatment plan. Discharge Exam General: Adult in no acute distress Vital Signs: Reviewed HEENT: Normocephalic, atraumatic, moist mucous membranes Pulmonary: symmetric chest wall excursions; comfortable respirations Cardiovascular: regular rate and rhythm with bilateral radial pulse 2+; trace bilateral lower extremity edema distal of the knee Neurologic: CN II-XII grossly intact; no discernible focal weakness nor paresthesias Psychiatric: Alert and oriented to self, place, time; poor eye contact, brief in conversation with closed conversation; no evidence of hallucinations, auditory or visual; no evidence of delusions; denies homicidal ideation; denies suicidal ideation at this time Skin: softly erythematous patchy rash present over the anterior abdominal wall, nonpruritic, blanchable Discharge Plan Discharge Items Patient Disposition: Home - Self-Care Reason For Visit: CHEST PAIN, TROP, AUBTHERAPUTIC INR, SI Discharge Diagnosis: Subtherapeutic INR // Suicidal Ideation Condition on Discharge: Good Activity: As commented below Non-emergency contact: Primary Care Provider, Therapist and Associate Financial Advisor Call non-emergency contact if: you have any medication questions and your symptoms worsen Follow-up/Referrals: Wolfgang Alamo, DO [Primary Care Provider] - Diet: Carb Consistent or DM2 and Low Fat Fluids: 1800ml (7 cups) Ambulatory Orders: Prothrombin Time INR (Routine) Timeframe: [id number] Location: Determined by Patient Ordered By: Samuel Hughes Attending Provider Instructions: You were admitted to [facility] for Initial concern for chest pain, subsequently found to have a subtherapeutic INR with concerns of suicidal ideation. It is strongly recommended that you adhere to your prescribed Coumadin regimen, lack of adherence can lead to significant harm including but not limited to stroke, pulmonary embolism, DVT, . given your previous regimen was therapeutic, we will continue that regimen at discharge, recommend reassessment of your INR on 02/09. You provided multiple resources during your hospitalization to assist you with your impending eviction; it is strongly recommended that you contact his resources as you see fit including your employers provided psychiatric services as we have previously discussed. If you begin to again experience thoughts of harming yourself, others, or experience complications with regard to your prescribed anticoagulation it is recommended that you contact your primary care provider, or if you feel truly unsafe returning to the emergency department and contacting National suicide prevention services. You were also found to have progression of your type 2 diabetes mellitus with a hemoglobin A1c of 12.7%; given the absence of any prescribed outpatient diabetic medications, and the risks associated with prescribed insulin considering her transient suicidal ideation, we will prescribe metformin to be continued at discharge, with close follow-up with your primary care office to determine additional diabetic therapies. Thank you for choosing [facility] as your healthcare provider. Pending Studies at Discharge: No Stand-Alone Forms: My [facility], Work/School Release Medications and DC Order Prescriptions: New metformin 500 mg tablet 500 mg PO BID 30 Days Qty: 105 0RF Rx Instructions: take 1 tablet twice daily for 5 days, then 1 tablet in the morning and 2 tablets in the evening for 5 days, then 2 tablets twice daily thereafter (DME) blood-glucose meter [True Metrix Glucose Meter] Misc See Rx Instructions .Route Qty: 1 0RF Rx Instructions: As directed (DME) True Metrix Glucose Test Strip Strip See Rx Instructions .Route Qty: 50 1RF Rx Instructions: As directed (DME) lancets [TRUEplus Lancets] 33 gauge misc See Rx Instructions .Route Qty: 100 1RF Rx Instructions: As directed Continued warfarin 5 mg tablet See Rx Instructions PO DAILY Qty: 70 2RF Rx Instructions: 15mg q , Sa, 10mg x 5 days orally daily; nystatin 100,000 unit/gram powder 1 applic topical QID PRN (Reason: Rash) Qty: 15 1RF (DME) FreeStyle Jeannie 3 Sensor Device See Rx Instructions .Route Qty: 2 2RF Rx Instructions: As directed (DME) FreeStyle Jeannie 3 [place] Misc See Rx Instructions .Route Qty: 1 0RF Rx Instructions: As directed (DME) lancets [OneTouch Delica Plus Lancet] 30 gauge misc See Rx Instructions .Route Qty: 100 0RF Rx Instructions: testing 1 time daily norethindrone acetate 5 mg tablet 5 mg PO DAILY Qty: 90 2RF (DME) OneTouch Verio test strips Strip See Rx Instructions .Route Qty: 200 3RF Rx Instructions: TEST BLOOD SUGAR ONCE DAILY (DME) blood-glucose meter [OneTouch Verio Meter] [facility] See Rx Instructions .Route Qty: 1 0RF Rx Instructions: ONETOUCH VERIO METER Discharge Orders: Discharge Order (Routine); Ordered 02/06/25 Ordered By: Samuel Coto/Other Patient Handouts: Journaling for Emotional Wellness, What to Know When Taking�Warfarin, High Blood Sugar (Hyperglycemia), Hypoglycemia (Low Blood Sugar), Managing Type 2 Diabetes, Managing Diabetes: The A1C Test, Diabetes Manage Stress Admission Data Admit Date/Time: 02/01/25 03:54 Attending Provider: Samuel Peoples Admit Provider: Brandin Guy Primary Care Provider: Wolfgang Alamo Other Providers: Brandin Guy; Didi Land; Cy Olmos; Renae Norman; Connie Aguiar; Dustin Rendon; Graham Powers; Cindi Rowley Other Interventions: Discharge Summary Assessment (RN) Last Done: 02/06/25 09:25 Hospital Stay Data Consultations 02/01/25 03:09 ED Decision to Admit Stat 02/01/25 06:48 Consult Psychiatry Routine Diagnostic Imagining Performed 01/31/25 23:55 CT angio chest PE protocol Stat 02/03/25 09:09 US venous doppler LE BI Urgent Pending Results Patient Have Any Pending Studies at Discharge: No Discharge Instructions Given to Patient (Per Discharging Provider) You were admitted to [facility] for Initial concern for chest pain, subsequently found to have a subtherapeutic INR with concerns of suicidal ideation. It is strongly recommended that you adhere to your prescribed Coumadin regimen, lack of adherence can lead to significant harm including but not limited to stroke, pulmonary embolism, DVT, . given your previous regimen was therapeutic, we will continue that regimen at discharge, recommend reassessment of your INR on 02/09. You provided multiple resources during your hospitalization to assist you with your impending eviction; it is strongly recommended that you contact his resources as you see fit including your employers provided psychiatric services as we have previously discussed. If you begin to again experience thoughts of harming yourself, others, or experience complications with regard to your prescribed anticoagulation it is recommended that you contact your primary care provider, or if you feel truly unsafe returning to the emergency department and contacting National suicide prevention services. You were also found to have progression of your type 2 diabetes mellitus with a hemoglobin A1c of 12.7%; given the absence of any prescribed outpatient diabetic medications, and the risks associated with prescribed insulin considering her transient suicidal ideation, we will prescribe metformin to be continued at discharge, with close follow-up with your primary care office to determine additional diabetic therapies. Thank you for choosing [facility] as your healthcare provider. Total Time Total Time Spent Total Time Spent (In Minutes): 45 Coding Level of Care Code 07394 INP/OBS DISCH >30 MIN Diagnoses Suicidal ideation R45.851 Severe episode of recurrent major depressive disorder, without psychotic features F33.2 Major depression recurrence: recurrent Major depression episode severity: severe Psychotic features: without psychotic features Adjustment disorder with mixed anxiety and depressed mood F43.23 Adjustment disorder type: with mixed anxiety and depressed mood Housing insecurity Z59.819 Subtherapeutic international normalized ratio (INR) R79.1 Hypercoagulable state D68.59 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
== END 2025-02-06 12:16 | disposition home or self-care (01) | DRG 300 ==
LOC: ED 23:33 → SUATTDRO 02-01 03:54 → EDINP 02-01 03:54 → INTOOBSV 02-01 03:54 → 2N 02-01 04:18

== ENCOUNTER 2025-03-03 12:34 | Observation (INO) ==
[2025-03-03 13:49] LABS: Hematocrit (blood only) 42.9 % (37.0-47.0); Hemoglobin 14.3 g/dl (12.0-16.0); Immature Granulocytes # (auto) 0.04 K/uL (0.01-0.20); Immature Granulocytes % (auto) 0.4 %; Mean Corpuscular Hemoglobin 28.7 pg (25.0-34.0); Mean Corpuscular Volume 86.1 fL (80.0-100.0); Platelet Count 261 K/uL (130-400); RDW Standard Deviation 43.5 fL (36.4-46.3); Red Blood Count 4.98 M/uL (4.20-5.40); White Blood Count 10.54 K/ul (4.8-10.8)
--- NOTE | 2025-03-03 13:53 | Emergency Department Note ---
Impression & Plan SOB (shortness of breath), Wheezing, Tachypnea, Hyperglycemia, Subtherapeutic anticoagulation ED Provider Note NAME: GERI SOL AGE: 54 SEX: F : 1970 ARRIVES VIA: Walk-In INFORMANT: [Patient] ED PROVIDER(S): [Merlin Elise MD] CHIEF COMPLAINT: Respiratory problems HISTORY OF PRESENT ILLNESS: The patient is a 54-year-old female who does smoke tobacco. She has no diagnosed lung disease. She states that last week, she had a head cold but, in the last few days, things have moved to her chest. She is now short of breath, coughing and wheezing. She has coughed up some discolored sputum. There has been no fever. No chest pain. Of note, the patient is on warfarin. She is on this anticoagulant for DVT/PE. She presents today because she is concerned that she has developed another PE despite the warfarin. PMHx/PSHx/Social Hx: See Below PHYSICAL EXAM: GENERAL: Patient is in no acute distress. HEENT: No acute trauma, normocephalic atraumatic, mucous membranes moist, no nasal congestion. NECK: No stridor, no adenopathy, no meningismus, trachea is midline. LUNGS: Diminished breath sounds with wheezing bilaterally. Moist cough noted. No obvious respiratory distress. HEART: Without murmurs gallops or rubs, regular rate and rhythm. ABDOMEN: Soft, nontender, no peritonitis. Obese. EXTREMITIES: No cyanosis, full range of motion of all the joints without pain or difficulty. Mild to moderate bilateral pedal edema. NEUROLOGIC: Oriented x 3, no acute motor or sensory deficits, no focal weakness. SKIN: No jaundice, no diaphoresis. DIFFERENTIAL DIAGNOSIS: PE, pneumonia bronchitis, CHF, viral illness, among others. EMERGENCY DEPARTMENT PROCEDURES: MEDICAL DECISION MAKING: There is no leukocytosis or concerning anemia. There is a normal platelet count. INR is subtherapeutic with a value of 0.9. There is no renal failure. Glucose is quite high at 462. No worrisome liver enzyme elevation. ECG shows a sinus rhythm, no ST elevation. Cardiac enzyme testing x 1 is not consistent with acute cardiac injury. COVID, influenza and RSV test were negative. Chest x-ray does not show pneumonia or CHF. Chest CT does not show PE or pneumonia. On exam, the patient was wheezing with diminished breath sounds. She was somewhat tachycardic. Patient received IV saline, 1 L. She was given oral Zithromax, albuterol via MDI, a DuoNeb. She was given IV Zofran. Patient's blood sugar is still quite high on recheck. She attempted an ambulation trial here in her ED and failed. She became quite tachypneic, tachycardic and short of breath--she had to sit down. The patient appears to have an acute bronchitis with has likely flared some underlying, yet undiagnosed, lung disease. She is hyperglycemic and under anticoagulated. Given her findings and given her history, hospitalization and monitoring is warranted. I spoke with the patient and case management, the on-call hospitalist was consulted. Prior/Outside records/notes reviewed: None ECG per my interpretation: Indication was chest tightness and shortness of breath. The ECG shows a normal sinus rhythm with a rate of 97. There is no ST elevation, no PVCs but the QTc is 462. Continuous Cardiac Monitoring per my interpretation: An order was placed for continuous cardiac monitoring. The monitor shows a rate of 102 with sinus tachycardia. Imaging/x-ray results per my interpretation: Chest x-ray does not show pneumonia or CHF. Chronic Medical/Social conditions affecting care: History of DVT/PE, warfarin use chronically. Care/Management discussed with: Case management, the on-call hospitalist. Level of care consideration(s): After review of the information above and other included data: --I believe the patient requires escalation of care to admission DISPOSITION: Admission Past Med/Surg History Problem List (Updated 03/03/25 @ 16:57 by Merlin Elise MD) Subtherapeutic anticoagulation (Acute) Hyperglycemia (Acute) Tachypnea (Acute) Wheezing (Acute) SOB (shortness of breath) (Acute) Heat rash (Acute) Adjustment disorder (Acute) Severe obesity (BMI >= 40) (Chronic) Type 2 diabetes mellitus with hyperglycemia (Chronic) Hyperlipidemia (Chronic) Major depressive disorder with current active episode (Acute) Housing insecurity (Acute) Suicidal ideation (Acute) Subtherapeutic international normalized ratio (INR) (Acute) 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) Osteoarthritis of lumbar spine (Chronic) Medical History Cholelithiasis Hypercoagulable state Tobacco use disorder Bilateral pulmonary embolism Surgical History History of mandibular surgery History of tubal ligation Family History Mother Diabetes Heart disease Hypertension Grandmother (Maternal) Diabetes Grandmother (Paternal) Diabetes Brother Diabetes Heart disease Myocardial infarction Abdominal aneurysm Aneurysm artery, neck Hypertension Stroke Sister , Age 56 Diabetes Heart disease Hypertension Father Heart disease Myocardial infarction Hypertension Stroke Aunt Cancer Uncle Cancer Denies family history of Ovarian cancer Prostate cancer Breast cancer Colorectal cancer Social History Smoking Status: Current every day smoker Tobacco Type: Cigarettes Age Started Using Tobacco: 18; packs per day: 1; Cigarettes Per Day: 0.5-0.75 packs; Second Hand Exposure: Yes; Do You Dip or Chew Tobacco: No; Hx Alcohol Use: No Hx Substance Use: No Preferred Language: South African Communication Ability: Effective Visual Impairment: Limited Hearing Ability: Normal Customs Agent Required: No Beliefs That Will Affect Care: None marital status: Single Current Living Situation: Family Current Living Situation Comment: House current occupational status: employed current occupation: [employer] How many Children do You have: 3 How many Children do You have Comment: 2 boys, 1 girl all Grown Feels Safe at Home: Hesitant to Answer Childhood Exposure to Second-Hand Smoke: Yes caffeine: Yes Dental Care, Regularly: No Physical Activity Frequency: Does not Exercise Seatbelt Use: never Sunscreen Use: No Do you think of yourself as: straight/heterosexual Assistive Devices: Cane Allergies Allergies Allergy/AdvReac Type Severity Reaction Status Date / Time amoxicillin AdvReac Intermediate CAUSE A Verified 10/27/24 19:50 YEAST INFECTION Home Meds Previous Rx's Medication Instructions Recorded blood-glucose meter (OneTouch #1 ea 12/02/21 Verio Meter) blood sugar diagnostic (OneTouch #200 ea 07/16/23 Verio test strips) nystatin 100,000 unit/gram topical 1 applic topical QID PRN Rash #15 11/07/23 powder grams blood-glucose sensor (FreeStyle #2 ea 03/03/24 Jeannie 3 Sensor device) blood-glucose,parts cleaner,cont #1 ea 03/04/24 (FreeStyle Jeannie 3 [place]) lancets 30 gauge (OneTouch Delica #100 ea 07/07/24 Plus Lancet) warfarin 5 mg tablet See Rx Instructions PO DAILY #70 10/03/24 tabs norethindrone acetate 5 mg tablet 5 mg PO DAILY #90 tabs 12/29/24 blood sugar diagnostic (True #50 ea 02/06/25 Metrix Glucose Test Strip) blood-glucose meter (True Metrix #1 ea 02/06/25 Glucose Meter) lancets 33 gauge (TRUEplus Lancets) #100 ea 02/06/25 metformin 500 mg tablet 500 mg PO BID 30 days #105 tabs 02/06/25 Results & Data (ED) Vital Signs Vital Signs - 24 hr 03/03/25 12:51 03/03/25 16:39 Temperature 36.3 C L Temperature Source Temporal Artery Scan Pulse Rate 102 H Pulse Rate [Exercises] 124 H Respiratory Rate 18 Respiratory Rate [Exercises] 40 H Respiratory Effort / Characteristics SOB on Exertion Respiratory Depth Shallow Blood Pressure 135/79 Blood Pressure Mean 97 Pulse Oximetry 94 Pulse Oximetry [Exercises] 96 Oxygen Delivery Method Room Air Room Air Sepsis Recent Fever Within 48 Hours No Sepsis New/Unexplained Change in Mental Status No Sepsis Action Taken by Nursing No Action Required Home Medications Current Medication List: was personally reviewed by me Laboratory Data Attestation: I reviewed the patient's lab results. 03/03/25 13:35 03/03/25 13:35 Lab Results 03/03/25 03/03/25 Range/Units 13:35 15:51 WBC 10.54 (4.8-10.8) K/ul RBC 4.98 (4.20-5.40) M/uL Hgb 14.3 (12.0-16.0) g/dl Hct 42.9 (37.0-47.0) % MCV 86.1 (80.0-100.0) fL MCH 28.7 (25.0-34.0) pg MCHC 33.3 (32.0-36.0) g/dL RDW Std Deviation 43.5 (36.4-46.3) fL RDW Coeff of Ana 14.0 (11.5-14.5) % Plt Count 261 (130-400) K/uL MPV 9.5 (9.4-12.4) fL Immature Gran % (Auto) 0.4 % Neut % (Auto) 69.0 % Lymph % (Auto) 22.1 % [place] % (Auto) 4.6 % Eos % (Auto) 3.6 % Baso % (Auto) 0.3 % Neut # (Auto) 7.27 H (1.40-6.50) K/uL Lymph # (Auto) 2.33 (1.20-3.40) K/uL [place] # (Auto) 0.49 (0.11-0.59) K/uL Eos # (Auto) 0.38 (0.00-0.50) K/uL Baso # (Auto) 0.03 (0.00-0.20) K/uL Immature Gran # (Auto) 0.04 (0.01-0.20) K/uL PT 9.8 (9.0-12.0) Seconds INR 0.9 (0.9-1.1) APTT 24 (21-31) Seconds PTT Ratio 0.9 Sodium 136 (136-145) mmol/L Potassium 4.4 (3.5-5.1) mmol/L Chloride 101 (98-107) mmol/L Carbon Dioxide 24 (21-32) mmol/L Anion Gap 11 (3-11) BUN 14 (6-23) mg/dl Creatinine 0.73 (0.6-1.2) mg/dl Est Cr Clr Drug Dosing 136.2 ml/min eGFR 97.67 BUN/Creatinine Ratio 19.2 (10-20) Glucose 462 H* (70-99(Fasting)) mg/dl POC Glucose 353 H* (70-99) mg/dl Calcium 9.1 (8.6-10.3) mg/dl Total Bilirubin 0.5 (0.2-1.0) mg/dl AST 22 (13-39) U/L ALT 25 (7-52) U/L Alkaline Phosphatase 85 (34-104) U/L Troponin I High Sens 6.8 (0-14) pg/ml Total Protein 6.8 (6.0-8.3) gm/dl Albumin 3.4 (3.4-5.0) gm/dl Globulin 3.4 (2.5-4.0) gm/dl Albumin/Globulin Ratio 1.0 (0.9-2) SARS-CoV-2 (PCR) NEGATIVE (Negative) Influenza Type A (PCR) Negative (Neg) Influenza Type B (PCR) Negative (Neg) RSV (RT-PCR) Negative (Neg) Administered Medications Discontinued Medications Albuterol (Albut/Ipratrop 3mg/0.5mg Neb 3 Ml Vial) 3 ml NEB NOW STA; Protocol Stop: 03/03/25 13:51 Last Admin: 03/03/25 14:30 Dose: 3 ml Documented By: LISET Sodium Chloride (Nss) 500 mls @ 999 mls/hr IV .Q31M ONE Stop: 03/03/25 14:44 Last Infusion: 03/03/25 16:47 Dose: Infused Documented By: Admin: 03/03/25 14:30 Dose: 999 mls/hr Documented By: LISET Ioversol (Optiray 320 125ml) 118 ml IV ONCE ONE Stop: 03/03/25 15:21 Last Admin: 03/03/25 15:20 Dose: 118 ml Documented By: AASHISH Imaging Data Radiologist's Impression: Chest CTA 03/03/25 13:50 CT angio chest PE protocol CT DOSE: 994.92 mGy.cm HISTORY: PE. TECHNIQUE: Multiple CTA images of the chest were obtained after the intravenous administration of 120 ml Optiray. Coronal and sagittal MIPS were obtained from the axial data set and were submitted for review. All measurements were obtained according to NASCET criteria. A dose lowering technique was utilized adhering to the principles of ALARA. COMPARISON STUDY: 02/01/2025 FINDINGS: There is no pulmonary consolidation or pleural effusion. No pneumothorax. No enlarged adenopathy. No pericardial effusion. No thoracic aortic aneurysm. There is spray artifact which limits evaluation of the small right upper lobe pulmonary arterial branches. No pulmonary embolism seen. No acute osseous findings. IMPRESSION: No pulmonary embolism or pneumonia seen. ACT 112: Negative or not required by law. The above report was generated using voice recognition software. It may contain grammatical, syntax or spelling errors. Electronically signed by: Cy Linn M.D. 03/03/2025 3:33 PM Discharge Plan Visit Data Chief Complaint: Respiratory Problems Stated Complaint: COLD IN LUNGS, HARD TO BREATH ED Provider: Merlin Elise Discharge Problem: SOB (shortness of breath), Wheezing, Tachypnea, Hyperglycemia, Subtherapeutic anticoagulation Patient Disposition: Admitted As Inpatient Condition: Fair Forms Stand Alone Forms: My [facility] [place] [employer] Prescriptions Prescriptions: No Action warfarin 5 mg tablet See Rx Instructions PO DAILY Qty: 70 2RF Rx Instructions: 15mg q Tu, Sa, 10mg x 5 days orally daily; nystatin 100,000 unit/gram powder 1 applic topical QID PRN (Reason: Rash) Qty: 15 1RF (DME) FreeStyle Jeannie 3 Sensor Device See Rx Instructions .Route Qty: 2 2RF Rx Instructions: As directed (DME) FreeStyle Jeannie 3 [place] Misc See Rx Instructions .Route Qty: 1 0RF Rx Instructions: As directed (DME) lancets [OneTouch Delica Plus Lancet] 30 gauge misc See Rx Instructions .Route Qty: 100 0RF Rx Instructions: testing 1 time daily norethindrone acetate 5 mg tablet 5 mg PO DAILY Qty: 90 2RF (DME) OneTouch Verio test strips Strip See Rx Instructions .Route Qty: 200 3RF Rx Instructions: TEST BLOOD SUGAR ONCE DAILY (DME) blood-glucose meter [OneTouch Verio Meter] Misc See Rx Instructions .Route Qty: 1 0RF Rx Instructions: ONETOUCH VERIO METER metformin 500 mg tablet 500 mg PO BID 30 Days Qty: 105 0RF Rx Instructions: take 1 tablet twice daily for 5 days, then 1 tablet in the morning and 2 tablets in the evening for 5 days, then 2 tablets twice daily thereafter (DME) blood-glucose meter [True Metrix Glucose Meter] Misc See Rx Instructions .Route Qty: 1 0RF Rx Instructions: As directed (DME) True Metrix Glucose Test Strip Strip See Rx Instructions .Route Qty: 50 1RF Rx Instructions: As directed (DME) lancets [TRUEplus Lancets] 33 gauge misc See Rx Instructions .Route Qty: 100 1RF Rx Instructions: As directed Referrals Referrals: Wolfgang Alamo DO [Primary Care Provider] -
[2025-03-03 14:11] LABS: Alanine Aminotransferase 25.0 U/L (7-52); Albumin Globulin Ratio 1.0 (0.9-2); Alkaline Phosphatase 85.0 U/L (34-104); Anion Gap 11.0 (3-11); Bilirubin,Total 0.5 mg/dl (0.2-1.0); Blood Urea Nitrogen 14.0 mg/dl (6-23); Calcium 9.1 mg/dl (8.6-10.3); Carbon Dioxide 24.0 mmol/L (21-32); Chloride 101.0 mmol/L (98-107); Creatinine Clr Calc Pharmacy 136.2 ml/min; Globulin 3.4 gm/dl (2.5-4.0); Glucose 462.0 mg/dl (70-99(Fasting)); Potassium 4.4 mmol/L (3.5-5.1); Sodium 136.0 mmol/L (136-145); Total Protein 6.8 gm/dl (6.0-8.3)
[2025-03-03 14:14] LABS: INR 0.9 (0.9-1.1); Partial Thromboplastin Time 24 Seconds (21-31); Prothrombin Time 9.8 Seconds (9.0-12.0)
[2025-03-03 14:25] LABS: Influenza A virus by PCR Negative (Neg); Influenza B virus by PCR Negative (Neg); SARS CoV2 RNA(COVID-19) Ceph NEGATIVE (Negative)
[2025-03-03] MEDS: SODIUM CHLORIDE 0.9% 500 ML IV ONE ×2 (14:30→18:32)
[2025-03-03] MEDS: ALBUT/IPRATROP 3MG/0.5MG NEB 3 ML VIAL NEB STA (14:30)
--- NOTE | 2025-03-03 14:50 | Electrocardiogram Report ---
Test Reason : Blood Pressure : */* mmHG Vent. Rate : 97 BPM Atrial Rate : 97 BPM P-R Int : 152 ms QRS Dur : 72 ms QT Int : 364 ms P-R-T Axes : 52 20 69 degrees QTcB Int : 462 ms Normal sinus rhythm Normal ECG When compared with ECG of 31-Jan-2025 23:50, No significant change was found Confirmed by Kenneth Nava ([id number]) on 03/03/2025 2:50:09 PM Referred By: Confirmed By: Kenneth Nava
[2025-03-03] MEDS: OPTIRAY 320 125ml IV ONE (15:20)
--- NOTE | 2025-03-03 15:34 | CT Scan Report ---
CT angio chest PE protocol CT DOSE: 994.92 mGy.cm HISTORY: PE. TECHNIQUE: Multiple CTA images of the chest were obtained after the intravenous administration of 120 ml Optiray. Coronal and sagittal MIPS were obtained from the axial data set and were submitted for review. All measurements were obtained according to NASCET criteria. A dose lowering technique was u tilized adhering to the principles of ALARA. COMPARISON STUDY: 02/01/2025 FINDINGS: There is no pulmonary consolidation or pleural effusion. No pneumothorax. No enlarged adeno nisha. No pericardial effusion. No thoracic aortic aneurysm. There is spray artifact which limits carlee luation of the small right upper lobe pulmonary arterial branches. No pulmonary embolism seen. No acu te osseous findings. IMPRESSION: No pulmonary embolism or pneumonia seen. ACT 112: Negative or not required by law. The above report was generated using voice recognition software. It may contain grammatical, syntax o r spelling errors. Electronically signed by: Cy Linn M.D. 03/03/2025 3:33 PM
[2025-03-03] MEDS: AZITHROMYCIN 250 MG TAB PO ONE (16:50)
[2025-03-03] MEDS: ALBUTEROL HFA 8 GM INHALER INH ONE (16:50)
[2025-03-03] MEDS: ONDANSETRON INJ 2 MG/ML 2 ML VIAL IV STA (16:51)
--- NOTE | 2025-03-03 16:56 | XRay Report ---
Technique: A frontal view of the chest was obtained Comparison is made to the prior examination dated 02/01/2025 Findings: There are no confluent pulmonary infiltrates. The heart size is within normal limits. No pleural effusion or pneumothorax is seen. There is mild diffuse interstitial prominence that may be due to pulmonary vascular congestion No fracture is noted. No foreign body is seen Impression: Suspected mild pulmonary vascular congestion Electronically signed by Seun Meyers 03-03-2025 4:55 PM
--- NOTE | 2025-03-03 17:31 | History & Physical Report ---
Date of Service March 03, 2025 Assessment & Plan (1) Wheezing: (2) SOB (shortness of breath): (3) Type 2 diabetes mellitus with hyperglycemia: (4) Hypercoagulable state: Plan #Dyspnea/bronchitisno infiltrate, no known history of COPD, I do wonder about a degree of OHS with her BMI of 58.5 and how small her lungs look on CT, but currently would need to manage with steroids and bronchodilators. No clear role for antibioticsconsider atypical coverage if she does not improve fairly quickly, but for now manage more as a reactive airway flare, probably viral in etiology. #Uncontrolled type 2 [id number] a few weeks ago was 12.4. Fingersticks and supplemental insulin/basal/bolus regimenon review of her last hospital stay she was in the neighborhood of 70 units of insulin, now she is on steroidsWill start with 20 of basal twice daily and log with a carb ratio of 1:10, and titrate based on her glucose control #DVT/venous thromboembolic diseaseINR is 0.9, and it looks like her most recent clot was only about a month agocontinue Coumadin but given how recent her clot was, bridged with therapeutic Lovenox outpatient PFTs, and sleep study may be of benefit. Social circumstances appear to have been difficult, hopefully can help her work on therapeutic [employer] change. History of Present Illness Chief Complaint: Shortness of breath Primary Care Provider: Wolfgang Alamo DO patient is a very pleasant 54-year-old female who presents after a few days of worsening respiratory symptoms. She notes about 3 days ago she started with upper respiratory symptoms, but over the last day or day and a half it started to settle into her chest. She started having chest congestion and a worse cough, and then had more and more dyspnea. Now she has very severe dyspnea on exertion. She came to the ER for further evaluation. Here she has reassuring labs as far as infection/inflammation, and a clear chest CT (although on my review her lungs do look very small) but she has significant wheezing and far too significant dyspnea on exertion to be able to be safe at home. Allergies Allergy/AdvReac Type Severity Reaction Status Date / Time amoxicillin AdvReac Intermediate CAUSE A Verified 10/27/24 19:50 YEAST INFECTION Home Medications Medication Instructions Recorded Confirmed Type nystatin 100,000 unit/gram topical 1 applic topical QID PRN Rash #15 05/15/24 09/09/25 Rx powder grams blood-glucose sensor (FreeStyle #2 ea 03/03/24 03/03/25 Rx Jeannie 3 Sensor device) blood-glucose,rental sales representative,cont #1 ea 03/04/24 03/03/25 Rx (FreeStyle Jeannie 3 [place]) warfarin 5 mg tablet See Rx Instructions PO DAILY #70 10/03/24 03/03/25 Rx tabs norethindrone acetate 5 mg tablet 5 mg PO DAILY #90 tabs 12/29/24 03/03/25 Rx blood sugar diagnostic (True #50 ea 02/06/25 03/03/25 Rx Metrix Glucose Test Strip) blood-glucose meter (True Metrix #1 ea 02/06/25 03/03/25 Rx Glucose Meter) lancets 33 gauge (TRUEplus Lancets) #100 ea 02/06/25 03/03/25 Rx metformin 500 mg tablet 1,000 mg PO BID 03/03/25 03/03/25 History Past Med/Surg History Problem List Subtherapeutic anticoagulation (Acute) Hyperglycemia (Acute) Tachypnea (Acute) Wheezing (Acute) SOB (shortness of breath) (Acute) Heat rash (Acute) Adjustment disorder (Acute) Severe obesity (BMI >= 40) (Chronic) Type 2 diabetes mellitus with hyperglycemia (Chronic) Hyperlipidemia (Chronic) Major depressive disorder with current active episode (Acute) Housing insecurity (Acute) Suicidal ideation (Acute) Subtherapeutic international normalized ratio (INR) (Acute) Palpitations (Chronic) shelter current use of anticoagulant (Chronic) Osteoarthritis of lumbar spine (Chronic) Medical History Cholelithiasis Hypercoagulable state Tobacco use disorder Bilateral pulmonary embolism Surgical History History of mandibular surgery History of tubal ligation Family History Mother Diabetes Heart disease Hypertension Grandmother (Maternal) Diabetes Grandmother (Paternal) Diabetes Brother Diabetes Heart disease Myocardial infarction Abdominal aneurysm Aneurysm artery, neck Hypertension Stroke Sister , Age 56 Diabetes Heart disease Hypertension Father Heart disease Myocardial infarction Hypertension Stroke Aunt Cancer Uncle Cancer Denies family history of Ovarian cancer Prostate cancer Breast cancer Colorectal cancer Social History Smoking Status: Current every day smoker Tobacco Type: Cigarettes Age Started Using Tobacco: 18; packs per day: 1; Cigarettes Per Day: 0.5-0.75 packs; Second Hand Exposure: Yes; Do You Dip or Chew Tobacco: No; Hx Alcohol Use: No Hx Substance Use: No Preferred Language: Guatemalan Communication Ability: Effective Visual Impairment: Limited Hearing Ability: Normal Flight Agent Required: No Beliefs That Will Affect Care: None marital status: Single Current Living Situation: Family Current Living Situation Comment: House current occupational status: employed current occupation: [employer] How many Children do You have: 3 How many Children do You have Comment: 2 boys, 1 girl all Grown Feels Safe at Home: Hesitant to Answer Childhood Exposure to Second-Hand Smoke: Yes caffeine: Yes Dental Care, Regularly: No Physical Activity Frequency: Does not Exercise Seatbelt Use: never Sunscreen Use: No Do you think of yourself as: straight/heterosexual Assistive Devices: Cane Review of Systems Review of Systems: All systems reviewed & are unremarkable except as noted in HPI & below Physical Exam Physical Exam: General she is awake alert oriented pleasant no distress. HEENT normocephalic atraumatic mucous membranes moist. Cardio is regular rate but distant. Lungs with diffuse wheezing throughout no rales no rhonchi moderate air entry good effort no accessory muscle use. Skin without rashes pallor or icterus. Neuro/cranial nerves II through XII grossly intact gross motor and sensory intact. Labs and diagnostics noted. Results & Data Results & Data Vital Signs (Past 12 Hours) Vital Signs Temp Pulse Pulse Pulse Resp Resp BP 03/03/25 17:17 86 03/03/25 17:01 03/03/25 16:56 90 17 03/03/25 16:39 124 H 40 H 03/03/25 12:51 97.3 F L 102 H 18 135/79 BP Pulse Ox Pulse Ox O2 Del Method 03/03/25 17:17 03/03/25 17:01 95 Room Air 03/03/25 16:56 160/98 H 95 Room Air 03/03/25 16:39 96 Room Air 03/03/25 12:51 94 Room Air Code Status & VTE Plan VTE Prophylaxis Plan VTE Prophylaxis will be ordered: Yes PG Care Time/CCT Total # of Minutes Spent Total Time Spent with Patient: Total time spent is greater than 50% in coordination of care (as documented) at patient's floor/unit and/or counseling patient: Coding Level of Care Code 12516 INT INP/OBS CARE 3/75MIN Diagnoses Wheezing R06.2 SOB (shortness of breath) R06.02 Type 2 diabetes mellitus with hyperglycemia, without long-term current use of insulin E11.65 Diabetes mellitus care home insulin use: without watermelon inspector use Hypercoagulable state D68.59 (3) Type 2 diabetes mellitus with hyperglycemia Diabetes mellitus care home insulin use: without care home use Qualified Code(s): E11.65 - Type 2 diabetes mellitus with hyperglycemia
[2025-03-03] MEDS ORDERED: ONDANSETRON INJ 2 MG/ML 2 ML VIAL IV PRN (19:42)
[2025-03-03] MEDS ORDERED: ALUMINUM/MAGNESIUM SUSP 30 ML UDC PO PRN (19:42)
[2025-03-03] MEDS ORDERED: ENOXAPARIN 1 MG/KG SQ SCH (19:42)
[2025-03-03] MEDS ORDERED: ACETAMINOPHEN 325 MG TAB PO PRN (19:42)
[2025-03-03] MEDS ORDERED: MELATONIN 3 MG TAB PO PRN (19:42)
[2025-03-03] MEDS ORDERED: MAGNESIUM HYDROXIDE SUSP 30 ML UDC PO PRN (19:42)
[2025-03-03] MEDS ORDERED: POLYETHYLENE (MIRALAX) 17 GM PACK PO PRN (19:42)
[2025-03-03] MEDS ORDERED: CARBOHYDRATES FOR HYPOGLYCEMIA PO PRN (20:15)
[2025-03-03] MEDS ORDERED: GLUCAGON FOR INJ 1 MG VIAL SQ PRN (20:15)
[2025-03-03] MEDS ORDERED: GLUCOSE 40% GEL 15 GM TUBE PO PRN (20:15)
[2025-03-03] MEDS ORDERED: GLUCOSE 10 TAB/TUBE PO PRN (20:15)
[2025-03-03] MEDS ORDERED: DEXTROSE 50% 50 ML SYRINGE IV PRN (20:15)
[2025-03-03] MEDS: ENOXAPARIN 150 MG/ML SYR SQ SCH (22:15)
[2025-03-03] MEDS: INSULIN ASPART PER UNIT CHARGE SC SCH (22:16)
[2025-03-03] MEDS: LANTUS PER UNIT CHARGE SQ SCH (22:16)
[2025-03-03] MEDS: ALBUT/IPRATROP 3MG/0.5MG NEB 3 ML VIAL NEB SCH (22:29)
[2025-03-04 07:10] LABS: Hematocrit (blood only) 41.4 % (37.0-47.0); Hemoglobin 13.7 g/dl (12.0-16.0); Immature Granulocytes # (auto) 0.05 K/uL (0.01-0.20); Immature Granulocytes % (auto) 0.5 %; Mean Corpuscular Hemoglobin 28.5 pg (25.0-34.0); Mean Corpuscular Volume 86.1 fL (80.0-100.0); Platelet Count 248 K/uL (130-400); RDW Standard Deviation 42.7 fL (36.4-46.3); Red Blood Count 4.81 M/uL (4.20-5.40); White Blood Count 10.09 K/ul (4.8-10.8)
[2025-03-04 07:34] LABS: Anion Gap 7.0 (3-11); Blood Urea Nitrogen 14.0 mg/dl (6-23); Calcium 9.5 mg/dl (8.6-10.3); Carbon Dioxide 26.0 mmol/L (21-32); Chloride 101.0 mmol/L (98-107); Creatinine Clr Calc Pharmacy 141.8 ml/min; Glucose 414.0 mg/dl (70-99(Fasting)); Potassium 4.7 mmol/L (3.5-5.1); Sodium 134.0 mmol/L (136-145)
[2025-03-04 07:44] LABS: INR 1.0 (0.9-1.1); Prothrombin Time 10.4 Seconds (9.0-12.0)
[2025-03-04] MEDS: NORETHINDRONE 5 MG TAB PO SCH (08:39)
[2025-03-04] MEDS: LANTUS PER UNIT CHARGE SQ SCH ×2 (08:44→20:57)
[2025-03-04] MEDS ORDERED: WARFARIN SOD 5 MG TAB PO SCH (09:00)
[2025-03-04 09:54] LABS: Chlamydia pneumoniae PCR Not Detected (NotDetected); Coronavirus 229E PCR Not Detected (NotDetected); Coronavirus CoV-2 (COVID19)PCR Not Detected (NotDetected); Coronavirus HKU1 PCR Not Detected (NotDetected); Coronavirus NL63 PCR Not Detected (NotDetected); Coronavirus OC43PCR Not Detected (NotDetected); Human Metapneumovirus PCR Not Detected (NotDetected); Parainfluenza Virus 1 PCR Not Detected (NotDetected); Parainfluenza Virus 2 PCR Not Detected (NotDetected); Parainfluenza Virus 3 PCR Not Detected (NotDetected); Parainfluenza Virus 4 PCR Not Detected (NotDetected); Respiratory Syncytial VirusPCR Not Detected (NotDetected); Rhinovirus/Enterovirus PCR DETECTED (NotDetected)
[2025-03-04] MEDS: INSULIN HUMAN REGULAR PER UNIT 10 UNITS in SYRINGE 9.9 ML IV ONE (10:46)
--- NOTE | 2025-03-04 11:15 | Hospitalist Progress Note ---
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 #Rhino/Enterovirus/Acute bronchitis/Current smokerno infiltrate on chest imaging, CTA Chest neg for PE; no known history of COPD but is current smoker and has wheezing, not hypoxemic, could have OHS. -continue bronchodilators -change IV steroids to prednisone 40mg po qAM due to severe hyperglycemia and improvement in wheezing -no need for antibiotics -recommend outpatient PFTs and sleep study, weight loss -encourage smoking cessation #Uncontrolled [id number] in 01/2025 was 12.4% which is up quite a bit from previous. Only on metformin, has had nausea with GLP-1 in past. With severe hyperglycemia here in 400s 2/2 steroids in setting of uncontrolled DMII. -consult CDE -increase Lantus to 30 units bid, increase Novolog CF and CR, decrease goal range to 100-140 for Novolog -give regular insulin 10 units IV x 1, follow BSG closely -ADA diet -follow BMP, Mag #DVT/Protein C/S defINR is 0.9 on admission, and it looks like her most recent clot was only about a month agocontinue Coumadin but given how recent her clot was, bridging with therapeutic Lovenox. Question compliance with coumadin-also, has not been seen by Anticoag clinic since 09/2024-will get her reestablished. -continue Coumadin, bridging Lovenox at therapeutic doses -follow INR and stop Lovenox when INR at 2.0 #Morbid obesity BMI 58.3 -needs weight loss-defer to PCP for management DVT Proph-SQ Lovenox bridging, Coumadin Dispo-continued stay on med/surg Admission and Anticipated Discharge Date Admission Date: March 03, 2025 Subjective Pt reports ongoing cough and SOB with exertion bu appears comfortable. She has been ambulating independently around room. Denies N/V, no constipation, is eating. No other concerns. Says she only takes metformin at home. Previously prescribed Trulicity which caused nausea and Victoza ordered but never started as she never received the needles. Has not been on insulin at home. Physical Exam Constitutional: + morbidly obese; no acute distress Respiratory: Auscultation: + wheezes (occasional); no crackles and no rhonchi Cardiovascular: RRR, no murmur, no edema Psychiatric: Orientation: alert, oriented x 3 and cooperative Affect: + flat affect Results & Data Results & Data Vital Signs (Past 12 Hours) Vital Signs Temp Pulse Resp BP Pulse Ox O2 Del Method 03/04/25 10:54 93 H 16 94 Room Air 03/04/25 08:38 36.5 C 104 H 20 114/73 92 Room Air 03/04/25 07:28 76 16 96 Room Air 03/04/25 07:20 Room Air Laboratory Results CBC, BMP, INR reviewed PG Care Time/CCT Total # of Minutes Spent Total Time Spent with Patient: Total time spent is greater than 50% in coordination of care (as documented) at patient's floor/unit and/or counseling patient: Coding Level of Care Code 69538 SUB INP/OBS CARE 3/50MIN Diagnoses Acute bronchitis due to Rhinovirus J20.6 Type 2 diabetes mellitus with hyperglycemia, without long-term current use of insulin E11.65 Diabetes mellitus [facility] insulin use: without [facility] use Hypercoagulable state D68.59 Tobacco use disorder F17.200 (2) Type 2 diabetes mellitus with hyperglycemia Diabetes mellitus [facility] insulin use: without 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
[2025-03-04] MEDS: INSULIN HUMAN REGULAR PER UNIT 8 UNITS in SYRINGE 7.92 ML IV STA (14:47)
[2025-03-04] MEDS: WARFARIN SOD 10 MG TAB PO SCH (17:07)
[2025-03-05 07:30] LABS: INR 1.0 (0.9-1.1); Prothrombin Time 10.5 Seconds (9.0-12.0)
[2025-03-05 07:32] LABS: Anion Gap 8.0 (3-11); Blood Urea Nitrogen 18.0 mg/dl (6-23); Calcium 9.6 mg/dl (8.6-10.3); Carbon Dioxide 27.0 mmol/L (21-32); Chloride 104.0 mmol/L (98-107); Creatinine Clr Calc Pharmacy 143.9 ml/min; Glucose 173.0 mg/dl (70-99(Fasting)); Magnesium 2.0 mg/dl (1.7-2.4); Potassium 3.8 mmol/L (3.5-5.1); Sodium 139.0 mmol/L (136-145)
[2025-03-05] MEDS: predniSONE 20 MG TAB PO SCH (08:45)
--- NOTE | 2025-03-05 14:59 | Hospitalist Progress Note ---
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 #Rhino/Enterovirus/Acute bronchitis/Current smokerno infiltrate on chest imaging, CTA Chest neg for PE; no known history of COPD but is current smoker and has wheezing, not hypoxemic, could have OHS. Continues to have cough and some wheezing. Patient does not yet feel comfortable going home -continue bronchodilators - Received IV steroids and then converted to prednisone 40mg po qAM due to severe hyperglycemia and improvement in wheezing-continue for 7-day course -no need for antibiotics -recommend outpatient PFTs and sleep study, weight loss -encourage smoking cessation-add nicotine patch - Add guaifenesin DM 10 mL p.o. every 6 as needed for cough #Uncontrolled [id number] in 01/2025 was 12.4% which is up quite a bit from previous. Only on metformin, has had nausea with GLP-1 in past. With severe hyperglycemia here in 400s 2/2 steroids in setting of uncontrolled DMII. Hyperglycemia now improving with switching to oral steroids and increasing doses of insulin-consult CDE appreciated and patient is willing to start Lantus on discharge - Continue current doses of Lantus 30 units bid, Novolog -Follow BSG's -ADA diet -follow BMP, Mag #DVT/Protein C/S defINR is 0.9 on admission, and it looks like her most recent clot was only about a month agocontinue Coumadin but given how recent her clot was, bridging with therapeutic Lovenox. Question compliance with coumadin-also, has not been seen by Anticoag clinic since 09/2024-in order to get her reestablished, she will need a referral from her PCP -continue Coumadin, bridging Lovenox at therapeutic doses -follow INR and stop Lovenox when INR at 2.0 #Morbid obesity BMI 58.3 -needs weight loss-defer to PCP for management DVT Proph-SQ Lovenox bridging, Coumadin Dispo-continued stay on med/surg, likely discharged home on a.m. of 03/06 Admission and Anticipated Discharge Date Admission Date: March 03, 2025 Subjective Patient complains of a bad cough. The nurse reports that she found the patient walking back to her room with an outer jacket on smelling strongly of cigarettes but patient denied going outside to smoke. Patient does not yet feel comfortable going home. She is considering quitting smoking. She has done so in the past for 11 months. Physical Exam Constitutional: + morbidly obese; no acute distress Respiratory: Auscultation: + wheezes (occasional); no crackles and no rhonchi Cardiovascular: RRR, no murmur, no edema Psychiatric: Orientation: alert, oriented x 3 and cooperative Affect: + flat affect Results & Data Results & Data Vital Signs (Past 12 Hours) Vital Signs Temp Pulse Resp BP Pulse Ox O2 Del Method 03/05/25 11:07 96 H 18 96 Room Air 03/05/25 07:50 Room Air 03/05/25 07:49 36.8 C 79 20 138/82 94 Room Air 03/05/25 07:10 79 16 96 Room Air Laboratory Results BMP, magnesium reviewed PG Care Time/CCT Total # of Minutes Spent Total Time Spent with Patient: Total time spent is greater than 50% in coordination of care (as documented) at patient's floor/unit and/or counseling patient: Coding Level of Care Code 79631 SUB INP/OBS CARE 2/35MIN Diagnoses Acute bronchitis due to Rhinovirus J20.6 Type 2 diabetes mellitus with hyperglycemia, without long-term current use of insulin E11.65 Diabetes mellitus correction insulin use: without terminal operator use Hypercoagulable state D68.59 Tobacco use disorder F17.200 (2) Type 2 diabetes mellitus with hyperglycemia Diabetes mellitus correction insulin use: without terminal operator use Qualified Code(s): E11.65 - Type 2 diabetes mellitus with hyperglycemia
[2025-03-05] MEDS: NICOTINE 14 MG/24 HR PATCH TD SCH (16:16)
[2025-03-06 07:10] VITALS: BP 131/83; TEMP 98.2
[2025-03-06 08:08] LABS: Anion Gap 8.0 (3-11); Blood Urea Nitrogen 21.0 mg/dl (6-23); Calcium 8.9 mg/dl (8.6-10.3); Carbon Dioxide 27.0 mmol/L (21-32); Chloride 106.0 mmol/L (98-107); Creatinine Clr Calc Pharmacy 150.4 ml/min; Glucose 95.0 mg/dl (70-99(Fasting)); Magnesium 1.9 mg/dl (1.7-2.4); Potassium 3.6 mmol/L (3.5-5.1); Sodium 141.0 mmol/L (136-145)
[2025-03-06 08:19] LABS: INR 1.0 (0.9-1.1); Prothrombin Time 11.2 Seconds (9.0-12.0)
[2025-03-06] MEDS: REMOVE NICODERM PATCH SCH (08:47)
--- NOTE | 2025-03-06 10:37 | Discharge Summary ---
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 #Rhino/Enterovirus/Acute bronchitis/Current smokerno infiltrate on chest imaging, CTA Chest neg for PE; no known history of COPD but is current smoker and had wheezing, not hypoxemic, could have OHS. Cough and wheezing improved. Of note, patient was noted to likely be going outside to smoke during her hospital stay as she was witnessed to come in wearing a coat smelling heavily of cigarette smoke. -continue bronchodilators at home - Received IV steroids and then converted to prednisone 40mg po qAM due to severe hyperglycemia and improvement in wheezing-continue for 3 more days after discharge -no need for antibiotics -recommend outpatient PFTs and sleep study, weight loss -encourage smoking cessation-add nicotine patch and encouraged to wear this at home - Continue OTC guaifenesin DM 10 mL p.o. every 6 as needed for cough #Uncontrolled [id number] in 01/2025 was 12.4% which is up quite a bit from previous. Only on metformin, has had nausea with GLP-1 in past. With severe hyperglycemia here in 400s 2/2 steroids in setting of uncontrolled DMII. Hyperglycemia now improving with switching to oral steroids and increasing doses of insulin-consult CDE appreciated and patient is willing to start Lantus on discharge - Received a total of 92 units of insulin in the 24 hours prior to discharge, 60 units of which was basal insulin. Will discharge to home on Lantus 30 units subcu at bedtime for now and adjust as an outpatient - She will check her blood sugars twice a day at home -Diabetic diet encouraged on discharge - Follow-up with PCP #DVT/Protein C/S defINR is 0.9 on admission, and it looks like her most recent clot was only about a month ago and she has not followed with the anticoagulation clinic or had her INR checked since 09/2024. Her Coumadin was resumed but given how recent her clot was, bridging with therapeutic Lovenox was also started. Patient prefers to have blood work done at [place] lab with results sent to Dr. Alamo to manage her Coumadin rather than going all the way to [place] for the Coumadin clinic. -continue Coumadin 10 mg daily and continue bridging Lovenox at therapeutic doses of 150 mg SQ twice daily-5-day supply given on discharge -follow INR on Friday 03/09 and stop Lovenox when INR at 2.0 - Needs close follow-up with PCP #Morbid obesity BMI 58.3 -needs weight loss-defer to PCP for management DVT Proph-SQ Lovenox bridging, Coumadin Dispo-stable for discharge to home Notes For Next Care Provider Needs close follow-up with PT/INR on Friday 03/09 with further adjustment of Coumadin and discontinue Lovenox if INR therapeutic Medication Changes From Visit Added Coumadin, Lovenox, prednisone, albuterol inhaler, and nicotine patch Admission HPI Per Admitting Provider patient is a very pleasant 54-year-old female who presents after a few days of worsening respiratory symptoms. She notes about 3 days ago she started with upper respiratory symptoms, but over the last day or day and a half it started to settle into her chest. She started having chest congestion and a worse cough, and then had more and more dyspnea. Now she has very severe dyspnea on exertion. She came to the ER for further evaluation. Here she has reassuring labs as far as infection/inflammation, and a clear chest CT (although on my review her lungs do look very small) but she has significant wheezing and far too significant dyspnea on exertion to be able to be safe at home. Discharge Exam Constitutional + morbidly obese; no acute distress Respiratory normal respiratory effort, lungs clear to auscultation Cardiovascular RRR, no murmur, no edema Psychiatric Orientation: alert, oriented x 3 and cooperative Discharge Plan Discharge Items Patient Disposition: Home - Self-Care Reason For Visit: BRONCHITIS, DYSPNEA Discharge Diagnosis: Rhino/enterovirus with acute bronchitis Uncontrolled diabetes mellitus type 2 Chronic DVT on anticoagulation Current smoker Condition on Discharge: Good Activity: As commented below Lifting: Gradually increase as tolerated Bathing: No limitations Exercise/Sports: Gradually increase as tolerated Non-emergency contact: Primary Care Provider Call non-emergency contact if: you have any medication questions and your symptoms worsen Follow-up/Referrals: Wolfgang Alamo, DO [Primary Care Provider] - (Follow-up within 1-2 weeks) Diet: Carb Consistent or DM2 Ambulatory Orders: Prothrombin Time INR (Routine) Timeframe: 3 Days Location: Determined by Patient Ordered By: Jessica Mancera Attending Provider Instructions: Please finish out 3 more days of prednisone for your bronchitis. It is very important that you continue to not smoke cigarettes and you can use nicotine pat ches to help you do this. You were restarted on Coumadin with Lovenox to keep your blood thinner and until your Coumadin gets back to the right level. Please have your Coumadin level checked on Friday 03/09 at the lab in [place] as we discussed. As per your preference, your primary care doctor can manage your dosing of Coumadin in the future. It is very important that you remain on blood thinners as you have a history of blood clots which can be deadly. Please continue taking Coumadin [address] Alamo directs you otherwise. Please continue taking the Lovenox shots 150 mg twice a day until you have your INR checked on Sunday. You will likely be able to stop the Lovenox injection after that. Because your diabetes is very uncontrolled, you will be started on a once daily long-acting insulin called Lantus (insulin glargine). Please continue to check your blood sugars at least twice a day and keep track of them for your primary care doctor in follow-up. If your blood sugar is over 300, call your PCP's office and see about changing the dose of your insulin. Pending Studies at Discharge: No Stand-Alone Forms: My [facility] zappit, Work/School Release, Smoking Cessation Medications and DC Order Prescriptions: New enoxaparin [Lovenox] 150 mg/mL Syringe 150 mg subcut Q12H Qty: 10 0RF nicotine 7 mg/24 hr Patch 24 Hour 1 patch transdermal QAM Qty: 15 0RF insulin glargine 100 unit/mL (3 mL) insulin pen 10 unit subcut HS Qty: 15 0RF (DME) pen needle, diabetic [Pen Needle] 32 gauge x 5/32" needle See Rx Instructions .Route Qty: 50 0RF Rx Instructions: As directed for insulin injection once daily prednisone 20 mg Tablet 40 mg PO QAM 3 Days Qty: 6 0RF albuterol sulfate 90 mcg/actuation HFA aerosol inhaler 2 inh inhalation Q4H PRN (Reason: shortness of breath or wheezing) Qty: 8.5 0RF insulin glargine 100 unit/mL (3 mL) insulin pen 10 unit subcut HS Qty: 15 0RF Continued nystatin 100,000 unit/gram powder 1 applic topical QID PRN (Reason: Rash) Qty: 15 1RF (DME) FreeStyle Jeannie 3 Sensor Device See Rx Instructions .Route Qty: 2 2RF Rx Instructions: As directed (DME) FreeStyle Jeannie 3 [place] Misc See Rx Instructions .Route Qty: 1 0RF Rx Instructions: As directed (DME) blood-glucose meter [True Metrix Glucose Meter] Misc See Rx Instructions .Route Qty: 1 0RF Rx Instructions: As directed (DME) True Metrix Glucose Test Strip Strip See Rx Instructions .Route Qty: 50 1RF Rx Instructions: As directed (DME) lancets [TRUEplus Lancets] 33 gauge misc See Rx Instructions .Route Qty: 100 1RF Rx Instructions: As directed Changed warfarin 5 mg tablet 10 mg PO DAILY Qty: 60 0RF metformin 500 mg tablet 1,000 mg PO BID Qty: 120 0RF Discontinued norethindrone acetate 5 mg tablet 5 mg PO DAILY Qty: 90 2RF Discharge Orders: Discharge Order (Routine); Ordered 03/06/25 Ordered By: Jessica Pedro Admission Data Admit Date/Time: 03/05/25 15:28 Attending Provider: Jessica Pedro Admit Provider: Jeff Greene Primary Care Provider: Wolfgang Alamo Other Providers: Jeff Greene Hospital Stay Data Consultations 03/03/25 16:58 ED Decision to Admit Stat Diagnostic Imagining Performed 03/03/25 13:50 CT angio chest PE protocol Stat Pending Results Patient Have Any Pending Studies at Discharge: No Discharge Instructions Given to Patient (Per Discharging Provider) Please finish out 3 more days of prednisone for your bronchitis. It is very important that you continue to not smoke cigarettes and you can use nicotine patches to help you do this. You were restarted on Coumadin with Lovenox to keep your blood thinner and until your Coumadin gets back to the right level. Please have your Coumadin level checked on Friday 03/09 at the lab in [place] as we discussed. As per your preference, your primary care doctor can manage your dosing of Coumadin in the future. It is very important that you remain on blood thinners as you have a history of blood clots which can be deadly. Please continue taking Coumadin [address] Alamo directs you otherwise. Please continue taking the Lovenox shots 150 mg twice a day until you have your INR checked on Sunday. You will likely be able to stop the Lovenox injection after that. Because your diabetes is very uncontrolled, you will be started on a once daily long-acting insulin called Lantus (insulin glargine). Please continue to check your blood sugars at least twice a day and keep track of them for your primary care doctor in follow-up. If your blood sugar is over 300, call your PCP's office and see about changing the dose of your insulin. 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
[2025-03-06 11:33] VITALS: PULSE 90; RESP 15; O2SAT 96
[2025-03-07] MEDS ORDERED: WARFARIN SOD 7.5 MG TAB PO SCH (16:00)
== END 2025-03-06 12:50 | disposition home or self-care (01) | DRG 202 ==
LOC: EDINP 12:34 → ED 12:34 → SUATTDRO 17:24 → 3W 19:40

== ENCOUNTER 2025-06-08 21:02 | Inpatient (IN) ==
[2025-06-08 21:55] LABS: Alanine Aminotransferase 17 U/L (7-52); Albumin Globulin Ratio 1.0 (0.9-2); Albumin Level 3.5 gm/dl (3.4-5.0); Alkaline Phosphatase 91 U/L (34-104); Anion Gap 9 (3-11); Bilirubin,Total 0.7 mg/dl (0.2-1.0); Blood Urea Nitrogen 26 mg/dl (6-23); Calcium 9.7 mg/dl (8.6-10.3); Carbon Dioxide 24 mmol/L (21-32); Chloride 102 mmol/L (98-107); Globulin 3.6 gm/dl (2.5-4.0); Glucose 307 mg/dl (70-99(Fasting)); Potassium 4.0 mmol/L (3.5-5.1); Sodium 135 mmol/L (136-145); Total Protein 7.1 gm/dl (6.0-8.3)
[2025-06-08] MEDS: METOCLOPRAMIDE HCL INJ 5 MG/ML 2 ML VIAL IV STA (21:55)
[2025-06-08] MEDS: SODIUM CHLORIDE 0.9% 500 ML IV ONE (21:55)
[2025-06-08] MEDS: ALBUT/IPRATROP 3MG/0.5MG NEB 3 ML VIAL NEB STA (21:55)
[2025-06-08] MEDS: diphenhydrAMINE 50 MG/ML VIAL IV STA (21:55)
[2025-06-08 21:56] LABS: Hematocrit (blood only) 44.3 % (37.0-47.0); Hemoglobin 15.5 g/dL (12.0-16.0); Immature Granulocytes # (auto) 0.08 K/uL (0.01-0.20); Immature Granulocytes % (auto) 0.7 %; Mean Corpuscular Hemoglobin 29.8 pg (25.0-34.0); Mean Corpuscular Volume 85.0 fL (80.0-100.0); Platelet Count 279 K/uL (130-400); RDW Standard Deviation 42.7 fL (36.4-46.3); Red Blood Count 5.21 M/uL (4.20-5.40); White Blood Count 12.23 K/ul (4.8-10.8)
[2025-06-08 22:04] LABS: INR 0.9 (0.9-1.1); Partial Thromboplastin Time 24 Seconds (21-31); Prothrombin Time 9.9 Seconds (9.0-12.0)
[2025-06-08 22:11] LABS: Pregnancy Test, Serum Negative (Negative)
[2025-06-08] MEDS: OPTIRAY 320 125ml IV ONE (22:32)
--- NOTE | 2025-06-08 22:41 | Emergency Department Note ---
History of Present Illness General Chief complaint: Leg Injury/Pain Stated complaint: RT LEG PAIN, DIFF WALKING, SOB, HX OF BLOOD CLOTS History of Present Illness Maximum Pain Intensity: 6 This 55-year-old female who is noncompliant with her Coumadin presents ER complaining of shortness of breath and right leg pain and swelling for the past few days. Patient states she forgot to take her Coumadin in the past several days. Patient also complains of a headache. Patient denies chest pain, abdominal pain, congestion. She continues to smoke. Home Medications Medication Instructions Recorded Confirmed Type nystatin 100,000 unit/gram topical 1 applic topical QID PRN Rash #15 11/07/23 05/15/25 Rx powder grams blood-glucose sensor (FreeStyle #2 ea 03/03/24 03/31/25 Rx Jeannie 3 Sensor device) blood-glucose,template maker,cont #1 ea 03/04/24 03/31/25 Rx (FreeStyle Jeannie 3 Belsano) blood sugar diagnostic (True #50 ea 02/06/25 03/31/25 Rx Metrix Glucose Test Strip) blood-glucose meter (True Metrix #1 ea 02/06/25 03/31/25 Rx Glucose Meter) lancets 33 gauge (TRUEplus Lancets) #100 ea 02/06/25 03/31/25 Rx albuterol sulfate 90 mcg/actuation 2 inh inhalation Q4H PRN shortness 03/06/25 06/09/25 Rx aerosol inhaler of breath or wheezing #8.5 grams insulin glargine 100 unit/mL (3 10 unit (0.1 mL) subcut HS #15 mL 03/06/25 06/09/25 Rx mL) subcutaneous pen metformin 500 mg tablet 1,000 mg (2 x 500 mg) PO BID #120 03/06/25 06/09/25 Rx tabs pen needle, diabetic 32 gauge x #50 ea 03/06/25 03/31/25 Rx 5/32" (Pen Needle) oxybutynin chloride 5 mg 5 mg PO DAILY #30 tabs 03/31/25 06/09/25 Rx tablet,extended release 24 hr warfarin 5 mg tablet 10 mg PO DAILY #180 tabs 03/31/25 06/09/25 Rx hospital bed #1 ea 04/13/25 04/13/25 Rx methocarbamol 500 mg tablet 500 mg PO TID #90 tabs 05/04/25 05/15/25 Rx nicotine 14 mg/24 hr daily 1 patch transdermal QAM #28 ea 05/04/25 06/09/25 Rx transdermal patch ondansetron 4 mg disintegrating 4 mg PO Q8H PRN nausea and 05/15/25 06/09/25 Rx tablet vomiting #30 tabs semaglutide 0.25 mg or 0.5 mg (2 0.25 mg subcut WK 05/15/25 06/09/25 History mg/3 mL) subcutaneous pen injector (Ozempic) Allergies Allergy/AdvReac Type Severity Reaction Status Date / Time amoxicillin AdvReac Intermediate CAUSE A Verified 05/15/25 18:11 YEAST INFECTION Past Med/Surg History Problem List (Updated 06/09/25 @ 16:34 by Anneliese Hess PA-C) Protein S deficiency Protein C deficiency Acute deep vein thrombosis (DVT) of popliteal vein of left lower extremity (Acute) Hyponatremia Noncompliance with medication regimen (Acute) Pulmonary embolism (Acute) Urinary incontinence History of pulmonary embolus (PE) (Chronic) Acute bronchitis due to Rhinovirus Subtherapeutic anticoagulation (Acute) Hyperglycemia (Acute) Tachypnea (Acute) Wheezing (Acute) SOB (shortness of breath) (Acute) Heat rash (Acute) Adjustment disorder (Acute) Severe obesity (BMI >= 40) (Chronic) Type 2 diabetes mellitus with hyperglycemia (Chronic) Hyperlipidemia (Chronic) Major depressive disorder with current active episode (Acute) Housing insecurity (Acute) Palpitations (Chronic) MCC current use of anticoagulant (Chronic) Osteoarthritis of lumbar spine (Chronic) Medical History Suicidal ideation Subtherapeutic international normalized ratio (INR) Cholelithiasis Tobacco use disorder Bilateral pulmonary embolism Surgical History History of mandibular surgery History of tubal ligation Family History Mother Diabetes Heart disease Hypertension Grandmother (Maternal) Diabetes Grandmother (Paternal) Diabetes Brother Diabetes Heart disease Myocardial infarction Abdominal aneurysm Aneurysm artery, neck Hypertension Stroke Sister , Age 56 Diabetes Heart disease Hypertension Father Heart disease Myocardial infarction Hypertension Stroke Aunt Cancer Uncle Cancer Denies family history of Ovarian cancer Prostate cancer Breast cancer Colorectal cancer Social History Smoking Status: Current every day smoker Tobacco Type: Cigarettes Age Started Using Tobacco: 18; packs per day: 1; Cigarettes Per Day: 0.5-0.75 packs; Second Hand Exposure: No; Do You Dip or Chew Tobacco: No; Tobacco Cessation Education Requested by Patient: No Hx Alcohol Use: No Hx Substance Use: No Preferred Language: Estonian Communication Ability: Effective Visual Impairment: Limited Hearing Ability: Normal Air Moving Technician Required: No Beliefs That Will Affect Care: None marital status: Single Current Living Situation: Family Current Living Situation Comment: House current occupational status: employed current occupation: [employer] How many Children do You have: 3 How many Children do You have Comment: 2 boys, 1 girl all Grown Other Information That Helps Us Care for You: No Feels Safe at Home: Yes Safety Concerns: Feels Safe At This Time Childhood Exposure to Second-Hand Smoke: Yes caffeine: Yes Dental Care, Regularly: No Physical Activity Frequency: Does not Exercise Seatbelt Use: never Sunscreen Use: No Do you think of yourself as: straight/heterosexual Assistive Devices: Glasses and Walker Review of Systems A total of 10 systems reviewed and were otherwise negative Physical Exam Vital Signs Vital Signs - 24 hr 06/08/25 21:03 06/08/25 21:54 06/08/25 22:14 Temperature 36.8 C Temperature Source Temporal Artery Scan Pulse Rate 104 H 85 Pulse Rate [Apical] 91 H Pulse Rhythm [Apical] Pulse Strength [Apical] Respiratory Rate 18 22 Respiratory Effort / Characteristics Non-Labored Spontaneous Non-Labored Spontaneous Respiratory Depth Normal Respiratory Pattern Regular Regular Blood Pressure 151/98 H Blood Pressure [Right Radial Artery] 156/99 H Blood Pressure Mean 115 Blood Pressure Mean [Right Radial Artery] 118 Blood Pressure Position [Right Radial Artery] Pulse Oximetry 95 97 Oxygen Delivery Method Room Air Room Air Sepsis Recent Fever Within 48 Hours Yes Sepsis New/Unexplained Change in Mental Status N/A Sepsis Action Taken by Nursing No Action Required 06/08/25 22:14 06/08/25 22:14 06/09/25 00:37 Temperature 36.6 C Temperature Source Oral Pulse Rate Pulse Rate [Apical] 80 Pulse Rhythm [Apical] Regular Pulse Strength [Apical] Normal Respiratory Rate 22 Respiratory Effort / Characteristics Non-Labored Spontaneous Respiratory Depth Normal Respiratory Pattern Regular Blood Pressure Blood Pressure [Right Radial Artery] 152/102 H Blood Pressure Mean Blood Pressure Mean [Right Radial Artery] 118 Blood Pressure Position [Right Radial Artery] Lying Pulse Oximetry Oxygen Delivery Method Room Air Room Air Sepsis Recent Fever Within 48 Hours Sepsis New/Unexplained Change in Mental Status Sepsis Action Taken by Nursing VITALS: Vitals are noted on the nurse's note and reviewed by myself. Vital signs stable. GENERAL: Pleasant female speaking in full sentences, in no acute distress, nondiaphoretic, well-developed well-nourished. SKIN: Capillary reflex less than 2 seconds. HEENT: Normocephalic. PERRLA. EOMI. Nares patent. Mucous membranes moist. Neck is supple without nuchal rigidity. HEART: Regular rate and rhythm LUNGS: Clear to auscultation bilaterally without wheezes, rales or rhonchi. No retractions or accessory muscle use. ABDOMEN: Positive bowel sounds x 4. Normal tympanic percussion. Soft, nontender, without masses or organomegaly. Crain sign negative. No guarding or rebound tenderness. no CVA tenderness MUSCULOSKELETAL: No gross musculoskeletal defects. Bilateral calf tenderness. NEURO: Patient was alert and oriented to person place and time. No focal neurological deficits. Course Administered Medications Heparin Sodium/Dextrose (Heparin 27831 Unit/500 Ml D5w) 25,000 units in 500 mls @ 35 mls/hr IV .[id number] [facility]; Protocol Stop: 07/08/25 23:29 Last Titration: 06/09/25 19:01 Dose: 1,750 units/hr, 35 mls/hr Documented By: CHARLEE Co-signed By: maci Admin: 06/09/25 15:59 Dose: 1,750 units/hr, 35 mls/hr Documented By: maci Co-signed By: BARON Titration: 06/09/25 15:02 Dose: Infused Documented By: maci Co-signed By: BARON Titration: 06/09/25 07:13 Dose: 1,750 units/hr, 35 mls/hr Documented By: BARON Co-signed By: IMAN Admin: 06/09/25 00:44 Dose: 1,750 units/hr, 35 mls/hr Documented By: MARY Co-signed By: WALKER Insulin Aspart (Insulin Aspart Per Unit Charge) 0 units SC ACHS [facility] Stop: 07/09/25 01:59 Last Admin: 06/09/25 20:46 Dose: 1 units Documented By: CHARLEE Co-signed By: JUAN CARLOS Admin: 06/09/25 18:23 Dose: 5 units Documented By: maci Co-signed By: BARON Admin: 06/09/25 13:54 Dose: 7 units Documented By: BARON Co-signed By: JOSE Admin: 06/09/25 08:52 Dose: 12 units Documented By: maci Co-signed By: BARON Admin: 06/09/25 02:29 Dose: 14 units Documented By: IMAN Co-signed By: JUAN CARLOS Insulin Glargine (Lantus Per Unit Charge) 20 units SQ BID [facility] Stop: 07/09/25 08:59 Last Admin: 06/09/25 20:46 Dose: 20 units Documented By: CHARLEE Co-signed By: JUAN CARLOS Admin: 06/09/25 08:52 Dose: 20 units Documented By: maci Co-signed By: BARON Nicotine (Nicotine 14 Mg/24 Hr Patch) 1 patch TD QAM [facility] Stop: 07/09/25 08:59 Last Admin: 06/09/25 08:56 Dose: 1 patch Documented By: maci Oxybutynin Chloride (Oxybutynin Chloride Xl 5 Mg Tabcr) 5 mg PO DAILY [facility] Stop: 07/09/25 08:59 Last Admin: 06/09/25 08:57 Dose: 5 mg Documented By: maci Discontinued Medications Albuterol (Albut/Ipratrop 3mg/0.5mg Neb 3 Ml Vial) 3 ml NEB NOW STA; Protocol Stop: 06/08/25 21:42 Last Admin: 06/08/25 21:55 Dose: 3 ml Documented By: elvia Diphenhydramine HCl (Diphenhydramine 50 Mg/Ml Vial) 25 mg IV NOW STA Stop: 06/08/25 21:42 Last Admin: 06/08/25 21:55 Dose: 25 mg Documented By: elvia Heparin Sodium (Porcine) (Heparin Sod (Porcine) 1000 Unit/Ml) 1 units IV NOW ONE Stop: 06/08/25 23:17 Last Admin: 06/09/25 00:41 Dose: 8,000 units Documented By: MARY Co-signed By: WALKER Heparin Sodium/Dextrose (Heparin Iv Adult Wt-Based Standard W/ Initial Bolus Protocol) 1 each IV NOW STA; Protocol Stop: 06/08/25 23:02 Last Admin: 06/09/25 01:38 Dose: Not Given Documented By: IMAN Sodium Chloride (Nss) 500 mls @ 999 mls/hr IV .Q31M ONE Stop: 06/08/25 22:11 Last Infusion: 06/08/25 22:25 Dose: Infused Documented By: elvia Admin: 06/08/25 21:55 Dose: 999 mls/hr Documented By: elvia Sodium Chloride (Nss) 1,000 mls @ 999 mls/hr IV .Q1H1M ONE Stop: 06/08/25 23:37 Last Infusion: 06/09/25 00:40 Dose: Infused Documented By: Admin: 06/08/25 22:50 Dose: 999 mls/hr Documented By: elvia Ioversol (Optiray 320 125ml) 118 ml IV ONCE ONE Stop: 06/08/25 22:32 Last Admin: 06/08/25 22:32 Dose: 118 ml Documented By: TERRI Metoclopramide HCl (Metoclopramide Hcl Inj 5 Mg/Ml 2 Ml Vial) 10 mg IV NOW STA Stop: 06/08/25 21:42 Last Admin: 06/08/25 21:55 Dose: 10 mg Documented By: elvia Miscellaneous (Remove Nicoderm Patch) 1 each N/A DAILY@0859 [facility] Stop: 06/09/25 09:00 Last Admin: 06/09/25 08:55 Dose: 1 each Documented By: maci Nicotine (Nicotine 14 Mg/24 Hr Patch) 1 patch TD NOW STA Stop: 06/08/25 23:59 Last Admin: 06/09/25 00:09 Dose: 1 patch Documented By: MARY Warfarin Sodium (Warfarin Sod 7.5 Mg Tab) 15 mg PO NOW ONE Stop: 06/09/25 13:57 Last Admin: 06/09/25 16:05 Dose: 15 mg Documented By: maci Critical Care Time Critical Care Time: Yes Total Critical Care Time: 35 I have personally spent 35 minutes of critical care time in the direct management of this patient. This includes bedside care, interpretation of diagnostic studies, and testing, discussion with consultants, patient, and family members, and other required patient management activities. This 35 minutes is in excess of all separately billable procedures. Medical Decision Making Medical Records Attestation: I reviewed the patient's medical records. Home Medications Current Medication List: was personally reviewed by me Laboratory Data Attestation: I reviewed the patient's lab results. 06/09/25 06:34 06/08/25 21:18 Lab Results 06/08/25 06/08/25 Range/Units 21:18 22:04 WBC 12.23 H (4.8-10.8) K/ul RBC 5.21 (4.20-5.40) M/uL Hgb 15.5 (12.0-16.0) g/dL Hct 44.3 (37.0-47.0) % MCV 85.0 (80.0-100.0) fL MCH 29.8 (25.0-34.0) pg MCHC 35.0 (32.0-36.0) g/dL RDW Std Deviation 42.7 (36.4-46.3) fL RDW Coeff of Ana 13.8 (11.5-14.5) % Plt Count 279 (130-400) K/uL MPV 10.1 (9.4-12.4) fL Immature Gran % (Auto) 0.7 % Neut % (Auto) 61.4 % Lymph % (Auto) 28.5 % Thayer % (Auto) 5.6 % Eos % (Auto) 3.4 % Baso % (Auto) 0.4 % Neut # (Auto) 7.51 H (1.40-6.50) K/uL Lymph # (Auto) 3.49 H (1.20-3.40) K/uL Thayer # (Auto) 0.68 H (0.11-0.59) K/uL Eos # (Auto) 0.42 (0.00-0.50) K/uL Baso # (Auto) 0.05 (0.00-0.20) K/uL Immature Gran # (Auto) 0.08 (0.01-0.20) K/uL PT 9.9 (9.0-12.0) Seconds INR 0.9 (0.9-1.1) APTT 24 (21-31) Seconds PTT Ratio 0.9 Sodium 135 L (136-145) mmol/L Potassium 4.0 (3.5-5.1) mmol/L Chloride 102 (98-107) mmol/L Carbon Dioxide 24 (21-32) mmol/L Anion Gap 9 (3-11) BUN 26 H (6-23) mg/dl Creatinine 0.92 (0.6-1.2) mg/dl Est Cr Clr Drug Dosing Not Reportable eGFR 73.53 BUN/Creatinine Ratio 28.3 H (10-20) Glucose 307 H* (70-99(Fasting)) mg/dl Calcium 9.7 (8.6-10.3) mg/dl Total Bilirubin 0.7 (0.2-1.0) mg/dl AST 13 (13-39) U/L ALT 17 (7-52) U/L Alkaline Phosphatase 91 (34-104) U/L Troponin I High Sens 9.2 (0-14) pg/ml B-Natriuretic Peptide 18 (0-100) pg/ml Total Protein 7.1 (6.0-8.3) gm/dl Albumin 3.5 (3.4-5.0) gm/dl Globulin 3.6 (2.5-4.0) gm/dl Albumin/Globulin Ratio 1.0 (0.9-2) HCG, Qual Negative (Negative) SARS-CoV-2 (PCR) NEGATIVE (Negative) Influenza Type A (PCR) Negative (Neg) Influenza Type B (PCR) Negative (Neg) RSV (RT-PCR) Negative (Neg) Imaging Data Attestation: I personally reviewed and interpreted this imaging study as follows: Radiologist's Impression: Chest X-Ray 06/08/25 21:21 Exam(s): XR CXR 1 VIEW EXAM: XR Chest, 1 View CLINICAL HISTORY: Chest pain, nonspecific. TECHNIQUE: Frontal view of the chest. COMPARISON: XR Chest dated 05/15/2025 FINDINGS: Lungs: No significant abnormality. No consolidation. The pulmonary vasculature demonstrates no significant radiographic abnormality. Pleural space: No significant abnormality. No pneumothorax. No large pleural effusion. Heart: The cardiac silhouette is within normal limits, accounting for portable technique. Mediastinum: The mediastinal contours are stable, accounting for lordotic technique. No tracheal deviation. Bones/joints: No significant abnormality. No acute fracture. IMPRESSION: No acute cardiopulmonary process or significant alteration from the prior examination. Electronically signed by: Ranjan Snell MD 06/08/25 22:52 PM Chest CTA 06/08/25 21:41 CR Exam(s): CTA CHEST IV Amt: 118 cc opti 320 EXAM: CT Angiography Chest With Intravenous Contrast CLINICAL HISTORY: PE. TECHNIQUE: Axial computed tomographic angiography images of the chest with intravenous contrast. CTDI is 28.14 mGy and DLP is 904.64 mGy-cm. Automated exposure control was utilized for the study. A dose lowering technique was utilized adhering to the principles of ALARA. MIP reconstructed images were created and reviewed. COMPARISON: CTA chest 01/31/2025 FINDINGS: Artifacts: Scatter artifact likely related to patient's body habitus. Limitations: There is diffuse respiratory artifact, which degrades image quality throughout the examination. Pulmonary arteries: No significant abnormality. No pulmonary embolism. Aorta: No acute findings. No thoracic aortic aneurysm. Lungs: There are abnormal partial filling defects noted in the subsegmental branches of both posterior basal segments of the lower lobes, [id number] (series 4; image 90). Unfortunately, the majority of the distal subsegmental branches are of limited to nondiagnostic quality secondary to artifact. No focal airspace consolidation. Minimal dependent atelectatic changes. Pleural space: No significant abnormality. No significant effusion. No pneumothorax. Heart: The cardiac chambers are normal in size. No evidence for right heart strain with the RV/LV ratio less than 1. Bones/joints: No acute fracture. No dislocation. Soft tissues: No significant abnormality. Lymph nodes: No significant abnormality. No enlarged lymph nodes. IMPRESSION: 1. There are abnormal partial filling defects noted in the subsegmental branches of both posterior basal segments of the lower lobes, right- [id number] (series 4; image 90). The incompletely occlusive appearance raises the suspicion for a subacute process with minimal reconstitution. However, these filling defects are new from the previous examination. Unfortunately, the majority of the distal subsegmental branches are of limited to nondiagnostic quality secondary to artifact. No CT evidence for right heart strain. 2. No focal airspace consolidation. Minimal dependent atelectatic changes. No pleural effusion or pneumothorax. Communications: Call Doctor Pulmonary Embolism Electronically signed by: Ranjan Snell MD 06/08/25 22:56 PM MDM Narrative Prior records/ancillary studies reviewed. Triage Nursing notes reviewed. Additional history obtained from the nursing. The patient's history was concerning for respiratory difficulties. Differential diagnosis: Etiologies such as infections, reactive airway disease, pneumonia, pneumothorax, COPD, CHF, cardiac ischemia, pulmonary embolism, musculoskeletal, gastrointestinal, as well as others were entertained. Physical examination: As above. ER treatment provided: An order was placed for continuous cardiac monitoring. The monitor shows a rate of 60-100 with a sinus rhythm per my interpretation. IV fluids, DuoNeb, Reglan and Benadryl ordered Heparin with bolus was ordered for PE On reassessment the patient felt better. Diagnostic interpretation by me: The electrocardiogram was ordered for SOB. ECG: Normal sinus, normal intervals, no acute ST-T wave changes, rate 89. Impression normal sinus rhythm independently interpreted by myself The labs Independently Interpreted by myself revealed hyperglycemia without DKA. Subtherapeutic INR Negative troponin Imaging studies: Imaging was reviewed and read by radiology HEART SCORE: Hx: high/mod/low suspicion: 0 ECG: ST depression/nonspecific changes/normal: 0 Age: Greater than 65/45-64/less than 45: 1 Risk factors: (Hypertension, hyperlipidemia, diabetes, coronary disease, tobacco use, cocaine use): 2 Troponin: Greater than 2 times normal limits/1-2 times normal limits/normal: 0 Total: 3 Consultation: A consultation was placed with the hospitalist. The case was discussed and diagnostics were reviewed. The patient was evaluated in the ER for further treatment. This appears to be consistent with pulmonary embolism with left lower leg DVT that is acute and chronic right lower leg DVT. Patient's been noncompliant with her Coumadin. Last CAT scan did not show a PE. She was started heparin with bolus. No right heart strain. She was not tachycardic. She was not hypoxic. Medicine was consulted case discussed. She will be admitted to the medical service. Patient is agreeable. By the evaluation outlined above emergent etiologies such as CHF, cardiac ischemia, reactive airway disease, pneumonia, pneumothorax, musculoskeletal, serious bacterial infections, as well as others were deemed relatively unlikely. The pt informed about the findings as listed above. All questions were answered and pleased with the treatment. The chart was completed utilizing [employer] voice recognition software. Grammatical errors, random word insertions, pronoun errors, and incomplete sentences are an occassional consequence of this system due to software limitations, ambient noise, and hardware issues. Any formal questions or concerns about the content, text, or information contained within the body of this dictation should be directly addressed to the physician assistant press operator offset for clarification. Impression & Plan Pulmonary embolism, Noncompliance with medication regimen, Acute deep vein thrombosis (DVT) of popliteal vein of left lower extremity Discharge Plan Visit Data Chief Complaint: Leg Injury/Pain Stated Complaint: RT LEG PAIN, DIFF WALKING, SOB, HX OF BLOOD CLOTS ED Provider: Wei Mcdonnell ED Midlevel Provider: Sravani Sepulveda Discharge Problem: Pulmonary embolism, Noncompliance with medication regimen, Acute deep vein thrombosis (DVT) of popliteal vein of left lower extremity Patient Disposition: Admitted As Inpatient Condition: Good Discharge Instructions Interventions: ED Discharge Assessment Last Done: 06/09/25 01:15 Addendum June 10, 2025 00:55 I was consulted by the Advanced Practice Provider and was substantively involved in the patient's visit.This includes aspects of the HPI, MDM, diagnostic interpretations, and disposition/plan. I discussed the case with the DIANE and agree with the findings and plan as documented in DIANE Sepulveda's note. Discharge Problem: Pulmonary embolism Qualifiers: Pulmonary embolism type: unspecified Chronicity: acute Acute cor pulmonale presence: without acute cor pulmonale Qualified Code(s): I26.99 - Other pulmonary embolism without acute cor pulmonale
[2025-06-08] MEDS: SODIUM CHLORIDE 0.9% 1,000 ML IV ONE (22:50)
--- NOTE | 2025-06-08 22:52 | XRay Report ---
Exam(s): XR CXR 1 VIEW EXAM: XR Chest, 1 View CLINICAL HISTORY: Chest pain, nonspecific. TECHNIQUE: Frontal view of the chest. COMPARISON: XR Chest dated 05/15/2025 FINDINGS: Lungs: No significant abnormality. No consolidation. The pulmonary vasculature demonstrates no significant radiographic abnormality. Pleural space: No significant abnormality. No pneumothorax. No large pleural effusion. Heart: The cardiac silhouette is within normal limits, accounting for portable technique. Mediastinum: The mediastinal contours are stable, accounting for lordotic technique. No tracheal deviation. Bones/joints: No significant abnormality. No acute fracture. IMPRESSION: No acute cardiopulmonary process or significant alteration from the prior examination. Electronically signed by: Ranjan Snell MD 06/08/25 22:52 PM
--- NOTE | 2025-06-08 22:57 | CT Scan Report ---
Exam(s): CTA CHEST IV Amt: 118 cc opti 320 EXAM: CT Angiography Chest With Intravenous Contrast CLINICAL HISTORY: PE. TECHNIQUE: Axial computed tomographic angiography images of the chest with intravenous contrast. CTDI is 28.14 mGy and DLP is 904.64 mGy-cm. Automated exposure control was utilized for the study. A dose lowering technique was utilized adhering to the principles of ALARA. MIP reconstructed images were created and reviewed. COMPARISON: CTA chest 01/31/2025 FINDINGS: Artifacts: Scatter artifact likely related to patient's body habitus. Limitations: There is diffuse respiratory artifact, which degrades image quality throughout the examination. Pulmonary arteries: No significant abnormality. No pulmonary embolism. Aorta: No acute findings. No thoracic aortic aneurysm. Lungs: There are abnormal partial filling defects noted in the subsegmental branches of both posterior basal segments of the lower lobes, [id number] (series 4; image 90). Unfortunately, the majority of the distal subsegmental branches are of limited to nondiagnostic quality secondary to artifact. No focal airspace consolidation. Minimal dependent atelectatic changes. Pleural space: No significant abnormality. No significant effusion. No pneumothorax. Heart: The cardiac chambers are normal in size. No evidence for right heart strain with the RV/LV ratio less than 1. Bones/joints: No acute fracture. No dislocation. Soft tissues: No significant abnormality. Lymph nodes: No significant abnormality. No enlarged lymph nodes. IMPRESSION: 1. There are abnormal partial filling defects noted in the subsegmental branches of both posterior basal segments of the lower lobes, right- [id number] (series 4; image 90). The incompletely occlusive appearance raises the suspicion for a subacute process with minimal reconstitution. However, these filling defects are new from the previous examination. Unfortunately, the majority of the distal subsegmental branches are of limited to nondiagnostic quality secondary to artifact. No CT evidence for right heart strain. 2. No focal airspace consolidation. Minimal dependent atelectatic changes. No pleural effusion or pneumothorax. Communications: Call Doctor Pulmonary Embolism Electronically signed by: Ranjan Snell MD 06/08/25 22:56 PM
[2025-06-08 23:03] LABS: Influenza A virus by PCR Negative (Neg); Influenza B virus by PCR Negative (Neg); SARS CoV2 RNA(COVID-19) Ceph NEGATIVE (Negative)
--- NOTE | 2025-06-08 23:16 | History & Physical Report ---
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 Her evaluation is significant for mild leukocytosis 12.23, INR 0.9, slight hyponatremia at 135 in setting of hyperglycemia (307), and imaging suggestive of bilateral basilar PEs. Admission for heparin in setting of acute PE. #PE R sided calf pain, starting day of arrival with associated SOB upon standing. No syncope or palpitations. Prior history PE, also known history protein C/S deficiency. On warfarin chronically, last dose 06/05/2025. - Trop 9.2; EKG pending - INR 0.9 - subtherapeutic - trend once back on Warfarin -- encourage consistent use - CTA chest PE subsegmental branches both posterior basal segments lower lobes (R > L), no CT evidence of R heart strain - Heparin drip initiated - continue #Hyponatremia In setting of elevated glucose, received 1.5L NSS in ED. - Na 135, glucose 307; Corrected 140 - Trend as appropriate #T2DM H/o DMT2; at home regimen includes glargine 10U at night, metformin, Ozempic weekly. Concern for some medication noncompliance. - Glucose on arrival 307; most recent A1C 01/2025 @ 12.4% - Hold home regimen - SSI with target BSG range 140-180mg/dL, CF 20, carb ratio 6 - Lantus 20U BID - BSG ACHS - Adjust regimen as needed #Urinary incontinence- Oxybutynin - continue #Nicotine dependence- Nicotine patches - continue Dispo: Obs, med/tele VTE Prophylaxis: Heparin drip initiated - Continue This document was dictated utilizing Exo. Please excuse any grammatical errors that may be secondary to use of this software. 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 Reports that the day of arrival she was she was standing washing dishes when she had a right sided flank pain start, and was feeling that her knee was going to buckle and felt weak. She states that shortly after that she started to feel short of breath. She did not have any palpitations or lightheadedness. She states that the shortness of breath is even with resting. Also reports that she has had headaches that occur for 2 to 3 days at a time, overall normally resolved by Excedrin. Headache was located around her eyes and behind her eyes mainly on the right side. Patient states she has a history of migraines, "kind of have migraines." She does not take medications for such. Also with chronic back pain. Denies chest pain, palpitations, abdominal pain, N/V/D/C, numbness/tingling, fever/chills, URI symptoms, LUTS, syncope, or falls. Her last dose of warfarin was on 06/05/2025 after she was with her son and forgot her medications. She has a history of noncompliance with medications. ED evaluation for CBC with leukocytosis 12.23; CMP sodium 135, BUN 26, ratio 28.3, glucose 307; troponin 9.2; BNP 18; COVID/flu/RSV negative; CXR no acute findings; chest CTA abnormal partial filling defect subsegmental branches of both posterior basal segments of the lower lobes right > left, no evidence of R heart strain.; 0.5 mL NSS, metoclopramide 10 mg IV, heparin drip, diphenhydramine 25 lotus IV, and albuterol nebulizer ED. Please see Dr. Powell attestation for adjustments/additions to treatment plan. Allergies Allergy/AdvReac Type Severity Reaction Status Date / Time amoxicillin AdvReac Intermediate CAUSE A Verified 05/15/25 18:11 YEAST INFECTION Home Medications Medication Instructions Recorded Confirmed Type nystatin 100,000 unit/gram topical 1 applic topical QID PRN Rash #15 11/07/23 05/15/25 Rx powder grams blood-glucose sensor (FreeStyle #2 ea 03/03/24 03/31/25 Rx Jeannie 3 Sensor device) blood-glucose,paperhanger,cont #1 ea 03/04/24 03/31/25 Rx (FreeStyle Jeannie 3 [place]) blood sugar diagnostic (True #50 ea 02/06/25 03/31/25 Rx Metrix Glucose Test Strip) blood-glucose meter (True Metrix #1 ea 02/06/25 03/31/25 Rx Glucose Meter) lancets 33 gauge (TRUEplus Lancets) #100 ea 02/06/25 03/31/25 Rx albuterol sulfate 90 mcg/actuation 2 inh inhalation Q4H PRN shortness 03/06/25 06/09/25 Rx aerosol inhaler of breath or wheezing #8.5 grams insulin glargine 100 unit/mL (3 10 unit (0.1 mL) subcut HS #15 mL 03/06/25 06/09/25 Rx mL) subcutaneous pen metformin 500 mg tablet 1,000 mg (2 x 500 mg) PO BID #120 03/06/25 06/09/25 Rx tabs pen needle, diabetic 32 gauge x #50 ea 03/06/25 03/31/25 Rx 5/32" (Pen Needle) oxybutynin chloride 5 mg 5 mg PO DAILY #30 tabs 03/31/25 06/09/25 Rx tablet,extended release 24 hr warfarin 5 mg tablet 10 mg PO DAILY #180 tabs 03/31/25 06/09/25 Rx hospital bed #1 ea 04/13/25 04/13/25 Rx methocarbamol 500 mg tablet 500 mg PO TID #90 tabs 05/04/25 05/15/25 Rx nicotine 14 mg/24 hr daily 1 patch transdermal QAM #28 ea 05/04/25 06/09/25 Rx transdermal patch ondansetron 4 mg disintegrating 4 mg PO Q8H PRN nausea and 05/15/25 06/09/25 Rx tablet vomiting #30 tabs semaglutide 0.25 mg or 0.5 mg (2 0.25 mg subcut WK 05/15/25 06/09/25 History mg/3 mL) subcutaneous pen injector (Ozempic) Past Med/Surg History Problem List (Updated 06/09/25 @ 00:36 by Fady Sepulveda PA-C) Hyponatremia Noncompliance with medication regimen (Acute) Pulmonary embolism (Acute) Urinary incontinence History of pulmonary embolus (PE) (Chronic) Acute bronchitis due to Rhinovirus Subtherapeutic anticoagulation (Acute) Hyperglycemia (Acute) Tachypnea (Acute) Wheezing (Acute) SOB (shortness of breath) (Acute) Heat rash (Acute) Adjustment disorder (Acute) Severe obesity (BMI >= 40) (Chronic) Type 2 diabetes mellitus with hyperglycemia (Chronic) Hyperlipidemia (Chronic) Major depressive disorder with current active episode (Acute) Housing insecurity (Acute) Palpitations (Chronic) snf current use of anticoagulant (Chronic) Osteoarthritis of lumbar spine (Chronic) Medical History Suicidal ideation Subtherapeutic international normalized ratio (INR) Cholelithiasis Tobacco use disorder Bilateral pulmonary embolism Surgical History History of mandibular surgery History of tubal ligation Family History Mother Diabetes Heart disease Hypertension Grandmother (Maternal) Diabetes Grandmother (Paternal) Diabetes Brother Diabetes Heart disease Myocardial infarction Abdominal aneurysm Aneurysm artery, neck Hypertension Stroke Sister , Age 56 Diabetes Heart disease Hypertension Father Heart disease Myocardial infarction Hypertension Stroke Aunt Cancer Uncle Cancer Denies family history of Ovarian cancer Prostate cancer Breast cancer Colorectal cancer Social History Smoking Status: Current every day smoker Tobacco Type: Cigarettes Age Started Using Tobacco: 18; packs per day: 1; Cigarettes Per Day: 0.5-0.75 packs; Second Hand Exposure: No; Do You Dip or Chew Tobacco: No; Hx Alcohol Use: Yes Alcohol type: wine Alcohol Intake Frequency: Monthly or Less Hx Substance Use: No Preferred Language: Bengali Communication Ability: Effective Visual Impairment: Limited Hearing Ability: Normal 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 Nonselling Required: No Beliefs That Will Affect Care: None marital status: Single Current Living Situation: Family Current Living Situation Comment: House current occupational status: employed current occupation: [employer] How many Children do You have: 3 How many Children do You have Comment: 2 boys, 1 girl all Grown Feels Safe at Home: Yes Childhood Exposure to Second-Hand Smoke: Yes caffeine: Yes Dental Care, Regularly: No Physical Activity Frequency: Does not Exercise Seatbelt Use: never Sunscreen Use: No Do you think of yourself as: straight/heterosexual Assistive Devices: None Review of Systems Review of Systems: All systems reviewed & are unremarkable except as noted in Subjective Physical Exam Physical Exam: General: No acute distress Skin: Warm and dry Head: Normocephalic, atraumatic Eyes: PERRL, conjunctivae clear, sclera non-icteric; wearing glasses, R eye deviates laterally ENT: External ear and ear canal without swelling; nose atraumatic; poor dentition, tongue normal appearance, pharynx normal Neck: Supple, no LAD Cardio: RRR, no M/G/R, S1 and S2 normal Resp: No respiratory distress, Lungs CTA in all lobes bilaterally, no wheezes, rales, or rhonchi Abdomen: Soft, symmetric, nontender; No masses or hepatosplenomegaly; Bowel sounds normoactive MSK: No deformities; pulses palpable and equal; 1+ pitting edema, R > L, tenderness palpation R calf. Neuro: Awake, alert; Sensation intact bilaterally; CN grossly intact Psych: Appropriate mood and affect; good judgement and insight. PA student present at time of visit. Results & Data Results & Data Vital Signs (Past 12 Hours) Vital Signs Temp Pulse Pulse Resp BP BP Pulse Ox 06/08/25 22:14 06/08/25 22:14 06/08/25 22:14 91 H 22 156/99 H 97 06/08/25 21:54 85 06/08/25 21:03 36.8 C 104 H 18 151/98 H 95 O2 Del Method 06/08/25 22:14 Room Air 06/08/25 22:14 Room Air 06/08/25 22:14 Room Air 06/08/25 21:54 06/08/25 21:03 Room Air Laboratory Results 06/08/25 06/08/25 22:04 21:18 WBC 12.23 H RBC 5.21 Hgb 15.5 Hct 44.3 MCV 85.0 MCH 29.8 MCHC 35.0 RDW Std Deviation 42.7 RDW Coeff of Ana 13.8 Plt Count 279 MPV 10.1 Immature Gran % (Auto) 0.7 Neut % (Auto) 61.4 Lymph % (Auto) 28.5 [place] % (Auto) 5.6 Eos % (Auto) 3.4 Baso % (Auto) 0.4 Neut # (Auto) 7.51 H Lymph # (Auto) 3.49 H [place] # (Auto) 0.68 H Eos # (Auto) 0.42 Baso # (Auto) 0.05 Immature Gran # (Auto) 0.08 PT 9.9 INR 0.9 APTT 24 PTT Ratio 0.9 Sodium 135 L Potassium 4.0 Chloride 102 Carbon Dioxide 24 Anion Gap 9 BUN 26 H Creatinine 0.92 Est Cr Clr Drug Dosing Not Reportable eGFR 73.53 BUN/Creatinine Ratio 28.3 H Glucose 307 H* Calcium 9.7 Total Bilirubin 0.7 AST 13 ALT 17 Alkaline Phosphatase 91 Troponin I High Sens 9.2 B-Natriuretic Peptide 18 Total Protein 7.1 Albumin 3.5 Globulin 3.6 Albumin/Globulin Ratio 1.0 HCG, Qual Negative SARS-CoV-2 (PCR) NEGATIVE Influenza Type A (PCR) Negative Influenza Type B (PCR) Negative RSV (RT-PCR) Negative Diagnostic Findings Chest X-Ray 06/08/25 21:21 Exam(s): XR CXR 1 VIEW EXAM: XR Chest, 1 View CLINICAL HISTORY: Chest pain, nonspecific. TECHNIQUE: Frontal view of the chest. COMPARISON: XR Chest dated 05/15/2025 FINDINGS: Lungs: No significant abnormality. No consolidation. The pulmonary vasculature demonstrates no significant radiographic abnormality. Pleural space: No significant abnormality. No pneumothorax. No large pleural effusion. Heart: The cardiac silhouette is within normal limits, accounting for portable technique. Mediastinum: The mediastinal contours are stable, accounting for lordotic technique. No tracheal deviation. Bones/joints: No significant abnormality. No acute fracture. IMPRESSION: No acute cardiopulmonary process or significant alteration from the prior examination. Electronically signed by: Ranjan Snell MD 06/08/25 22:52 PM Chest CTA 06/08/25 21:41 CR Exam(s): CTA CHEST IV Amt: 118 cc opti 320 EXAM: CT Angiography Chest With Intravenous Contrast CLINICAL HISTORY: PE. TECHNIQUE: Axial computed tomographic angiography images of the chest with intravenous contrast. CTDI is 28.14 mGy and DLP is 904.64 mGy-cm. Automated exposure control was utilized for the study. A dose lowering technique was utilized adhering to the principles of ALARA. MIP reconstructed images were created and reviewed. COMPARISON: CTA chest 01/31/2025 FINDINGS: Artifacts: Scatter artifact likely related to patient's body habitus. Limitations: There is diffuse respiratory artifact, which degrades image quality throughout the examination. Pulmonary arteries: No significant abnormality. No pulmonary embolism. Aorta: No acute findings. No thoracic aortic aneurysm. Lungs: There are abnormal partial filling defects noted in the subsegmental branches of both posterior basal segments of the lower lobes, [id number]-left (series 4; image 90). Unfortunately, the majority of the distal subsegmental branches are of limited to nondiagnostic quality secondary to artifact. No focal airspace consolidation. Minimal dependent atelectatic changes. Pleural space: No significant abnormality. No significant effusion. No pneumothorax. Heart: The cardiac chambers are normal in size. No evidence for right heart strain with the RV/LV ratio less than 1. Bones/joints: No acute fracture. No dislocation. Soft tissues: No significant abnormality. Lymph nodes: No significant abnormality. No enlarged lymph nodes. IMPRESSION: 1. There are abnormal partial filling defects noted in the subsegmental branches of both posterior basal segments of the lower lobes, right- [id number] (series 4; image 90). The incompletely occlusive appearance raises the suspicion for a subacute process with minimal reconstitution. However, these filling defects are new from the previous examination. Unfortunately, the majority of the distal subsegmental branches are of limited to nondiagnostic quality secondary to artifact. No CT evidence for right heart strain. 2. No focal airspace consolidation. Minimal dependent atelectatic changes. No pleural effusion or pneumothorax. Communications: Call Doctor Pulmonary Embolism Electronically signed by: Ranjan Snell MD 06/08/25 22:56 PM Medications Administered 1.5 mL NSS Metoclopramide 10 mg IV Heparin drip Diphenhydramine 25 mg IV Albuterol nebulizer Code Status & VTE Plan Code Status Full PG Care Time/CCT Total # of Minutes Spent Total Time Spent with Patient: Total time spent is greater than 50% in coordination of care (as documented) at patient's floor/unit and/or counseling patient: Coding Level of Care Code 32791 INT INP/OBS CARE 3/75MIN Diagnoses Pulmonary embolism I26.99 Acute cor pulmonale presence: unspecified Chronicity: acute Pulmonary embolism type: unspecified Hyponatremia E87.1 Type 2 diabetes mellitus with hyperglycemia, without long-term current use of insulin E11.65 Diabetes mellitus usp insulin use: without usp use (1) Pulmonary embolism Acute cor pulmonale presence: unspecified Chronicity: acute Pulmonary embolism type: unspecified Qualified Code(s): I26.99 - Other pulmonary embolism without acute cor pulmonale (3) Type 2 diabetes mellitus with hyperglycemia 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
[2025-06-09] MEDS: NICOTINE 14 MG/24 HR PATCH TD STA (00:09)
[2025-06-09] MEDS: HEPARIN SOD (PORCINE) 1000 UNIT/ML IV ONE (00:41)
[2025-06-09] MEDS: HEPARIN 25000 UNIT/500 ML D5W 25,000 UNITS/500 ML BAG IV SCH (00:44)
--- NOTE | 2025-06-09 00:50 | Ultrasound Report ---
EXAM: US venous doppler LE BI CLINICAL HISTORY: swelling, Questionable DVT. TECHNIQUE: Ultrasound examination of bilateral lower extremity veins was performed in real time and duplex. One or more of the following were performed: spectral analysis, resistive index, waveform analysis, and pulsed Doppler. COMPARISON: Compared to the previous study done on 02/03/2025. FINDINGS: The left proximal popliteal vein is dilated and non-compressible with no detectable flow on color doppler. The right mid femoral vein is non-compressible. Normal phasic, non-pulsatile, and spontaneous flow is noted in the rest of the venous systems on both sides. Additional Findings: No evidence of intraluminal thrombus. IMPRESSION: Left proximal popliteal vein acute DVT (newly developed). Right mid femoral vein non-compressible (stable), likely chronic DVT. Disclaimer: DVT could be missed early in the disease when clot burden is minimal. For patients with moderate and high pretest probability of DVT and negative ultrasound, the [employer] clinical guidelines recommend testing with a D-dimer assay or repeat ultrasound in 5-7 days. If symptoms worsen, the Society of radiologists in ultrasound recommends repeating ultrasound even earlier. Electronically signed by Babatunde Borrego 06-09-2025 12:50 AM
[2025-06-09] MEDS ORDERED: POLYETHYLENE (MIRALAX) 17 GM PACK PO PRN (01:36)
[2025-06-09] MEDS ORDERED: GLUCAGON FOR INJ 1 MG VIAL SQ PRN (01:36)
[2025-06-09] MEDS ORDERED: DEXTROSE 50% 50 ML SYRINGE IV PRN (01:36)
[2025-06-09] MEDS ORDERED: GLUCOSE 10 TAB/TUBE PO PRN (01:36)
[2025-06-09] MEDS ORDERED: GLUCOSE 40% GEL 15 GM TUBE PO PRN (01:36)
[2025-06-09] MEDS ORDERED: CARBOHYDRATES FOR HYPOGLYCEMIA PO PRN (01:36)
[2025-06-09] MEDS ORDERED: ONDANSETRON INJ 2 MG/ML 2 ML VIAL IV PRN (01:36)
[2025-06-09] MEDS ORDERED: MELATONIN 3 MG TAB PO PRN (01:36)
[2025-06-09] MEDS: Heparin IV Adult Wt-Based Standard w/ INITIAL Bolus Protocol IV STA (01:38)
[2025-06-09] MEDS: INSULIN ASPART PER UNIT CHARGE SC SCH (02:29)
[2025-06-09 07:02] LABS: Hematocrit (blood only) 40.6 % (37.0-47.0); Hemoglobin 13.6 g/dL (12.0-16.0); Immature Granulocytes # (auto) 0.06 K/uL (0.01-0.20); Immature Granulocytes % (auto) 0.6 %; Mean Corpuscular Hemoglobin 28.6 pg (25.0-34.0); Mean Corpuscular Volume 85.3 fL (80.0-100.0); Platelet Count 236 K/uL (130-400); RDW Standard Deviation 43.5 fL (36.4-46.3); Red Blood Count 4.76 M/uL (4.20-5.40); White Blood Count 10.85 K/ul (4.8-10.8)
[2025-06-09 07:25] LABS: ANTI-Xa, UFH(UnfractionatedHep 0.34 IU/ml (0.3-0.7)
[2025-06-09] MEDS: LANTUS PER UNIT CHARGE SQ SCH (08:52)
[2025-06-09] MEDS: REMOVE NICODERM PATCH SCH (08:55)
[2025-06-09] MEDS: NICOTINE 14 MG/24 HR PATCH TD SCH (08:56)
[2025-06-09] MEDS: OXYBUTYNIN CHLORIDE XL 5 MG TABCR PO SCH (08:57)
--- NOTE | 2025-06-09 15:56 | Hospitalist Progress Note ---
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 Imaging suggestive of acute bilateral basilar PEs and venous Doppler study noted left proximal popliteal vein acute DVT. Patient reports noncompliance with her warfarin. She was admitted for management of her acute PE. #Acute bilateral PE | Acute left proximal popliteal DVT | Protein C & S deficiency - R sided calf pain, starting day of arrival with associated SOB upon standing. No syncope or palpitations. Prior history PE, also known history protein C/S deficiency. On warfarin chronically, last dose 06/05/2025. - CTA chest PE subsegmental branches both posterior basal segments lower lobes (R > L), no CT evidence of R heart strain - INR 0.9 on arrival - subtherapeutic - Heparin drip initiated - continue until INR is 2.0 on 2 checks - Restarted warfarin at usual home schedule - encourage consistent use in outpatient setting - Trend PT/INR and heparin levels with a.m. labs #Pseudohyponatremia - in setting of elevated glucose, received 1.5L NSS in ED. - Glucose on arrival 307, corrected sodium 140 - Received 1.5 L NSS on admission #T2DM - H/o DMT2; at home regimen includes glargine 10U at night, metformin, Ozempic weekly. Concern for some medication noncompliance. - Glucose on arrival 307; most recent A1C 01/2025 @ 12.4% - will repeat with AM labs - Hold home regimen while inpatient - Lantus 20U BID and SSI with target BSG range 140-180mg/dL, CF 20, carb ratio 6 #Urinary incontinence- Oxybutynin - continue #Nicotine dependence- Nicotine patches - continue Dispo: Continued inpatient stay while bridging heparin and warfarin VTE Prophylaxis: Heparin drip, warfarin Resumed warfarin Admission and Anticipated Discharge Date Admission Date: June 08, 2025 Subjective Patient seen and evaluated at bedside. She reports feeling well overall at this time. She denies any pain in her lower extremities. Denies shortness of breath or difficulty breathing. Denies chest pain. She reports that she did not take her warfarin over the weekend as she was visiting her son and forgot to bring her medication with her. We discussed that she will stay on the heparin drip until her INR is within a therapeutic range. No acute complaints or concerns at this time. Telemetry reviewed: NSR with first-degree block, rate in [id number]. Physical Exam Physical Exam: General: No acute distress, nondiaphoretic, well-developed, well-nourished. Class III obesity. Skin: Warm, dry. No rashes or significant bruising noted. 1+ pitting edema noted bilaterally. Cardiac: Regular rate and rhythm without murmurs gallops or rubs. Pulm: Clear to auscultation bilaterally without wheezes, rales or rhonchi. Normal respiratory effort. 97% on room air. Abdominal: Soft, nontender, nondistended. Bowel sounds present. Neuro: A&O x3. No focal neurological deficits. Results & Data Results & Data Vital Signs (Past 12 Hours) Vital Signs Temp Pulse Pulse Resp BP Pulse Ox O2 Del Method 06/09/25 15:42 98.6 F 87 20 127/82 97 Room Air 06/09/25 14:12 Room Air 06/09/25 13:08 97.9 F 83 17 140/85 95 Room Air 06/09/25 08:22 98.6 F 94 H 17 172/97 H 95 Room Air 06/09/25 07:48 91 H Laboratory Results Reviewed CBC with differential, coagulation studies Diagnostic Findings Reviewed CXR, chest CTA, venous Doppler study PG Care Time/CCT Total # of Minutes Spent Total Time Spent with Patient: Total time spent is greater than 50% in coordination of care (as documented) at patient's floor/unit and/or counseling patient: Coding Level of Care Code 19148 SUB INP/OBS CARE 3/50MIN Diagnoses Acute pulmonary embolism without acute cor pulmonale, unspecified pulmonary embolism type I26.99 Acute cor pulmonale presence: without acute cor pulmonale Chronicity: acute Pulmonary embolism type: unspecified Acute deep vein thrombosis (DVT) of popliteal vein of left lower extremity I82.432 Hyponatremia E87.1 Protein C deficiency D68.59 Protein S deficiency D68.59 (1) Pulmonary embolism Acute cor pulmonale presence: without acute cor pulmonale Chronicity: acute Pulmonary embolism type: unspecified Qualified Code(s): I26.99 - Other pulmonary embolism without acute cor pulmonale"
[2025-06-09] MEDS: WARFARIN SOD 7.5 MG TAB PO ONE (16:05)
[2025-06-10 07:33] LABS: ANTI-Xa, UFH(UnfractionatedHep 0.36 IU/ml (0.3-0.7)
[2025-06-10 07:36] LABS: Anion Gap 9.0 (3-11); Blood Urea Nitrogen 15.0 mg/dl (6-23); Calcium 8.9 mg/dl (8.6-10.3); Carbon Dioxide 24.0 mmol/L (21-32); Chloride 102.0 mmol/L (98-107); Creatinine Clr Calc Pharmacy 168.0 ml/min; Glucose 258.0 mg/dl (70-99(Fasting)); Potassium 4.0 mmol/L (3.5-5.1); Sodium 135.0 mmol/L (136-145)
[2025-06-10 07:37] LABS: INR 1.0 (0.9-1.1); Prothrombin Time 10.7 Seconds (9.0-12.0)
[2025-06-10] MEDS: REMOVE NICODERM PATCH SCH (09:01)
[2025-06-10 09:57] LABS: Hemoglobin A1C 11.6 % (4.5-5.6)
[2025-06-10] MEDS ORDERED: PHARMACY GLYCEMIC MGMT CONSULT PRN (14:10)
--- NOTE | 2025-06-10 14:12 | Hospitalist Progress Note ---
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 Imaging suggestive of acute bilateral basilar PEs and venous Doppler study noted left proximal popliteal vein acute DVT. Patient reports noncompliance with her warfarin. She was admitted for management of her acute PE. #Acute bilateral PE | Acute left proximal popliteal DVT | Protein C & S deficiency - R sided calf pain, starting day of arrival with associated SOB upon standing. No syncope or palpitations. Prior history PE, also known history protein C/S deficiency. On warfarin chronically, last dose prior to admission was on 06/05, warfarin was restarted during this hospitalization. - CTA chest PE subsegmental branches both posterior basal segments lower lobes (R > L), no CT evidence of R heart strain - INR 0.9 on arrival - subtherapeutic. INR currently 1.0 on 06/10 - Heparin drip initiated - continue until INR is 2.0 on 2 checks - Continue warfarin at usual home schedule - encourage consistent use in outpatient setting - Trend PT/INR and heparin levels with a.m. labs #Pseudohyponatremia - in setting of elevated glucose, received 1.5L NSS in ED. - Glucose on arrival 307, corrected sodium 140 - Received 1.5 L NSS on admission #T2DM - H/o DMT2; at home regimen includes glargine 10U at night, metformin, Ozempic weekly. Concern for some medication noncompliance. - Hold home regimen while inpatient - Glucose on arrival 307; A1c 11.6% this admission - Continue Lantus BID and SSI - pharmacy glycemic consult placed to manage BSG given significantly elevated A1c and ongoing hyperglycemia #Urinary incontinence- Oxybutynin - continue #Nicotine dependence- Nicotine patches - continue Dispo: Continued inpatient stay while bridging heparin and warfarin VTE Prophylaxis: Heparin drip, warfarin Consulted pharmacy glycemic management Admission and Anticipated Discharge Date Admission Date: June 10, 2025 Supervising Physician Co-Signing Physician Notes Attending Attestation - Chart reviewed, care plan d/w MEKA Hess. I agree w/ the de leon components of her documentation. Reid Nj MD Subjective Patient seen and evaluated in bedside chair. She reports feeling well overall. She is sleeping well at night. She has a strong appetite. She is moving her bowels routinely. She denies any acute complaints or concerns at this time. We discussed her INR level and continuing to bridge her heparin and warfarin until her INR is within therapeutic range. Physical Exam Physical Exam: General: No acute distress, nondiaphoretic, well-developed, well-nourished. Class III obesity. Skin: Warm, dry. No rashes or significant bruising noted. 1+ pitting edema noted bilaterally. Cardiac: Regular rate and rhythm without murmurs gallops or rubs. Pulm: Clear to auscultation bilaterally without wheezes, rales or rhonchi. Normal respiratory effort. 95% on room air. Abdominal: Soft, nontender, nondistended. Bowel sounds present. Neuro: A&O x3. No focal neurological deficits. Results & Data Results & Data Vital Signs (Past 12 Hours) Vital Signs Temp Pulse Pulse Resp BP Pulse Ox O2 Del Method 06/10/25 11:47 97.3 F L 77 18 131/85 95 Room Air 06/10/25 09:34 Room Air 06/10/25 07:46 98.2 F 66 18 142/84 H 93 Room Air 06/10/25 05:30 76 06/10/25 03:48 98.1 F 74 20 109/74 94 Room Air Laboratory Results Reviewed coagulation studies, BMP/chemistries PG Care Time/CCT Total # of Minutes Spent Total Time Spent with Patient: Total time spent is greater than 50% in coordination of care (as documented) at patient's floor/unit and/or counseling patient: Coding Level of Care Code 03661 SUB INP/OBS CARE 3/50MIN Diagnoses Acute pulmonary embolism without acute cor pulmonale, unspecified pulmonary embolism type I26.99 Acute cor pulmonale presence: without acute cor pulmonale Chronicity: acute Pulmonary embolism type: unspecified Acute deep vein thrombosis (DVT) of popliteal vein of left lower extremity I82.432 Hyponatremia E87.1 Protein C deficiency D68.59 Protein S deficiency D68.59 (1) Pulmonary embolism Acute cor pulmonale presence: without acute cor pulmonale Chronicity: acute Pulmonary embolism type: unspecified Qualified Code(s): I26.99 - Other pulmonary embolism without acute cor pulmonale"
--- NOTE | 2025-06-10 14:32 | Pharmacy Report ---
Pharmacy Glycemic Short Note 2 - Date of Service June 10, 2025 - Glycemic Short BSG Results (Last 24 hours): 06/09/25 06/09/25 06/10/25 17:04 20:10 06:33 Glucose 258 H POC Glucose 138 H 186 H 06/10/25 06/10/25 08:20 12:13 Glucose POC Glucose 229 H 279 H OUTPATIENT ANTIDIABETIC REGIMEN: * Lantus 10 units HS, metformin 1 gm bid, semaglutide 0.25 mg SQ weekly ASSESSMENT: * 55 year old admitted with acute PE - pharmacy consulted for glycemic management. A1c>11% and reports of noncompliance with outpatient regimen noted. Patient received total of 79 units of insulin yesterday, of which 40 units were basal insulin. Fasting BSG improving from 334 to 229 mg/dL over last 24 hours, will keep with same basal regimen for now as not quite at steady state. Plan to tighten novolog more with dinner time check. PLAN FOR INPATIENT GLYCEMIC CONTROL: * Hold outpatient oral diabetes medications * Basal insulin * Lantus 20 units SQ BID * Bolus insulin * NovoLog per scale ACHS or Q6hrs while NPO * Goal Range: Low 110 mg/dL - High 140 mg/dL * Correction Factor: 15 mg/dL/unit * Nutritional / Prandial insulin per carb ratio of 1 unit per 5 grams CHO consumed
[2025-06-10] MEDS: WARFARIN SOD 10 MG TAB PO SCH (15:14)
--- NOTE | 2025-06-10 21:31 | Electrocardiogram Report ---
Test Reason : Blood Pressure : */* mmHG Vent. Rate : 89 BPM Atrial Rate : 89 BPM P-R Int : 162 ms QRS Dur : 78 ms QT Int : 368 ms P-R-T Axes : 53 41 59 degrees QTcB Int : 447 ms Normal sinus rhythm Normal ECG When compared with ECG of 03-Mar-2025 13:32, No significant change was found Confirmed by Benigno Welsh ([id number] on 06/10/2025 9:31:26 PM Referred By: REFERRED SELF Confirmed By: Benigno Welsh
[2025-06-10] MEDS ORDERED: MoRPHine SULFATE 2 MG/ML CARP IV PRN (22:37)
[2025-06-10] MEDS: ACETAMINOPHEN 325 MG TAB PO PRN (22:44)
[2025-06-11 06:39] LABS: Hematocrit (blood only) 40.4 % (37.0-47.0); Hemoglobin 13.8 g/dL (12.0-16.0); Immature Granulocytes # (auto) 0.08 K/uL (0.01-0.20); Immature Granulocytes % (auto) 0.8 %; Mean Corpuscular Hemoglobin 29.3 pg (25.0-34.0); Mean Corpuscular Volume 85.8 fL (80.0-100.0); Platelet Count 247 K/uL (130-400); RDW Standard Deviation 43.6 fL (36.4-46.3); Red Blood Count 4.71 M/uL (4.20-5.40); White Blood Count 9.81 K/ul (4.8-10.8)
[2025-06-11 06:57] LABS: ANTI-Xa, UFH(UnfractionatedHep 0.39 IU/ml (0.3-0.7)
[2025-06-11 07:00] LABS: INR 1.0 (0.9-1.1); Prothrombin Time 10.9 Seconds (9.0-12.0)
--- NOTE | 2025-06-11 13:57 | Hospitalist Progress Note ---
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 Imaging suggestive of acute bilateral basilar PEs and venous Doppler study noted left proximal popliteal vein acute DVT. Patient reports noncompliance with her warfarin. She was admitted for management of her acute PE. #Acute bilateral PE | Acute left proximal popliteal DVT | Protein C & S deficiency - R sided calf pain, starting day of arrival with associated SOB upon standing. No syncope or palpitations. Prior history PE, also known history protein C/S deficiency. On warfarin chronically, last dose prior to admission was on 06/05, warfarin was restarted during this hospitalization. - CTA chest PE subsegmental branches both posterior basal segments lower lobes (R > L), no CT evidence of R heart strain - INR 0.9 on arrival - subtherapeutic. INR currently 1.0 on 06/11 - Heparin drip initiated - continue until INR is 2.0 on 2 checks - Continue warfarin at usual home schedule - encourage consistent use in outpatient setting - Topical Voltaren gel QID to RLE - Trend PT/INR and heparin levels with a.m. labs #T2DM - H/o DMT2; at home regimen includes glargine 10U at night, metformin, Ozempic weekly. Concern for some medication noncompliance. - Hold home regimen while inpatient - Glucose on arrival 307; A1c 11.6% this admission - Continue Lantus BID and SSI - pharmacy glycemic consult placed to manage BSG given significantly elevated A1c and ongoing hyperglycemia #Pseudohyponatremia - in setting of elevated glucose, received 1.5L NSS in ED. - Glucose on arrival 307, corrected sodium 140 #Urinary incontinence- Oxybutynin - continue #Nicotine dependence- Nicotine patches - continue VTE Prophylaxis: Heparin drip, warfarin Dispo: Continued inpatient stay while bridging heparin and warfarin Started Voltaren gel Admission and Anticipated Discharge Date Admission Date: June 10, 2025 Supervising Physician Co-Signing Physician Notes Attending Attestation - Chart reviewed, care plan d/w MEKA Hess. I agree w/ the de leon components of her documentation. Cont heparin bridge with coumadin. Reid Nj MD Subjective Patient seen and evaluated at bedside. She reports aching pain in her right lower extremity. She denies any pain in her left lower extremity, which is the leg with the DVT. She states Tylenol does help her right leg pain. She states the pain is most prominent in her thigh and describes it as an aching sensation. We discussed trying some topical Voltaren gel. We also discussed lab results from this morning. She denies any additional complaints or concerns at this time. Physical Exam Physical Exam: General: No acute distress, nondiaphoretic, well-developed, well-nourished. Class III obesity. Skin: Warm, dry. No rashes or significant bruising noted. 1+ pitting edema noted bilaterally. Cardiac: Well-perfused. Rate in 80s. Pulm: Normal respiratory effort. 95% on room air. Neuro: A&O x3. No focal neurological deficits. Results & Data Results & Data Vital Signs (Past 12 Hours) Vital Signs Temp Pulse Pulse Resp BP Pulse Ox O2 Del Method 06/11/25 12:53 97.5 F L 83 130/79 92 Room Air 06/11/25 09:21 Room Air 06/11/25 08:00 98.1 F 74 18 145/72 H 95 Room Air 06/11/25 05:24 77 06/11/25 03:53 97.5 F L 78 18 143/64 H 96 Room Air Laboratory Results Reviewed CBC with differential, coagulation studies PG Care Time/CCT Total # of Minutes Spent Total Time Spent with Patient: Total time spent is greater than 50% in coordination of care (as documented) at patient's floor/unit and/or counseling patient: Coding Level of Care Code 91395 SUB INP/OBS CARE 3/50MIN Diagnoses Acute pulmonary embolism without acute cor pulmonale, unspecified pulmonary embolism type I26.99 Acute cor pulmonale presence: without acute cor pulmonale Chronicity: acute Pulmonary embolism type: unspecified Acute deep vein thrombosis (DVT) of popliteal vein of left lower extremity I82.432 Hyponatremia E87.1 Protein C deficiency D68.59 Protein S deficiency D68.59 (1) Pulmonary embolism Acute cor pulmonale presence: without acute cor pulmonale Chronicity: acute Pulmonary embolism type: unspecified Qualified Code(s): I26.99 - Other pulmonary embolism without acute cor pulmonale"
[2025-06-11] MEDS: DICLOFENAC SOD 1% GEL 100 GM TUBE EXT SCH (15:26)
[2025-06-11] MEDS: WARFARIN SOD 5 MG TAB PO ONE (16:21)
[2025-06-12 09:29] LABS: ANTI-Xa, UFH(UnfractionatedHep 0.33 IU/ml (0.3-0.7)
[2025-06-12 09:32] LABS: INR 1.0 (0.9-1.1); Prothrombin Time 10.9 Seconds (9.0-12.0)
--- NOTE | 2025-06-12 11:56 | Hospitalist Progress Note ---
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 Imaging suggestive of acute bilateral basilar PEs and venous Doppler study noted left proximal popliteal vein acute DVT. Patient reports noncompliance with her warfarin. She was admitted for management of her acute PE. #Acute bilateral PE | Acute left proximal popliteal DVT | Protein C & S deficiency - R sided calf pain, starting day of arrival with associated SOB upon standing. No syncope or palpitations. Prior history PE, also known history protein C/S deficiency. On warfarin chronically, last dose prior to admission was on 06/05, warfarin was restarted during this hospitalization. - CTA chest PE subsegmental branches both posterior basal segments lower lobes (R > L), no CT evidence of R heart strain - INR 0.9 on arrival - subtherapeutic. INR currently 1.0 on 06/12 - Heparin drip ongoing - continue until INR is 2.0 on 2 checks - Continue warfarin - usual home dosing is 15 mg Tues & Sat, 10 mg all other days. Received 15 mg on 06/09, 06/11, 06/12 - encourage consistent use in outpatient setting - Topical Voltaren gel QID to RLE - Trend PT/INR and heparin levels with a.m. labs #T2DM - H/o DMT2; at home regimen includes glargine 10U at night, metformin, Ozempic weekly. Concern for some medication noncompliance. Also with dietary indiscretion - reportedly DoorDashed a large fudge pie, Pringles, and other groceries overnight 06/12. - Hold home regimen while inpatient - Glucose on arrival 307; A1c 11.6% this admission - Continue Lantus BID and SSI - pharmacy glycemic consult placed to manage BSG given significantly elevated A1c and ongoing hyperglycemia #Pseudohyponatremia - in setting of elevated glucose, received 1.5L NSS in ED. - Glucose on arrival 307, corrected sodium 140 #Urinary incontinence- Oxybutynin - continue #Nicotine dependence- Nicotine patches - continue VTE Prophylaxis: Heparin drip, warfarin Dispo: Continued inpatient stay while bridging heparin and warfarin Ordered additional Warfarin Discussed BSG regimen with pharmacy Admission and Anticipated Discharge Date Admission Date: June 10, 2025 Supervising Physician Co-Signing Physician Notes Attending Attestation - Chart reviewed, care plan d/w MEKA Hess. I agree w/ the de leon components of her documentation. Cont heparin bridge with coumadin. Reid Nj MD Subjective Patient seen and evaluated at bedside. She reports feeling better today. Her RLE pain is much improved with Tylenol and topical Voltaren gel. We discussed doing 15 mg of warfarin again today since her INR remains 1.0. She denies any additional complaints or concerns at this time. RN reports patient DoorDashed many groceries overnight, including a large chocolate pie that she ate all of overnight. RN reports patient did not seem to understand the gravity of her uncontrolled diabetes and importance of improved blood sugar control. Telemetry reviewed: NSR/ST rates 80-110s. Physical Exam Physical Exam: General: No acute distress, nondiaphoretic, well-developed, well-nourished. Class III obesity. Skin: Warm, dry. No rashes or significant bruising noted. 1+ pitting edema noted bilaterally. Cardiac: Well-perfused. Rate in 80s. Pulm: Normal respiratory effort. 94% on room air. Neuro: A&O x3. No focal neurological deficits. Results & Data Results & Data Vital Signs (Past 12 Hours) Vital Signs Temp Pulse Pulse Resp BP Pulse Ox O2 Del Method 06/12/25 11:25 97.5 F L 79 18 134/81 94 Room Air 06/12/25 11:21 Room Air 06/12/25 09:08 77 06/12/25 07:27 97.9 F 82 18 141/79 H 95 Room Air 06/12/25 02:55 98.1 F 94 H 18 150/80 H 95 Room Air 06/12/25 00:03 81 06/11/25 23:57 Room Air Laboratory Results Reviewed coagulation studies PG Care Time/CCT Total # of Minutes Spent Total Time Spent with Patient: Total time spent is greater than 50% in coordination of care (as documented) at patient's floor/unit and/or counseling patient: Coding Level of Care Code 72993 SUB INP/OBS CARE 3/50MIN Diagnoses Acute pulmonary embolism without acute cor pulmonale, unspecified pulmonary embolism type I26.99 Acute cor pulmonale presence: without acute cor pulmonale Chronicity: acute Pulmonary embolism type: unspecified Acute deep vein thrombosis (DVT) of popliteal vein of left lower extremity I82.432 Hyponatremia E87.1 Protein C deficiency D68.59 Protein S deficiency D68.59 (1) Pulmonary embolism Acute cor pulmonale presence: without acute cor pulmonale Chronicity: acute Pulmonary embolism type: unspecified Qualified Code(s): I26.99 - Other pulmonary embolism without acute cor pulmonale"
--- NOTE | 2025-06-12 12:19 | Pharmacy Report ---
Pharmacy Glycemic Short Note 2 - Date of Service June 12, 2025 - Glycemic Short BSG Results (Last 24 hours): 06/11/25 06/11/25 06/12/25 16:55 19:58 07:48 POC Glucose 135 H 157 H 257 H 06/12/25 06/12/25 12:04 12:05 POC Glucose 402 H* 364 H* OUTPATIENT ANTIDIABETIC REGIMEN: * Lantus 10 units HS, metformin 1 gm bid, semaglutide 0.25 mg SQ weekly ASSESSMENT: 06/12: * Halina received a total of 81 units of insulin yesterday (40 units were basal and 41 units were bolus). Blood glucose was better controlled yesterday. * Fasting BSG was 257mg/dL and ge to 364mg/dL at lunch. CR pf bolus insulin was tightened and PM dose of Lantus was increased by ~25%. 06/10: * 55 year old admitted with acute PE - pharmacy consulted for glycemic management. A1c>11% and reports of noncompliance with outpatient regimen noted. Patient received total of 79 units of insulin yesterday, of which 40 units were basal insulin. Fasting BSG improving from 334 to 229 mg/dL over last 24 hours, will keep with same basal regimen for now as not quite at steady state. Plan to tighten novolog more with dinner time check. PLAN FOR INPATIENT GLYCEMIC CONTROL: * Hold outpatient diabetes medications * Basal insulin * Lantus 20 units SQ QAM and 26 units Q PM * Bolus insulin * NovoLog per scale ACHS or Q6hrs while NPO * Goal Range: Low 110 mg/dL - High 140 mg/dL * Correction Factor: 15 mg/dL/unit * Nutritional / Prandial insulin per carb ratio of 1 unit per 4 grams CHO consumed
[2025-06-12] MEDS: WARFARIN SOD 5 MG TAB PO ONE (16:15)
[2025-06-12] MEDS: LANTUS PER UNIT CHARGE SQ SCH ×2 (21:04→22:39)
[2025-06-12] MEDS: NICOTINE 14 MG/24 HR PATCH TD SCH (21:11)
[2025-06-13 07:34] LABS: Hematocrit (blood only) 41.1 % (37.0-47.0); Hemoglobin 13.8 g/dL (12.0-16.0); Immature Granulocytes # (auto) 0.06 K/uL (0.01-0.20); Immature Granulocytes % (auto) 0.7 %; Mean Corpuscular Hemoglobin 29.1 pg (25.0-34.0); Mean Corpuscular Volume 86.7 fL (80.0-100.0); Platelet Count 231 K/uL (130-400); RDW Standard Deviation 45.4 fL (36.4-46.3); Red Blood Count 4.74 M/uL (4.20-5.40); White Blood Count 8.42 K/ul (4.8-10.8)
[2025-06-13 07:52] LABS: ANTI-Xa, UFH(UnfractionatedHep 0.36 IU/ml (0.3-0.7)
[2025-06-13 07:55] LABS: INR 1.2 (0.9-1.1); Prothrombin Time 12.8 Seconds (9.0-12.0)
[2025-06-13 08:00] LABS: Anion Gap 7.0 (3-11); Blood Urea Nitrogen 15.0 mg/dl (6-23); Calcium 9.2 mg/dl (8.6-10.3); Carbon Dioxide 25.0 mmol/L (21-32); Chloride 105.0 mmol/L (98-107); Creatinine Clr Calc Pharmacy 160.4 ml/min; Glucose 136.0 mg/dl (70-99(Fasting)); Potassium 4.0 mmol/L (3.5-5.1); Sodium 137.0 mmol/L (136-145)
[2025-06-13] MEDS ORDERED: DICLOFENAC SOD 1% GEL 100 GM TUBE EXT PRN (17:17)
--- NOTE | 2025-06-13 17:18 | Hospitalist Progress Note ---
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 Imaging suggestive of acute bilateral basilar PEs and venous Doppler study noted left proximal popliteal vein acute DVT. Patient reports noncompliance with her warfarin. She was admitted for management of her acute PE. #Acute bilateral PE | Acute left proximal popliteal DVT | Protein C & S deficiency - R sided calf pain, starting day of arrival with associated SOB upon standing. No syncope or palpitations. Prior history PE, also known history protein C/S deficiency. On warfarin chronically, last dose prior to admission was on 06/05, warfarin was restarted during this hospitalization. - CTA chest PE subsegmental branches both posterior basal segments lower lobes (R > L), no CT evidence of R heart strain - INR 0.9 on arrival - subtherapeutic. INR currently 1.2 on 06/13 - Heparin drip ongoing - continue until INR is 2.0 on 2 checks - Continue warfarin - usual home dosing is 15 mg Tues & Sat, 10 mg all other days. Received 15 mg on 06/09, 06/11, 06/12 - encourage consistent use in outpatient setting - Topical Voltaren gel QID PRN - Trend PT/INR and heparin levels with a.m. labs #T2DM - H/o DMT2; at home regimen includes glargine 10U at night, metformin, Ozempic weekly. Concern for some medication noncompliance. Also with dietary indiscretion - reportedly DoorDashed a large fudge pie, Pringles, and other groceries overnight 06/12. - Hold home regimen while inpatient - Glucose on arrival 307; A1c 11.6% this admission - Continue Lantus BID and SSI - pharmacy glycemic consult placed to manage BSG given significantly elevated A1c and ongoing hyperglycemia #Pseudohyponatremia - in setting of elevated glucose, received 1.5L NSS in ED. - Glucose on arrival 307, corrected sodium 140 #Urinary incontinence- Oxybutynin - continue #Nicotine dependence- Nicotine patches - continue VTE Prophylaxis: Heparin drip, warfarin Dispo: Continued inpatient stay while bridging heparin and warfarin Admission and Anticipated Discharge Date Admission Date: June 10, 2025 Supervising Physician Co-Signing Physician Notes Attending Attestation - Chart reviewed, care plan d/w MEKA Hess. I agree w/ the de leon components of her documentation. Reid Nj MD Subjective Patient seen and evaluated at bedside. She reports feeling well overall. She denies any complaints or concerns at this time. She is sleeping well at bedtime, has a strong appetite, and is moving her bowels routinely. We discussed that her INR level came up to 1.2 and her blood sugar has been more controlled today. Physical Exam Physical Exam: General: No acute distress, nondiaphoretic, well-developed, well-nourished. Class III obesity. Skin: Warm, dry. No rashes or significant bruising noted. 1+ pitting edema noted bilaterally. Cardiac: Well-perfused. Rate in 80s. Pulm: Normal respiratory effort. 91% on room air. Neuro: A&O x3. No focal neurological deficits. Results & Data Results & Data Vital Signs (Past 12 Hours) Vital Signs Temp Pulse Pulse Resp BP Pulse Ox O2 Del Method 06/13/25 13:14 86 06/13/25 11:11 97.9 F 52 L 18 139/82 91 Room Air 06/13/25 08:15 Room Air 06/13/25 07:41 97.7 F 75 18 121/76 96 Room Air 06/13/25 06:45 78 Laboratory Results Reviewed CBC, coagulation studies, BMP PG Care Time/CCT Total # of Minutes Spent Total Time Spent with Patient: Total time spent is greater than 50% in coordination of care (as documented) at patient's floor/unit and/or counseling patient: Coding Level of Care Code 80356 SUB INP/OBS CARE 2/35MIN Diagnoses Acute pulmonary embolism without acute cor pulmonale, unspecified pulmonary embolism type I26.99 Acute cor pulmonale presence: without acute cor pulmonale Chronicity: acute Pulmonary embolism type: unspecified Acute deep vein thrombosis (DVT) of popliteal vein of left lower extremity I82.432 Hyponatremia E87.1 Protein C deficiency D68.59 Protein S deficiency D68.59 (1) Pulmonary embolism Acute cor pulmonale presence: without acute cor pulmonale Chronicity: acute Pulmonary embolism type: unspecified Qualified Code(s): I26.99 - Other pulmonary embolism without acute cor pulmonale"
[2025-06-14 07:29] LABS: ANTI-Xa, UFH(UnfractionatedHep 0.34 IU/ml (0.3-0.7)
[2025-06-14 07:58] LABS: INR 1.3 (0.9-1.1); Prothrombin Time 14.0 Seconds (9.0-12.0)
--- NOTE | 2025-06-14 12:39 | Hospitalist Progress Note ---
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 Imaging suggestive of acute bilateral basilar PEs and venous Doppler study noted left proximal popliteal vein acute DVT. Patient reports noncompliance with her warfarin. She was admitted for management of her acute PE. #Acute bilateral PE | Acute left proximal popliteal DVT | Protein C & S deficiency - R sided calf pain, starting day of arrival with associated SOB upon standing. No syncope or palpitations. Prior history PE, also known history protein C/S deficiency. On warfarin chronically, last dose prior to admission was on 06/05, warfarin was restarted during this hospitalization. - CTA chest PE subsegmental branches both posterior basal segments lower lobes (R > L), no CT evidence of R heart strain - INR 0.9 on arrival - subtherapeutic. INR currently 1.3 on 06/14 - Heparin drip ongoing - continue until INR is 2.0 on 2 checks - Continue warfarin - usual home dosing is 15 mg Tues & Sat, 10 mg all other days. Received 15 mg on 06/09, 06/11, 06/12 - now receiving usual home regimen. Encourage consistent use in outpatient setting - Topical Voltaren gel QID PRN - Trend PT/INR and heparin levels with a.m. labs #T2DM - H/o DMT2; at home regimen includes glargine 10U at night, metformin, Ozempic weekly. Concern for some medication noncompliance. Also with dietary indiscretion - reportedly DoorDashed a large fudge pie, Pringles, and other groceries overnight 06/12. - Hold home regimen while inpatient - Glucose on arrival 307; A1c 11.6% this admission - needs tighter blood sugar control outpatient - Continue Lantus BID and SSI - pharmacy glycemic consult placed to manage BSG given significantly elevated A1c and ongoing hyperglycemia #Pseudohyponatremia - in setting of elevated glucose, received 1.5L NSS in ED. - Glucose on arrival 307, corrected sodium 140 #Urinary incontinence- Oxybutynin - continue #Nicotine dependence- Nicotine patches - continue VTE Prophylaxis: Heparin drip, warfarin Dispo: Continued inpatient stay while bridging heparin and warfarin. I do not feel as though she could be reliably bridged with Lovenox given her significantly elevated BMI, so she continues bridging with heparin. Admission and Anticipated Discharge Date Admission Date: June 10, 2025 Supervising Physician Co-Signing Physician Notes Attending Attestation - Chart reviewed, care plan d/w MEKA Hess. I agree w/ the de leon components of her documentation. Reid Nj MD Subjective Patient seen and evaluated sitting up at bedside. She reports feeling well overall. She denies any complaints at this time. Her RLE pain has resolved. She is sleeping ok overnight, routinely moving her bowels, and has a strong appetite. We discussed her lab results today. No additional complaints or concerns at this time. Telemetry reviewed: NSR with PVCs, rates 70-80s. Physical Exam Physical Exam: General: No acute distress, nondiaphoretic, well-developed, well-nourished. Class III obesity. Skin: Warm, dry. No rashes or significant bruising noted. 1+ pitting edema noted bilaterally. Cardiac: Regular rate and rhythm without murmurs gallops or rubs. Pulm: Clear to auscultation bilaterally without wheezes, rales or rhonchi. Normal respiratory effort. 97% on room air. Abdominal: Soft, nontender, distended secondary to body habitus. Bowel sounds present. Neuro: A&O x3. No focal neurological deficits. Results & Data Results & Data Vital Signs (Past 12 Hours) Vital Signs Temp Pulse Pulse Resp BP Pulse Ox O2 Del Method 06/14/25 11:52 98.1 F 77 18 146/84 H 97 Room Air 06/14/25 08:35 Room Air 06/14/25 07:47 97.5 F L 64 16 124/67 96 Room Air 06/14/25 06:45 73 06/14/25 03:20 97.7 F 84 18 134/80 94 Room Air 06/14/25 03:17 79 Laboratory Results Reviewed coagulation studies PG Care Time/CCT Total # of Minutes Spent Total Time Spent with Patient: Total time spent is greater than 50% in coordination of care (as documented) at patient's floor/unit and/or counseling patient: Coding Level of Care Code 50725 SUB INP/OBS CARE 235MIN Diagnoses Acute pulmonary embolism without acute cor pulmonale, unspecified pulmonary embolism type I26.99 Acute cor pulmonale presence: without acute cor pulmonale Chronicity: acute Pulmonary embolism type: unspecified Acute deep vein thrombosis (DVT) of popliteal vein of left lower extremity I82.432 Hyponatremia E87.1 Protein C deficiency D68.59 Protein S deficiency D68.59 (1) Pulmonary embolism Acute cor pulmonale presence: without acute cor pulmonale Chronicity: acute Pulmonary embolism type: unspecified Qualified Code(s): I26.99 - Other pulmonary embolism without acute cor pulmonale"
[2025-06-14] MEDS: LANTUS PER UNIT CHARGE SQ SCH (17:55)
[2025-06-15 06:37] LABS: Hematocrit (blood only) 40.2 % (37.0-47.0); Hemoglobin 13.5 g/dL (12.0-16.0); Immature Granulocytes # (auto) 0.08 K/uL (0.01-0.20); Immature Granulocytes % (auto) 0.8 %; Mean Corpuscular Hemoglobin 29.3 pg (25.0-34.0); Mean Corpuscular Volume 87.4 fL (80.0-100.0); Platelet Count 235 K/uL (130-400); RDW Standard Deviation 46.3 fL (36.4-46.3); Red Blood Count 4.60 M/uL (4.20-5.40); White Blood Count 9.95 K/ul (4.8-10.8)
[2025-06-15 06:40] LABS: ANTI-Xa, UFH(UnfractionatedHep 0.32 IU/ml (0.3-0.7)
[2025-06-15 06:50] LABS: INR 1.3 (0.9-1.1); Prothrombin Time 13.5 Seconds (9.0-12.0)
--- NOTE | 2025-06-15 10:56 | Pharmacy Report ---
Pharmacy Glycemic Short Note 2 - Date of Service June 15, 2025 - Glycemic Short BSG Results (Last 24 hours): 06/14/25 06/14/25 06/14/25 11:40 16:49 20:23 POC Glucose 159 H 117 H 129 H 06/15/25 07:58 POC Glucose 116 H OUTPATIENT ANTIDIABETIC REGIMEN: * Lantus 10 units HS, metformin 1 gm bid, semaglutide 0.25 mg SQ weekly ASSESSMENT: 06/15: * BSGs [id number]/dL the last 24h. Received 46 units of basal and 43 units of bolus insulin yesterday. * Tolerating diet, stressors stable. * Continue Lantus 46 units HS and Novolog ACHS 07/10. 06/12: * Halina received a total of 81 units of insulin yesterday (40 units were basal and 41 units were bolus). Blood glucose was better controlled yesterday. * Fasting BSG was 257mg/dL and ge to 364mg/dL at lunch. CR pf bolus insulin was tightened and PM dose of Lantus was increased by ~25%. 06/10: * 55 year old admitted with acute PE - pharmacy consulted for glycemic management. A1c>11% and reports of noncompliance with outpatient regimen noted. Patient received total of 79 units of insulin yesterday, of which 40 units were basal insulin. Fasting BSG improving from 334 to 229 mg/dL over last 24 hours, will keep with same basal regimen for now as not quite at steady state. Plan to tighten novolog more with dinner time check. PLAN FOR INPATIENT GLYCEMIC CONTROL: * Hold outpatient diabetes medications * Basal insulin * Lantus 46 units SQ HS * Bolus insulin * NovoLog per scale ACHS or Q6hrs while NPO * Goal Range: Low 110 mg/dL - High 140 mg/dL * Correction Factor: 15 mg/dL/unit * Nutritional / Prandial insulin per carb ratio of 1 unit per 4 grams CHO consumed
--- NOTE | 2025-06-15 14:29 | Hospitalist Progress Note ---
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 Imaging suggestive of acute bilateral basilar PEs and venous Doppler study noted left proximal popliteal vein acute DVT. Patient reports noncompliance with her warfarin. She was admitted for management of her acute PE. #Acute bilateral PE | Acute left proximal popliteal DVT | Protein C & S deficiency - R sided calf pain, starting day of arrival with associated SOB upon standing. No syncope or palpitations. Prior history PE, with known history protein C/S deficiency. On warfarin chronically, last dose prior to admission was on 06/05, warfarin was restarted during this hospitalization. Received 15 mg on 06/09, 06/11, 06/12. CTA chest PE subsegmental branches both posterior basal segments lower lobes (R > L), no CT evidence of R heart strain INR 0.9 on arrival - INR currently 1.3 on 06/15 Patient reports missing 7-8 doses per month d/t logistical issues - staying at homeless long term, not always remembering her meds or having water. Continue heparin drip until INR therapeutic Continue warfarin - usual home dosing is 15 mg Tues & Sat, 10 mg all other days. Reviewed prior INR - has been therapeutic one time in 2024 - suspect underdosing but also exacerbated by noncompliance. Switched to 15mg daily while inpatient - likely could benefit from 15mg 4x/week and 10mg 3x/week for 10mg total weekly dosage increase (12.5% weekly dose increase) Would benefit from home INR monitor - Topical Voltaren gel QID PRN AM PT/INR #T2DM - H/o DMT2; at home regimen includes glargine 10U at night, metformin, Ozempic weekly. Concern for some medication noncompliance. Also with dietary indiscretion - reportedly DoorDashed a large fudge pie, Pringles, and other groceries overnight 06/12. Also with container of cookies at bedside 06/15. Hold home regimen while inpatient A1c 11.6% this admission - needs tighter blood sugar control outpatient - Continue Lantus BID and SSI - pharmacy glycemic consult placed to manage BSG given significantly elevated A1c and ongoing hyperglycemia #Pseudohyponatremia - in setting of elevated glucose, received 1.5L NSS in ED. - Glucose on arrival 307, corrected sodium 140 #Urinary incontinence- Oxybutynin - continue #Nicotine dependence- Nicotine patches - continue VTE Prophylaxis: Heparin drip, warfarin Dispo: Continued inpatient stay while bridging heparin and warfarin. I do not feel as though she could be reliably bridged with Lovenox given her significantly elevated BMI, so she continues bridging with heparin. Stable for downgrade to medical sister updated at bedside 06/15 Admission and Anticipated Discharge Date Admission Date: June 10, 2025 Supervising Physician Co-Signing Physician Notes Attending Attestation - Chart reviewed, care plan d/w MEKA Del Rio. I agree w/ the de leon components of her documentation. Reid Nj MD Subjective patient seen lying in bed - sister at bedside no acute concerns breathign is okay we discussed her coumadin dosing - she states she misses 7-8 doses per month after moving to the homeless long term Tele - SR 70s Review of Systems Review of Systems: All systems reviewed & are unremarkable except as noted in Subjective Physical Exam Physical Exam: General: NAD, VS as above Resp: normal respiratory effort, lungs clear to auscultation CV: RRR, no murmur, Abd: normal bowel sounds, non tender, soft Extremities: Moves all extremities, no edema Neuro: A&O x3, Results & Data Results & Data Vital Signs (Past 12 Hours) Vital Signs Temp Pulse Pulse Resp BP BP Pulse Ox 06/15/25 11:39 98.1 F 72 18 126/70 91 06/15/25 10:20 68 06/15/25 10:20 06/15/25 07:43 97.9 F 72 18 137/82 96 06/15/25 03:36 97.9 F 71 18 130/79 94 O2 Del Method 06/15/25 11:39 Room Air 06/15/25 10:20 06/15/25 10:20 Room Air 06/15/25 07:43 Room Air 06/15/25 03:36 Room Air Laboratory Results cbc and INR reviewed PG Care Time/CCT Total # of Minutes Spent Total Time Spent with Patient: Total time spent is greater than 50% in coordination of care (as documented) at patient's floor/unit and/or counseling patient: Coding Level of Care Code 90374 SUB INP/OBS CARE 2/35MIN Diagnoses Acute pulmonary embolism without acute cor pulmonale, unspecified pulmonary embolism type I26.99 Acute cor pulmonale presence: without acute cor pulmonale Chronicity: acute Pulmonary embolism type: unspecified Acute deep vein thrombosis (DVT) of popliteal vein of left lower extremity I82.432 Hyponatremia E87.1 Protein C deficiency D68.59 Protein S deficiency D68.59 (1) Pulmonary embolism Acute cor pulmonale presence: without acute cor pulmonale Chronicity: acute Pulmonary embolism type: unspecified Qualified Code(s): I26.99 - Other pulmonary embolism without acute cor pulmonale"
[2025-06-15] MEDS: WARFARIN SOD 7.5 MG TAB PO SCH (15:08)
[2025-06-15] MEDS: LANTUS PER UNIT CHARGE SQ SCH (20:27)
[2025-06-16 04:37] LABS: ANTI-Xa, UFH(UnfractionatedHep 0.32 IU/ml (0.3-0.7)
[2025-06-16 04:41] LABS: INR 1.3 (0.9-1.1); Prothrombin Time 13.3 Seconds (9.0-12.0)
--- NOTE | 2025-06-16 10:24 | Hospitalist Progress Note ---
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 Imaging suggestive of acute bilateral basilar PEs and venous Doppler study noted left proximal popliteal vein acute DVT. Patient reports noncompliance with her warfarin. She was admitted for management of her acute PE. #Acute bilateral PE | Acute left proximal popliteal DVT | Protein C & S deficiency - R sided calf pain, starting day of arrival with associated SOB upon standing. No syncope or palpitations. Prior history PE, with known history protein C/S deficiency. On warfarin chronically, last dose prior to admission was on 06/05, warfarin was restarted during this hospitalization. Received 15 mg on 06/09, 06/11, 06/12. CTA chest PE subsegmental branches both posterior basal segments lower lobes (R > L), no CT evidence of R heart strain INR 0.9 on arrival - INR remains 1.3 on 06/16 Patient reports missing 7-8 doses per month d/t logistical issues - staying at homeless retirement, not always remembering her meds or having water to take in the evening. Continue heparin drip until INR therapeutic Continue warfarin - usual home dosing is 15 mg Tues & Sat, 10 mg all other days. Reviewed prior INR - has been therapeutic one time in 2024 - suspect underdosing but also exacerbated by noncompliance. Switched to 15mg daily while inpatient - likely could benefit from 15mg 4x/week and 10mg 3x/week for 10mg total weekly dosage increase (12.5% weekly dose increase) Would benefit from home INR monitor - Topical Voltaren gel QID PRN AM PT/INR - if continues to be low tomorrow, will increase Coumadin dose #T2DM - H/o DMT2; at home regimen includes glargine 10U at night, metformin, Ozempic weekly. Concern for some medication noncompliance. Also with dietary indiscretion - reportedly DoorDashed a large fudge pie, Pringles, and other groceries overnight 06/12. Also with container of cookies at bedside 06/15. Hold home regimen while inpatient A1c 11.6% this admission - needs tighter blood sugar control outpatient - Continue Lantus BID and SSI - pharmacy glycemic consult placed to manage BSG given significantly elevated A1c and ongoing hyperglycemia #Pseudohyponatremia - in setting of elevated glucose, received 1.5L NSS in ED. - Glucose on arrival 307, corrected sodium 140 #Urinary incontinence- Oxybutynin - continue #Nicotine dependence- Nicotine patches - continue VTE Prophylaxis: Heparin drip, warfarin Dispo: Continued inpatient stay while bridging heparin and warfarin. I do not feel as though she could be reliably bridged with Lovenox given her significantly elevated BMI, so she continues bridging with heparin. Stable for downgrade to medical sister updated at bedside 06/15 Admission and Anticipated Discharge Date Admission Date: June 10, 2025 Supervising Physician Co-Signing Physician Notes Attending Attestation - Chart reviewed, care plan d/w MEKA Del Rio. I agree w/ the de leon components of her documentation. Reid Nj MD Subjective patient seen lying in bed - reports feeling okay denies any medication chnages here compared to what she is normally taking at home reports her appetite and intake is better compared to home, eating more with regular meals. Denies an increase in green leafy vegatables tele - SR 70-s Review of Systems Review of Systems: All systems reviewed & are unremarkable except as noted in Subjective Physical Exam Physical Exam: General: NAD, VS as above Resp: normal respiratory effort, lungs clear to auscultation CV: RRR, no murmur, Abd: normal bowel sounds, non tender, soft Extremities: Moves all extremities, no edema Neuro: A&O x3, Results & Data Results & Data Vital Signs (Past 12 Hours) Vital Signs Temp Pulse Pulse Resp BP Pulse Ox O2 Del Method 06/16/25 08:22 97.3 F L 81 18 114/77 93 Room Air 06/16/25 06:45 81 06/16/25 03:08 97.9 F 75 18 114/76 94 Room Air 06/16/25 00:13 Room Air 06/15/25 22:47 97.5 F L 71 18 124/81 95 Room Air Laboratory Results INR reviewed PG Care Time/CCT Total # of Minutes Spent Total Time Spent with Patient: Total time spent is greater than 50% in coordination of care (as documented) at patient's floor/unit and/or counseling patient: Coding Level of Care Code 06729 SUB INP/OBS CARE 2/35MIN Diagnoses Acute pulmonary embolism without acute cor pulmonale, unspecified pulmonary embolism type I26.99 Acute cor pulmonale presence: without acute cor pulmonale Chronicity: acute Pulmonary embolism type: unspecified Acute deep vein thrombosis (DVT) of popliteal vein of left lower extremity I82.432 Hyponatremia E87.1 Protein C deficiency D68.59 Protein S deficiency D68.59 (1) Pulmonary embolism Acute cor pulmonale presence: without acute cor pulmonale Chronicity: acute Pulmonary embolism type: unspecified Qualified Code(s): I26.99 - Other pulmonary embolism without acute cor pulmonale"
[2025-06-16] MEDS: WARFARIN SOD 5 MG TAB PO SCH (17:55)
[2025-06-17 07:41] LABS: INR 1.4 (0.9-1.1); Prothrombin Time 14.6 Seconds (9.0-12.0)
[2025-06-17 08:03] LABS: ANTI-Xa, UFH(UnfractionatedHep 0.33 IU/ml (0.3-0.7)
[2025-06-17] MEDS: WARFARIN SOD 5 MG TAB PO ONE (09:42)
--- NOTE | 2025-06-17 10:13 | Hospitalist Progress Note ---
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 Imaging suggestive of acute bilateral basilar PEs and venous Doppler study noted left proximal popliteal vein acute DVT. Patient reports noncompliance with her warfarin. She was admitted for management of her acute PE. #Acute bilateral PE | Acute left proximal popliteal DVT | Protein C & S deficiency - R sided calf pain, starting day of arrival with associated SOB upon standing. No syncope or palpitations. Prior history PE, with known histor y protein C/S deficiency. On warfarin chronically, last dose prior to admission was on 06/05, warfarin was restarted during this hospitalization. Received 15 mg on 06/09, 06/11, 06/12. CTA chest PE subsegmental branches both posterior basal segments lower lobes (R > L), no CT evidence of R heart strain. Patient reports missing 7-8 doses per month d/t logistical issues - staying at [facility], not always remembering her meds or having water to take in the evening. INR 0.9 on arrival - INR increasing to 1.4 on 06/16 Continue heparin drip until INR therapeutic Continue warfarin - Prior home dosin mg TuSa, 10 mg all other days. Reviewed prior INR - has been therapeutic one time in 2024 - suspect underdosing but also exacerbated by noncompliance. Switched to 15mg daily while inpatient - likely could benefit from 15mg 4x/week and 10mg 3x/week for 10mg total weekly dosage increase (12.5% weekly dose increase) Would benefit from home INR monitor - Topical Voltaren gel QID PRN AM PT/INR - given minimal increase given 5mg Coumadin this AM and will continue 15mg at 1600 daily #T2DM - H/o DMT2; at home regimen includes glargine 10U at night, metformin, Ozempic weekly. Concern for some medication noncompliance. Also with dietary indiscretion - reportedly DoorDashed a large fudge pie, Pringles, and other groceries overnight 12/19. Also with container of cookies at bedside 06/15. Hold home regimen while inpatient A1c 11.6% this admission - needs tighter blood sugar control outpatient - Continue Lantus BID and SSI - pharmacy glycemic consult placed to manage BSG given significantly elevated A1c and ongoing hyperglycemia #Pseudohyponatremia - in setting of elevated glucose, received 1.5L NSS in ED. - Glucose on arrival 307, corrected sodium 140 #Urinary incontinence- Oxybutynin - continue #Nicotine dependence- Nicotine patches - continue VTE Prophylaxis: Heparin drip, warfarin Dispo: Continued inpatient stay while bridging heparin and warfarin. I do not feel as though she could be reliably bridged with Lovenox given her significantly elevated BMI, so she continues bridging with heparin. sister updated at bedside 06/15 Admission and Anticipated Discharge Date Admission Date: June 10, 2025 Supervising Physician Co-Signing Physician Notes PA Supervision Note: I did not personally see or examine the patient today, but I verified all de leon points of MEKA Del Rio's assessment and plan with the following exceptions/additions: None Subjective Patient seen sitting up in the chair - reports no complaints. No pain or issues with DVT in her leg Discussed plan for her coumadin and she is in agreement Review of Systems Review of Systems: All systems reviewed & are unremarkable except as noted in Subjective Physical Exam Physical Exam: General: NAD, vitals as above, sitting up in the chair Pulm: breathing unlabored CV: well perfused extremities: moves all extremities Results & Data Results & Data Vital Signs (Past 12 Hours) Vital Signs Temp Pulse Resp BP BP Pulse Ox O2 Del Method 06/17/25 07:53 98.2 F 70 18 112/70 93 Room Air 06/17/25 07:10 Room Air 06/16/25 22:56 98.1 F 82 16 131/80 96 Room Air Laboratory Results INR reviewed PG Care Time/CCT Total # of Minutes Spent Total Time Spent with Patient: Total time spent is greater than 50% in coordination of care (as documented) at patient's floor/unit and/or counseling patient: Coding Level of Care Code 64958 SUB INP/OBS CARE 2/35MIN Diagnoses Acute pulmonary embolism without acute cor pulmonale, unspecified pulmonary embolism type I26.99 Acute cor pulmonale presence: without acute cor pulmonale Chronicity: acute Pulmonary embolism type: unspecified Acute deep vein thrombosis (DVT) of popliteal vein of left lower extremity I82.432 Hyponatremia E87.1 Protein C deficiency D68.59 Protein S deficiency D68.59 (1) Pulmonary embolism Acute cor pulmonale presence: without acute cor pulmonale Chronicity: acute Pulmonary embolism type: unspecified Qualified Code(s): I26.99 - Other pulmonary embolism without acute cor pulmonale"
--- NOTE | 2025-06-17 13:28 | Pharmacy Report ---
Pharmacy Glycemic Short Note 2 - Date of Service June 17, 2025 - Glycemic Short BSG Results (Last 24 hours): 06/16/25 06/16/25 06/16/25 16:21 19:07 21:40 POC Glucose 168 H 200 H 153 H 06/17/25 06/17/25 07:55 11:20 POC Glucose 151 H 164 H OUTPATIENT ANTIDIABETIC REGIMEN: * Lantus 10 units HS, metformin 1 gm bid, semaglutide 0.25 mg SQ weekly ASSESSMENT: 06/17: * Patient received total of 100 units of insulin yesterday, of which 46 units were basal insulin * Fasting BSG 151 mg/dL - continue same basal * Continue same CF/CR for now 06/15: * BSGs 659-509-128-129-116mg/dL the last 24h. Received 46 units of basal and 43 units of bolus insulin yesterday. * Tolerating diet, stressors stable. * Continue Lantus 46 units HS and Novolog ACHS 15/4. 06/12: * Halina received a total of 81 units of insulin yesterday (40 units were basal and 41 units were bolus). Blood glucose was better controlled yesterday. * Fasting BSG was 257mg/dL and ge to 364mg/dL at lunch. CR pf bolus insulin was tightened and PM dose of Lantus was increased by ~25%. 06/10: * 55 year old admitted with acute PE - pharmacy consulted for glycemic management. A1c>11% and reports of noncompliance with outpatient regimen noted. Patient received total of 79 units of insulin yesterday, of which 40 units were basal insulin. Fasting BSG improving from 334 to 229 mg/dL over last 24 hours, will keep with same basal regimen for now as not quite at steady state. Plan to tighten novolog more with dinner time check. PLAN FOR INPATIENT GLYCEMIC CONTROL: * Hold outpatient diabetes medications * Basal insulin * Lantus 46 units SQ HS * Bolus insulin * NovoLog per scale ACHS or Q6hrs while NPO * Goal Range: Low 110 mg/dL - High 140 mg/dL * Correction Factor: 15 mg/dL/unit * Nutritional / Prandial insulin per carb ratio of 1 unit per 4 grams CHO consumed
[2025-06-18 06:47] LABS: INR 1.7 (0.9-1.1); Prothrombin Time 17.4 Seconds (9.0-12.0)
[2025-06-18 06:52] LABS: ANTI-Xa, UFH(UnfractionatedHep 0.27 IU/ml (0.3-0.7)
[2025-06-18] MEDS: WARFARIN SOD 5 MG TAB PO ONE (09:59)
--- NOTE | 2025-06-18 11:34 | Hospitalist Progress Note ---
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 Imaging suggestive of acute bilateral basilar PEs and venous Doppler study noted left proximal popliteal vein acute DVT. Patient reports noncompliance with her warfarin. She was admitted for management of her acute PE. #Acute bilateral PE | Acute left proximal popliteal DVT | Protein C & S deficiency - R sided calf pain, starting day of arrival with associated SOB upon standing. No syncope or palpitations. Prior history PE, with known histor y protein C/S deficiency. On warfarin chronically, last dose prior to admission was on 06/05, warfarin was restarted during this hospitalization. Received 15 mg on 06/09, 06/11, 06/12. CTA chest PE subsegmental branches both posterior basal segments lower lobes (R > L), no CT evidence of R heart strain. Patient reports missing 7-8 doses per month d/t logistical issues - staying at homeless longterm, not always remembering her meds or having water to take in the evening. Would benefit from home INR monitor INR 0.9 on arrival - INR increasing to 1.7 on 06/18 Continue heparin drip until INR therapeutic Continue warfarin - Prior home dosin mg TuSa, 10 mg all other days. Reviewed prior INR - has been therapeutic one time in 2024 - suspect underdosing but also exacerbated by noncompliance. Switched to 15mg daily while inpatient - likely could benefit from 15mg 4x/week and 10mg 3x/week for 10mg total weekly dosage increase (12.5% weekly dose increase) Received 15 mg on 06/09, 06/11, 06/12, 06/15, 06/16. 20mg - 06/17 and 06/18 AM PT/INR - given additional 5mg Coumadin this AM and will continue 15mg at 1600 daily #T2DM - H/o DMT2; at home regimen includes glargine 10U at night, metformin, Ozempic weekly. Concern for some medication noncompliance. Also with dietary indiscretion - reportedly Door[employer]ashed a large fudge pie, Pringles, and other groceries overnight 06/12. Also with container of cookies at bedside 06/15. Hold home regimen while inpatient A1c 11.6% this admission - needs tighter blood sugar control outpatient - Continue Lantus BID and SSI - pharmacy glycemic consult placed to manage BSG given significantly elevated A1c and ongoing hyperglycemia #Pseudohyponatremia - in setting of elevated glucose, received 1.5L NSS in ED. - Glucose on arrival 307, corrected sodium 140 #Urinary incontinence- Oxybutynin - continue #Nicotine dependence- Nicotine patches - continue VTE Prophylaxis: Heparin drip, warfarin Dispo: Continued inpatient stay while bridging heparin and warfarin. I do not feel as though she could be reliably bridged with Lovenox given her significantly elevated BMI, so she continues bridging with heparin. sister updated at bedside 06/15 Admission and Anticipated Discharge Date Admission Date: June 10, 2025 Supervising Physician Co-Signing Physician Notes PA Supervision Note: I did not personally see or examine the patient today, but I verified all de leon points of MEKA Del Rio's assessment and plan with the following exceptions/additions: None Subjective seen lying in bed, reports a headache today. Encouraged to hear that her INR is increasing. No other acute complaints Review of Systems Review of Systems: All systems reviewed & are unremarkable except as noted in Subjective Physical Exam Physical Exam: General: NAD, vitals as above, lying in the bed Pulm: breathing unlabored CV: well perfused extremities: moves all extremities Results & Data Results & Data Vital Signs (Past 12 Hours) Vital Signs Temp Pulse Resp BP BP Pulse Ox O2 Del Method 06/18/25 07:12 Room Air 06/18/25 06:55 98.4 F 70 16 124/83 93 Room Air 06/17/25 23:46 97.7 F 75 16 114/74 96 Room Air Laboratory Results INR reviewed PG Care Time/CCT Total # of Minutes Spent Total Time Spent with Patient: Total time spent is greater than 50% in coordination of care (as documented) at patient's floor/unit and/or counseling patient: Coding Level of Care Code 61606 SUB INP/OBS CARE 2/35MIN Diagnoses Acute pulmonary embolism without acute cor pulmonale, unspecified pulmonary embolism type I26.99 Acute cor pulmonale presence: without acute cor pulmonale Chronicity: acute Pulmonary embolism type: unspecified Acute deep vein thrombosis (DVT) of popliteal vein of left lower extremity I82.432 Hyponatremia E87.1 Protein C deficiency D68.59 Protein S deficiency D68.59 (1) Pulmonary embolism Acute cor pulmonale presence: without acute cor pulmonale Chronicity: acute Pulmonary embolism type: unspecified Qualified Code(s): I26.99 - Other pulmon zane embolism without acute cor pulmonale"
[2025-06-18 13:52] LABS: ANTI-Xa, UFH(UnfractionatedHep 0.34 IU/ml (0.3-0.7)
[2025-06-19 06:50] LABS: Hematocrit (blood only) 40.2 % (37.0-47.0); Hemoglobin 13.2 g/dL (12.0-16.0); Immature Granulocytes # (auto) 0.09 K/uL (0.01-0.20); Immature Granulocytes % (auto) 0.9 %; Mean Corpuscular Hemoglobin 28.6 pg (25.0-34.0); Mean Corpuscular Volume 87.2 fL (80.0-100.0); Platelet Count 230 K/uL (130-400); RDW Standard Deviation 46.5 fL (36.4-46.3); Red Blood Count 4.61 M/uL (4.20-5.40); White Blood Count 9.89 K/ul (4.8-10.8)
[2025-06-19 07:26] LABS: ANTI-Xa, UFH(UnfractionatedHep 0.29 IU/ml (0.3-0.7)
[2025-06-19 07:47] LABS: INR 2.1 (0.9-1.1); Prothrombin Time 21.4 Seconds (9.0-12.0)
--- NOTE | 2025-06-19 11:12 | Pharmacy Report ---
Pharmacy Glycemic Short Note 2 - Date of Service June 19, 2025 - Glycemic Short BSG Results (Last 24 hours): 06/18/25 06/18/25 06/18/25 11:43 17:03 20:42 POC Glucose 115 H 275 H 199 H 06/19/25 07:30 POC Glucose 144 H OUTPATIENT ANTIDIABETIC REGIMEN: * Lantus 10 units HS, metformin 1 gm bid, semaglutide 0.25 mg SQ weekly ASSESSMENT: 06/18: * Halina received a total of 103 units of insulin yesterday (46 units were basal and 57 units were bolus). * Fasting BSG was 144mg/dL this morning. Continue current basal insulin without change. * No change to bolus insulin regimen needed. * She continues on a heparin drip (in d5w). 06/17: * Patient received total of 100 units of insulin yesterday, of which 46 units were basal insulin * Fasting BSG 151 mg/dL - continue same basal * Continue same CF/CR for now 06/15: * BSGs [id number]/dL the last 24h. Received 46 units of basal and 43 units of bolus insulin yesterday. * Tolerating diet, stressors stable. * Continue Lantus 46 units HS and Novolog ACHS 15/. 06/12: * Halina received a total of 81 units of insulin yesterday (40 units were basal and 41 units were bolus). Blood glucose was better controlled yesterday. * Fasting BSG was 257mg/dL and ge to 364mg/dL at lunch. CR pf bolus insulin was tightened and PM dose of Lantus was increased by ~25%. 06/10: * 55 year old admitted with acute PE - pharmacy consulted for glycemic manage ment. A1c>11% and reports of noncompliance with outpatient regimen noted. Patient received total of 79 units of insulin yesterday, of which 40 units were basal insulin. Fasting BSG improving from 334 to 229 mg/dL over last 24 hours, will keep with same basal regimen for now as not quite at steady state. Plan to tighten novolog more with dinner time check. PLAN FOR INPATIENT GLYCEMIC CONTROL: * Hold outpatient diabetes medications * Basal insulin * Lantus 46 units SQ HS * Bolus insulin * NovoLog per scale ACHS or Q6hrs while NPO * Goal Range: Low 110 mg/dL - High 140 mg/dL * Correction Factor: 15 mg/dL/unit * Nutritional / Prandial insulin per carb ratio of 1 unit per 4 grams CHO consumed
--- NOTE | 2025-06-19 11:36 | Hospitalist Progress Note ---
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 #Acute bilateral PE | Acute left proximal popliteal DVT | Protein C & S d eficiency R sided calf pain, starting day of arrival with associated SOB upon standing. No syncope or palpitations. Prior history PE, with known history protein C/S deficiency. Patient reports missing 7-8 doses per month d/t logistical issues - staying at homeless nursing home, not always remembering her meds or having water to take in the evening. CTA chest PE subsegmental branches both posterior basal segments lower lobes (R > L), no CT evidence of R heart strain. Doppler US - left proximal popliteal vein acute DVT. INR 0.9 on arrival - Now therapeutic at 2.1 as of 06/19. Heparin drip discontinued 06/19 Continue warfarin - Prior home dosin mg TuSa, 10 mg all other days. Reviewed prior INR - has been therapeutic one time in 2024 - suspect underdosing but also exacerbated by noncompliance. Switched to 15mg daily while inpatient - likely could benefit from 15mg 4x/week and 10mg 3x/week for 10mg total weekly dosage increase (12.5% weekly dose increase) previously followed w/ [facility], to set up appointment on discharge. Would benefit from home INR monitor. #T2DM H/o DMT2; at home regimen includes glargine 10U at night, metformin, Ozempic weekly. Concern for some medication noncompliance. Also with dietary indiscretion - reportedly Door[employer]ashed a large fudge pie, Pringles, and other groceries overnight 06/12. Also with container of cookies at bedside 06/15. Hold home regimen while inpatient A1c 11.6% this admission - needs tighter blood sugar control outpatient Continue Lantus BID and SSI - pharmacy glycemic consult placed to manage BSG given significantly elevated A1c and ongoing hyperglycemia #Pseudohyponatremia in setting of elevated glucose, received 1.5L NSS in ED. Glucose on arrival 307, corrected sodium 140 #Urinary incontinence- Oxybutynin - continue #Nicotine dependence- Nicotine patches - continue VTE Prophylaxis: warfarin Code: full Patient medically stable for dc but unable to obtain ride on 06/19. Anticipate discharge home 06/20. Admission and Anticipated Discharge Date Admission Date: June 10, 2025 Jyoti Meade was seen & examined this morning. She reports feeling well today. Discussed that she is ready for discharge as INR is therapeutic. Physical Exam Physical Exam: General: NAD, VS: BP 105/71; P68; R18; T36.7C Resp: normal respiratory effort, Extremities: Moves all extremities, no edema Neuro: A&O x3, Skin: intact, no lesions noted Results & Data Results & Data Vital Signs (Past 12 Hours) Vital Signs Temp Pulse Resp BP Pulse Ox O2 Del Method 06/19/25 08:43 18 06/19/25 07:58 Room Air 06/19/25 07:45 36.7 C 68 23 105/71 95 Room Air PG Care Time/CCT Total # of Minutes Spent Total Time Spent with Patient: Total time spent is greater than 50% in coordination of care (as documented) at patient's floor/unit and/or counseling patient: Coding Level of Care Code 38273 SUB INP/OBS CARE 2/35MIN Diagnoses Acute pulmonary embolism without acute cor pulmonale, unspecified pulmonary embolism type I26.99 Acute cor pulmonale presence: without acute cor pulmonale Chronicity: acute Pulmonary embolism type: unspecified Acute deep vein thrombosis (DVT) of popliteal vein of left lower extremity I82.432 Hyponatremia E87.1 Protein C deficiency D68.59 Protein S deficiency D68.59 (1) Pulmonary embolism Acute cor pulmonale presence: without acute cor pulmonale Chronicity: acute Pulmonary embolism type: unspecified Qualified Code(s): I26.99 - Other pulmonary embolism without acute cor pulmonale"
[2025-06-19 22:33] VITALS: O2SAT 93
[2025-06-20 07:05] LABS: INR 2.2 (0.9-1.1); Prothrombin Time 21.9 Seconds (9.0-12.0)
[2025-06-20 07:20] VITALS: PULSE 78; RESP 18; TEMP 98.2
--- NOTE | 2025-06-20 09:26 | Discharge Summary ---
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 #Acute bilateral PE | Acute left proximal popliteal DVT | Protein C & S deficiency R sided calf pain, starting day of arrival with associated SOB upon standing. No syncope or palpitations. Prior history PE, with known history protein C/S deficiency. Patient reports missing 7-8 doses per month d/t logistical issues - [facility], not always remembering her meds or having water to take in the evening. CTA chest PE subsegmental branches both posterior basal segments lower lobes (R > L), no CT evidence of R heart strain. Doppler US - left proximal popliteal vein acute DVT. INR 0.9 on arrival;Heparin drip discontinued 06/19; Now therapeutic at 2.2 as of 06/20. Continue warfarin - Prior home dosin mg TuSa, 10 mg all other days. Reviewed prior INR - has been therapeutic one time in 2024 - suspect underdosing but also exacerbated by noncompliance. Received 15mg daily while inpatient Regimen on discharge: 15mg 4x/week and 10mg 3x/week for 10mg total weekly dosage increase (12.5% weekly dose increase) previously followed w/ [facility] clinic, to set up appointment on discharge. Would benefit from home INR monitor. #T2DM H/o DMT2; at home regimen includes glargine 10U at night, metformin, Ozempic weekly. - resume metformin & Ozempic, increase glargine to 20u HS. Concern for some medication noncompliance. Also with dietary indiscretion - reportedly Door Dashed a large fudge pie, Georgette, and other groceries overnight 06/12. Also with container of cookies at bedside 06/15. A1c 11.6% this admission - needs tighter blood sugar control outpatient #Pseudohyponatremia - resolved in setting of elevated glucose, received 1.5L NSS in ED. Glucose on arrival 307, corrected sodium 140 #Urinary incontinence- Oxybutynin - continue #Nicotine dependence- Nicotine patches - continue Patient discharged home 06/20. 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 Reports that the day of arrival she was she was standing washing dishes when she had a right sided flank pain start, and was feeling that her knee was going to buckle and felt weak. She states that shortly after that she started to feel short of breath. She did not have any palpitations or lightheadedness. She states that the shortness of breath is even with resting. Also reports that she has had headaches that occur for 2 to 3 days at a time, overall normally resolved by Excedrin. Headache was located around her eyes and behind her eyes mainly on the right side. Patient states she has a history of migraines, "kind of have migraines." She does not take medications for such. Also with chronic back pain. Denies chest pain, palpitations, abdominal pain, N/V/D/C, numbness/tingling, fever/chills, URI symptoms, LUTS, syncope, or falls. Her last dose of warfarin was on 06/05/2025 after she was with her son and forgot her medications. She has a history of noncompliance with medications. ED evaluation for CBC with leukocytosis 12.23; CMP sodium 135, BUN 26, ratio 28.3, glucose 307; troponin 9.2; BNP 18; COVID/flu/RSV negative; CXR no acute findings; chest CTA abnormal partial filling defect subsegmental branches of both posterior basal segments of the lower lobes right > left, no evidence of R heart strain.; 0.5 mL NSS, metoclopramide 10 mg IV, heparin drip, diphenhydramine 25 lotus IV, and albuterol nebulizer ED. Please see Dr. Powell attestation for adjustments/additions to treatment plan. Discharge Exam General: NAD, VS: BP 131/78; P78; R18; T36.8C Resp: normal respiratory effort Extremities: Moves all extremities, no edema Neuro: A&O x3 Skin: intact, no lesions noted Discharge Plan Discharge Items Patient Disposition: Home - Self-Care Reason For Visit: PE Discharge Diagnosis: Bilateral pulmonary emboli, Left DVT. Condition on Discharge: Good Activity: Resume your previous activity Non-emergency contact: Primary Care Provider Call non-emergency contact if: you have any medication questions and your symptoms worsen Follow-up/Referrals: Mary Santamaria MD, PhD [Pathologist] - Miguel A Salvador, [Primary Care Provider] - (SPOKE TO PATIENT; SHE WANTS TO MAKE HER OWN HOSPITAL FOLLOW UP VISIT IN 7-[address] STOVER.) Diet: Carb Consistent or DM2 Addtl Attending Provider Instructions: Ms. Mason, You were recently hospitalized for shortness of breath and right leg pain. You were found to have a blood clot in both of your lungs and a blood clot in your right leg. You were treated with heparin and your INR is now therapeutic. Please see medication changes listed below. Medications: Your medication list has been reviewed and reconciled upon discharge to ensure accuracy and continuity of care. An updated list of all your medications is included with your hospital discharge paperwork. Please review this list closely, and make note of any changes. Your new Warfarin dosing is: 15mg Sunday, Sunday, Sunday, Sunday and 10mg on Sunday, , Saturdays. Please increase your insulin glargine to 20 units HS and continue your metformin and Ozempic. Take your medications as instructed; do not skip a dose of your medicines. Make sure all of your doctors know every medicine you are taking (including uzxj-hqj-usgyidl medicines, vitamins, and supplements). Call your primary care provider before taking any new medicines (including over- the-counter medicines, vitamins, and supplements), because some of these may interact with your current medications, or may make your symptoms worse. Tell your primary care provider if you cannot afford your medications. Activity: You can do normal everyday activities as your body allows. Take rest breaks if you feel tired. Do not overexert. Stop activity if you have pain, shortness of breath or feel dizzy. Follow-up appointments: Make an appointment with your primary care physician within one week of discharge. A copy of this summary will be sent to them. Every time you see your primary care physician, or any other doctor, bring your medication list, and a list of questions. Please be sure to get re-established with the anticoagulation clinic. Their office phone number is above. CONTACT YOUR PRIMARY CARE PROVIDER if you experience any of the following: Shortness of breath or difficulty breathing Fevers or chills Feeling tired with normal activity or experiencing dizziness or fainting Difficulty following your treatment plan, or difficulty taking medications CALL 911 OR GO TO THE EMERGENCY DEPARTMENT if you experience any of the following: Severe abdominal pain or nausea/vomiting Severe chest pain, or chest pain that radiates (moves) to your jaw or arm Sudden, severe shortness of breath or difficulty breathing Thank you for allowing us to participate in your care. Pending Studies at Discharge: No Stand-Alone Forms: [facility], Work/School Release, Smoking Cessation Medications and DC Order Prescriptions: Continued nystatin 100,000 unit/gram powder 1 applic topical QID PRN (Reason: Rash) Qty: 15 1RF oxybutynin chloride 5 mg tablet extended release 24hr 5 mg PO DAILY Qty: 30 2RF nicotine 14 mg/24 hr patch 24 hour 1 patch transdermal QAM Qty: 28 1RF methocarbamol 500 mg tablet 500 mg PO TID Qty: 90 1RF metformin 500 mg tablet 1,000 mg PO BID Qty: 120 0RF albuterol sulfate 90 mcg/actuation HFA aerosol inhaler 2 inh inhalation Q4H PRN (Reason: shortness of breath or wheezing) Qty: 8.5 0RF Ozempic 0.25 mg or 0.5 mg (2 mg/3 mL) pen injector 0.25 mg subcut WK Rx Instructions: THURSDAYS ondansetron 4 mg tablet,disintegrating 4 mg PO Q8H PRN (Reason: nausea and vomiting) Qty: 30 0RF warfarin 5 mg tablet 10 mg PO DAILY Qty: 180 1RF Protocol: Dose Management Condition: Sunday Dose/Route: 10 mg Instruction: 2 x 5 mg tablets Condition: Sunday Dose/Route: 10 mg Instruction: 2 x 5 mg tablets Condition: Sunday Dose/Route: 10 mg Instruction: 2 x 5 mg tablets Condition: Sunday Dose/Route: 10 mg Instruction: 2 x 5 mg tablets Condition: Dose/Route: 10 mg Instruction: 2 x 5 mg tablets Condition: Sunday Dose/Route: 10 mg Instruction: 2 x 5 mg tablets Condition: Sunday Dose/Route: 10 mg Instruction: 2 x 5 mg tablets Protocol Text: Adjustment Start Date: Sunday03/31/25 INR Value: 1.0 INR Date: 03/06/25 Recheck Date: 04/01/25 Rx Instructions: PER PT "TAKE 15 MG ON & SUN, THEN 10 MG ALL OTHER DAYS". Changed insulin glargine 100 unit/mL (3 mL) insulin pen 20 unit subcut HS Qty: 15 0RF No Action (DME) FreeStyle Jeannie 3 Sensor Device See Rx Instructions .Route Qty: 2 2RF Rx Instructions: As directed (DME) FreeStyle Jeannie 3 [place] Misc See Rx Instructions .Route Qty: 1 0RF Rx Instructions: As directed (DME) hospital bed See Rx Instructions .Route .MEDSUPPLY Qty: 1 0RF Rx Instructions: As directed (DME) pen needle, diabetic [Pen Needle] 32 gauge x 5/32" needle See Rx Instructions .Route Qty: 50 0RF Rx Instructions: As directed for insulin injection once daily (DME) blood-glucose meter [True Metrix Glucose Meter] Misc See Rx Instructions .Route Qty: 1 0RF Rx Instructions: As directed (DME) True Metrix Glucose Test Strip Strip See Rx Instructions .Route Qty: 50 1RF Rx Instructions: As directed (DME) lancets [TRUEplus Lancets] 33 gauge misc See Rx Instructions .Route Qty: 100 1RF Rx Instructions: As directed Discharge Orders: Discharge Order (Routine); Ordered 06/20/25 Ordered By: Raven Coto/Other Patient Handouts: Warfarin Oral Tablet Admission Data Admit Date/Time: 06/10/25 12:34 Attending Provider: Anneliese Mckeon Admit Provider: Mee Powell Primary Care Provider: Miguel A Salvador Other Providers: Mee Powell Other Interventions: Discharge Summary Assessment (RN) Last Done: 06/20/25 09:39 Hospital Stay Data Consultations 06/08/25 23:02 ED Decision to Admit Stat Diagnostic Imagining Performed 06/08/25 21:41 CT angio chest PE protocol Stat US venous doppler LE BI Stat Pending Results Patient Have Any Pending Studies at Discharge: No Discharge Instructions Given to Patient (Per Discharging Provider) Ms. Mason, Luiz were recently hospitalized for shortness of breath and right leg pain. You were found to have a blood clot in both of your lungs and a blood clot in your right leg. You were treated with heparin and your INR is now therapeutic. Please see medication changes listed below. Medications: Your medication list has been reviewed and reconciled upon discharge to ensure accuracy and continuity of care. An updated list of all your medications is included with your hospital discharge paperwork. Please review this list closely, and make note of any changes. Your new Warfarin dosing is: 15mg Sunday, Sunday, Sunday, Sunday and 10mg on Sunday, , Saturdays. Please increase your insulin glargine to 20 units HS and continue your metformin and Ozempic. Take your medications as instructed; do not skip a dose of your medicines. Make sure all of your doctors know every medicine you are taking (including zrgn-mxq-bjorhhh medicines, vitamins, and supplements). Call your primary care provider before taking any new medicines (including over- the-counter medicines, vitamins, and supplements), because some of these may interact with your current medications, or may make your symptoms worse. Tell your primary care provider if you cannot afford your medications. Activity: You can do normal everyday activities as your body allows. Take rest breaks if you feel tired. Do not overexert. Stop activity if you have pain, shortness of breath or feel dizzy. Follow-up appointments: Make an appointment with your primary care physician within one week of discharge. A copy of this summary will be sent to them. Every time you see your primary care physician, or any other doctor, bring your medication list, and a list of questions. Please be sure to get re-established with the anticoagulation clinic. Their office phone number is above. CONTACT YOUR PRIMARY CARE PROVIDER if you experience any of the following: Shortness of breath or difficulty breathing Fevers or chills Feeling tired with normal activity or experiencing dizziness or fainting Difficulty following your treatment plan, or difficulty taking medications CALL 911 OR GO TO THE EMERGENCY DEPARTMENT if you experience any of the following: Severe abdominal pain or nausea/vomiting Severe chest pain, or chest pain that radiates (moves) to your jaw or arm Sudden, severe shortness of breath or difficulty breathing Thank you for allowing us to participate in your care. Total Time Total Time Spent Total Time Spent (In Minutes): 45 Total Time Includes: Examination of the Patient, Discharge Planning and Medication Reconciliation Coding Level of Care Code 84925 INP/OBS DISCH >30 MIN Diagnoses Acute pulmonary embolism without acute cor pulmonale, unspecified pulmonary embolism type I26.99 Acute cor pulmonale presence: without acute cor pulmonale Chronicity: acute Pulmonary embolism type: unspecified Acute deep vein thrombosis (DVT) of popliteal vein of left lower extremity I82.432 Hyponatremia E87.1 Protein C deficiency D68.59 Protein S deficiency D68.59
[2025-06-20 09:35] VITALS: BP 114/74
== END 2025-06-20 10:19 | disposition home or self-care (01) | DRG 299 ==
LOC: ED 21:02 → 2W 21:02 → SUATTDRO 23:45 → 2W 06-09 01:15 → SUATTDRO 06-10 12:34 → 3N 06-16 15:16